=== PATIENT | male | born 1960 | race Caucasian/White ===

== ENCOUNTER 2019-08-09 02:14 | Inpatient (IN) | payer OTHER ==
--- NOTE | 2019-08-09 02:18 | PDOC ---
History of Present Illness - General Chief Complaint: Pain, Acute Stated Complaint: ABD PAIN Time Seen by Provider: 08/09/19 02:18 History Source: Patient Exam Limitations: No Limitations - History of Present Illness Initial Comments: 59 year old male with PMH HTN presented to ED for acute LLQ pain since 1999 yesterday. Pt reported his pain started in his LLQ and moved to his suprapubic area, constant, sharp, no alleviating or aggravating factors. Pt denied nausea, vomiting, diarrhea, testicular pain, blood in stool. Pt admitted to shortness of breath. Allergies: NKDA ROS General: denied fever, chills, generalized weakness. HEENT: denied sore throat, rhinorrhea, ear pain. Cardiovascular: denied chest pain, palpitations, syncope, diaphoresis. Respiratory: admitted to shortness of breath. denied cough, sputum production, hemoptysis. Gastrointestinal: admitted to abdominal pain. denied nausea, vomiting, diarrhea , constipation, blood in stool. Genitourinary: denied dysuria, increased urinary frequency, hematuria, urinary incontinence, flank pain. Back: denied back pain. Musculoskeletal: denied joint pain, muscle pain, joint swelling. Neurological: denied headache, dizziness, numbness, tingling, weakness. Integumentary: denied rash, laceration, abrasion. Hematologic/Lymphatic: denied bruising or bleeding. PE Constitutional: Well-nourished, Well-developed, appearing stated age. HEENT: head is normocephalic, atraumatic. EOMI. PERRLA. no posterior pharyngeal erythema.no tonsillar swelling or exudates bilaterally. uvula midline. no peritonsillar swelling, tenderness or abscess. no jaw tenderness or misalignment. Neck: supple. Full ROM. Cardiovascular: regular heart rhythm. no murmurs. no pericardial friction rub. Respiratory: clear to auscultation bilaterally. no crackles, rhonchi or wheezing. no stridor. Gastrointestinal: soft, nontender. normal bowel sounds. no rebound, guarding, masses. Extremities: peripheral pulses intact. no lower extremity edema. Neurological: CN 2-12 grossly intact. moves all four extremities. Psych: awake, alert, oriented x3. follows commands. answers questions appropriately. Past History - Past Medical History Allergies/Adverse Reactions: Allergies Allergy/AdvReac Type Severity Reaction Status Date / Time No Known Allergies Allergy Verified 08/09/19 02:16 Home Medications: Ambulatory Orders Amlodipine Besylate/Benazepril [Lotrel 5-10 mg Capsule] 1 each PO DAILY GI Disorders: Yes (reflux) HTN: Yes - Immunization History Immunization Up to Date: Yes - Suicide/Smoking/Psychosocial Hx Smoking Status: No Smoking History: Never smoked Number of Cigarettes Smoked Daily: 0 Hx Alcohol Use: Yes (occasion) Drug/Substance Use Hx: No Substance Use Type: None ED Treatment Course - LABORATORY CBC & Chemistry Diagram: 08/09/19 02:20 08/09/19 02:20 Medical Decision Making - Medical Decision Making 59 year old male with above PMH presentd to ED for acute LLQ/suprapubic pain. Positive rebound on examination. Initial Vital Signs Temp Pulse Resp BP Pulse Ox 101 F H 140 H 26 H 140/101 H 94 L 08/09/19 02:16 08/09/19 02:16 08/09/19 02:16 08/09/19 02:16 08/09/19 02:16 Febrile. Tachycardic. Tachypneic. Hypertensive. Mild hypoxia on room air. -NC 2L O2 ordered -NPO Labs ordered: CBC, CMP, mag, troponin, BNP, blood cultures, UA/UC Imaging ordered: CXR, CT abdomen/pelvis with IV contrast Medications ordered: tylenol IV, morphine 2 mg IV once, zofran 4 mg IV once, normal saline bolus 1000 cc once, zosyn EKG performed at 0218: rate 144, regular rhythm, left axis, no acute ST changes. 08/09/19 03:14 CBC WBC 23.3 K/mm3 (4.0-10.0) H 08/09/19 02:20 RBC 4.75 M/mm3 (4.00-5.60) 08/09/19 02:20 Hgb 14.0 GM/dL (11.7-16.9) 08/09/19 02:20 Hct 42.4 % (35.4-49) 08/09/19 02:20 MCV 89.3 fl (80-96) 08/09/19 02:20 MCH 29.5 pg (25.7-33.7) 08/09/19 02:20 MCHC 33.1 g/dl (32.0-35.9) 08/09/19 02:20 RDW 14.4 % (11.9-15.9) 08/09/19 02:20 Plt Count 383 K/MM3 (134-434) D 08/09/19 02:20 MPV 7.9 fl (7.5-11.1) 08/09/19 02:20 Absolute Neuts (auto) 21.4 K/mm3 (1.5-8.0) H 08/09/19 02:20 Neutrophils % 91.8 % (42.8-82.8) H D 08/09/19 02:20 Lymphocytes % 4.2 % (8-40) L D 08/09/19 02:20 Monocytes % 3.9 % (3.8-10.2) 08/09/19 02:20 Eosinophils % 0.0 % (0-4.5) D 08/09/19 02:20 Basophils % 0.1 % (0-2.0) 08/09/19 02:20 Nucleated RBC % 0 % (0-0) 08/09/19 02:20 Leukocytosis with left shift. No anemia. No thrombocytosis. 08/09/19 03:35 CMP Sodium 138 mmol/L (136-145) 08/09/19 02:20 Potassium 4.3 mmol/L (3.5-5.1) 08/09/19 02:20 Chloride 101 mmol/L (98-107) 08/09/19 02:20 Carbon Dioxide 23 mmol/L (21-32) 08/09/19 02:20 Anion Gap 14 MMOL/L (8-16) 08/09/19 02:20 BUN 15.8 mg/dL (7-18) 08/09/19 02:20 Creatinine 1.4 mg/dL (0.55-1.3) H 08/09/19 02:20 Est GFR (CKD-EPI)AfAm 63.29 08/09/19 02:20 Est GFR (CKD-EPI)NonAf 54.60 08/09/19 02:20 Random Glucose 140 mg/dL (74-106) H 08/09/19 02:20 Lactic Acid 3.3 mmol/L (0.4-2.0) H* 08/09/19 02:20 Calcium 8.6 mg/dL (8.5-10.1) 08/09/19 02:20 Magnesium 1.8 mg/dL (1.8-2.4) 08/09/19 02:20 Total Bilirubin 0.6 mg/dL (0.2-1) 08/09/19 02:20 AST 34 U/L (15-37) 08/09/19 02:20 ALT 49 U/L (13-61) 08/09/19 02:20 Alkaline Phosphatase 55 U/L (45-117) 08/09/19 02:20 Troponin I < 0.02 ng/ml (0.00-0.05) 08/09/19 02:20 B-Natriuretic Peptide 202.9 pg/ml (5-125) H 08/09/19 02:20 Total Protein 7.3 g/dl (6.4-8.2) 08/09/19 02:20 Albumin 3.6 g/dl (3.4-5.0) 08/09/19 02:20 Lipase 60 U/L (73-393) L 08/09/19 02:20 TSH 0.90 uIU/ml (0.358-3.74) D 08/09/19 02:20 No electrolyte abnormalities. Mild JASEN. No transaminitis. Mild BNP elevation. Troponin undetectable Lab reported Lactate 3.4 -Will continue to IV fluid hydrate 08/09/19 04:14 CT reported diverticulosis with diverticulitis with normal appendix. Pt to be admitted for diverticulitis, sepsis. Pending admission. *DC/Admit/Observation/Transfer Diagnosis at time of Disposition: Lactate blood increased, Sepsis, Leukocytosis, Respiratory alkalosis, Diverticulitis - Discharge Dispostion Condition at time of disposition: Stable Decision to Admit order: Yes - Referrals Referrals: Alejo Bertrand MD [Primary Care Provider] - - Patient Instructions - Post Discharge Activity
[2019-08-09] MEDS ORDERED: ACETAMINOPHEN 1000 MG/100 ML VIAL (NON FORMULARY) IVPB ONE (02:20)
[2019-08-09] MEDS ORDERED: SODIUM CHLORIDE 1,000 ML IV STA ×2 (02:20→04:48)
[2019-08-09] MEDS ORDERED: ACETAMINOPHEN INJECTION 100 ML IVPB ONE ×3 (02:24→14:22)
[2019-08-09] MEDS ORDERED: PIPERACILLIN/TAZOB 3.375 GM 3.375 GM/50 ML BAG IVPB ONE (02:33)
[2019-08-09] MEDS ORDERED: MORPHINE SULFATE 2 MG/ML VIAL ONE ×2 (02:33→03:53)
[2019-08-09] MEDS ORDERED: PIPERACILLIN/TAZOB 4.5 GM 4.5 GM/100 ML BAG IVPB ONE (02:37)
[2019-08-09] MEDS ORDERED: morphine CARPU-JECT 4 MG/1 ML DISP.SYRIN IVPUSH ONE ×2 (02:39→03:53)
[2019-08-09] MEDS ORDERED: ONDANSETRON 4 MG/2 ML VIAL IVPUSH ONE (02:40)
[2019-08-09 02:41] LABS: VENOUS PC02 30.6 mmHg (38-52); VENOUS PH 7.46 (7.31-7.41)
[2019-08-09 02:42] LABS: BASO % 0.1 % (0-2.0); HEMATOCRIT 42.4 % (35.4-49); LYMPH % 4.2 % (8-40); MCH 29.5 pg (25.7-33.7); MCHC 33.1 g/dl (32.0-35.9); MEAN CELL VOLUME 89.3 fl (80-96); MEAN PLT VOLUME 7.9 fl (7.5-11.1); MONO % 3.9 % (3.8-10.2); NEUT % 91.8 % (42.8-82.8); PLATELET COUNT 383 K/MM3 (134-434); RBC 4.75 M/mm3 (4.00-5.60); RDW 14.4 % (11.9-15.9); WHITE BLOOD COUNT 23.3 K/mm3 (4.0-10.0)
[2019-08-09] MEDS ORDERED: ONDANSETRON 4 MG/2 ML VIAL ONE (02:42)
[2019-08-09 02:43] LABS: VENOUS PO2 67.7 mmHg (28-48)
--- NOTE | 2019-08-09 02:49 | PDOC ---
Attending Attestation - Resident Resident Name: Gay Schroeder - ED Attending Attestation I have performed the following: I have examined & evaluated the patient, The case was reviewed & discussed with the resident, I agree w/resident's findings & plan - HPI HPI: 08/09/19 02:46 Pt comes with lower abd pain. States that it woke him from sleep. He has no penile, testicular pain or dysuria or discharge. He has a fever. Pt likely has an appy or colitis. - Physicial Exam PE: 08/09/19 02:47 Lower abd rebound and slught guarding. Tachycardia, and fever and no upper quadrant tenderness. No chest pain. Heart is Regular rhythm, No flank pain. Pitting edema of the legs bilat. Pt has a low pulsox of 91% - Medical Decision Making 08/09/19 02:49 Preop labs; UA; CVR; CT abd/pelvis ordered. 08/09/19 03:10 Pt has a WBC of 23; he has Cr of 1.4 He will be sent for abd pelvs non contrast CT scan 08/09/19 03:18 I am worried about perforated colon or perforated appy. 08/09/19 03:18 Pt's BP has come down to 137 systoloc; but HR is still 120-130 despite 500ml NSS and ofirmev and zosyn 4.5g Pt will also be given Metronidazole 500mg IV Pt went to CT scan CXR shows moderate cardiomegaly on portable. Costophrenic angles appear clear. 08/09/19 03:37 Pt will be admitted for acute appendicitis. Hospitalist will be called. 08/09/19 04:16 Patient Name: JOSE MADRID THIS IS A PRELIMINARY REPORT FROM [facility] DATE OF SERVICE: 2019-08-09 03:09:15 IMAGES: [id number] EXAM: CT ABDOMEN AND PELVIS WITHOUT CONTRAST Diverticulosis colon with fat stranding near mid sigmoid colon, possibly acute divertiuclitis. No abscess, bowel obstruction or free air. Normal appendix. Trace ascites No nephrolithiasis, ureterolithiasis or obstructive uropathy. No bladder calculi. Unremarkable pancreas and gallbladder. Coronary artery disease Small left inguinal region hernia containing fat 08/09/19 04:16 Pt will be admitted for diverticulitis 08/09/19 04:49 UA is normal. Pt will have a 2nd lactic acid ordered. 08/09/19 05:55 2nd lactic acid is pending. Pt is sleeping comforably and he has been admitted.
[2019-08-09 03:06] LABS: ALBUMIN 3.6 g/dl (3.4-5.0); BILIRUBIN,TOTAL 0.6 mg/dL (0.2-1); BLOOD UREA NITROGEN 15.8 mg/dL (7-18); CALCIUM 8.6 mg/dL (8.5-10.1); CREATININE 1.4 mg/dL (0.55-1.3); POTASSIUM 4.3 mmol/L (3.5-5.1); TOT PROT 7.3 g/dl (6.4-8.2)
[2019-08-09 03:10] LABS: INR 1.16 (0.83-1.09); PROTHROMBIN TIME (PATIENT) 13.7 SEC (9.7-13.0)
[2019-08-09] MEDS ORDERED: amLODIPine BESYLATE 5 MG TABLET (FP) PO ONE (03:12)
[2019-08-09 03:13] LABS: ACTIVATED PTT 33.4 SECONDS (25.2-36.5)
[2019-08-09 03:14] LABS: LIPASE 60 U/L (73-393); MAGNESIUM 1.8 mg/dL (1.8-2.4); N-TERMINAL BNP 202.9 pg/ml (5-125)
[2019-08-09] MEDS ORDERED: amLODIPine BESYLATE 5 MG TABLET (FP) ONE (03:23)
[2019-08-09] MEDS ORDERED: LACTATED RINGERS SOLUTION 1000 ML INFUS.BAG IV ONE (03:34)
[2019-08-09 04:42] LABS: PH,URINE 5.5 (5.0-8.0); URINE APPEARANCE CLEAR; URINE BILIRUBIN NEGATIVE (NEGATIVE); URINE COLOR YELLOW; URINE GLUCOSE (UA) NEGATIVE (NEGATIVE); URINE KETONE NEGATIVE (NEGATIVE); URINE LEUK ESTERASE NEGATIVE (NEGATIVE); URINE NITRITE NEGATIVE (NEGATIVE); URINE PROTEIN NEGATIVE (NEGATIVE)
--- NOTE | 2019-08-09 04:42 | PN ---
Teaching Attending Note Name of Resident: Pepe Gomez ATTENDING PHYSICIAN STATEMENT I saw and evaluated the patient. Chart, data, imaging reviewed. I reviewed the resident's note and discussed the case with the resident. I agree with the resident's findings and plan as documented. SUBJECTIVE: 59 year old male with HTN presented to ED for acute LLQ pain since 8pm on 08/08. Pt reported his pain started in his LLQ and moved to his suprapubic area, constant, sharp. He was sitting at his desk when his pain started. OBJECTIVE: Last Vital Signs Temp Pulse Resp BP Pulse Ox 100.4 F H 110 H 24 H 109/73 98 08/09/19 04:20 08/09/19 06:12 08/09/19 05:47 08/09/19 05:47 08/09/19 05:47 general- nad, nontoxic heent- nc, at neck -supple cv-s1+s2+rrr, no m,r,g chest clear abdomen -obese, mild subumbilical tenderness ext- no pedal edema appreciated Abnormal Lab Results 08/09/19 08/09/19 08/09/19 02:20 02:20 02:20 WBC 23.3 H Absolute Neuts (auto) 21.4 H Neutrophils % 91.8 H D Lymphocytes % 4.2 L D Lymphocytes % (Manual) 4.0 L PT with INR 13.70 H INR 1.16 H VBG pH POC VBG pCO2 POC VBG pO2 VBG HCO3 VBG O2 Sat (Claudio) Creatinine 1.4 H Random Glucose 140 H Lactic Acid B-Natriuretic Peptide Lipase 08/09/19 08/09/19 08/09/19 02:20 02:20 02:20 WBC Absolute Neuts (auto) Neutrophils % Lymphocytes % Lymphocytes % (Manual) PT with INR INR VBG pH 7.46 H POC VBG pCO2 30.6 L POC VBG pO2 67.7 H VBG HCO3 21.6 L VBG O2 Sat (Claudio) 92.0 H Creatinine Random Glucose Lactic Acid 3.3 H* B-Natriuretic Peptide 202.9 H Lipase 60 L 08/09/19 05:10 WBC Absolute Neuts (auto) Neutrophils % Lymphocytes % Lymphocytes % (Manual) PT with INR INR VBG pH POC VBG pCO2 POC VBG pO2 VBG HCO3 VBG O2 Sat (Claudio) Creatinine Random Glucose Lactic Acid 2.4 H* B-Natriuretic Peptide Lipase imaging reviewed abd ct - + diverticulitis, no free air under diaphragm ASSESSMENT AND PLAN: #sepsis secondary to diverticulitis, fever, tachycardia, leukocytosis, +lactic acidosis. Stable for admission to floor. S/p 2L IV fluid in ER, pip/tazo. -admit to med/surg -blood cultures sent -iv fluid hydration -ceftriaxone 2g iv q24hrs -flagyl -repeat lactate -trend cbc #JASEN - may be secondary to sepsis -iv fluid hydration -renal u/s -avoid nephrotoxins -send a1c dvt ppx -heparin sc
--- NOTE | 2019-08-09 05:00 | HP ---
CHIEF COMPLAINT: acute abdominal pain PCP: Dr. Jerzy León HISTORY OF PRESENT ILLNESS: Pepe Pena is a 59 year old male with a past medical history of hypertension and reflux who presented to the ED with acute abdominal pain. The patient stated he was in his usual state of health until 8PM on 07/08/19 when he began to feel a sharp pain in his LLQ that would not remit while sitting at his computer. He stated that the pain was sharp in nature, was not position dependent, had no alleviating or remitting factors. He first attributed this pain to gas however the pain was more severe than gas pain and did not go away. The pain currently is located in the suprapubic area with some radiation to the LLQ. The patient stated that he felt some chills but otherwise did not have other symptoms such as diarrhea, constipation, bloody bowel movements, melena, fever, nausea, vomiting, radiation of abdominal pain elsewhere, back pain, chest pain, shortness of breath. No other acute complaints. In the ED, the patient's pain improved with pain medication. ER course was notable for: (1) Vitals febrile, tachycardic, tachypneic (2) WBC 23.3 with left shift, lactic acidosis 3.3, CRE 1.4 (3) CT with diverticulosis of colon with fat stranding near sigmoid colon suggestive of acute diverticulitis, no abscess, bowel obstruction, normal appendix PAST MEDICAL HISTORY: as above PAST SURGICAL HISTORY: R hip replacement Social History: Smoking: denies Alcohol: rarely Drugs: denies Family History: Brother - [place] Allergies No Known Allergies Allergy (Verified 08/09/19 02:16) HOME MEDICATIONS: Home Medications Medication Instructions Recorded Amlodipine Besylate/Benazepril 1 each PO DAILY 08/03/15 [Lotrel 5-10 mg Capsule] REVIEW OF SYSTEMS CONSTITUTIONAL: chills Absent: fever, diaphoresis, generalized weakness, malaise, loss of appetite, weight change HEENT: Absent: rhinorrhea, nasal congestion, throat pain, throat swelling, difficulty swallowing, visual changes CARDIOVASCULAR: Absent: chest pain, syncope, palpitations, irregular heart rate, lightheadedness , peripheral edema RESPIRATORY: Absent: cough, shortness of breath, dyspnea with exertion, orthopnea, wheezing, GASTROINTESTINAL: abdominal pain (RLQ and suprapubic pain) Absent: abdominal distension, nausea, vomiting, diarrhea, constipation, GENITOURINARY: Absent: dysuria, frequency, urgency, hesitancy, hematuria, flank pain MUSCULOSKELETAL: Absent: myalgia, arthralgia, joint swelling, back pain, neck pain SKIN: Absent: rash, itching, pallor HEMATOLOGIC/IMMUNOLOGIC: Absent: easy bleeding, easy bruising, lymphadenopathy, frequent infections ENDOCRINE: Absent: unexplained weight gain, unexplained weight loss, heat intolerance, cold intolerance NEUROLOGIC: Absent: headache, focal weakness or paresthesias, dizziness, unsteady gait, seizure, mental status changes, bladder or bowel incontinence PSYCHIATRIC: Absent: anxiety, depression, suicidal or homicidal ideation, hallucinations. PHYSICAL EXAMINATION Vital Signs - 24 hr 08/09/19 08/09/19 08/09/19 02:16 02:48 03:33 Temperature 101 F H Pulse Rate 140 H 130 H Pulse Rate [ 130 H Apical] Respiratory 26 H 24 H Rate Blood Pressure 140/101 H Blood Pressure 130/85 [Right Arm] O2 Sat by Pulse 94 L 94 L 95 Oximetry (%) 08/09/19 04:20 Temperature 100.4 F H Pulse Rate Pulse Rate [ 123 H Apical] Respiratory 28 H Rate Blood Pressure Blood Pressure 120/79 [Right Arm] O2 Sat by Pulse 97 Oximetry (%) GENERAL: Awake, alert, and fully oriented, in no acute distress. HEAD: Normal with no signs of trauma. EYES: Pupils equal, round and reactive to light, extraocular movements intact, sclera anicteric, conjunctiva clear. EARS, NOSE, THROAT: Oropharynx clear without exudates. Moist mucous membranes. NECK: Normal range of motion, supple without lymphadenopathy, JVD. LUNGS: Breath sounds equal, clear to auscultation bilaterally. No wheezes, and no crackles. No accessory muscle use. HEART: Regular rate and rhythm, normal S1 and S2 without murmur, rub or gallop. ABDOMEN: Soft, mildly tender in the suprapubic area, mildly distended, hypoactive bowel sounds, no guarding, no rebound, no masses. MUSCULOSKELETAL: Normal range of motion at all joints. No bony deformities or tenderness. UPPER EXTREMITIES: 2+ pulses, warm, well-perfused. No cyanosis. No clubbing. No peripheral edema. LOWER EXTREMITIES: 2+ pulses, warm, well-perfused. No calf tenderness. No peripheral edema. NEUROLOGICAL: Cranial nerves II-XII intact. 5/5 muscle strength bilaterally upper and lower extremities. PSYCHIATRIC: Cooperative. Good eye contact. Appropriate mood and affect. SKIN: Warm, dry, normal turgor, no rashes or lesions noted, normal capillary refill. Laboratory Results - last 24 hr 08/09/19 08/09/19 08/09/19 02:20 02:20 02:20 WBC 23.3 H RBC 4.75 Hgb 14.0 Hct 42.4 MCV 89.3 MCH 29.5 MCHC 33.1 RDW 14.4 Plt Count 383 D MPV 7.9 Absolute Neuts (auto) 21.4 H Neutrophils % 91.8 H D Lymphocytes % 4.2 L D Monocytes % 3.9 Eosinophils % 0.0 D Basophils % 0.1 Nucleated RBC % 0 PT with INR 13.70 H INR 1.16 H PTT (Actin FS) 33.4 VBG pH POC VBG pCO2 POC VBG pO2 VBG HCO3 VBG O2 Sat (Claudio) VBG Base Excess Sodium 138 Potassium 4.3 Chloride 101 Carbon Dioxide 23 Anion Gap 14 BUN 15.8 Creatinine 1.4 H Est GFR (CKD-EPI)AfAm 63.29 Est GFR (CKD-EPI)NonAf 54.60 Random Glucose 140 H Lactic Acid Calcium 8.6 Magnesium Total Bilirubin 0.6 AST 34 ALT 49 Alkaline Phosphatase 55 Troponin I B-Natriuretic Peptide Total Protein 7.3 Albumin 3.6 Lipase TSH Urine Color Urine Appearance Urine pH Ur Specific [place] Urine Protein Urine Glucose (UA) Urine Ketones Urine Blood Urine Nitrite Urine Bilirubin Urine Urobilinogen Ur Leukocyte Esterase Blood Type Antibody Screen 08/09/19 08/09/19 08/09/19 02:20 02:20 02:20 WBC RBC Hgb Hct MCV MCH MCHC RDW Plt Count MPV Absolute Neuts (auto) Neutrophils % Lymphocytes % Monocytes % Eosinophils % Basophils % Nucleated RBC % PT with INR INR PTT (Actin FS) VBG pH 7.46 H POC VBG pCO2 30.6 L POC VBG pO2 67.7 H VBG HCO3 21.6 L VBG O2 Sat (Claudio) 92.0 H VBG Base Excess -0.8 Sodium Potassium Chloride Carbon Dioxide Anion Gap BUN Creatinine Est GFR (CKD-EPI)AfAm Est GFR (CKD-EPI)NonAf Random Glucose Lactic Acid 3.3 H* Calcium Magnesium 1.8 Total Bilirubin AST ALT Alkaline Phosphatase Troponin I < 0.02 B-Natriuretic Peptide 202.9 H Total Protein Albumin Lipase 60 L TSH 0.90 D Urine Color Urine Appearance Urine pH Ur Specific [place] Urine Protein Urine Glucose (UA) Urine Ketones Urine Blood Urine Nitrite Urine Bilirubin Urine Urobilinogen Ur Leukocyte Esterase Blood Type Antibody Screen 08/09/19 08/09/19 02:45 04:00 WBC RBC Hgb Hct MCV MCH MCHC RDW Plt Count MPV Absolute Neuts (auto) Neutrophils % Lymphocytes % Monocytes % Eosinophils % Basophils % Nucleated RBC % PT with INR INR PTT (Actin FS) VBG pH POC VBG pCO2 POC VBG pO2 VBG HCO3 VBG O2 Sat (Claudio) VBG Base Excess Sodium Potassium Chloride Carbon Dioxide Anion Gap BUN Creatinine Est GFR (CKD-EPI)AfAm Est GFR (CKD-EPI)NonAf Random Glucose Lactic Acid Calcium Magnesium Total Bilirubin AST ALT Alkaline Phosphatase Troponin I B-Natriuretic Peptide Total Protein Albumin Lipase TSH Urine Color Yellow Urine Appearance Clear Urine pH 5.5 Ur Specific [place] 1.034 Urine Protein Negative Urine Glucose (UA) Negative Urine Ketones Negative Urine Blood Negative Urine Nitrite Negative Urine Bilirubin Negative Urine Urobilinogen 1.0 Ur Leukocyte Esterase Negative Blood Type O POSITIVE Antibody Screen Negative EKG--> sinus tachycardia, Q waves in lead III, aVF, QTc 445 ASSESSMENT/PLAN: Pepe Pena is a 59 year old male with a past medical history of hypertension and reflux presenting for acute abdominal pain and sepsis likely secondary to diverticulitis. Sepsis secondary to diverticulitis JASEN HTN Abnormal EKG Sepsis secondary to diverticulitis - CT as above - continue fluids, NS at 100cc/hr - Flagyl 500mg q8h - Ceftriaxone 2mg daily - clear liquid diet as tolerated - Tylenol IV for pain control - repeat lactic 2.4, improving, continue fluids, continue to trend - blood cultures pending JASEN - likely in the setting of sepsis - continue fluids and trend CRE - obtain urine electrolytes, CRE - CT results as above, can consider renal U/S HTN - hold BP meds in the setting of sepsis - can restart when sepsis resolving Abnormal EKG - EKG as above - questionable history of infarct - repeat EKG - Echo to evaluate to systolic function FEN - NS at 100cc/hr - continue to monitor electrolytes and replete as necessary - clear liquids diet as tolerated Prophylaxis - heparin 5000 units subq tid Code - full code PEPE KOLESNIK DO - PGY-1 Visit type - Emergency Visit Emergency Visit: Yes ED Registration Date: 08/09/19 Care time: The patient presented to the Emergency Department on the above date and was hospitalized for further evaluation of their emergent condition. - New Patient This patient is new to me today: Yes Date on this admission: 08/09/19 - Critical Care Critical Care patient: No
[2019-08-09] MEDS: SODIUM CHLORIDE 1,000 ML IV SCH ×2 (06:01→18:13)
[2019-08-09] MEDS ORDERED: CEFTRIAXONE 2 GM/100 ML BAG IVPB ONE (06:02)
[2019-08-09] MEDS: CEFTRIAXONE 2 GM in DEXTROSE 5%-WATER 100 ML IVPB SCH (06:05)
[2019-08-09] MEDS ORDERED: HEPARIN NA (PORCINE) 5,000 UNITS/ML 1ML VIAL ONE ×2 (06:08→14:28)
[2019-08-09] MEDS: HEPARIN NA (PORCINE) 5,000 UNITS/ML 1ML VIAL SQ SCH ×3 (06:11→21:35)
[2019-08-09] MEDS: ACETAMINOPHEN 1000 MG/100 ML VIAL (NON FORMULARY) IVPB PRN ×3 (09:14→21:30)
--- NOTE | 2019-08-09 11:25 | EKG ---
Test Reason : Blood Pressure : / mmHG Vent. Rate : 144 BPM Atrial Rate : 144 BPM P-R Int : 132 ms QRS Dur : 082 ms QT Int : 288 ms P-R-T Axes : 017 -41 015 degrees QTc Int : 445 ms SINUS TACHYCARDIA LEFT AXIS DEVIATION INFERIOR INFARCT , AGE UNDETERMINED POSSIBLE ANTERIOR INFARCT , AGE UNDETERMINED ABNORMAL ECG WHEN COMPARED WITH ECG OF 31-JUL-2018 14:58, VENT. RATE HAS INCREASED BY 50 BPM INFERIOR INFARCT IS NOW PRESENT Confirmed by AMOL VELEZ MD ([id number]) on 08/09/2019 11:25:15 AM Referred By: Confirmed By:AMOL VELEZ MD
--- NOTE | 2019-08-09 16:04 | PN ---
Physical Exam: SUBJECTIVE: Patient seen and examined. He reports LLQ abdominal pain 4-5/10 with no radiation at this time. He denies n/v/d, and fever. He reports chills. No hx of colonoscopy. OBJECTIVE: Vital Signs Period Temp Pulse Resp BP Sys/Cramer Pulse Ox Last 24 Hr 98.9 F-101 F 99-140 18-28 109-140/72-101 94-98 GENERAL: The patient is awake, alert, and fully oriented, in no acute distress. HEAD: Normal with no signs of trauma. EYES: PERRL, extraocular movements intact, sclera anicteric, conjunctiva clear. No ptosis. ENT: Ears normal, nares patent, moist mucous membranes. NECK: Trachea midline, full range of motion, supple. LUNGS: Breath sounds equal, clear to auscultation bilaterally, no wheezes, no crackles, no accessory muscle use. HEART: Regular rate and rhythm, S1, S2 without murmur, rub or gallop. ABDOMEN: Mild distention, LLQ tender on palpation, normoactive bowel sounds, no guarding EXTREMITIES: 2+ pulses, warm, well-perfused, no edema. NEUROLOGICAL: Cranial nerves II through XII grossly intact. Normal speech, gait not observed. PSYCH: Normal mood, normal affect. SKIN: Warm, dry, normal turgor, no rashes or lesions noted Laboratory Results - last 24 hr 08/09/19 08/09/19 08/09/19 02:20 02:20 02:20 WBC 23.3 H RBC 4.75 Hgb 14.0 Hct 42.4 MCV 89.3 MCH 29.5 MCHC 33.1 RDW 14.4 Plt Count 383 D MPV 7.9 Absolute Neuts (auto) 21.4 H Total Counted 100 Neutrophils % 91.8 H D Neutrophils % (Manual) 77.0 Band Neutrophils % 13.0 Lymphocytes % 4.2 L D Lymphocytes % (Manual) 4.0 L Monocytes % 3.9 Monocytes % (Manual) 6 Eosinophils % 0.0 D Basophils % 0.1 Nucleated RBC % 0 PT with INR 13.70 H INR 1.16 H PTT (Actin FS) 33.4 VBG pH POC VBG pCO2 POC VBG pO2 VBG HCO3 VBG O2 Sat (Claudio) VBG Base Excess Sodium 138 Potassium 4.3 Chloride 101 Carbon Dioxide 23 Anion Gap 14 BUN 15.8 Creatinine 1.4 H Est GFR (CKD-EPI)AfAm 63.29 Est GFR (CKD-EPI)NonAf 54.60 Random Glucose 140 H Lactic Acid Calcium 8.6 Magnesium Total Bilirubin 0.6 AST 34 ALT 49 Alkaline Phosphatase 55 Creatine Kinase Troponin I B-Natriuretic Peptide Total Protein 7.3 Albumin 3.6 Lipase TSH Urine Color Urine Appearance Urine pH Ur Specific [place] Urine Protein Urine Glucose (UA) Urine Ketones Urine Blood Urine Nitrite Urine Bilirubin Urine Urobilinogen Ur Leukocyte Esterase Ur Random Creatinine Ur Random Sodium Ur Random Potassium Ur Random Chloride Blood Type Antibody Screen 08/09/19 08/09/19 08/09/19 02:20 02:20 02:20 WBC RBC Hgb Hct MCV MCH MCHC RDW Plt Count MPV Absolute Neuts (auto) Total Counted Neutrophils % Neutrophils % (Manual) Band Neutrophils % Lymphocytes % Lymphocytes % (Manual) Monocytes % Monocytes % (Manual) Eosinophils % Basophils % Nucleated RBC % PT with INR INR PTT (Actin FS) VBG pH 7.46 H POC VBG pCO2 30.6 L POC VBG pO2 67.7 H VBG HCO3 21.6 L VBG O2 Sat (Claudio) 92.0 H VBG Base Excess -0.8 Sodium Potassium Chloride Carbon Dioxide Anion Gap BUN Creatinine Est GFR (CKD-EPI)AfAm Est GFR (CKD-EPI)NonAf Random Glucose Lactic Acid 3.3 H* Calcium Magnesium 1.8 Total Bilirubin AST ALT Alkaline Phosphatase Creatine Kinase 61 Troponin I < 0.02 B-Natriuretic Peptide 202.9 H Total Protein Albumin Lipase 60 L TSH 0.90 D Urine Color Urine Appearance Urine pH Ur Specific [place] Urine Protein Urine Glucose (UA) Urine Ketones Urine Blood Urine Nitrite Urine Bilirubin Urine Urobilinogen Ur Leukocyte Esterase Ur Random Creatinine Ur Random Sodium Ur Random Potassium Ur Random Chloride Blood Type Antibody Screen 08/09/19 08/09/19 08/09/19 02:45 04:00 05:10 WBC RBC Hgb Hct MCV MCH MCHC RDW Plt Count MPV Absolute Neuts (auto) Total Counted Neutrophils % Neutrophils % (Manual) Band Neutrophils % Lymphocytes % Lymphocytes % (Manual) Monocytes % Monocytes % (Manual) Eosinophils % Basophils % Nucleated RBC % PT with INR INR PTT (Actin FS) VBG pH POC VBG pCO2 POC VBG pO2 VBG HCO3 VBG O2 Sat (Claudio) VBG Base Excess Sodium Potassium Chloride Carbon Dioxide Anion Gap BUN Creatinine Est GFR (CKD-EPI)AfAm Est GFR (CKD-EPI)NonAf Random Glucose Lactic Acid 2.4 H* Calcium Magnesium Total Bilirubin AST ALT Alkaline Phosphatase Creatine Kinase Troponin I B-Natriuretic Peptide Total Protein Albumin Lipase TSH Urine Color Yellow Urine Appearance Clear Urine pH 5.5 Ur Specific [place] 1.034 Urine Protein Negative Urine Glucose (UA) Negative Urine Ketones Negative Urine Blood Negative Urine Nitrite Negative Urine Bilirubin Negative Urine Urobilinogen 1.0 Ur Leukocyte Esterase Negative Ur Random Creatinine Ur Random Sodium Ur Random Potassium Ur Random Chloride Blood Type O POSITIVE Antibody Screen Negative 08/09/19 08/09/19 08/09/19 06:10 10:16 10:16 WBC RBC Hgb Hct MCV MCH MCHC RDW Plt Count MPV Absolute Neuts (auto) Total Counted Neutrophils % Neutrophils % (Manual) Band Neutrophils % Lymphocytes % Lymphocytes % (Manual) Monocytes % Monocytes % (Manual) Eosinophils % Basophils % Nucleated RBC % PT with INR INR PTT (Actin FS) VBG pH POC VBG pCO2 POC VBG pO2 VBG HCO3 VBG O2 Sat (Claudio) VBG Base Excess Sodium Potassium Chloride Carbon Dioxide Anion Gap BUN Creatinine Est GFR (CKD-EPI)AfAm Est GFR (CKD-EPI)NonAf Random Glucose Lactic Acid Calcium Magnesium Total Bilirubin AST ALT Alkaline Phosphatase Creatine Kinase Troponin I B-Natriuretic Peptide Total Protein Albumin Lipase TSH Urine Color Urine Appearance Urine pH Ur Specific [place] Urine Protein Urine Glucose (UA) Urine Ketones Urine Blood Urine Nitrite Urine Bilirubin Urine Urobilinogen Ur Leukocyte Esterase Ur Random Creatinine 102.0 Ur Random Sodium 116 Ur Random Potassium 86.1 Ur Random Chloride 164 Blood Type O POSITIVE Antibody Screen Active Medications Generic Name Dose Route Start Last Admin Trade Name Freq PRN Reason Stop Dose Admin Acetaminophen 1,000 mg 08/09/19 04:53 08/09/19 14:27 Ofirmev Injection - IVPB 1,000 mg Q6H PRN Administration PAIN OR FEVER Heparin Sodium (Porcine) 5,000 unit 08/09/19 06:00 08/09/19 14:27 Heparin - SQ 5,000 unit TID ANNA Administration Sodium Chloride 1,000 mls @ 100 mls/hr 08/09/19 04:30 08/09/19 06:01 Normal Saline - IV 100 mls/hr ASDIR ANNA Administration Metronidazole 500 mg in 100 mls @ 100 mls/hr 08/09/19 10:00 08/09/19 09:16 Flagyl 500mg Premixed Ivpb - IVPB 100 mls/hr Q8H-IV ANNA Administration Ceftriaxone Sodium 2 gm/ 100 mls @ 200 mls/hr 08/09/19 05:30 08/09/19 06:05 Dextrose IVPB 200 mls/hr DAILY ANNA Administration ASSESSMENT/PLAN: Mr. Pena is a 59 y/o male with HTN and GERD who presents with sudden onset LLQ abdominal pain and chills. #severe sepsis 2/2 diverticulitis LA 3.3-->2.4. WBC 23.3. Temp 101. -flagyl day 1 -ceftriaxone day 1 -NS 100mL/hr -NPO -repeat LA -blood cultures pending -f/u with GI for colonoscopy #JASEN pre-renal from sepsis -continue hydration #HTN hold BP meds for now, add if becomes hypertensive FEN NS 100mL/hr monitor lytes NPO DVT Ppx heparin Visit type - Emergency Visit Emergency Visit: Yes ED Registration Date: 08/09/19 Care time: The patient presented to the Emergency Department on the above date and was hospitalized for further evaluation of their emergent condition. - New Patient This patient is new to me today: Yes Date on this admission: 08/09/19 - Critical Care Critical Care patient: No - Discharge Referral Referred to [facility] No ATTENDING PHYSICIAN STATEMENT I saw and evaluated the patient. I reviewed the resident's note and discussed the case with the resident. I agree with the resident's findings and plan as documented. SUBJECTIVE: OBJECTIVE: ASSESSMENT AND PLAN:
--- NOTE | 2019-08-09 16:57 | PN ---
Teaching Attending Note Name of Resident: Vickie Joseph ATTENDING PHYSICIAN STATEMENT I saw and evaluated the patient. I reviewed the resident's note and discussed the case with the resident. I agree with the resident's findings and plan as documented. SUBJECTIVE:c/o abdominal pain but improved from arrival. 1st episode of diverticulitis. deneis Cp, SOb, fever, chills, n/v/C/D, no colonoscopy in the past OBJECTIVE: Last Vital Signs Temp Pulse Resp BP Pulse Ox 98.6 F 99 H 17 136/80 94 L 08/09/19 16:17 08/09/19 16:17 08/09/19 16:17 08/09/19 16:17 08/09/19 16:17 General NAD CV S1 S2 tachy lungs CTA B/L no wheezing/rales/rhonchi Abdomen +LLQ tenderness +distended. dull to percussion. soft +BS Extremities no pedal edema ASSESSMENT AND PLAN: 59yo M with PMH HTN presented to the ER with abdominal pain and found to be septic due to diverticulitis 1. Severe sepsis due to diverticulitis- Tm 101 and tachycardia which has improved. lactic acidosis resolved. cont NPO, IVF, ceftriaxone and flagyl day 1. will need colonoscopy in 6-8weeks. f/u cx 2. JASEN- due to sepsis. cont IVF. avoid nephrotoxic agents 3. HTN- controlled. hold oral agents. re-start as needed 4. DVT ppx- hep sq
[2019-08-09] MEDS: ONDANSETRON 4 MG/2 ML VIAL IVPUSH PRN (22:21)
[2019-08-10] MEDS: HEPARIN NA (PORCINE) 5,000 UNITS/ML 1ML VIAL SQ SCH ×3 (06:45→21:45)
[2019-08-10] MEDS: SODIUM CHLORIDE 1,000 ML IV SCH (06:46)
[2019-08-10 07:37] LABS: BLOOD UREA NITROGEN 17.1 mg/dL (7-18); CALCIUM 8.3 mg/dL (8.5-10.1); CREATININE 1.2 mg/dL (0.55-1.3); PHOSPHOROUS 2.5 mg/dL (2.5-4.9); POTASSIUM 3.8 mmol/L (3.5-5.1)
[2019-08-10 08:03] LABS: BASO % 0.2 % (0-2.0); EOS % 0.1 % (0-4.5); HEMATOCRIT 36.9 % (35.4-49); HEMOGLOBIN 12.4 GM/dL (11.7-16.9); LYMPH % 7.1 % (8-40); MCHC 33.5 g/dl (32.0-35.9); MEAN CELL VOLUME 89.6 fl (80-96); MEAN PLT VOLUME 7.9 fl (7.5-11.1); MONO % 5.3 % (3.8-10.2); NEUT % 87.3 % (42.8-82.8); PLATELET COUNT 299 K/MM3 (134-434); RBC 4.11 M/mm3 (4.00-5.60); RDW 14.7 % (11.9-15.9); WHITE BLOOD COUNT 17.4 K/mm3 (4.0-10.0)
[2019-08-10] MEDS ORDERED: DEXTROSE 5%-WATER 100 ML IVPB ONE (09:26)
[2019-08-10] MEDS: CEFTRIAXONE 2 GM in DEXTROSE 5%-WATER 100 ML IVPB SCH (09:31)
--- NOTE | 2019-08-10 10:12 | CONSULT ---
- Consultation REQUESTING PROVIDER: Mateusz MATHEWS CONSULT REQUEST: We have been asked to surgically evaluate this patient for abdominal pain whose origin is acute diverticulitis. PCP:Chema Gutiérrez MD HISTORY OF PRESENT ILLNESS: AB who is a 59 y/o W/M who presented 08/08/19 w/ acute onset of LLQ pain; he came to the ED for evaluation; he neverhad this before; he has never had a colonoscopy; he denies any other GI/ c/o; pain he stated was sharp and localized at the onset and has improved since admission. He does not smoke PMHx: HTN PSHx: THR Home Medications Medication Instructions Recorded Amlodipine Besylate/Benazepril 1 each PO DAILY 08/03/15 [Lotrel 5-10 mg Capsule] Amlodipine Besylate/Benazepril 1 each PO DAILY 08/09/19 [Amlodipine-Benazepril 10-20 mg] Allergies Allergy/AdvReac Type Severity Reaction Status Date / Time No Known Allergies Allergy Verified 08/09/19 02:16 REVIEW OF SYSTEMS: CONSTITUTIONAL: Absent: fever, chills, diaphoresis, generalized weakness, malaise, loss of appetite, weight change CARDIOVASCULAR: Absent: chest pain, syncope, palpitations, irregular heart rate, lightheadedness , peripheral edema RESPIRATORY: Absent: cough, shortness of breath, dyspnea with exertion, wheezing, stridor, hemoptysis GASTROINTESTINAL: Absent: abdominal pain, abdominal distension, nausea, vomiting, diarrhea, constipation, melena, hematochezia GENITOURINARY: Absent: dysuria, frequency, urgency, hesitancy, hematuria, flank pain, genital pain MUSCULOSKELETAL: Present: myalgia, arthralgia, joint swelling, back pain, neck pain SKIN: Absent: rash, itching, pallor HEMATOLOGIC/IMMUNOLOGIC: Absent: easy bleeding, easy bruising, lymphadenopathy NEUROLOGIC: Absent: headache, focal weakness, paresthesias, dizziness, unsteady gait, seizure, mental status changes, bladder or bowel incontinence PSYCHIATRIC: Absent: anxiety, depression, suicidal or homicidal ideation, hallucinations. PHYSICAL EXAM: GENERAL: Awake, alert, and fully oriented, in no acute distress. HEAD: Normal with no signs of trauma. EYES: PERRL, sclera anicteric, conjunctiva clear. NECK: Normal ROM, supple without lymphadenopathy, JVD, or masses. ABDOMEN: Soft, LLQ tender, not distended, normoactive bowel sounds, no guarding , no rebound, no masses. No organomegaly. No hernias; no scars MUSCULOSKELETAL: Normal ROM at all joints. No bony deformities or tenderness. No CVA tenderness. UPPER EXTREMITIES: 2+ pulses, warm, well-perfused. No cyanosis. Cap refill <2 seconds. No peripheral edema. LOWER EXTREMITIES: 2+ pulses, warm, well-perfused. No calf tenderness. No peripheral edema. NEUROLOGICAL: Normal speech, gait not observed. PSYCH: Cooperative. Good eye contact. Appropriate mood and affect. SKIN: Warm, dry, normal turgor, no rashes or lesions noted. Vital Signs Temperature 99 F 08/10/19 06:00 Pulse Rate 98 H 08/10/19 06:00 Respiratory Rate 20 08/10/19 06:00 Blood Pressure 146/94 08/10/19 06:00 O2 Sat by Pulse Oximetry (%) 96 08/09/19 18:00 Lab Results WBC 17.4 K/mm3 (4.0-10.0) H 08/10/19 06:30 RBC 4.11 M/mm3 (4.00-5.60) 08/10/19 06:30 Hgb 12.4 GM/dL (11.7-16.9) 08/10/19 06:30 Hct 36.9 % (35.4-49) 08/10/19 06:30 MCV 89.6 fl (80-96) 08/10/19 06:30 MCHC 33.5 g/dl (32.0-35.9) 08/10/19 06:30 RDW 14.7 % (11.9-15.9) 08/10/19 06:30 Plt Count 299 K/MM3 (134-434) D 08/10/19 06:30 Sodium 140 mmol/L (136-145) 08/10/19 06:30 Potassium 3.8 mmol/L (3.5-5.1) 08/10/19 06:30 Chloride 100 mmol/L (98-107) 08/10/19 06:30 Carbon Dioxide 25 mmol/L (21-32) 08/10/19 06:30 Anion Gap 15 MMOL/L (8-16) 08/10/19 06:30 BUN 17.1 mg/dL (7-18) 08/10/19 06:30 Creatinine 1.2 mg/dL (0.55-1.3) 08/10/19 06:30 Random Glucose 120 mg/dL (74-106) H 08/10/19 06:30 Calcium 8.3 mg/dL (8.5-10.1) L 08/10/19 06:30 Blood Type O POSITIVE 08/09/19 06:10 Antibody Screen Negative 08/09/19 02:45 INR 1.16 (0.83-1.09) H 08/09/19 02:20 CT a/p reviewed IMP: acute sigmoid diverticulitis w/ abscess and/or microperfoation. PLAN: NPO/IVF/IVAB's; trend temperature and WBC; if continues to respond to conservative tx. will consider trial of clear liquids 08/11/19; will need outpatient colonoscopy 6-8 weeks post d/c to r/o malignancy and document extent of the disease and f/u CT scan a/p prior to d/c.
--- NOTE | 2019-08-10 10:20 | ECHO ---
Name: JOSE MADRID Exam:Adult Echocardiogram Study Date: 08/10/2019 08:05 AM Age: 59 yrs Reason For Study: Abnormal ECG Height: 67 in Weight: 220 lb BSA: 2.1 m2 MMode/2D Measurements & Calculations IVSd: 1.1 cm Ao root diam: 2.9 cm LVIDd: 4.9 cm LA dimension: 3.9 cm LVIDs: 3.4 cm LVPWd: 0.91 cm EDV(Teich): 110.7 ml LVOT diam: 2.0 cm ESV(Teich): 46.4 ml LAV (MOD-bp): 73.7 ml Doppler Measurements & Calculations MV E max fer: 77.1 cm/sec Ao V2 max: 168.3 cm/sec MV A max fer: 119.8 cm/sec Ao max P.3 mmHg MV E/A: 0.64 MV dec time: 0.08 sec ROSANNA(V,D): 2.3 cm2 LV V1 max P.6 mmHg PA V2 max: 122.2 cm/sec LV V1 max: 128.5 cm/sec PA max P.0 mmHg Med Peak E' Fer: 7.3 cm/sec Med E/e': 10.6 Lat Peak E' Fer: 9.5 cm/sec Lat E/e': 8.1 Procedure A complete two-dimensional transthoracic echocardiogram was performed (2D, M-mode, Doppler and color flow Doppler). The study was technically difficult with many images being suboptimal in quality. Left Ventricle The left ventricular size, thickness and function are normal. Ejection Fraction = 60%. E/A reversal c onsistent with but not diagnostic of poor LV compliance. The left ventricular wall motion is normal. Right Ventricle The right ventricle is normal in size and function. Mitral Valve The mitral valve is normal in structure and function. There is trace mitral regurgitation. Tricuspid Valve The tricuspid valve is normal in structure and function. There is trace tricuspid regurgitation. Ther e was insufficient TR detected to calculate RV systolic pressure. Aortic Valve The aortic valve is normal in structure and function. Pulmonic Valve The pulmonic valve is not well visualized. Great Vessels The aortic root is normal size. Pericardium/Pleura There is no pericardial effusion. There is no pleural effusion. Interpretation Summary The study was technically difficult with many images being suboptimal in quality. The left ventricular size, thickness and function are normal Ejection Fraction = 60%. There is trace mitral regurgitation. There is trace tricuspid regurgitation. MD Ricardo Bailon 08/10/2019 10:19 AM
[2019-08-10] MEDS: ONDANSETRON 4 MG/2 ML VIAL IVPUSH PRN ×2 (11:03→17:46)
--- NOTE | 2019-08-10 11:12 | EKG ---
Test Reason : Blood Pressure : / mmHG Vent. Rate : 099 BPM Atrial Rate : 099 BPM P-R Int : 158 ms QRS Dur : 094 ms QT Int : 370 ms P-R-T Axes : 025 -24 -08 degrees QTc Int : 474 ms NORMAL SINUS RHYTHM POSSIBLE ANTERIOR INFARCT (CITED ON OR BEFORE 09-AUG-2019) ABNORMAL ECG WHEN COMPARED WITH ECG OF 09-AUG-2019 02:18, NO SIGNIFICANT CHANGE WAS FOUND Confirmed by Ricardo Bailon MD ([id number]) on 08/10/2019 11:12:16 AM Referred By: Confirmed By:Ricardo Bailon MD
--- NOTE | 2019-08-10 13:27 | PN ---
Physical Exam: SUBJECTIVE: Patient seen and examined. He reports 2 episodes of vomiting overnight. He is still NPO. Nausea resolves after vomiting. He is still having LLQ abdominal pain 4/10. He denies fever or chills. OBJECTIVE: Vital Signs Period Temp Pulse Resp BP Sys/Cramer Pulse Ox Last 24 Hr 98.2 F-99.2 F 98-104 17-20 129-146/78-94 94-96 GENERAL: The patient is awake, alert, and fully oriented, in no acute distress. HEAD: Normal with no signs of trauma. EYES: PERRL, extraocular movements intact, sclera anicteric, conjunctiva clear. No ptosis. ENT: Ears normal, nares patent, moist mucous membranes. NECK: Trachea midline, full range of motion, supple. LUNGS: Breath sounds equal, clear to auscultation bilaterally, no wheezes, no crackles, no accessory muscle use. HEART: Regular rate and rhythm, S1, S2 without murmur, rub or gallop. ABDOMEN: Mild distention, LLQ tender on palpation, normoactive bowel sounds, no guarding EXTREMITIES: 2+ pulses, warm, well-perfused, no edema. NEUROLOGICAL: Cranial nerves II through XII grossly intact. Normal speech, gait not observed. PSYCH: Normal mood, normal affect. SKIN: Warm, dry, normal turgor, no rashes or lesions noted Laboratory Results - last 24 hr 08/09/19 08/09/19 08/10/19 19:20 19:20 06:30 WBC 17.4 H RBC 4.11 Hgb 12.4 Hct 36.9 MCV 89.6 MCH 30.0 MCHC 33.5 RDW 14.7 Plt Count 299 D MPV 7.9 Absolute Neuts (auto) 15.2 H Neutrophils % 87.3 H Lymphocytes % 7.1 L D Monocytes % 5.3 Eosinophils % 0.1 D Basophils % 0.2 Nucleated RBC % 0 Sodium Potassium Chloride Carbon Dioxide Anion Gap BUN Creatinine Est GFR (CKD-EPI)AfAm Est GFR (CKD-EPI)NonAf Random Glucose Lactic Acid 1.4 Calcium Phosphorus Magnesium Troponin I < 0.02 08/10/19 06:30 WBC RBC Hgb Hct MCV MCH MCHC RDW Plt Count MPV Absolute Neuts (auto) Neutrophils % Lymphocytes % Monocytes % Eosinophils % Basophils % Nucleated RBC % Sodium 140 Potassium 3.8 Chloride 100 Carbon Dioxide 25 Anion Gap 15 BUN 17.1 Creatinine 1.2 Est GFR (CKD-EPI)AfAm 76.25 Est GFR (CKD-EPI)NonAf 65.79 Random Glucose 120 H Lactic Acid Calcium 8.3 L Phosphorus 2.5 Magnesium 2.0 Troponin I Active Medications Generic Name Dose Route Start Last Admin Trade Name Freq PRN Reason Stop Dose Admin Acetaminophen 1,000 mg 08/09/19 04:53 08/09/19 21:30 Ofirmev Injection - IVPB 1,000 mg Q6H PRN Administration PAIN OR FEVER Heparin Sodium (Porcine) 5,000 unit 08/09/19 06:00 08/10/19 06:45 Heparin - SQ 5,000 unit TID ANNA Administration Sodium Chloride 1,000 mls @ 100 mls/hr 08/09/19 04:30 08/10/19 06:46 Normal Saline - IV 100 mls/hr ASDIR ANNA Administration Metronidazole 500 mg in 100 mls @ 100 mls/hr 08/09/19 10:00 08/10/19 10:54 Flagyl 500mg Premixed Ivpb - IVPB 100 mls/hr Q8H-IV ANNA Administration Ceftriaxone Sodium 2 gm/ 100 mls @ 200 mls/hr 08/09/19 05:30 08/10/19 09:31 Dextrose IVPB 200 mls/hr DAILY ANNA Administration Ondansetron HCl 4 mg 08/09/19 21:41 08/10/19 11:03 Zofran Injection IVPUSH 4 mg Q6H PRN Administration NAUSEA ASSESSMENT/PLAN: Mr. Pena is a 59 y/o male with HTN and GERD who presents with sudden onset LLQ abdominal pain and chills. #severe sepsis 2/[address] showed sigmoid diverticulitis LA downtrending yesterday. WBC 23.3-->17.4. Temp 100.4. -flagyl day 2 -ceftriaxone day 2 -NS 100mL/hr -NPO -blood cultures pending -f/u with GI for colonoscopy -surgery recommendations- consider CT f/u prior to discharge, f/u out pt for colonoscopy in 6-8 weeks, no acute surgical intervention needed at this time, consider clear liquid diet tomorrow #JASEN pre-renal from sepsis -continue hydration #HTN hold BP meds for now, add if becomes hypertensive FEN NS 100mL/hr monitor lytes NPO DVT Ppx heparin Visit type - Emergency Visit Emergency Visit: Yes ED Registration Date: 08/09/19 Care time: The patient presented to the Emergency Department on the above date and was hospitalized for further evaluation of their emergent condition. - New Patient This patient is new to me today: No - Critical Care Critical Care patient: No - Discharge Referral Referred to [facility] No ATTENDING PHYSICIAN STATEMENT I saw and evaluated the patient. I reviewed the resident's note and discussed the case with the resident. I agree with the resident's findings and plan as documented. SUBJECTIVE: OBJECTIVE: ASSESSMENT AND PLAN:
--- NOTE | 2019-08-10 19:30 | PN ---
Teaching Attending Note Name of Resident: Vickie Joseph ATTENDING PHYSICIAN STATEMENT I saw and evaluated the patient. I reviewed the resident's note and discussed the case with the resident. I agree with the resident's findings and plan as documented. SUBJECTIVE: Abdominal pain improving. Still febrile. Vomited this AM x 1 - no hematemesis. No melena/hematochezia/diarrhea. OBJECTIVE: Febrile - T 100.6. Hemodynamically stable. Last Vital Signs Temp Pulse Resp BP Pulse Ox 100.4 F H 108 H 20 158/99 96 08/10/19 18:23 08/10/19 17:01 08/10/19 17:01 08/10/19 17:01 08/09/19 18:00 HEENT - Atraumatic, Normocephalic. Heart - S1, S2, RRR lungs - clear to auscultation Abdomen - Soft, high BMI. LLQ tenderness. Extremities - no calf tenderness. Laboratory Results - last 24 hr 08/09/19 08/09/19 08/10/19 19:20 19:20 06:30 WBC 17.4 H RBC 4.11 Hgb 12.4 Hct 36.9 MCV 89.6 MCH 30.0 MCHC 33.5 RDW 14.7 Plt Count 299 D MPV 7.9 Absolute Neuts (auto) 15.2 H Neutrophils % 87.3 H Lymphocytes % 7.1 L D Monocytes % 5.3 Eosinophils % 0.1 D Basophils % 0.2 Nucleated RBC % 0 Sodium Potassium Chloride Carbon Dioxide Anion Gap BUN Creatinine Est GFR (CKD-EPI)AfAm Est GFR (CKD-EPI)NonAf Random Glucose Lactic Acid 1.4 Calcium Phosphorus Magnesium Troponin I < 0.02 08/10/19 06:30 WBC RBC Hgb Hct MCV MCH MCHC RDW Plt Count MPV Absolute Neuts (auto) Neutrophils % Lymphocytes % Monocytes % Eosinophils % Basophils % Nucleated RBC % Sodium 140 Potassium 3.8 Chloride 100 Carbon Dioxide 25 Anion Gap 15 BUN 17.1 Creatinine 1.2 Est GFR (CKD-EPI)AfAm 76.25 Est GFR (CKD-EPI)NonAf 65.79 Random Glucose 120 H Lactic Acid Calcium 8.3 L Phosphorus 2.5 Magnesium 2.0 Troponin I Current Medications Generic Name Dose Route Start Last Admin Trade Name Freq PRN Reason Stop Dose Admin Acetaminophen 1,000 mg 08/09/19 04:53 08/09/19 21:30 Ofirmev Injection - IVPB 1,000 mg Q6H PRN Administration PAIN OR FEVER Heparin Sodium (Porcine) 5,000 unit 08/09/19 06:00 08/10/19 14:47 Heparin - SQ 5,000 unit TID ANNA Administration Sodium Chloride 1,000 mls @ 100 mls/hr 08/09/19 04:30 08/10/19 06:46 Normal Saline - IV 100 mls/hr ASDIR ANNA Administration Metronidazole 500 mg in 100 mls @ 100 mls/hr 08/09/19 10:00 08/10/19 17:41 Flagyl 500mg Premixed Ivpb - IVPB 100 mls/hr Q8H-IV ANNA Administration Ceftriaxone Sodium 2 gm/ 100 mls @ 200 mls/hr 08/09/19 05:30 08/10/19 09:31 Dextrose IVPB 200 mls/hr DAILY ANNA Administration Ondansetron HCl 4 mg 08/09/19 21:41 08/10/19 17:46 Zofran Injection IVPUSH 4 mg Q6H PRN Administration NAUSEA Home Medications Medication Instructions Recorded Amlodipine Besylate/Benazepril 1 each PO DAILY 08/03/15 [Lotrel 5-10 mg Capsule] Amlodipine Besylate/Benazepril 1 each PO DAILY 08/09/19 [Amlodipine-Benazepril 10-20 mg] ASSESSMENT AND PLAN: 59 year old male with history of HTN, presented with abdominal pain and found to be septic due to diverticulitis. 1. Severe Sepsis due to Acute Diverticulitis Still febrile - Tmax 101, now 100.6 Lactic Acidosis resolved. Leukocytosis improving Vomited this AM Continue IV hydration/NPO/Ceftriaxone and Flagyl Surgery consulted. 2. JASEN - improving with IV hydration. 3. HTN - normally on amlodipine/Benazepril (home medication dosage needs clarification) DVT Px -Heparin SQ
[2019-08-11] MEDS: ONDANSETRON 4 MG/2 ML VIAL IVPUSH PRN (00:35)
[2019-08-11] MEDS: SODIUM CHLORIDE 1,000 ML IV SCH ×2 (05:21→20:18)
[2019-08-11] MEDS: HEPARIN NA (PORCINE) 5,000 UNITS/ML 1ML VIAL SQ SCH ×3 (05:21→21:22)
--- NOTE | 2019-08-11 06:41 | PN ---
Physical Exam: SUBJECTIVE: Patient seen and examined. He reports mild abdominal pain. Last episode of vomiting was last night at 8pm. Had loose stool overnight. Pt denies fever or chills. OBJECTIVE: Vital Signs Period Temp Pulse Resp BP Sys/Cramer Pulse Ox Last 24 Hr 98.3 F-100.6 F 104-108 20-20 140-158/91-100 GENERAL: The patient is awake, alert, and fully oriented, in no acute distress. HEAD: Normal with no signs of trauma. EYES: PERRL, extraocular movements intact, sclera anicteric, conjunctiva clear. No ptosis. ENT: Ears normal, nares patent, moist mucous membranes. NECK: Trachea midline, tracheostomy tube in place, limited range of motion, supple. LUNGS: Breath sounds equal, clear to auscultation bilaterally, no wheezes HEART: Regular rate and rhythm, S1, S2 without murmur, rub or gallop. ABDOMEN: Obese. Generalized tenderness to palpation, especially right side. Incision intact with drain in place. No discoloration. hypoactive bowel sounds, no guarding EXTREMITIES: 2+ pulses, warm, well-perfused, no edema. NEUROLOGICAL: Cranial nerves II through XII grossly intact. Normal speech, gait not observed. PSYCH: Normal mood, normal affect. SKIN: Warm, dry, normal turgor, no rashes or lesions noted Laboratory Results - last 24 hr 08/10/19 08/10/19 06:30 06:30 WBC 17.4 H RBC 4.11 Hgb 12.4 Hct 36.9 MCV 89.6 MCH 30.0 MCHC 33.5 RDW 14.7 Plt Count 299 D MPV 7.9 Absolute Neuts (auto) 15.2 H Neutrophils % 87.3 H Lymphocytes % 7.1 L D Monocytes % 5.3 Eosinophils % 0.1 D Basophils % 0.2 Nucleated RBC % 0 Sodium 140 Potassium 3.8 Chloride 100 Carbon Dioxide 25 Anion Gap 15 BUN 17.1 Creatinine 1.2 Est GFR (CKD-EPI)AfAm 76.25 Est GFR (CKD-EPI)NonAf 65.79 Random Glucose 120 H Calcium 8.3 L Phosphorus 2.5 Magnesium 2.0 Active Medications Generic Name Dose Route Start Last Admin Trade Name Freq PRN Reason Stop Dose Admin Acetaminophen 1,000 mg 08/09/19 04:53 08/09/19 21:30 Ofirmev Injection - IVPB 1,000 mg Q6H PRN Administration PAIN OR FEVER Heparin Sodium (Porcine) 5,000 unit 08/09/19 06:00 08/11/19 05:21 Heparin - SQ 5,000 unit TID ANNA Administration Sodium Chloride 1,000 mls @ 100 mls/hr 08/09/19 04:30 08/11/19 05:21 Normal Saline - IV 100 mls/hr ASDIR ANNA Administration Metronidazole 500 mg in 100 mls @ 100 mls/hr 08/09/19 10:00 08/11/19 01:48 Flagyl 500mg Premixed Ivpb - IVPB 100 mls/hr Q8H-IV ANNA Administration Ceftriaxone Sodium 2 gm/ 100 mls @ 200 mls/hr 08/09/19 05:30 08/10/19 09:31 Dextrose IVPB 200 mls/hr DAILY ANNA Administration Ondansetron HCl 4 mg 08/09/19 21:41 08/11/19 00:35 Zofran Injection IVPUSH 4 mg Q6H PRN Administration NAUSEA ASSESSMENT/PLAN: Mr. Pena is a 59 y/o male with HTN and GERD who presents with sudden onset LLQ abdominal pain and chills. #severe sepsis 2/[address] showed sigmoid diverticulitis WBC 16.6 downtrending. Afebrile. Xray showed dilated loops of small bowel. Pt had BM overnight. -clear liquids -flagyl day 3 -ceftriaxone day 3 -NS 100mL/hr -NPO -blood cultures pending -surgery following -f/u with GI for colonoscopy -surgery recommendations- consider CT f/u prior to discharge, f/u out pt for colonoscopy in 6-8 weeks, no acute surgical intervention needed at this time, consider clear liquid diet tomorrow #JASEN pre-renal from sepsis -continue hydration #HTN hold BP meds for now, add if becomes hypertensive FEN NS 100mL/hr monitor lytes NPO DVT Ppx heparin Visit type - Emergency Visit Emergency Visit: Yes ED Registration Date: 08/09/19 Care time: The patient presented to the Emergency Department on the above date and was hospitalized for further evaluation of their emergent condition. - New Patient This patient is new to me today: No - Critical Care Critical Care patient: No - Discharge Referral Referred to [facility] No ATTENDING PHYSICIAN STATEMENT I saw and evaluated the patient. I reviewed the resident's note and discussed the case with the resident. I agree with the resident's findings and plan as documented. SUBJECTIVE: OBJECTIVE: ASSESSMENT AND PLAN:
[2019-08-11] MEDS ORDERED: METOPROLOL TARTRATE 5 MG/5 ML VIAL IVPB ONE (07:03)
--- NOTE | 2019-08-11 08:34 | PN ---
Progress Note (short form) - Note Progress Note: 59M h/o Diverticulitis, seen and examined at bedside. Pt states that he had a BM last night at 1am with no blood present and it was semi soft, he also passing flatus. Pt states has not had any n/v since yesterday. Pt states that he has some diffuse abd pain, but states his belly feels a little softer. Pt states he is hungry and wants to eat. Last Vital Signs Temp Pulse Resp BP Pulse Ox 99.6 F 98 H 20 151/97 96 08/11/19 06:41 08/11/19 06:41 08/11/19 06:41 08/11/19 06:41 08/09/19 18:00 PE: Gen: A&O X3 Resp: breathing comfortably Abd: soft, nontender, moderately distended Ext: no edema Problem List - Problems (1) Diverticulitis Assessment/Plan: Plan -abd x-ray this am, will consider trial of clears this AM -f/up am labs -NPO, IVF, abx -DVT ppx Code(s): K57.92 - DVTRCLI OF INTEST, PART UNSP, W/O PERF OR ABSCESS W/O BLEED
[2019-08-11 08:52] LABS: ALBUMIN 2.8 g/dl (3.4-5.0); BASO % 0.5 % (0-2.0); BILIRUBIN,TOTAL 0.6 mg/dL (0.2-1); BLOOD UREA NITROGEN 18.5 mg/dL (7-18); CALCIUM 8.1 mg/dL (8.5-10.1); CREATININE 1.1 mg/dL (0.55-1.3); HEMATOCRIT 37.8 % (35.4-49); HEMOGLOBIN 12.7 GM/dL (11.7-16.9); LYMPH % 5.6 % (8-40); MCHC 33.7 g/dl (32.0-35.9); MEAN CELL VOLUME 89.2 fl (80-96); MEAN PLT VOLUME 8.2 fl (7.5-11.1); NEUT % 88.9 % (42.8-82.8); PLATELET COUNT 331 K/MM3 (134-434); POTASSIUM 3.5 mmol/L (3.5-5.1); RBC 4.24 M/mm3 (4.00-5.60); RDW 14.7 % (11.9-15.9); TOT PROT 6.6 g/dl (6.4-8.2); WHITE BLOOD COUNT 16.6 K/mm3 (4.0-10.0)
[2019-08-11] MEDS ORDERED: PT OWN MED DRAWER 7, Y5N ONE (10:54)
[2019-08-11] MEDS ORDERED: DEXTROSE 5%-WATER 100 ML IVPB ONE (11:53)
[2019-08-11] MEDS: CEFTRIAXONE 2 GM in DEXTROSE 5%-WATER 100 ML IVPB SCH (13:08)
--- NOTE | 2019-08-11 21:17 | PN ---
Teaching Attending Note Name of Resident: Vickie Joseph ATTENDING PHYSICIAN STATEMENT I saw and evaluated the patient. I reviewed the resident's note and discussed the case with the resident. I agree with the resident's findings and plan as documented. SUBJECTIVE: Abdominal pain improved. Last vomited yesterday evening at 6pm - no hematemesis. Passed loose stool today. No melena/hematochezia/diarrhea. OBJECTIVE: Tmax 100.6. Hemodynamically stable. Last Vital Signs Temp Pulse Resp BP Pulse Ox 98.4 F 93 H 20 148/98 96 08/11/19 20:21 08/11/19 20:21 08/11/19 20:21 08/11/19 20:21 08/09/19 18:00 Heart - S1, S2, RRR lungs - clear to auscultation Abdomen - Soft, high BMI, Distended, non-tender. Extremities - no calf tenderness. Laboratory Results - last 24 hr 08/11/19 08/11/19 07:35 07:35 WBC 16.6 H RBC 4.24 Hgb 12.7 Hct 37.8 MCV 89.2 MCH 30.0 MCHC 33.7 RDW 14.7 Plt Count 331 MPV 8.2 Absolute Neuts (auto) 14.8 H Neutrophils % 88.9 H Lymphocytes % 5.6 L D Monocytes % 5.0 Eosinophils % 0.0 D Basophils % 0.5 Nucleated RBC % 0 Sodium 137 Potassium 3.5 Chloride 101 Carbon Dioxide 26 Anion Gap 10 BUN 18.5 H Creatinine 1.1 Est GFR (CKD-EPI)AfAm 84.71 Est GFR (CKD-EPI)NonAf 73.09 Random Glucose 114 H Calcium 8.1 L Total Bilirubin 0.6 AST 19 ALT 33 Alkaline Phosphatase 46 Total Protein 6.6 Albumin 2.8 L Current Medications Generic Name Dose Route Start Last Admin Trade Name Freq PRN Reason Stop Dose Admin Acetaminophen 1,000 mg 08/09/19 04:53 08/09/19 21:30 Ofirmev Injection - IVPB 1,000 mg Q6H PRN Administration PAIN OR FEVER Heparin Sodium (Porcine) 5,000 unit 08/09/19 06:00 08/11/19 14:43 Heparin - SQ 5,000 unit TID ANNA Administration Sodium Chloride 1,000 mls @ 100 mls/hr 08/09/19 04:30 08/11/19 20:18 Normal Saline - IV 100 mls/hr ASDIR ANNA Administration Metronidazole 500 mg in 100 mls @ 100 mls/hr 08/09/19 10:00 08/11/19 17:21 Flagyl 500mg Premixed Ivpb - IVPB 100 mls/hr Q8H-IV ANNA Administration Ceftriaxone Sodium 2 gm/ 100 mls @ 200 mls/hr 08/09/19 05:30 08/11/19 13:08 Dextrose IVPB 200 mls/hr DAILY ANNA Administration Ondansetron HCl 4 mg 08/09/19 21:41 08/11/19 00:35 Zofran Injection IVPUSH 4 mg Q6H PRN Administration NAUSEA Home Medications Medication Instructions Recorded Amlodipine Besylate/Benazepril 1 each PO DAILY 08/03/15 [Lotrel 5-10 mg Capsule] Amlodipine Besylate/Benazepril 1 each PO DAILY 08/09/19 [Amlodipine-Benazepril 10-20 mg] ASSESSMENT AND PLAN: 59 year old male with history of HTN, presented with abdominal pain and found to be septic due to diverticulitis. 1. Severe Sepsis due to Acute Diverticulitis Tmax overnight 100.6 Lactic Acidosis resolved. Leukocytosis improving, down to 16 from 23 AXR shows abnormal gas pattern - passed BM today, last vomitus yesterday, unclear whether this represents obstruction. Continue IV hydration and Ceftriaxone/Flagyl. Trial of clear liquids. Surgery following. 2. JASEN - improved with IV hydration. 3. HTN - normally on Amlodipine/Benazepril (home medication dosage needs clarification) DVT Px - Heparin SQ
[2019-08-12] MEDS: HEPARIN NA (PORCINE) 5,000 UNITS/ML 1ML VIAL SQ SCH ×3 (05:32→22:55)
[2019-08-12] MEDS: SODIUM CHLORIDE 1,000 ML IV SCH ×2 (05:32→05:33)
[2019-08-12] MEDS ORDERED: DEXTROSE 5%-WATER 100 ML IVPB ONE (07:50)
[2019-08-12] MEDS: ACETAMINOPHEN 1000 MG/100 ML VIAL (NON FORMULARY) IVPB PRN ×2 (07:54→17:01)
[2019-08-12 08:42] LABS: BASO % 0.3 % (0-2.0); EOS % 0.1 % (0-4.5); HEMATOCRIT 34.8 % (35.4-49); HEMOGLOBIN 11.7 GM/dL (11.7-16.9); LYMPH % 8.9 % (8-40); MCHC 33.5 g/dl (32.0-35.9); MEAN CELL VOLUME 89.4 fl (80-96); MEAN PLT VOLUME 7.9 fl (7.5-11.1); MONO % 8.3 % (3.8-10.2); NEUT % 82.4 % (42.8-82.8); PLATELET COUNT 321 K/MM3 (134-434); RDW 14.6 % (11.9-15.9); WHITE BLOOD COUNT 13.1 K/mm3 (4.0-10.0)
[2019-08-12 08:58] LABS: ALBUMIN 2.4 g/dl (3.4-5.0); BILIRUBIN,TOTAL 0.6 mg/dL (0.2-1); BLOOD UREA NITROGEN 12.2 mg/dL (7-18); CALCIUM 7.7 mg/dL (8.5-10.1); CREATININE 0.8 mg/dL (0.55-1.3); POTASSIUM 3.2 mmol/L (3.5-5.1); TOT PROT 5.7 g/dl (6.4-8.2)
[2019-08-12] MEDS ORDERED: LISINOPRIL 20 MG TABLET (FP) PO SCH (10:00)
[2019-08-12] MEDS ORDERED: amLODIPine BESYLATE 10 MG TABLET (FP) PO SCH (10:00)
[2019-08-12] MEDS ORDERED: PATIENT'S OWN MEDICATION (NON-FORMULARY) (Amlodipine Besylate/Benazepril [Amlodipine-Benaz PO SCH (10:00)
[2019-08-12] MEDS ORDERED: PANTOPRAZOLE SODIUM 40 MG VIAL IVPUSH SCH (10:00)
[2019-08-12] MEDS: CEFTRIAXONE 2 GM in DEXTROSE 5%-WATER 100 ML IVPB SCH (10:37)
[2019-08-12] MEDS: KCL 10 MEQ IVPB 10 MEQ/100 ML INFUS.BAG IVPB SCH ×3 (11:50→14:33)
--- NOTE | 2019-08-12 14:57 | PN ---
Physical Exam: SUBJECTIVE: Patient seen and examined this morning. Pt reported watery greenish/ dark brown stool overnight. LLQ abdominal pain returned suddenly this morning () and was improved with IV tylenol. Pt denied n/v, fever, or chills. Urgent CT abdomen was performed which showed pneumoperitoneum and dilated loops of bowel. After reading results, patient was re-examined. He reported abdominal pain did not worsen compared to the morning. On exam he was in mild distress, tachypneic, mild wheezing bilaterally, tachycardic, more distended abdomen, especially on the left, center and left side of abdomen was tender to palpation with rebound in the center, bowel sounds not appreciated. Patient was informed of CT results and that surgery would need to be done. Vital signs 155/90 HR123 T98.1 RR30 91%RA. 2L oxygen NC was initiated. Surgery was aware of results and took him to OR. OBJECTIVE: Vital Signs Period Temp Pulse Resp BP Sys/Cramer Pulse Ox Last 24 Hr 98.2 F-98.6 F 88-118 18-20 123-151/89-98 92-95 GENERAL: The patient is awake, alert, and fully oriented, in no acute distress. HEAD: Normal with no signs of trauma. EYES: PERRL, extraocular movements intact, sclera anicteric, conjunctiva clear. No ptosis. ENT: Ears normal, nares patent, moist mucous membranes. NECK: Trachea midline, full range of motion, supple. LUNGS: Breath sounds equal, clear to auscultation bilaterally, no wheezes, no crackles, no accessory muscle use. HEART: Regular rate and rhythm, S1, S2 without murmur, rub or gallop. ABDOMEN: Distended, LLQ tender to palpation, hypoactive bowel sounds EXTREMITIES: 2+ pulses, warm, well-perfused, no edema. NEUROLOGICAL: Cranial nerves II through XII grossly intact. Normal speech, gait not observed. PSYCH: Normal mood, normal affect. SKIN: Warm, dry, normal turgor, no rashes or lesions noted Laboratory Results - last 24 hr 08/12/19 08/12/19 07:14 07:14 WBC 13.1 H RBC 3.90 L Hgb 11.7 Hct 34.8 L MCV 89.4 MCH 30.0 MCHC 33.5 RDW 14.6 Plt Count 321 MPV 7.9 Absolute Neuts (auto) 10.8 H Neutrophils % 82.4 Lymphocytes % 8.9 D Monocytes % 8.3 Eosinophils % 0.1 D Basophils % 0.3 Nucleated RBC % 0 Sodium 138 Potassium 3.2 L Chloride 103 Carbon Dioxide 23 Anion Gap 12 BUN 12.2 Creatinine 0.8 Est GFR (CKD-EPI)AfAm 113.33 Est GFR (CKD-EPI)NonAf 97.78 Random Glucose 102 Calcium 7.7 L Total Bilirubin 0.6 AST 17 ALT 22 Alkaline Phosphatase 37 L Total Protein 5.7 L Albumin 2.4 L Active Medications Generic Name Dose Route Start Last Admin Trade Name Freq PRN Reason Stop Dose Admin Acetaminophen 1,000 mg 08/09/19 04:53 08/12/19 07:54 Ofirmev Injection - IVPB 1,000 mg Q6H PRN Administration PAIN OR FEVER Amlodipine Besylate 10 mg 08/12/19 10:00 08/12/19 09:56 Norvasc - PO 10 mg DAILY ANNA Administration Heparin Sodium (Porcine) 5,000 unit 08/09/19 06:00 08/12/19 13:14 Heparin - SQ 5,000 unit TID ANNA Administration Sodium Chloride 1,000 mls @ 100 mls/hr 08/09/19 04:30 08/12/19 05:33 Normal Saline - IV Not Given ASDIR ANNA Metronidazole 500 mg in 100 mls @ 100 mls/hr 08/09/19 10:00 08/12/19 09:59 Flagyl 500mg Premixed Ivpb - IVPB 100 mls/hr Q8H-IV ANNA Administration Ceftriaxone Sodium 2 gm/ 100 mls @ 200 mls/hr 08/09/19 05:30 08/12/19 10:37 Dextrose IVPB 200 mls/hr DAILY ANNA Administration Lisinopril 20 mg 08/12/19 10:00 08/12/19 09:56 Prinivil PO 20 mg DAILY ANNA Administration Ondansetron HCl 4 mg 08/09/19 21:41 08/11/19 00:35 Zofran Injection IVPUSH 4 mg Q6H PRN Administration NAUSEA Pantoprazole Sodium 40 mg 08/12/19 10:00 08/12/19 10:14 Protonix Iv IVPUSH 40 mg DAILY ANNA Administration ASSESSMENT/PLAN: Mr. Pena is a 59 y/o male with HTN and GERD who presents with sudden onset LLQ abdominal pain and chills. #severe sepsis 2/[address] showed sigmoid diverticulitis WBC 13.1 downtrending. Afebrile. Xray showed dilated loops of small bowel. Pt had loose BM overnight. -CT today -diverticulitis diet -flagyl day 4 -ceftriaxone day 4 -IV protonix 40mg Q daily -NS 100mL/hr -blood cultures prelim negative -surgery following -f/u with GI for colonoscopy -surgery recommendations- f/u out pt for colonoscopy in 6-8 weeks, no acute surgical intervention needed at this time -PT consulted -CBC #hypokalemia 3.2, likely 2/2 GI fluid losses -repleted -CMP, Mg, Phos #JASEN pre-renal from sepsis -continue hydration #HTN -restart home med equivalent- lisinopril 20mg Q daily, amlodipine 10mg Q daily FEN NS 100mL/hr monitor lytes NPO DVT Ppx heparin Visit type - Emergency Visit Emergency Visit: Yes ED Registration Date: 08/09/19 Care time: The patient presented to the Emergency Department on the above date and was hospitalized for further evaluation of their emergent condition. - New Patient This patient is new to me today: No - Critical Care Critical Care patient: No - Discharge Referral Referred to [facility] Yes ATTENDING PHYSICIAN STATEMENT I saw and evaluated the patient. I reviewed the resident's note and discussed the case with the resident. I agree with the resident's findings and plan as documented. SUBJECTIVE: OBJECTIVE: ASSESSMENT AND PLAN:
[2019-08-12] MEDS ORDERED: MORPHINE SULFATE 2 MG/ML VIAL IVPUSH PRN ×2 (15:44→21:58)
[2019-08-12] MEDS ORDERED: SODIUM CHLORIDE 1,000 ML IV STA (15:48)
--- NOTE | 2019-08-12 16:23 | PN ---
Progress Note (short form) - Note Progress Note: Attending Surgeon Patient seen earlier today; he had been started on a diet yesterday by the primary team and it was recommended he have a repeat CT scan of the a/p which was ordered earlier today; I was concerned about his exam earlier today after he was started on a diet and he was c/o LLQ pain at the time; I was notified in the last [address] scan findings and I returned to see him; he is c/o diffuse abdominal pain; I apprised him of the CT scan findings and that he would require surgery based on those CT scan findings. T 103.0 P120 BP systolic 150 m Hg. abdo-obese and distended and tympanitic w/ s's of an acute surgical abdomen. CT scan a/p c/w pneumoperitoneum IMP: perforated diverticulitis/ pneumoperitoneum and an acte surgical abdomen. PLAN: D/w the patient the need for sigmoid colon resection and colostomy ( Hartmans procedure); r/b/t/a's d/w him as well and he is amenable to surgery; I indicated to him the colostomy will most likely be temporary in nature and could be reversed in ~ 4-6 months postoperatively pending his post op course; he understands this; we discussed other post op complications which included but were not limited to intra abdominal/pelvic abscess; DVT; PE; CVA; IN and possible among others. Harsh Spencer MD FACS
[2019-08-12] MEDS ORDERED: HYDROmorphone HCl 2 MG/ML VIAL ONE (17:18)
[2019-08-12] MEDS ORDERED: fentaNYL CITRATE 250 MCG/5 ML VIAL ONE (17:18)
[2019-08-12] MEDS ORDERED: MIDAZOLAM HCL 2 MG/2 ML SINGLE DOSE VIAL ONE ×2 (17:19)
[2019-08-12] MEDS ORDERED: PROPOFOL 20 ML ONE ×2 (17:19→21:10)
[2019-08-12] MEDS ORDERED: SODIUM CHLORIDE 0.9% P/F 10 ML VIAL IJ ONE (17:25)
--- NOTE | 2019-08-12 17:44 | PN ---
Teaching Attending Note Name of Resident: Vickie Joseph ATTENDING PHYSICIAN STATEMENT I saw and evaluated the patient. I reviewed the resident's note and discussed the case with the resident. I agree with the resident's findings and plan as documented. SUBJECTIVE: Abdominal pain worsened. Last vomited 08/10 at 6pm - no hematemesis. Passed loose stool several times today. No melena/hematochezia. OBJECTIVE: Tmax 101.5. Hemodynamically stable. Last Vital Signs Temp Pulse Resp BP Pulse Ox 101.5 F H 123 H 20 155/90 92 L 08/12/19 15:46 08/12/19 15:46 08/12/19 15:46 08/12/19 15:46 08/12/19 09:00 Heart - S1, S2, RRR lungs - clear to auscultation Abdomen - High BMI, Genralized tenderness ++. Extremities - No calf tenderness. Laboratory Results - last 24 hr 08/12/19 08/12/19 07:14 07:14 WBC 13.1 H RBC 3.90 L Hgb 11.7 Hct 34.8 L MCV 89.4 MCH 30.0 MCHC 33.5 RDW 14.6 Plt Count 321 MPV 7.9 Absolute Neuts (auto) 10.8 H Neutrophils % 82.4 Lymphocytes % 8.9 D Monocytes % 8.3 Eosinophils % 0.1 D Basophils % 0.3 Nucleated RBC % 0 Sodium 138 Potassium 3.2 L Chloride 103 Carbon Dioxide 23 Anion Gap 12 BUN 12.2 Creatinine 0.8 Est GFR (CKD-EPI)AfAm 113.33 Est GFR (CKD-EPI)NonAf 97.78 Random Glucose 102 Calcium 7.7 L Total Bilirubin 0.6 AST 17 ALT 22 Alkaline Phosphatase 37 L Total Protein 5.7 L Albumin 2.4 L Current Medications Generic Name Dose Route Start Last Admin Trade Name Freq PRN Reason Stop Dose Admin Acetaminophen 1,000 mg 08/09/19 04:53 08/12/19 17:01 Ofirmev Injection - IVPB 1,000 mg Q6H PRN Administration FEVER Amlodipine Besylate 10 mg 08/12/19 10:00 08/12/19 09:56 Norvasc - PO 10 mg DAILY ANNA Administration Heparin Sodium (Porcine) 5,000 unit 08/09/19 06:00 08/12/19 13:14 Heparin - SQ 5,000 unit TID ANNA Administration Sodium Chloride 1,000 mls @ 100 mls/hr 08/09/19 04:30 08/12/19 05:33 Normal Saline - IV Not Given ASDIR ANNA Metronidazole 500 mg in 100 mls @ 100 mls/hr 08/09/19 10:00 08/12/19 17:05 Flagyl 500mg Premixed Ivpb - IVPB 100 mls/hr Q8H-IV ANNA Administration Ceftriaxone Sodium 2 gm/ 100 mls @ 200 mls/hr 08/09/19 05:30 08/12/19 10:37 Dextrose IVPB 200 mls/hr DAILY ANNA Administration Lisinopril 20 mg 08/12/19 10:00 08/12/19 09:56 Prinivil PO 20 mg DAILY ANNA Administration Morphine Sulfate 2 mg 08/12/19 15:44 Morphine Sulfate IVPUSH Q6H PRN PAIN LEVEL 6-10 Ondansetron HCl 4 mg 08/09/19 21:41 08/11/19 00:35 Zofran Injection IVPUSH 4 mg Q6H PRN Administration NAUSEA Pantoprazole Sodium 40 mg 08/12/19 10:00 08/12/19 10:14 Protonix Iv IVPUSH 40 mg DAILY ANNA Administration Home Medications Medication Instructions Recorded Amlodipine Besylate/Benazepril 1 each PO DAILY 08/09/19 [Amlodipine-Benazepril 10-20 mg] ASSESSMENT AND PLAN: 59 year old male with history of HTN, presented with abdominal pain and found to be septic due to diverticulitis. 1. Severe Sepsis and Bowel Perforation due to Acute Diverticulitis with abscess formation Developed acute abdomen with fever repeat CT A/P - Diverticulitis of the proximal sigmoid with pneumoperitoneum and 2 separate fluid collection, mesenteric shadowing, dilation of small bowel loops. Continue IV hydration and Ceftriaxone/Flagyl. For OR today - for hemicolectomy as per Surgery. Morphine/Zofran prn Jenifer-operative hydration DVT Px incentive Spirometry 2. JASEN - improved with IV hydration. 3. HTN - continue on Amlodipine/Benazepril. 4. Hypokalemia - repleted. DVT Px - Heparin SQ GI Px - PPI
[2019-08-12] MEDS ORDERED: LIDOCAINE HCL/PF 2% SDV 5ML VIAL ONE (18:45)
[2019-08-12] MEDS ORDERED: NEOSTIGMINE METHYLSULFATE 0.5 MG/1 ML - 10 ML MDV ONE (21:07)
[2019-08-12] MEDS ORDERED: HYDROmorphone *PCA* 10MG/50ML DISP.SYRIN ONE (21:44)
[2019-08-12] MEDS: HYDROmorphone *PCA* 10MG/50ML DISP.SYRIN PCA SCH (21:45)
[2019-08-12] MEDS ORDERED: ONDANSETRON 4 MG/2 ML VIAL IVPUSH PRN ×2 (21:50→21:58)
[2019-08-12] MEDS ORDERED: PROMETHAZINE HCL 25 MG/1 ML VIAL IVPUSH PRN (21:50)
[2019-08-12] MEDS ORDERED: SODIUM CHLORIDE 1,000 ML IV SCH (21:50)
[2019-08-12] MEDS ORDERED: ACETAMINOPHEN 1000 MG/100 ML VIAL (NON FORMULARY) IVPB ONE (21:51)
--- NOTE | 2019-08-12 21:57 | OP ---
Operative Note - Note: Operative Date: 08/12/19 Pre-Operative Diagnosis: perforated diverticulitis / free air Operation: exploratory laparotomy with resection of sigmoid and colostomy Post-Operative Diagnosis: Same as Pre-op Surgeon: Harsh Spencer Electrical Installation Inspector: Maribell Justin Anesthesiologist/THERAPEUTIC RECREATION SPECIALIST: Praveen Harper Anesthesia: General Specimens Removed: sigmoid colon Estimated Blood Loss (mls): 150 Drains & Tubes with Location: stuart drain RLQ Drains, Volume Out (mls): 250 ([place]) Fluid Volume Replaced (mls): 3,000 Operative Report Dictated: Yes
[2019-08-12] MEDS ORDERED: ACETAMINOPHEN 1000 MG/100 ML VIAL (NON FORMULARY) IVPB PRN (21:58)
--- NOTE | 2019-08-12 21:59 | SURG ---
Surgery Family Preservation Caseworker Note Family Preservation Caseworker: Maribell Justin PA-C Date of Service: 08/12/19 Diagnosis: perforated diverticulits/ free air Procedure: exploratory laparotomy with resection of sigmoid with colostomy I was present for the entirety of the operative procedure. For further detail, please refer to operative report. Visit type - Case Type Case Type: ED Admission - Emergency Emergency Visit: Yes ED Registration Date: 08/09/19 Care time: The patient presented to the Emergency Department on the above date and was hospitalized for further evaluation of their emergent condition. - New patient This patient is new to me today: Yes Date on this admission: 08/12/19
[2019-08-12] MEDS ORDERED: CHLORHEXIDINE GLUCONATE 4% CLEANSER FOR DECOLONIZATION TP SCH (22:00)
[2019-08-12] MEDS ORDERED: MUPIROCIN 2% TOPICAL OINTMENT FOR DECOLONIZATION NS SCH (22:00)
[2019-08-12] MEDS ORDERED: ACETAMINOPHEN INJECTION 100 ML IVPB ONE (22:32)
[2019-08-12] MEDS: LACTATED RINGERS SOLUTION 1,000 ML IV SCH (22:36)
--- NOTE | 2019-08-13 05:18 | CONSULT ---
Consultation: REQUESTING PROVIDER: Dr Spencer CONSULT REQUEST: We have been asked to medically evaluate this patient for (s/p exploratory laparotomy with resection of sigmoid and formation of colostomy 2/2 perforated Diverticulitis). HISTORY OF PRESENT ILLNESS: Pt is a 59 y/o M with a significant past medical history of HTN who presented initially to [facility] due to severe abdominal pain. Initial imaging studies did not reveal pneumoperitoneum however on later imaging, pneumoperitoneum was identified. Pt was diagnosed with perforated diverticulitis. Pt underwent an exploratory laparotomy with resection of sigmoid and formation of colostomy. REVIEW OF SYSTEMS: CONSTITUTIONAL: Absent: fever, chills, diaphoresis, generalized weakness, malaise, loss of appetite, weight change HEENT: Absent: rhinorrhea, nasal congestion, throat pain, throat swelling, difficulty swallowing, mouth swelling, ear pain, eye pain, visual changes CARDIOVASCULAR: Absent: chest pain, syncope, palpitations, irregular heart rate, lightheadedness , peripheral edema RESPIRATORY: Absent: cough, shortness of breath, dyspnea with exertion, orthopnea, wheezing, stridor, hemoptysis GASTROINTESTINAL: Absent: abdominal pain, abdominal distension, nausea, vomiting, diarrhea, constipation, melena, hematochezia GENITOURINARY: Absent: dysuria, frequency, urgency, hesitancy, hematuria, flank pain, genital pain MUSCULOSKELETAL: Absent: myalgia, arthralgia, joint swelling, back pain, neck pain SKIN: Absent: rash, itching, pallor HEMATOLOGIC/IMMUNOLOGIC: Absent: easy bleeding, easy bruising, lymphadenopathy, frequent infections ENDOCRINE: Absent: unexplained weight gain, unexplained weight loss, heat intolerance, cold intolerance NEUROLOGIC: Absent: headache, focal weakness or paresthesias, dizziness, unsteady gait, seizure, mental status changes, bladder or bowel incontinence PSYCHIATRIC: Absent: anxiety, depression, suicidal or homicidal ideation, hallucinations. PHYSICAL EXAMINATION Vital Signs - 24 hr 08/12/19 08/12/19 08/12/19 07:10 09:00 14:00 Temperature 98.2 F 98.6 F 98.3 F Pulse Rate 92 H 88 118 H Respiratory 20 20 20 Rate Blood Pressure 149/95 151/97 124/90 O2 Sat by Pulse 92 L Oximetry (%) 08/12/19 08/12/19 08/12/19 15:46 17:00 21:00 Temperature 101.5 F H 103 F H Pulse Rate 123 H 123 H Respiratory 20 20 Rate Blood Pressure 155/90 145/100 O2 Sat by Pulse 96 Oximetry (%) 08/12/19 08/12/19 08/12/19 21:32 21:45 22:00 Temperature 98.9 F Pulse Rate 110 H 112 H 104 H Respiratory 20 16 14 Rate Blood Pressure 108/63 115/70 110/70 O2 Sat by Pulse 94 L 95 93 L Oximetry (%) 08/12/19 08/12/19 08/12/19 22:15 22:30 22:45 Temperature Pulse Rate 100 H 100 H 94 H Respiratory 16 16 16 Rate Blood Pressure 114/65 120/92 117/75 O2 Sat by Pulse 94 L 94 L 95 Oximetry (%) 08/12/19 08/12/19 08/12/19 22:55 23:15 23:45 Temperature 98.9 F Pulse Rate 98 H 101 H 100 H Respiratory 14 12 12 Rate Blood Pressure 103/72 108/77 108/77 O2 Sat by Pulse 95 96 97 Oximetry (%) 08/13/19 08/13/19 08/13/19 00:17 01:45 03:53 Temperature Pulse Rate 93 H 101 H 82 Respiratory 12 14 20 Rate Blood Pressure 99/64 110/70 92/76 O2 Sat by Pulse 98 95 Oximetry (%) GENERAL: NAD AAOx3 HEAD: Normal with no signs of trauma. EYES: EOMI Sclera Clear EARS, NOSE, THROAT: MMM LUNGS:CTAB HEART: RRR S1S2 ABDOMEN: Surgical bandage in place non-oozing, dry. Colostomy with pink stoma. No stool in bag. Bowel sounds not heard. LOWER EXTREMITIES: No CCE. PSYCHIATRIC: Cooperative. Good eye contact. Appropriate mood and affect. SKIN: Warm, dry, normal turgor, no rashes or lesions noted. Laboratory Results - last 24 hr 08/12/19 08/12/19 07:14 07:14 WBC 13.1 H RBC 3.90 L Hgb 11.7 Hct 34.8 L MCV 89.4 MCH 30.0 MCHC 33.5 RDW 14.6 Plt Count 321 MPV 7.9 Absolute Neuts (auto) 10.8 H Neutrophils % 82.4 Lymphocytes % 8.9 D Monocytes % 8.3 Eosinophils % 0.1 D Basophils % 0.3 Nucleated RBC % 0 Sodium 138 Potassium 3.2 L Chloride 103 Carbon Dioxide 23 Anion Gap 12 BUN 12.2 Creatinine 0.8 Est GFR (CKD-EPI)AfAm 113.33 Est GFR (CKD-EPI)NonAf 97.78 Random Glucose 102 Calcium 7.7 L Total Bilirubin 0.6 AST 17 ALT 22 Alkaline Phosphatase 37 L Total Protein 5.7 L Albumin 2.4 L Active Medications Generic Name Dose Route Start Last Admin Trade Name Freq PRN Reason Stop Dose Admin Acetaminophen 1,000 mg 08/12/19 21:58 Ofirmev Injection - IVPB Q6H PRN FEVER Amlodipine Besylate 10 mg 08/13/19 10:00 Norvasc - PO DAILY ANNA Fentanyl 50 mcg 08/12/19 21:50 Sublimaze Injection - IVPUSH [id number] PRN PAIN-PACU ORDER X 4 DOSES ONLY Heparin Sodium (Porcine) 5,000 unit 08/12/19 22:00 08/12/19 22:55 Heparin - SQ 5,000 unit TID ANNA Administration Hydromorphone HCl 10 mg 08/12/19 22:00 08/12/19 21:45 Hydromorphone 10 Mg/50 Ml-Ns PRODUCTION LINE SOLDERER 08/19/19 21:48 10 mg PRODUCTION LINE SOLDERER ANNA Administration Protocol Lactated Ringer's 1,000 mls @ 125 mls/hr 08/12/19 22:00 08/12/19 22:36 Lactated Ringers Solution IV 125 mls/hr ASDIR ANNA Administration Ceftriaxone Sodium 2 gm/ 100 mls @ 200 mls/hr 08/13/19 10:00 Dextrose IVPB DAILY ANNA Metronidazole 500 mg in 100 mls @ 100 mls/hr 08/13/19 02:00 08/13/19 01:42 Flagyl 500mg Premixed Ivpb - IVPB 100 mls/hr Q8H-IV ANNA Administration Lisinopril 20 mg 08/13/19 10:00 Prinivil PO DAILY ANNA Morphine Sulfate 2 mg 08/12/19 21:58 Morphine Sulfate IVPUSH Q6H PRN PAIN LEVEL 6-10 Ondansetron HCl 4 mg 08/12/19 21:50 Zofran Injection IVPUSH Q6H PRN NAUSEA AND/OR VOMITING Ondansetron HCl 4 mg 08/12/19 21:58 Zofran Injection IVPUSH Q6H PRN NAUSEA Pantoprazole Sodium 40 mg 08/13/19 10:00 Protonix Iv IVPUSH DAILY ANNA Promethazine HCl 12.5 mg 08/12/19 21:50 Phenergan Injection - IVPUSH Q6H PRN NAUSEA-FOR RESCUE AFTER 15 MIN ASSESSMENT/PLAN: Pt is a 59 y/o M with a significant past medical history of HTN who presented initially to [facility] due to severe abdominal pain and ultimately found to have pneumoperitoneum 2/2 perforated diverticulitis. #CARDIO- HTN -C/w Amlodipine 10 daily, Lisinopril 20 Daily -tele monitoring #GI: Perforated Diverticulitis -CTAP: Diverticulitis of the proximal sigmoid with pneumoperitoneum and 2 separate fluid collection, mesenteric shadowing, dilation of small bowel loops. -S/p exploratory laparotomy with resection of sigmoid and formation of colostomy -Ceftriaxone/Flagyl -Ofirmev and Morphine 2 mg Q6H PRN Analgesia -Zofran for nausea -Surgery on board #RENAL- Akute Kidney Injury Cr 1.4. Now 0.8. Most likely 2/2 sepsis. Resolved -Continue IV Fluids #FEN LR@125cc/hr Monitor Electrolytes NPO #DVT ppx: HEPSQTID Dispo: We will continue to follow the patient. Thank you for this consultative opportunity. Visit type - Emergency Visit Emergency Visit: Yes ED Registration Date: 08/09/19 Care time: The patient presented to the Emergency Department on the above date and was hospitalized for further evaluation of their emergent condition. - New Patient This patient is new to me today: Yes Date on this admission: 08/13/19 - Critical Care Critical Care patient: Yes Total Critical Care Time (in minutes): 35 Critical Care Statement: The care of this patient involved high complexity decision making to prevent further life threatening deterioration of the patient 's condition and/or to evaluate & treat vital organ system(s) failure or risk of failure. ATTENDING PHYSICIAN STATEMENT I saw and evaluated the patient. I reviewed the resident's note and discussed the case with the resident. I agree with the resident's findings and plan as documented. SUBJECTIVE: OBJECTIVE: ASSESSMENT AND PLAN:
[2019-08-13] MEDS: HEPARIN NA (PORCINE) 5,000 UNITS/ML 1ML VIAL SQ SCH ×3 (06:38→21:33)
[2019-08-13 07:07] LABS: ALBUMIN 1.7 g/dl (3.4-5.0); BILIRUBIN,TOTAL 0.7 mg/dL (0.2-1); BLOOD UREA NITROGEN 16.8 mg/dL (7-18); CREATININE 1.6 mg/dL (0.55-1.3); MAGNESIUM 1.7 mg/dL (1.8-2.4); PHOSPHOROUS 4.3 mg/dL (2.5-4.9); POTASSIUM 4.2 mmol/L (3.5-5.1); TOT PROT 4.1 g/dl (6.4-8.2)
[2019-08-13 07:08] LABS: BASO % 0.1 % (0-2.0); EOS % 0.3 % (0-4.5); HEMATOCRIT 40.8 % (35.4-49); HEMOGLOBIN 13.6 GM/dL (11.7-16.9); MCHC 33.3 g/dl (32.0-35.9); MEAN CELL VOLUME 89.9 fl (80-96); MEAN PLT VOLUME 7.8 fl (7.5-11.1); MONO % 8.9 % (3.8-10.2); NEUT % 78.7 % (42.8-82.8); PLATELET COUNT 374 K/MM3 (134-434); RBC 4.54 M/mm3 (4.00-5.60); RDW 15.3 % (11.9-15.9); WHITE BLOOD COUNT 11.7 K/mm3 (4.0-10.0)
[2019-08-13 07:12] LABS: CALCIUM 6.6 mg/dL (8.5-10.1)
[2019-08-13] MEDS ORDERED: MAGNESIUM SULF 50% (8.12 MEQ/2 ML-1 GM VIAL) IVPB ONE (07:16)
[2019-08-13] MEDS ORDERED: LACTATED RINGERS SOLUTION 1,000 ML/1,000 ML INFUS.BAG IV STA ×2 (07:51→11:11)
[2019-08-13] MEDS ORDERED: DEXTROSE 5%-WATER 100 ML IVPB ONE (09:07)
[2019-08-13] MEDS: PANTOPRAZOLE SODIUM 40 MG VIAL IVPUSH SCH (09:09)
[2019-08-13] MEDS: CEFTRIAXONE 2 GM in DEXTROSE 5%-WATER 100 ML IVPB SCH (09:09)
[2019-08-13] MEDS: LISINOPRIL 20 MG TABLET (FP) PO SCH (09:10)
[2019-08-13] MEDS: amLODIPine BESYLATE 10 MG TABLET (FP) PO SCH (09:10)
[2019-08-13] MEDS ORDERED: SODIUM CHLORIDE 1,000 ML IV STA (09:45)
--- NOTE | 2019-08-13 11:25 | PN ---
Teaching Attending Note Name of Resident: Preston Reid ATTENDING PHYSICIAN STATEMENT I saw and evaluated the patient. I reviewed the resident's note and discussed the case with the resident. I agree with the resident's findings and plan as documented. SUBJECTIVE: Patient seen and examined in the ICU. Awake and alert. Pain seems adequately controlled. Poor urine output. Denies CP or SOB. No output from ostomy. Intake & Output 08/10/19 08/11/19 08/12/19 08/13/19 23:59 23:59 23:59 23:59 Intake Total 400 2533 4300 1100 Output Total 520 86 Balance 400 2533 3780 1014 Weight 225 lb 225 lb Last Vital Signs Temp Pulse Resp BP Pulse Ox 98 F 102 H 18 98/66 98 08/13/19 06:00 08/13/19 08:00 08/13/19 08:00 08/13/19 08:00 08/13/19 09:00 Active Medications Acetaminophen (Ofirmev Injection -) 1,000 mg IVPB Q6H PRN PRN Reason: FEVER Amlodipine Besylate (Norvasc -) 10 mg PO DAILY [facility] Last Admin: 08/13/19 09:10 Dose: Not Given Fentanyl (Sublimaze Injection -) 50 mcg IVPUSH [id number] PRN PRN Reason: PAIN-PACU ORDER X 4 DOSES ONLY Heparin Sodium (Porcine) (Heparin -) 5,000 unit SQ TID [facility] Last Admin: 08/13/19 06:38 Dose: 5,000 unit Hydromorphone HCl (Hydromorphone 10 Mg/50 Ml-Ns) 10 mg MOLD HOISTER MOLD HOISTER [facility]; Protocol Stop: 08/19/19 21:48 Last Admin: 08/12/19 21:45 Dose: 10 mg Lactated Ringer's (Lactated Ringers Solution) 1,000 mls @ 125 mls/hr IV ASDIR [facility] Last Admin: 08/12/19 22:36 Dose: 125 mls/hr Ceftriaxone Sodium 2 gm/ (Dextrose) 100 mls @ 200 mls/hr IVPB DAILY [facility] Last Admin: 08/13/19 09:09 Dose: 200 mls/hr Metronidazole (Flagyl 500mg Premixed Ivpb -) 500 mg in 100 mls @ 100 mls/hr IVPB Q8H-IV [facility] Last Admin: 08/13/19 09:09 Dose: 100 mls/hr Lactated Ringer's (Lactated Ringers Solution) 1,000 ml in 1,000 mls @ 1,000 mls /hr IV ONCE STA Stop: 08/13/19 12:10 Lisinopril (Prinivil) 20 mg PO DAILY [facility] Last Admin: 08/13/19 09:10 Dose: Not Given Morphine Sulfate (Morphine Sulfate) 2 mg IVPUSH Q6H PRN PRN Reason: PAIN LEVEL 6-10 Ondansetron HCl (Zofran Injection) 4 mg IVPUSH Q6H PRN PRN Reason: NAUSEA AND/OR VOMITING Ondansetron HCl (Zofran Injection) 4 mg IVPUSH Q6H PRN PRN Reason: NAUSEA Pantoprazole Sodium (Protonix Iv) 40 mg IVPUSH DAILY [facility] Last Admin: 08/13/19 09:09 Dose: 40 mg Promethazine HCl (Phenergan Injection -) 12.5 mg IVPUSH Q6H PRN PRN Reason: NAUSEA-FOR RESCUE AFTER 15 MIN GENERAL: NAD AAOx3 HEAD: Normal with no signs of trauma. EYES: EOMI Sclera Clear EARS, NOSE, THROAT: MMM LUNGS:CTAB HEART: RRR S1S2 ABDOMEN: Hypoactive BS, distended, surgical bandage in place, dry. Colostomy with pink stoma. No stool in bag. LOWER EXTREMITIES: No CCE. PSYCHIATRIC: Cooperative. Good eye contact. Appropriate mood and affect. SKIN: Warm, dry, normal turgor, no rashes or lesions noted. Laboratory Results - last 24 hr 08/12/19 08/12/19 07:14 07:14 WBC 13.1 H RBC 3.90 L Hgb 11.7 Hct 34.8 L MCV 89.4 MCH 30.0 MCHC 33.5 RDW 14.6 Plt Count 321 MPV 7.9 Absolute Neuts (auto) 10.8 H Neutrophils % 82.4 Lymphocytes % 8.9 D Monocytes % 8.3 Eosinophils % 0.1 D Basophils % 0.3 Nucleated RBC % 0 Sodium 138 Potassium 3.2 L Chloride 103 Carbon Dioxide 23 Anion Gap 12 BUN 12.2 Creatinine 0.8 Est GFR (CKD-EPI)AfAm 113.33 Est GFR (CKD-EPI)NonAf 97.78 Random Glucose 102 Calcium 7.7 L Total Bilirubin 0.6 AST 17 ALT 22 Alkaline Phosphatase 37 L Total Protein 5.7 L Albumin 2.4 L Active Medications Generic Name Dose Route Start Last Admin Trade Name Freq PRN Reason Stop Dose Admin Acetaminophen 1,000 mg 08/12/19 21:58 Ofirmev Injection - IVPB Q6H PRN FEVER Amlodipine Besylate 10 mg 08/13/19 10:00 Norvasc - PO DAILY ANNA Fentanyl 50 mcg 08/12/19 21:50 Sublimaze Injection - IVPUSH [id number] PRN PAIN-PACU ORDER X 4 DOSES ONLY Heparin Sodium (Porcine) 5,000 unit 08/12/19 22:00 08/12/19 22:55 Heparin - SQ 5,000 unit TID ANNA Administration Hydromorphone HCl 10 mg 08/12/19 22:00 08/12/19 21:45 Hydromorphone 10 Mg/50 Ml-Ns MOLD HOISTER 08/19/19 21:48 10 mg MOLD HOISTER ANNA Administration Protocol Lactated Ringer's 1,000 mls @ 125 mls/hr 08/12/19 22:00 08/12/19 22:36 Lactated Ringers Solution IV 125 mls/hr ASDIR ANNA Administration Ceftriaxone Sodium 2 gm/ 100 mls @ 200 mls/hr 08/13/19 10:00 Dextrose IVPB DAILY [facility] Metronidazole 500 mg in 100 mls @ 100 mls/hr 08/13/19 02:00 08/13/19 01:42 Flagyl 500mg Premixed Ivpb - IVPB 100 mls/hr Q8H-IV ANNA Administration Lisinopril 20 mg 08/13/19 10:00 Prinivil PO DAILY [facility] Morphine Sulfate 2 mg 08/12/19 21:58 Morphine Sulfate IVPUSH Q6H PRN PAIN LEVEL 6-10 Ondansetron HCl 4 mg 08/12/19 21:50 Zofran Injection IVPUSH Q6H PRN NAUSEA AND/OR VOMITING Ondansetron HCl 4 mg 08/12/19 21:58 Zofran Injection IVPUSH Q6H PRN NAUSEA Pantoprazole Sodium 40 mg 08/13/19 10:00 Protonix Iv IVPUSH DAILY [facility] Promethazine HCl 12.5 mg 08/12/19 21:50 Phenergan Injection - IVPUSH Q6H PRN NAUSEA-FOR RESCUE AFTER 15 MIN ASSESSMENT/PLAN: POD #1: S/P exploratory laparotomy with resection of sigmoid and formation of colostomy Diverticulitis of the proximal sigmoid with pneumoperitoneum HTN Increase IVF resuscitation Strict I & O O2 as needed Incentive Spirometry Noted empiric ABX Monitor for return of bowel function Pain control VTE prophylaxis Floor when OK with surgery Dr Valverde
--- NOTE | 2019-08-13 13:03 | PN ---
Progress Note (short form) - Note Progress Note: Attending Surgeon POD #1 s/p sigmoid colon resection and end colostomy for perforated/obstructed sigmoid diverticulitis. Awake; alert and OOB to chair in ICU P120 BP110 systolic afebrile RR16 ado-dressing c/d/i and on place; ostomy viable; KARI serosnaguinous WBC 11.7 Lytes OK UO noted IMP: stable post op day #1 PLAN: Continue to monitor in ICU; would keep paris as patient needs IV boluses as he is still third spacing and need to quantify I/O; will change dressings tomorrow; appreciate ICU input. Harsh Sol MD FACS
--- NOTE | 2019-08-13 17:07 | PN ---
Physical Exam: SUBJECTIVE: Patient seen and examined at bedside. Only complaint was oliguria. OBJECTIVE: Vital Signs Period Temp Pulse Resp BP Sys/Cramer Pulse Ox Last 24 Hr 98 F-98.9 F 82-115 12-20 91-120/63-92 93-98 GENERAL: The patient is awake, alert, and fully oriented, in no acute distress. HEAD: Normal with no signs of trauma. NECK: Trachea midline, full range of motion, supple. LUNGS: Breath sounds equal, clear to auscultation bilaterally, no wheezes, no crackles, no accessory muscle use. HEART: Regular rate and rhythm, S1, S2 without murmur, rub or gallop. ABDOMEN: Soft, wrapped with bandage, tender, nondistended, osteotomy putting out serosanguinous fluid. EXTREMITIES: 2+ pulses, warm, well-perfused, no edema. PSYCH: Normal mood, normal affect. SKIN: Warm, dry, no rashes or lesions noted Laboratory Results - last 24 hr 08/13/19 08/13/19 05:15 05:15 WBC 11.7 H RBC 4.54 Hgb 13.6 Hct 40.8 D MCV 89.9 MCH 30.0 MCHC 33.3 RDW 15.3 Plt Count 374 MPV 7.8 Absolute Neuts (auto) 9.2 H Neutrophils % 78.7 Lymphocytes % 12.0 D Monocytes % 8.9 Eosinophils % 0.3 D Basophils % 0.1 Nucleated RBC % 0 Sodium 136 Potassium 4.2 Chloride 105 Carbon Dioxide 22 Anion Gap 8 BUN 16.8 Creatinine 1.6 H Est GFR (CKD-EPI)AfAm 53.85 Est GFR (CKD-EPI)NonAf 46.46 Random Glucose 122 H Calcium 6.6 L* Phosphorus 4.3 Magnesium 1.7 L Total Bilirubin 0.7 AST 27 ALT 20 Alkaline Phosphatase 25 L Total Protein 4.1 L Albumin 1.7 L Active Medications Generic Name Dose Route Start Last Admin Trade Name Freq PRN Reason Stop Dose Admin Acetaminophen 1,000 mg 08/12/19 21:58 Ofirmev Injection - IVPB Q6H PRN FEVER Amlodipine Besylate 10 mg 08/13/19 10:00 08/13/19 09:10 Norvasc - PO Not Given DAILY ANNA Fentanyl 50 mcg 08/12/19 21:50 Sublimaze Injection - IVPUSH [id number] PRN PAIN-PACU ORDER X 4 DOSES ONLY Heparin Sodium (Porcine) 5,000 unit 08/12/19 22:00 08/13/19 13:45 Heparin - SQ 5,000 unit TID ANNA Administration Hydromorphone HCl 10 mg 08/12/19 22:00 08/12/19 21:45 Hydromorphone 10 Mg/50 Ml-Ns SECTION CUTTER 08/19/19 21:48 10 mg SECTION CUTTER ANNA Administration Protocol Lactated Ringer's 1,000 mls @ 125 mls/hr 08/12/19 22:00 08/12/19 22:36 Lactated Ringers Solution IV 125 mls/hr ASDIR ANNA Administration Ceftriaxone Sodium 2 gm/ 100 mls @ 200 mls/hr 08/13/19 10:00 08/13/19 09:09 Dextrose IVPB 200 mls/hr DAILY ANNA Administration Metronidazole 500 mg in 100 mls @ 100 mls/hr 08/13/19 02:00 08/13/19 09:09 Flagyl 500mg Premixed Ivpb - IVPB 100 mls/hr Q8H-IV ANNA Administration Lisinopril 20 mg 08/13/19 10:00 08/13/19 09:10 Prinivil PO Not Given DAILY ANNA Morphine Sulfate 2 mg 08/12/19 21:58 Morphine Sulfate IVPUSH Q6H PRN PAIN LEVEL 6-10 Ondansetron HCl 4 mg 08/12/19 21:50 Zofran Injection IVPUSH Q6H PRN NAUSEA AND/OR VOMITING Ondansetron HCl 4 mg 08/12/19 21:58 Zofran Injection IVPUSH Q6H PRN NAUSEA Pantoprazole Sodium 40 mg 08/13/19 10:00 08/13/19 09:09 Protonix Iv IVPUSH 40 mg DAILY ANNA Administration Promethazine HCl 12.5 mg 08/12/19 21:50 Phenergan Injection - IVPUSH Q6H PRN NAUSEA-FOR RESCUE AFTER 15 MIN ASSESSMENT/PLAN: Pt is a 59 y/o M with a significant past medical history of HTN who presented initially to [facility] due to severe abdominal pain and ultimately found to have pneumoperitoneum 2/2 perforated diverticulitis. CARDIO-> HTN -holding all hypertensive medications at this time given risk of hypotension post op. Amlodipine 10 daily, Lisinopril 20 Daily -tele monitoring #GI -> Perforated Diverticulitis -CTAP: Diverticulitis of the proximal sigmoid with pneumoperitoneum and 2 separate fluid collection, mesenteric shadowing, dilation of small bowel loops. -S/p exploratory laparotomy with resection of sigmoid and formation of colostomy , would keep pairs as patient needs IV boluses as he is still third spacing and need to quantify I/O; will change dressings tomorrow. - c/w Ceftriaxone/Flagyl -Ofirmev and Morphine 2 mg Q6H PRN Analgesia -Zofran for nausea -Surgery on board - continue protonix - continue use of incentive rick #RENAL-> Akute Kidney Injury - Most likely 2/2 sepsis. - Cr 1.4 then 0.8, now 1.6. - gave pt 1L bolus over an hr because pt oliguric - will keep paris in and continue IVF and monitor is urine o/p. #FEN LR@125cc/hr Monitor Electrolytes NPO #DVT ppx: HEPSQTID Dispo: We will continue to follow the patient. Thank you for this consultative opportunity. Visit type - Emergency Visit Emergency Visit: No - New Patient This patient is new to me today: Yes Date on this admission: 08/13/19 - Critical Care Critical Care patient: Yes Total Critical Care Time (in minutes): 40 Critical Care Statement: The care of this patient involved high complexity decision making to prevent further life threatening deterioration of the patient 's condition and/or to evaluate & treat vital organ system(s) failure or risk of failure. - Discharge Referral Referred to [facility] Med P.C.: No ATTENDING PHYSICIAN STATEMENT I saw and evaluated the patient. I reviewed the resident's note and discussed the case with the resident. I agree with the resident's findings and plan as documented. SUBJECTIVE: OBJECTIVE: ASSESSMENT AND PLAN:
--- NOTE | 2019-08-13 17:40 | PN ---
Physical Exam: SUBJECTIVE: Patient seen and examined. Pt is resting comfortably 2/10 pain. No fever, chills, nausea, chest pain, SOB. OBJECTIVE: Vital Signs Period Temp Pulse Resp BP Sys/Cramer Pulse Ox Last 24 Hr 98 F-98.9 F 82-115 12-20 91-120/63-92 93-98 GENERAL: The patient is awake, alert, and fully oriented, in no acute distress. HEAD: Normal with no signs of trauma. EYES: PERRL, extraocular movements intact, sclera anicteric, conjunctiva clear. No ptosis. ENT: Ears normal, nares patent, dry mucous membranes. NG tube in place draining green/brown NECK: Trachea midline, full range of motion, supple. LUNGS: Breath sounds equal, clear to auscultation bilaterally, no wheezes, no crackles, no accessory muscle use. HEART: Regular rate and rhythm, S1, S2 without murmur, rub or gallop. ABDOMEN: Bandaged laparotomy incision, no tenderness on palpation near site and no erythema, KARI draining serosangenous fluid. colostomy bag in place with light brown stool. No erythema round the site. EXTREMITIES: 2+ pulses, warm, well-perfused, no edema. NEUROLOGICAL: Cranial nerves II through XII grossly intact. Normal speech, gait not observed. PSYCH: Normal mood, normal affect. SKIN: Warm, dry, normal turgor, no rashes or lesions noted Laboratory Results - last 24 hr 08/13/19 08/13/19 05:15 05:15 WBC 11.7 H RBC 4.54 Hgb 13.6 Hct 40.8 D MCV 89.9 MCH 30.0 MCHC 33.3 RDW 15.3 Plt Count 374 MPV 7.8 Absolute Neuts (auto) 9.2 H Neutrophils % 78.7 Lymphocytes % 12.0 D Monocytes % 8.9 Eosinophils % 0.3 D Basophils % 0.1 Nucleated RBC % 0 Sodium 136 Potassium 4.2 Chloride 105 Carbon Dioxide 22 Anion Gap 8 BUN 16.8 Creatinine 1.6 H Est GFR (CKD-EPI)AfAm 53.85 Est GFR (CKD-EPI)NonAf 46.46 Random Glucose 122 H Calcium 6.6 L* Phosphorus 4.3 Magnesium 1.7 L Total Bilirubin 0.7 AST 27 ALT 20 Alkaline Phosphatase 25 L Total Protein 4.1 L Albumin 1.7 L Active Medications Generic Name Dose Route Start Last Admin Trade Name Roderickq PRN Reason Stop Dose Admin Acetaminophen 1,000 mg 08/12/19 21:58 Ofirmev Injection - IVPB Q6H PRN FEVER Amlodipine Besylate 10 mg 08/13/19 10:00 08/13/19 09:10 Norvasc - PO Not Given DAILY ANNA Fentanyl 50 mcg 08/12/19 21:50 Sublimaze Injection - IVPUSH [id number] PRN PAIN-PACU ORDER X 4 DOSES ONLY Heparin Sodium (Porcine) 5,000 unit 08/12/19 22:00 08/13/19 13:45 Heparin - SQ 5,000 unit TID ANNA Administration Hydromorphone HCl 10 mg 08/12/19 22:00 08/12/19 21:45 Hydromorphone 10 Mg/50 Ml-Ns LODGE OFFICER 08/19/19 21:48 10 mg LODGE OFFICER ANNA Administration Protocol Lactated Ringer's 1,000 mls @ 125 mls/hr 08/12/19 22:00 08/12/19 22:36 Lactated Ringers Solution IV 125 mls/hr ASDIR ANNA Administration Ceftriaxone Sodium 2 gm/ 100 mls @ 200 mls/hr 08/13/19 10:00 08/13/19 09:09 Dextrose IVPB 200 mls/hr DAILY ANNA Administration Metronidazole 500 mg in 100 mls @ 100 mls/hr 08/13/19 02:00 08/13/19 09:09 Flagyl 500mg Premixed Ivpb - IVPB 100 mls/hr Q8H-IV ANNA Administration Lisinopril 20 mg 08/13/19 10:00 08/13/19 09:10 Prinivil PO Not Given DAILY ANNA Morphine Sulfate 2 mg 08/12/19 21:58 Morphine Sulfate IVPUSH Q6H PRN PAIN LEVEL 6-10 Ondansetron HCl 4 mg 08/12/19 21:50 Zofran Injection IVPUSH Q6H PRN NAUSEA AND/OR VOMITING Ondansetron HCl 4 mg 08/12/19 21:58 Zofran Injection IVPUSH Q6H PRN NAUSEA Pantoprazole Sodium 40 mg 08/13/19 10:00 08/13/19 09:09 Protonix Iv IVPUSH 40 mg DAILY ANNA Administration Promethazine HCl 12.5 mg 08/12/19 21:50 Phenergan Injection - IVPUSH Q6H PRN NAUSEA-FOR RESCUE AFTER 15 MIN ASSESSMENT/PLAN: Mr. Pena is a 59 y/o male with HTN and GERD who presents with sudden onset LLQ abdominal pain and chills. #severe sepsis 2/2 diverticulitis with s/p emergent laparotomy sidmoidectomy and colostomy placement POD 1 WBC 11.7 downtrending. Afebrile now. Tmax 103. CT showed pneumoperitoneum with loops of dilated bowel. -flagyl day 5 -ceftriaxone day 5 -IV protonix 40mg Q daily -NS 100mL/hr -blood cultures prelim negative -surgery following -continue pain control -CBC #hypokalemia, resolved 4.2 -CMP, Mg, Phos #JASEN Cr 1.6 pre-renal from sepsis -continue hydration #pseudo hypocalcemia corrected Ca is normalized at 8.8 #HTN meds are currently held, monitoring -restart home med equivalent- lisinopril 20mg Q daily, amlodipine 10mg Q daily FEN NS 100mL/hr monitor lytes NPO DVT Ppx heparin Visit type - Emergency Visit Emergency Visit: Yes ED Registration Date: 08/09/19 Care time: The patient presented to the Emergency Department on the above date and was hospitalized for further evaluation of their emergent condition. - New Patient This patient is new to me today: No - Critical Care Critical Care patient: Yes Total Critical Care Time (in minutes): 35 Critical Care Statement: The care of this patient involved high complexity decision making to prevent further life threatening deterioration of the patient 's condition and/or to evaluate & treat vital organ system(s) failure or risk of failure. - Discharge Referral Referred to [facility] Med P.C.: No ATTENDING PHYSICIAN STATEMENT I saw and evaluated the patient. I reviewed the resident's note and discussed the case with the resident. I agree with the resident's findings and plan as documented. SUBJECTIVE: OBJECTIVE: ASSESSMENT AND PLAN:
--- NOTE | 2019-08-13 19:06 | PN ---
Teaching Attending Note Name of Resident: Vickie Joseph ATTENDING PHYSICIAN STATEMENT I saw and evaluated the patient. I reviewed the resident's note and discussed the case with the resident. I agree with the resident's findings and plan as documented. SUBJECTIVE: Feels okay POD 1. No nausea/vomiting. Pain well controlled on CERTIFIED PERSONAL CHEF. OBJECTIVE: Fever resolved. Hemodynamically stable. Last Vital Signs Temp Pulse Resp BP Pulse Ox 98.8 F 100 H 18 107/74 98 08/13/19 18:00 08/13/19 18:00 08/13/19 18:00 08/13/19 18:00 08/13/19 18:00 HEENT - NG tube in situ with bilious material output. Heart - S1, S2, RRR lungs - clear to auscultation Abdomen - High BMI, Midline laparotomy incision dressed. KARI drain in situ with serosanguinous fluid. Dressing clean. Colostomy LLQ, colostomy empty. Extremities - No calf tenderness. Neuro - AAO x 3. Moving all 4 extremities. Laboratory Results - last 24 hr 08/13/19 08/13/19 05:15 05:15 WBC 11.7 H RBC 4.54 Hgb 13.6 Hct 40.8 D MCV 89.9 MCH 30.0 MCHC 33.3 RDW 15.3 Plt Count 374 MPV 7.8 Absolute Neuts (auto) 9.2 H Neutrophils % 78.7 Lymphocytes % 12.0 D Monocytes % 8.9 Eosinophils % 0.3 D Basophils % 0.1 Nucleated RBC % 0 Sodium 136 Potassium 4.2 Chloride 105 Carbon Dioxide 22 Anion Gap 8 BUN 16.8 Creatinine 1.6 H Est GFR (CKD-EPI)AfAm 53.85 Est GFR (CKD-EPI)NonAf 46.46 Random Glucose 122 H Calcium 6.6 L* Phosphorus 4.3 Magnesium 1.7 L Total Bilirubin 0.7 AST 27 ALT 20 Alkaline Phosphatase 25 L Total Protein 4.1 L Albumin 1.7 L Current Medications Generic Name Dose Route Start Last Admin Trade Name Freq PRN Reason Stop Dose Admin Acetaminophen 1,000 mg 08/12/19 21:58 Ofirmev Injection - IVPB Q6H PRN FEVER Amlodipine Besylate 10 mg 08/13/19 10:00 08/13/19 09:10 Norvasc - PO Not Given DAILY ANNA Fentanyl 50 mcg 08/12/19 21:50 Sublimaze Injection - IVPUSH [id number] PRN PAIN-PACU ORDER X 4 DOSES ONLY Heparin Sodium (Porcine) 5,000 unit 08/12/19 22:00 08/13/19 13:45 Heparin - SQ 5,000 unit TID ANNA Administration Hydromorphone HCl 10 mg 08/12/19 22:00 08/12/19 21:45 Hydromorphone 10 Mg/50 Ml-Ns CERTIFIED PERSONAL CHEF 08/19/19 21:48 10 mg CERTIFIED PERSONAL CHEF ANNA Administration Protocol Lactated Ringer's 1,000 mls @ 125 mls/hr 08/12/19 22:00 08/12/19 22:36 Lactated Ringers Solution IV 125 mls/hr ASDIR ANNA Administration Ceftriaxone Sodium 2 gm/ 100 mls @ 200 mls/hr 08/13/19 10:00 08/13/19 09:09 Dextrose IVPB 200 mls/hr DAILY ANNA Administration Metronidazole 500 mg in 100 mls @ 100 mls/hr 08/13/19 02:00 08/13/19 17:42 Flagyl 500mg Premixed Ivpb - IVPB 100 mls/hr Q8H-IV ANNA Administration Lisinopril 20 mg 08/13/19 10:00 08/13/19 09:10 Prinivil PO Not Given DAILY ANNA Morphine Sulfate 2 mg 08/12/19 21:58 Morphine Sulfate IVPUSH Q6H PRN PAIN LEVEL 6-10 Ondansetron HCl 4 mg 08/12/19 21:50 Zofran Injection IVPUSH Q6H PRN NAUSEA AND/OR VOMITING Ondansetron HCl 4 mg 08/12/19 21:58 Zofran Injection IVPUSH Q6H PRN NAUSEA Pantoprazole Sodium 40 mg 08/13/19 10:00 08/13/19 09:09 Protonix Iv IVPUSH 40 mg DAILY ANNA Administration Promethazine HCl 12.5 mg 08/12/19 21:50 Phenergan Injection - IVPUSH Q6H PRN NAUSEA-FOR RESCUE AFTER 15 MIN Home Medications Medication Instructions Recorded Amlodipine Besylate/Benazepril 1 each PO DAILY 08/09/19 [Amlodipine-Benazepril 10-20 mg] ASSESSMENT AND PLAN: 59 year old male with history of HTN, presented with abdominal pain and found to be septic due to diverticulitis, developed bowel perforation requiring emergent abdominal surgery and bowel resection. Repeat CT A/P - Diverticulitis of the proximal sigmoid with pneumoperitoneum and 2 separate fluid collection, mesenteric shadowing, dilation of small bowel loops. 1. Severe Sepsis and Bowel Perforation due to Acute Diverticulitis with Abscess formation POD 1 s/p ex-lap with resection of sigmoid with colostomy. Continue IV hydration and Ceftriaxone/Flagyl. Dilaudid CERTIFIED PERSONAL CHEF/Zofran prn Further management as per Sx. 2. JASEN - secondary to third spacing. Intensify IV hydration and monitor. 3. HTN - continue Amlodipine/Benazepril. 4. Hypomagnesemia - repleted. 5. Hypocalcemia - corrected to 9 accounting for Hypoalbuminemia. DVT Px - Heparin SQ GI Px - PPI
[2019-08-13] MEDS: LACTATED RINGERS SOLUTION 1,000 ML IV SCH (21:34)
[2019-08-14] MEDS: HEPARIN NA (PORCINE) 5,000 UNITS/ML 1ML VIAL SQ SCH ×3 (05:36→21:12)
[2019-08-14 07:45] LABS: BASO % 0.1 % (0-2.0); EOS % 0.5 % (0-4.5); HEMATOCRIT 35.2 % (35.4-49); HEMOGLOBIN 11.7 GM/dL (11.7-16.9); LYMPH % 9.4 % (8-40); MCH 29.7 pg (25.7-33.7); MCHC 33.2 g/dl (32.0-35.9); MEAN CELL VOLUME 89.4 fl (80-96); MEAN PLT VOLUME 7.4 fl (7.5-11.1); MONO % 12.1 % (3.8-10.2); NEUT % 77.9 % (42.8-82.8); PLATELET COUNT 330 K/MM3 (134-434); RBC 3.94 M/mm3 (4.00-5.60); RDW 15.6 % (11.9-15.9); WHITE BLOOD COUNT 12.6 K/mm3 (4.0-10.0)
[2019-08-14] MEDS ORDERED: LACTATED RINGERS SOLUTION 1,000 ML/1,000 ML INFUS.BAG IV STA ×3 (08:23→12:55)
[2019-08-14 08:31] LABS: ALBUMIN 1.5 g/dl (3.4-5.0); BILIRUBIN,TOTAL 0.4 mg/dL (0.2-1); BLOOD UREA NITROGEN 26.9 mg/dL (7-18); CREATININE 1.3 mg/dL (0.55-1.3); MAGNESIUM 2.2 mg/dL (1.8-2.4); PHOSPHOROUS 2.1 mg/dL (2.5-4.9); POTASSIUM 3.8 mmol/L (3.5-5.1); TOT PROT 4.1 g/dl (6.4-8.2)
[2019-08-14] MEDS ORDERED: DEXTROSE 5%-WATER 100 ML IVPB ONE (09:02)
[2019-08-14] MEDS: amLODIPine BESYLATE 10 MG TABLET (FP) PO SCH (09:06)
[2019-08-14] MEDS: LISINOPRIL 20 MG TABLET (FP) PO SCH (09:06)
[2019-08-14] MEDS: CEFTRIAXONE 2 GM in DEXTROSE 5%-WATER 100 ML IVPB SCH (09:07)
[2019-08-14] MEDS: PANTOPRAZOLE SODIUM 40 MG VIAL IVPUSH SCH (09:08)
--- NOTE | 2019-08-14 10:24 | PN ---
Physical Exam: SUBJECTIVE: Patient seen and examined OBJECTIVE: Vital Signs Period Temp Pulse Resp BP Sys/Cramer Pulse Ox Last 24 Hr 98.4 F-98.8 F 86-122 17-22 96-122/60-79 94-98 GENERAL: The patient is awake, alert, and fully oriented, in no acute distress. HEAD: Normal with no signs of trauma. EYES: PERRL, extraocular movements intact, sclera anicteric, conjunctiva clear. No ptosis. ENT: Ears normal, nares patent, oropharynx clear without exudates, moist mucous membranes. NECK: Trachea midline, full range of motion, supple. LUNGS: Breath sounds equal, clear to auscultation bilaterally, no wheezes, no crackles, no accessory muscle use. HEART: Regular rate and rhythm, S1, S2 without murmur, rub or gallop. ABDOMEN: Soft, nontender, nondistended, normoactive bowel sounds, no guarding, no rebound, no hepatosplenomegaly, no masses. EXTREMITIES: 2+ pulses, warm, well-perfused, no edema. NEUROLOGICAL: Cranial nerves II through XII grossly intact. Normal speech, gait not observed. PSYCH: Normal mood, normal affect. SKIN: Warm, dry, normal turgor, no rashes or lesions noted Laboratory Results - last 24 hr 08/14/19 08/14/19 06:48 06:48 WBC 12.6 H RBC 3.94 L Hgb 11.7 Hct 35.2 L MCV 89.4 MCH 29.7 MCHC 33.2 RDW 15.6 Plt Count 330 MPV 7.4 L Absolute Neuts (auto) 9.8 H Neutrophils % 77.9 Lymphocytes % 9.4 D Monocytes % 12.1 H Eosinophils % 0.5 Basophils % 0.1 Nucleated RBC % 0 Sodium 137 Potassium 3.8 Chloride 105 Carbon Dioxide 23 Anion Gap 9 BUN 26.9 H Creatinine 1.3 Est GFR (CKD-EPI)AfAm 69.22 Est GFR (CKD-EPI)NonAf 59.72 Random Glucose 99 Calcium 7.0 L Phosphorus 2.1 L Magnesium 2.2 Total Bilirubin 0.4 AST 35 ALT 24 Alkaline Phosphatase 27 L Total Protein 4.1 L Albumin 1.5 L Active Medications Generic Name Dose Route Start Last Admin Trade Name Freq PRN Reason Stop Dose Admin Acetaminophen 1,000 mg 08/12/19 21:58 Ofirmev Injection - IVPB Q6H PRN FEVER Amlodipine Besylate 10 mg 08/13/19 10:00 08/14/19 09:06 Norvasc - PO Not Given DAILY ANNA Fentanyl 50 mcg 08/12/19 21:50 Sublimaze Injection - IVPUSH [id number] PRN PAIN-PACU ORDER X 4 DOSES ONLY Heparin Sodium (Porcine) 5,000 unit 08/12/19 22:00 08/14/19 05:36 Heparin - SQ 5,000 unit TID ANNA Administration Hydromorphone HCl 10 mg 08/12/19 22:00 08/12/19 21:45 Hydromorphone 10 Mg/50 Ml-Ns RELOCATION COMMISSIONER 08/19/19 21:48 10 mg RELOCATION COMMISSIONER ANNA Administration Protocol Lactated Ringer's 1,000 mls @ 125 mls/hr 08/12/19 22:00 08/13/19 21:34 Lactated Ringers Solution IV 125 mls/hr ASDIR ANNA Administration Ceftriaxone Sodium 2 gm/ 100 mls @ 200 mls/hr 08/13/19 10:00 08/14/19 09:07 Dextrose IVPB 200 mls/hr DAILY ANNA Administration Metronidazole 500 mg in 100 mls @ 100 mls/hr 08/13/19 02:00 08/14/19 09:07 Flagyl 500mg Premixed Ivpb - IVPB 100 mls/hr Q8H-IV ANNA Administration Potassium Phosphate 30 mm/ 260 mls @ 62.5 mls/hr 08/14/19 10:21 Sodium Chloride IVPB 08/14/19 14:30 ONCE ONE Lisinopril 20 mg 08/13/19 10:00 08/14/19 09:06 Prinivil PO Not Given DAILY ANNA Morphine Sulfate 2 mg 08/12/19 21:58 Morphine Sulfate IVPUSH Q6H PRN PAIN LEVEL 6-10 Ondansetron HCl 4 mg 08/12/19 21:50 Zofran Injection IVPUSH Q6H PRN NAUSEA AND/OR VOMITING Ondansetron HCl 4 mg 08/12/19 21:58 Zofran Injection IVPUSH Q6H PRN NAUSEA Pantoprazole Sodium 40 mg 08/13/19 10:00 08/14/19 09:08 Protonix Iv IVPUSH 40 mg DAILY ANNA Administration Promethazine HCl 12.5 mg 08/12/19 21:50 Phenergan Injection - IVPUSH Q6H PRN NAUSEA-FOR RESCUE AFTER 15 MIN ASSESSMENT/PLAN: Pt is a 59 y/o M with a significant past medical history of HTN who presented initially to [facility] due to severe abdominal pain and ultimately found to have pneumoperitoneum 2/2 perforated diverticulitis. CARDIO-> HTN -Stable now. Continue antihypertensives #GI -> Perforated Diverticulitis -CTAP: Diverticulitis of the proximal sigmoid with pneumoperitoneum and 2 separate fluid collection, mesenteric shadowing, dilation of small bowel loops. -S/p exploratory laparotomy with resection of sigmoid and formation of colostomy , would keep paris as patient needs IV boluses as he is still third spacing and need to quantify I/O; will change dressings tomorrow. - c/w Ceftriaxone/Flagyl - Ofirmev and Morphine 2 mg Q6H PRN Analgesia - Zofran for nausea - Surgery on board - continue protonix - continue use of incentive irck #RENAL-> Akute Kidney Injury - Most likely 2/2 sepsis. - Resolved - Gave additional bolus today after 700cc urine yesterday - will keep paris in and continue IVF and monitor is urine o/p. #FEN LR@125cc/hr Monitor Electrolytes NPO #DVT ppx: HEPSQTID Dispo: Transfer to med/surg. Visit type - Emergency Visit Emergency Visit: Yes ED Registration Date: 08/09/19 Care time: The patient presented to the Emergency Department on the above date and was hospitalized for further evaluation of their emergent condition. - New Patient This patient is new to me today: No - Critical Care Critical Care patient: Yes Total Critical Care Time (in minutes): 35 Critical Care Statement: The care of this patient involved high complexity decision making to prevent further life threatening deterioration of the patient 's condition and/or to evaluate & treat vital organ system(s) failure or risk of failure. ATTENDING PHYSICIAN STATEMENT I saw and evaluated the patient. I reviewed the resident's note and discussed the case with the resident. I agree with the resident's findings and plan as documented. SUBJECTIVE: OBJECTIVE: ASSESSMENT AND PLAN:
--- NOTE | 2019-08-14 10:37 | PN ---
Teaching Attending Note Name of Resident: Claudio Alas ATTENDING PHYSICIAN STATEMENT I saw and evaluated the patient. I reviewed the resident's note and discussed the case with the resident. I agree with the resident's findings and plan as documented. SUBJECTIVE: Patient seen and examined in the ICU. Awake and alert. Pain seems adequately controlled. Increased urine output. Denies CP or SOB. (+) output from ostomy. Intake & Output 08/11/19 08/12/19 08/13/19 08/14/19 23:59 23:59 23:59 23:59 Intake Total 2533 4300 5250 2175 Output Total 635 301 7305 Balance 2533 3780 4499 775 Weight 225 lb 225 lb Last Vital Signs Temp Pulse Resp BP Pulse Ox 98.4 F 117 H 20 117/76 95 08/14/19 08:10 08/14/19 08:10 08/14/19 08:10 08/14/19 08:10 08/14/19 08:10 Active Medications Acetaminophen (Ofirmev Injection -) 1,000 mg IVPB Q6H PRN PRN Reason: FEVER Amlodipine Besylate (Norvasc -) 10 mg PO DAILY [facility] Last Admin: 08/14/19 09:06 Dose: Not Given Fentanyl (Sublimaze Injection -) 50 mcg IVPUSH [id number] PRN PRN Reason: PAIN-PACU ORDER X 4 DOSES ONLY Heparin Sodium (Porcine) (Heparin -) 5,000 unit SQ TID [facility] Last Admin: 08/14/19 05:36 Dose: 5,000 unit Hydromorphone HCl (Hydromorphone 10 Mg/50 Ml-Ns) 10 mg CHEMICAL CHECKER CHEMICAL CHECKER [facility]; Protocol Stop: 08/19/19 21:48 Last Admin: 08/12/19 21:45 Dose: 10 mg Lactated Ringer's (Lactated Ringers Solution) 1,000 mls @ 125 mls/hr IV ASDIR NANA Last Admin: 08/13/19 21:34 Dose: 125 mls/hr Ceftriaxone Sodium 2 gm/ (Dextrose) 100 mls @ 200 mls/hr IVPB DAILY [facility] Last Admin: 08/14/19 09:07 Dose: 200 mls/hr Metronidazole (Flagyl 500mg Premixed Ivpb -) 500 mg in 100 mls @ 100 mls/hr IVPB Q8H-IV ANNA Last Admin: 08/14/19 09:07 Dose: 100 mls/hr Potassium Phosphate 30 mm/ (Sodium Chloride) 260 mls @ 65 mls/hr IVPB ONCE ONE Stop: 08/14/19 15:29 Lisinopril (Prinivil) 20 mg PO DAILY [facility] Last Admin: 08/14/19 09:06 Dose: Not Given Morphine Sulfate (Morphine Sulfate) 2 mg IVPUSH Q6H PRN PRN Reason: PAIN LEVEL 6-10 Ondansetron HCl (Zofran Injection) 4 mg IVPUSH Q6H PRN PRN Reason: NAUSEA AND/OR VOMITING Ondansetron HCl (Zofran Injection) 4 mg IVPUSH Q6H PRN PRN Reason: NAUSEA Pantoprazole Sodium (Protonix Iv) 40 mg IVPUSH DAILY [facility] Last Admin: 08/14/19 09:08 Dose: 40 mg Promethazine HCl (Phenergan Injection -) 12.5 mg IVPUSH Q6H PRN PRN Reason: NAUSEA-FOR RESCUE AFTER 15 MIN GENERAL: NAD AAOx3 HEAD: Normal with no signs of trauma. EYES: EOMI Sclera Clear EARS, NOSE, THROAT: MMM LUNGS:CTAB HEART: RRR S1S2 ABDOMEN: Hypoactive BS, distended, surgical bandage in place, dry. Colostomy with pink stoma. No stool in bag. LOWER EXTREMITIES: No CCE. PSYCHIATRIC: Cooperative. Good eye contact. Appropriate mood and affect. SKIN: Warm, dry, normal turgor, no rashes or lesions noted. Laboratory Results - last 24 hr 08/14/19 08/14/19 06:48 06:48 WBC 12.6 H RBC 3.94 L Hgb 11.7 Hct 35.2 L MCV 89.4 MCH 29.7 MCHC 33.2 RDW 15.6 Plt Count 330 MPV 7.4 L Absolute Neuts (auto) 9.8 H Neutrophils % 77.9 Lymphocytes % 9.4 D Monocytes % 12.1 H Eosinophils % 0.5 Basophils % 0.1 Nucleated RBC % 0 Sodium 137 Potassium 3.8 Chloride 105 Carbon Dioxide 23 Anion Gap 9 BUN 26.9 H Creatinine 1.3 Est GFR (CKD-EPI)AfAm 69.22 Est GFR (CKD-EPI)NonAf 59.72 Random Glucose 99 Calcium 7.0 L Phosphorus 2.1 L Magnesium 2.2 Total Bilirubin 0.4 AST 35 ALT 24 Alkaline Phosphatase 27 L Total Protein 4.1 L Albumin 1.5 L ASSESSMENT/PLAN: POD #2: S/P exploratory laparotomy with resection of sigmoid and formation of colostomy Diverticulitis of the proximal sigmoid with pneumoperitoneum HTN IVF Strict I & O O2 as needed Incentive Spirometry ABX Monitor for return of bowel function Pain control VTE prophylaxis Floor when OK with surgery Dr Valverde
[2019-08-14] MEDS ORDERED: POTASSIUM PHOSPHATE 30 MM in SODIUM CHLORIDE 250 ML IVPB ONE (11:30)
--- NOTE | 2019-08-14 13:40 | PN ---
Progress Note (short form) - Note Progress Note: Attending Surgeon POD #2 Awake alert in ICU VSS AF abdo-first dressing change done and patient found to have a small bowel evisceration at the lower aspect of the incision; ostomy viable; o/w negative; KARI serosanguinous. labs notes/cultures noted UO improved IMP:small bowel evisceration s/p Hartmans procedure POD#2 PLAN: D/w patient need for return to OR for abdominal wound exploration and reclosure of wound w/retention sutures; informed consent obtained and case d/w the patients nephew as well. Harsh Spencer MD FACS
[2019-08-14] MEDS ORDERED: PROPOFOL 20 ML ONE ×5 (13:41→16:05)
[2019-08-14] MEDS ORDERED: VECURONIUM BROMIDE 10 MG VIAL ONE (13:41)
[2019-08-14] MEDS ORDERED: SUCCINYLCHOLINE CHLORIDE 200 MG/10 ML SYRINGE ONE (13:41)
[2019-08-14] MEDS ORDERED: DEXAMETHASONE SOD PHOSPHATE 4 MG/1 ML VIAL ONE (14:38)
--- NOTE | 2019-08-14 14:44 | OP ---
DATE OF OPERATION: 08/12/2019 PREOPERATIVE DIAGNOSIS: Perforated diverticulitis. POSTOPERATIVE DIAGNOSIS: Perforated diverticulitis. PROCEDURE: Sigmoid colon resection and colostomy (Radha's procedure). SURGEON: Harsh Spencer MD CHINESE LANGUAGE PROFESSOR: Maribell Justin PA-C ANESTHESIA: General. OPERATIVE FINDINGS: There was a perforated and possibly obstructed area of sigmoid colon with clinical acute sigmoid diverticulitis. There were 2 small bowel mesentery abscesses and marked small bowel dilatation and acute inflammation. The rest of the findings were unremarkable. PROCEDURE: The patient was placed on the operating room table in the supine position and after the induction of general anesthesia and placement of a Olea catheter and sequential compression devices on the patient's lower extremities, the abdomen was prepped with ChloraPrep and draped in sterile fashion. A timeout was taken and the peritoneal cavity entered through a midline incision. The previously noted findings were observed. The sigmoid colon was bluntly mobilized distally and the mesocolon beyond the area of acute pathology was divided using the LigaSure device. Next, the TA stapling device was placed and proximal to that Kade clamps and the distal sigmoid at the rectosigmoid divided using a scalpel. Next , the mesocolon was sequentially divided using the LigaSure device. Laterally, the colon was mobilized along the lateral peritoneal reflection as well with the LigaSure device. The left ureter was identified throughout dissection. Proximal to the area of acute pathology again the mesentery was divided and then the bowel divided using a TA90 stapling device twice and dividing the colon between with the scalpel. The specimen was then removed and passed off the operative field and sent for pathological examination. The colon was further mobilized proximally using the LigaSure device, which also included takedown of the splenic flexure to mobilize the colon enough to bring it through the abdominal wall for creation of the end-colostomy. Next, a disk of skin was removed midway between the umbilicus and left anterior superior iliac spine using electrocautery and an opening in the abdominal wall made 2 fingerbreadths in greatest dimension for the colostomy. The colon was then brought through the abdominal wall and anchored there temporarily with [place] clamps. The distal stump was marked on both sides with a 0 Prolene stay suture. Copious irrigation was carried out with normal saline until the return was clear and then a Mukul-Sherman drain placed in the pelvis and brought out through a separate stab wound in the lateral right abdominal wall where the drain was secured to the skin with 2-0 silk suture. Hemostasis was checked for again and noted to be good and the NG tube was confirmed with correct placement in the stomach. Next , the abdomen was closed in a single layer using continuous 0 looped Maxon suture. The subcutaneous tissue was irrigated and the skin around the umbilicus reapproximated with surgical anna. One-inch Iodoform packing, followed by dry dressing was placed on the midline wound and it was temporarily covered with the sterile towel. The colostomy was then matured by excising the staple line and suturing it to the skin of the abdominal wall with interrupted 3-0 Vicryl. A colostomy appliance of appropriate size was placed and then the midline wound dressed with further dry sterile dressings and Medipore tape. A Biopatch was placed around the drain site, which was also dressed in the similar fashion as the midline wound. The drain was connected to bulb self-suction and the procedure terminated at this point. The patient transferred to the post anesthesia care unit in stable condition awake and alert. ESTIMATED BLOOD LOSS: 150 mL. REPLACEMENT: Crystalloid. DRAINS: One 10 mm Mukul-Sherman in the pelvis. SPECIMEN: Portion of sigmoid colon to Pathology. I, Harsh Spencer, was physically present in the operating room from the time the patient was placed on the operating room table until he was transferred to the post anesthesia care unit in [facility]. MD ELDER Medina/[id number] MTDD
--- NOTE | 2019-08-14 15:09 | PN ---
Physical Exam: SUBJECTIVE: Patient seen and examined. He reports he has no abdominal pain while taking pain medication. He denies nausea, vomiting, chest pain, shortness of breath, and wheezing. OBJECTIVE: Vital Signs Period Temp Pulse Resp BP Sys/Cramer Pulse Ox Last 24 Hr 98.4 F-99.1 F 86-122 17-22 102-132/63-91 94-98 GENERAL: The patient is awake, alert, and fully oriented, in no acute distress. HEAD: Normal with no signs of trauma. EYES: PERRL, extraocular movements intact, sclera anicteric, conjunctiva clear. No ptosis. ENT: Ears normal, nares patent, dry mucous membranes. NG tube in place draining green/brown NECK: Trachea midline, full range of motion, supple. LUNGS: Breath sounds equal, clear to auscultation bilaterally, no wheezes, no crackles, no accessory muscle use. HEART: Tachycardic and regular rhythm, S1, S2 without murmur, rub or gallop. ABDOMEN: Bandaged laparotomy incision, no tenderness on palpation near site and no erythema, KARI draining serosanginous fluid. colostomy bag in place with liquid light brown stool. No erythema round the site. EXTREMITIES: 2+ pulses, warm, well-perfused, no edema. NEUROLOGICAL: Cranial nerves II through XII grossly intact. Normal speech, gait not observed. PSYCH: Normal mood, normal affect. SKIN: Warm, dry, normal turgor, no rashes or lesions noted Laboratory Results - last 24 hr 08/14/19 08/14/19 06:48 06:48 WBC 12.6 H RBC 3.94 L Hgb 11.7 Hct 35.2 L MCV 89.4 MCH 29.7 MCHC 33.2 RDW 15.6 Plt Count 330 MPV 7.4 L Absolute Neuts (auto) 9.8 H Neutrophils % 77.9 Lymphocytes % 9.4 D Monocytes % 12.1 H Eosinophils % 0.5 Basophils % 0.1 Nucleated RBC % 0 Sodium 137 Potassium 3.8 Chloride 105 Carbon Dioxide 23 Anion Gap 9 BUN 26.9 H Creatinine 1.3 Est GFR (CKD-EPI)AfAm 69.22 Est GFR (CKD-EPI)NonAf 59.72 Random Glucose 99 Calcium 7.0 L Phosphorus 2.1 L Magnesium 2.2 Total Bilirubin 0.4 AST 35 ALT 24 Alkaline Phosphatase 27 L Total Protein 4.1 L Albumin 1.5 L Active Medications Generic Name Dose Route Start Last Admin Trade Name Freq PRN Reason Stop Dose Admin Acetaminophen 1,000 mg 08/12/19 21:58 Ofirmev Injection - IVPB Q6H PRN FEVER Amlodipine Besylate 10 mg 08/13/19 10:00 08/14/19 09:06 Norvasc - PO Not Given DAILY ANNA Fentanyl 50 mcg 08/12/19 21:50 Sublimaze Injection - IVPUSH [id number] PRN PAIN-PACU ORDER X 4 DOSES ONLY Heparin Sodium (Porcine) 5,000 unit 08/12/19 22:00 08/14/19 05:36 Heparin - SQ 5,000 unit TID ANNA Administration Hydromorphone HCl 10 mg 08/12/19 22:00 08/12/19 21:45 Hydromorphone 10 Mg/50 Ml-Ns CABBAGE SALTER 08/19/19 21:48 10 mg CABBAGE SALTER ANNA Administration Protocol Lactated Ringer's 1,000 mls @ 125 mls/hr 08/12/19 22:00 08/13/19 21:34 Lactated Ringers Solution IV 125 mls/hr ASDIR ANNA Administration Ceftriaxone Sodium 2 gm/ 100 mls @ 200 mls/hr 08/13/19 10:00 08/14/19 09:07 Dextrose IVPB 200 mls/hr DAILY ANNA Administration Metronidazole 500 mg in 100 mls @ 100 mls/hr 08/13/19 02:00 08/14/19 09:07 Flagyl 500mg Premixed Ivpb - IVPB 100 mls/hr Q8H-IV ANNA Administration Potassium Phosphate 30 mm/ 260 mls @ 65 mls/hr 08/14/19 11:30 08/14/19 12:30 Sodium Chloride IVPB 08/14/19 15:29 65 mls/hr ONCE ONE Administration Lisinopril 20 mg 08/13/19 10:00 08/14/19 09:06 Prinivil PO Not Given DAILY ANNA Morphine Sulfate 2 mg 08/12/19 21:58 Morphine Sulfate IVPUSH Q6H PRN PAIN LEVEL 6-10 Ondansetron HCl 4 mg 08/12/19 21:50 Zofran Injection IVPUSH Q6H PRN NAUSEA AND/OR VOMITING Ondansetron HCl 4 mg 08/12/19 21:58 Zofran Injection IVPUSH Q6H PRN NAUSEA Pantoprazole Sodium 40 mg 08/13/19 10:00 08/14/19 09:08 Protonix Iv IVPUSH 40 mg DAILY ANNA Administration Promethazine HCl 12.5 mg 08/12/19 21:50 Phenergan Injection - IVPUSH Q6H PRN NAUSEA-FOR RESCUE AFTER 15 MIN ASSESSMENT/PLAN: Mr. Pena is a 59 y/o male with HTN and GERD who presents with sudden onset LLQ abdominal pain and chills. #eviscerated bowel #severe sepsis 2/2 diverticulitis s/p emergent laparotomy sigmoid resection and colostomy placement POD 2 Pt had eviscerated bowel on exam today. He was taken to OR for repair. WBC 12.6. Afebrile. Tachy to 120s this morning and trending down to 90s at night. CT prior to surgery showed pneumoperitoneum with loops of dilated bowel. -Zosyn started today -flagyl day 6 -ceftriaxone day 6 -IV protonix 40mg Q daily -LR 125mL/hr -blood cultures prelim- pseudomonas -surgery following -continue pain control -CBC #hypokalemia 2.1 -repleted -CMP, Mg, Phos #JASEN, resolved Cr 1.3 pre-renal from sepsis -continue hydration #HTN meds are currently held, monitoring -when restarting, home med equivalent is- lisinopril 20mg Q daily, amlodipine 10mg Q daily FEN LR 125mL/hr monitor lytes NPO DVT Ppx heparin Visit type - Emergency Visit Emergency Visit: Yes ED Registration Date: 08/09/19 Care time: The patient presented to the Emergency Department on the above date and was hospitalized for further evaluation of their emergent condition. - New Patient This patient is new to me today: No - Critical Care Critical Care patient: Yes Total Critical Care Time (in minutes): 35 Critical Care Statement: The care of this patient involved high complexity decision making to prevent further life threatening deterioration of the patient 's condition and/or to evaluate & treat vital organ system(s) failure or risk of failure. - Discharge Referral Referred to [facility] No ATTENDING PHYSICIAN STATEMENT I saw and evaluated the patient. I reviewed the resident's note and discussed the case with the resident. I agree with the resident's findings and plan as documented. SUBJECTIVE: OBJECTIVE: ASSESSMENT AND PLAN:
[2019-08-14] MEDS ORDERED: GLYCOPYRROLATE 0.2 MG/1 ML VIAL ONE (15:31)
[2019-08-14] MEDS ORDERED: NEOSTIGMINE METHYLSULFATE 0.5 MG/ML - 10 ML MDV ONE ×2 (15:31→15:54)
[2019-08-14] MEDS ORDERED: BENZOIN TINCTURE SWABSTICK TP ONE (15:33)
--- NOTE | 2019-08-14 15:41 | PN ---
Teaching Attending Note Name of Resident: Vickie Joseph ATTENDING PHYSICIAN STATEMENT I saw and evaluated the patient. I reviewed the resident's note and discussed the case with the resident. I agree with the resident's findings and plan as documented. SSUBJECTIVE: Feels well POD 2. No nausea/vomiting. Pain well controlled on SENIOR DESIGN ENGINEER. OBJECTIVE: Fever resolved. Tacycardia Last Vital Signs Temp Pulse Resp BP Pulse Ox 99.1 F 120 H 19 132/91 95 08/14/19 12:30 08/14/19 12:30 08/14/19 12:30 08/14/19 12:30 08/14/19 08:10 HEENT - NG tube in situ with bilious material output. Heart - S1, S2, RRR lungs - clear to auscultation Abdomen - High BMI, Midline laparotomy incision dressed, blood stained. Colostomy LLQ with bloody fluid. Extremities - No calf tenderness. Neuro - AAO x 3. Moving all 4 extremities. Laboratory Results - last 24 hr 08/14/19 08/14/19 06:48 06:48 WBC 12.6 H RBC 3.94 L Hgb 11.7 Hct 35.2 L MCV 89.4 MCH 29.7 MCHC 33.2 RDW 15.6 Plt Count 330 MPV 7.4 L Absolute Neuts (auto) 9.8 H Neutrophils % 77.9 Lymphocytes % 9.4 D Monocytes % 12.1 H Eosinophils % 0.5 Basophils % 0.1 Nucleated RBC % 0 Sodium 137 Potassium 3.8 Chloride 105 Carbon Dioxide 23 Anion Gap 9 BUN 26.9 H Creatinine 1.3 Est GFR (CKD-EPI)AfAm 69.22 Est GFR (CKD-EPI)NonAf 59.72 Random Glucose 99 Calcium 7.0 L Phosphorus 2.1 L Magnesium 2.2 Total Bilirubin 0.4 AST 35 ALT 24 Alkaline Phosphatase 27 L Total Protein 4.1 L Albumin 1.5 L Current Medications Generic Name Dose Route Start Last Admin Trade Name Freq PRN Reason Stop Dose Admin Acetaminophen 1,000 mg 08/12/19 21:58 Ofirmev Injection - IVPB Q6H PRN FEVER Amlodipine Besylate 10 mg 08/13/19 10:00 08/14/19 09:06 Norvasc - PO Not Given DAILY ANNA Fentanyl 50 mcg 08/12/19 21:50 Sublimaze Injection - IVPUSH [id number] PRN PAIN-PACU ORDER X 4 DOSES ONLY Heparin Sodium (Porcine) 5,000 unit 08/12/19 22:00 08/14/19 15:26 Heparin - SQ Not Given TID ANNA Hydromorphone HCl 10 mg 08/12/19 22:00 08/12/19 21:45 Hydromorphone 10 Mg/50 Ml-Ns SENIOR DESIGN ENGINEER 08/19/19 21:48 10 mg SENIOR DESIGN ENGINEER ANNA Administration Protocol Lactated Ringer's 1,000 mls @ 125 mls/hr 08/12/19 22:00 08/13/19 21:34 Lactated Ringers Solution IV 125 mls/hr ASDIR ANNA Administration Ceftriaxone Sodium 2 gm/ 100 mls @ 200 mls/hr 08/13/19 10:00 08/14/19 09:07 Dextrose IVPB 200 mls/hr DAILY ANNA Administration Metronidazole 500 mg in 100 mls @ 100 mls/hr 08/13/19 02:00 08/14/19 09:07 Flagyl 500mg Premixed Ivpb - IVPB 100 mls/hr Q8H-IV ANNA Administration Lisinopril 20 mg 08/13/19 10:00 08/14/19 09:06 Prinivil PO Not Given DAILY ANNA Morphine Sulfate 2 mg 08/12/19 21:58 Morphine Sulfate IVPUSH Q6H PRN PAIN LEVEL 6-10 Ondansetron HCl 4 mg 08/12/19 21:50 Zofran Injection IVPUSH Q6H PRN NAUSEA AND/OR VOMITING Ondansetron HCl 4 mg 08/12/19 21:58 Zofran Injection IVPUSH Q6H PRN NAUSEA Pantoprazole Sodium 40 mg 08/13/19 10:00 08/14/19 09:08 Protonix Iv IVPUSH 40 mg DAILY ANNA Administration Promethazine HCl 12.5 mg 08/12/19 21:50 Phenergan Injection - IVPUSH Q6H PRN NAUSEA-FOR RESCUE AFTER 15 MIN Home Medications Medication Instructions Recorded Amlodipine Besylate/Benazepril 1 each PO DAILY 08/09/19 [Amlodipine-Benazepril 10-20 mg] ASSESSMENT AND PLAN: 59 year old male with history of HTN, presented with abdominal pain and found to be septic due to diverticulitis, developed bowel perforation requiring emergent abdominal surgery and bowel resection. Repeat CT A/P - Diverticulitis of the proximal sigmoid with pneumoperitoneum and 2 separate fluid collections, mesenteric shadowing, dilation of small bowel loops. 1. Severe Sepsis and Bowel Perforation due to Acute Diverticulitis with Abscess formation POD 2 s/p ex-lap with resection of sigmoid/Hartmans with colostomy ---> now with small bowel evisceration as per surgery with need to return to OR for re- closure of wound. Surgical Peritoneal Cx positive for Pseudomonas. Continue IV hydration. On Ceftriaxone/Flagyl - will change Ceftriaxone to Zosyn. ID consult. Dilaudid SENIOR DESIGN ENGINEER/Zofran prn. Further management as per Sx. 2. JASEN - secondary to third spacing. Improving. Continue IV hydration and monitor. 3. HTN - normally on Amlodipine/Benazepril. Currently NPO. 4. Hypomagnesemia - resolved s/p repletion. 5. Hypophosphatemia - repleted. DVT Px - Heparin SQ GI Px - PPI
[2019-08-14] MEDS ORDERED: IPRATROPIUM BR 0.02% 0.5 MG/2.5 ML VIAL.NEB. NEB ONE (16:23)
--- NOTE | 2019-08-14 16:26 | OP ---
Operative Note - Note: Operative Date: 08/14/19 Pre-Operative Diagnosis: abdominal evisceration Operation: closure of abdominal incision with retention sutures s/p Hartmans procedure POD#2 Findings: small bowell evisceration below the umbilicus Post-Operative Diagnosis: Same as Pre-op Surgeon: Harsh Spencer Email Marketing Specialist: Ling Mayo Anesthesiologist/RETAIL GIFT CARD MERCHANDISING: David Luna Anesthesia: General Specimens Removed: none Estimated Blood Loss (mls): 150 Drains & Tubes with Location: KARI (pre-op )
[2019-08-14] MEDS ORDERED: LACTATED RINGERS SOLUTION 1,000 ML IV SCH (16:45)
[2019-08-14] MEDS ORDERED: PIPERACILLIN/TAZOBACTAM 3.375 GM VIAL IVPB ONE (17:07)
[2019-08-14] MEDS ORDERED: DEXTROSE 5%-WATER - 100 ML IVPB ONE (17:08)
[2019-08-14] MEDS: PIPERACILLIN/TAZOB 3.375 GM 3.375 GM in DEXTROSE 5%-WATER - 50 ML IVPB SCH (17:13)
[2019-08-14] MEDS ORDERED: PIPERACILLIN/TAZOB 3.375 GM 3.375 GM in DEXTROSE 5%-WATER - 50 ML IVPB SCH (18:00)
[2019-08-14] MEDS ORDERED: ONDANSETRON 4 MG/2 ML VIAL IVPUSH PRN (19:11)
[2019-08-14] MEDS: LACTATED RINGERS SOLUTION 1,000 ML IV SCH (20:00)
[2019-08-14] MEDS: ENALAPRILAT DIHYDRATE 1.25 MG/1 ML VIAL IVPB SCH ×2 (21:13→21:35)
[2019-08-14] MEDS: morphine SULFATE 4 MG/ML VIAL IVPUSH PRN (21:14)
[2019-08-14] MEDS: MUPIROCIN 2% TOPICAL OINTMENT FOR DECOLONIZATION NS SCH (21:18)
[2019-08-14] MEDS: CHLORHEXIDINE GLUCONATE 4% CLEANSER FOR DECOLONIZATION TP SCH (21:19)
[2019-08-14] MEDS ORDERED: NOREPINEPHRINE BITARTRATE 4 MG/4 ML ML IV ONE (22:01)
[2019-08-14 23:51] LABS: BLOOD UREA NITROGEN 19.4 mg/dL (7-18); CREATININE 0.9 mg/dL (0.55-1.3); PHOSPHOROUS 2.2 mg/dL (2.5-4.9); POTASSIUM 4.1 mmol/L (3.5-5.1)
[2019-08-15] MEDS ORDERED: PIPERACILLIN/TAZOBACTAM 3.375 GM VIAL IVPB ONE ×2 (00:35→09:11)
[2019-08-15] MEDS ORDERED: DEXTROSE 5%-WATER - 50 ML IVPB ONE ×2 (00:36→09:12)
[2019-08-15] MEDS: ACETAMINOPHEN 1000 MG/100 ML VIAL (NON FORMULARY) IVPB SCH ×3 (00:50→11:11)
[2019-08-15] MEDS: morphine SULFATE 4 MG/ML VIAL IVPUSH PRN (00:51)
[2019-08-15] MEDS: LACTATED RINGERS SOLUTION 1,000 ML IV SCH ×3 (00:53→19:10)
[2019-08-15] MEDS: PIPERACILLIN/TAZOB 3.375 GM 3.375 GM in DEXTROSE 5%-WATER - 50 ML IVPB SCH ×3 (02:10→10:00)
[2019-08-15] MEDS: ENALAPRILAT DIHYDRATE 1.25 MG/1 ML VIAL IVPB SCH ×4 (02:12→21:09)
[2019-08-15] MEDS: HEPARIN NA (PORCINE) 5,000 UNITS/ML 1ML VIAL SQ SCH ×3 (06:21→21:14)
[2019-08-15 08:11] LABS: ALBUMIN 1.3 g/dl (3.4-5.0); BILIRUBIN,TOTAL 0.5 mg/dL (0.2-1); BLOOD UREA NITROGEN 18.2 mg/dL (7-18); MAGNESIUM 2.2 mg/dL (1.8-2.4); PHOSPHOROUS 2.4 mg/dL (2.5-4.9); POTASSIUM 4.4 mmol/L (3.5-5.1); TOT PROT 3.9 g/dl (6.4-8.2)
[2019-08-15] MEDS: PANTOPRAZOLE SODIUM 40 MG VIAL IVPUSH SCH (09:21)
[2019-08-15] MEDS: MUPIROCIN 2% TOPICAL OINTMENT FOR DECOLONIZATION NS SCH ×2 (09:22→21:15)
--- NOTE | 2019-08-15 09:46 | PN ---
Physical Exam: SUBJECTIVE: Patient seen and examined at bedside. Abdominal evisceration yesterday, went to O.R. OBJECTIVE: Vital Signs Period Temp Pulse Resp BP Sys/Cramer Pulse Ox Last 24 Hr 97.6 F-100.2 F 84-130 16-28 109-148/69-91 92-96 GENERAL: NAD HEAD: Normal with no signs of trauma. EYES: EOMI Sclera Clear EARS, NOSE, THROAT: MMM LUNGS:CTAB HEART: RRR S1S2 ABDOMEN: Surgical bandage. Colostomy with pink stoma. LOWER EXTREMITIES: No CCE. SKIN: Warm, dry, normal turgor, no rashes or lesions noted. Laboratory Results - last 24 hr 08/14/19 08/15/19 23:00 05:50 Sodium 137 140 Potassium 4.1 4.4 Chloride 105 107 Carbon Dioxide 24 23 Anion Gap 8 10 BUN 19.4 H 18.2 H Creatinine 0.9 1.0 Est GFR (CKD-EPI)AfAm 107.97 95.06 Est GFR (CKD-EPI)NonAf 93.16 82.02 Random Glucose 121 H 118 H Calcium 7.0 L 7.0 L Phosphorus 2.2 L 2.4 L Magnesium 2.2 Total Bilirubin 0.5 AST 36 ALT 20 Alkaline Phosphatase 27 L Total Protein 3.9 L Albumin 1.3 L Active Medications Generic Name Dose Route Start Last Admin Trade Name Freq PRN Reason Stop Dose Admin Acetaminophen 1,000 mg 08/14/19 23:00 08/15/19 06:20 Ofirmev Injection - IVPB 08/15/19 11:01 1,000 mg Q6H ANNA Administration Chlorhexidine Gluconate 1 applic 08/14/19 22:00 08/14/19 21:19 Hibiclens For Decolonization - TP 1 applic HS ANNA Administration Enalaprilat 1.25 mg 08/14/19 21:00 08/15/19 09:21 Vasotec Injection - IVPB 1.25 mg Q6H-IV ANNA Administration Fentanyl 50 mcg 08/14/19 16:43 Sublimaze Injection - IVPUSH [id number] PRN PAIN-PACU ORDER X 4 DOSES ONLY Heparin Sodium (Porcine) 5,000 unit 08/14/19 22:00 08/15/19 06:21 Heparin - SQ 5,000 unit TID ANNA Administration Piperacillin Sod/Tazobactam 50 mls @ 100 mls/hr 08/14/19 18:00 08/15/19 09:21 Sod 3.375 gm/ Dextrose IVPB 08/15/19 10:29 100 mls/hr Q8H-IV ANNA Administration Protocol Metronidazole 500 mg in 100 mls @ 100 mls/hr 08/15/19 02:00 08/15/19 09:21 Flagyl 500mg Premixed Ivpb - IVPB 100 mls/hr Q8H-IV ANNA Administration Lactated Ringer's 1,000 mls @ 125 mls/hr 08/14/19 19:11 08/15/19 00:53 Lactated Ringers Solution IV 125 mls/hr ASDIR ANNA Administration Piperacillin Sod/Tazobactam 50 mls @ 100 mls/hr 08/15/19 02:00 Sod 3.375 gm/ Dextrose IVPB Q8H-IV ANNA Protocol Sodium Phosphate 15 mm/ Sodium 255 mls @ 62.5 mls/hr 08/15/19 09:25 Chloride IVPB 08/15/19 13:29 ONCE ONE Morphine Sulfate 4 mg 08/14/19 16:29 08/15/19 00:51 Morphine Sulfate IVPUSH 4 mg Q3H PRN Administration PAIN LEVEL 1-5 Mupirocin 1 applic 08/14/19 22:00 08/15/19 09:22 Bactroban Ointment (For Decolonization) - NS 08/19/19 21:59 1 applic BID ANNA Administration Ondansetron HCl 4 mg 08/14/19 19:11 Zofran Injection IVPUSH Q6H PRN NAUSEA AND/OR VOMITING Pantoprazole Sodium 40 mg 08/15/19 10:00 08/15/19 09:21 Protonix Iv IVPUSH 40 mg DAILY ANNA Administration ASSESSMENT/PLAN: Pt is a 59 y/o M with a significant past medical history of HTN who presented initially to [facility] [place]NOTE 2] due to severe abdominal pain and ultimately found to have pneumoperitoneum 2/2 perforated diverticulitis. POD#2 developed abdominal evisceration. CARDIO-> HTN -Vasotec Inj 1.25 Q6H PRN #GI -> Perforated Diverticulitis complicated by abdominal evisceration -CTAP: Diverticulitis of the proximal sigmoid with pneumoperitoneum and 2 separate fluid collection, mesenteric shadowing, dilation of small bowel loops. -S/p exploratory laparotomy with resection of sigmoid and formation of colostomy. Went to O.R yesterday 2/2 abdominal evisceration. - Zosyn and Metronidazole for Gram - and Anaerobic coverage. - Ofirmev and Morphine 4 mg Q3H PRN Analgesia - Zofran for nausea - Surgery on board - continue protonix - continue use of incentive rick #RENAL-> Acute Kidney Injury - Most likely 2/2 sepsis. - Resolved - Gave additional bolus today after 700cc urine yesterday - will keep paris in and continue IVF and monitor is urine o/p. #FEN LR@125cc/hr Monitor Electrolytes NPO #DVT ppx: HEPSQTID Dispo: ICU Visit type - Emergency Visit Emergency Visit: Yes ED Registration Date: 08/09/19 Care time: The patient presented to the Emergency Department on the above date and was hospitalized for further evaluation of their emergent condition. - New Patient This patient is new to me today: No - Critical Care Critical Care patient: Yes Total Critical Care Time (in minutes): 35 Critical Care Statement: The care of this patient involved high complexity decision making to prevent further life threatening deterioration of the patient 's condition and/or to evaluate & treat vital organ system(s) failure or risk of failure. - Discharge Referral Referred to [facility] No ATTENDING PHYSICIAN STATEMENT I saw and evaluated the patient. I reviewed the resident's note and discussed the case with the resident. I agree with the resident's findings and plan as documented. SUBJECTIVE: OBJECTIVE: ASSESSMENT AND PLAN:
--- NOTE | 2019-08-15 10:08 | PN ---
Teaching Attending Note Name of Resident: Kvng Reid ATTENDING PHYSICIAN STATEMENT I saw and evaluated the patient. I reviewed the resident's note and discussed the case with the resident. I agree with the resident's findings and plan as documented. SUBJECTIVE: Patient seen and examined in the ICU. Awake and alert. Return to OR yesterday due to abdominal evisceration and required closure of abdominal incision with retention sutures POD #3: Hartmans procedure. Denies CP or SOB. (+) output from ostomy. Intake & Output 08/12/19 08/13/19 08/14/19 08/15/19 23:59 23:59 23:59 23:59 Intake Total 4300 5250 7665 1500 Output Total 441 320 2560 1290 Balance 3780 4499 4165 210 Weight 225 lb 225 lb Last Vital Signs Temp Pulse Resp BP Pulse Ox 97.6 F 97 H 17 123/83 96 08/15/19 08:00 08/15/19 08:00 08/15/19 08:00 08/15/19 08:00 08/15/19 07:00 Active Medications Acetaminophen (Ofirmev Injection -) 1,000 mg IVPB Q6H ANNA Stop: 08/15/19 11:01 Last Admin: 08/15/19 06:20 Dose: 1,000 mg Chlorhexidine Gluconate (Hibiclens For Decolonization -) 1 applic TP HS ANNA Last Admin: 08/14/19 21:19 Dose: 1 applic Enalaprilat (Vasotec Injection -) 1.25 mg IVPB Q6H-IV ANNA Last Admin: 08/15/19 09:21 Dose: 1.25 mg Fentanyl (Sublimaze Injection -) 50 mcg IVPUSH [id number] PRN PRN Reason: PAIN-PACU ORDER X 4 DOSES ONLY Heparin Sodium (Porcine) (Heparin -) 5,000 unit SQ TID ANNA Last Admin: 08/15/19 06:21 Dose: 5,000 unit Piperacillin Sod/Tazobactam (Sod 3.375 gm/ Dextrose) 50 mls @ 100 mls/hr IVPB Q8H-IV ANNA; Protocol Stop: 08/15/19 10:29 Last Admin: 08/15/19 09:21 Dose: 100 mls/hr Metronidazole (Flagyl 500mg Premixed Ivpb -) 500 mg in 100 mls @ 100 mls/hr IVPB Q8H-IV ANNA Last Admin: 08/15/19 09:21 Dose: 100 mls/hr Lactated Ringer's (Lactated Ringers Solution) 1,000 mls @ 125 mls/hr IV ASDIR ANNA Last Admin: 08/15/19 00:53 Dose: 125 mls/hr Piperacillin Sod/Tazobactam (Sod 3.375 gm/ Dextrose) 50 mls @ 100 mls/hr IVPB Q8H-IV ANNA; Protocol Sodium Phosphate 15 mm/ Sodium (Chloride) 255 mls @ 62.5 mls/hr IVPB ONCE ONE Stop: 08/15/19 15:04 Morphine Sulfate (Morphine Sulfate) 4 mg IVPUSH Q3H PRN PRN Reason: PAIN LEVEL 1-5 Last Admin: 08/15/19 00:51 Dose: 4 mg Mupirocin (Bactroban Ointment (For Decolonization) -) 1 applic NS BID [facility] Stop: 08/19/19 21:59 Last Admin: 08/15/19 09:22 Dose: 1 applic Ondansetron HCl (Zofran Injection) 4 mg IVPUSH Q6H PRN PRN Reason: NAUSEA AND/OR VOMITING Pantoprazole Sodium (Protonix Iv) 40 mg IVPUSH DAILY [facility] Last Admin: 08/15/19 09:21 Dose: 40 mg GENERAL: NAD AAOx3 HEAD: Normal with no signs of trauma. EYES: EOMI Sclera Clear EARS, NOSE, THROAT: MMM LUNGS:CTAB HEART: RRR S1S2 ABDOMEN: Hypoactive BS, distended, surgical bandage in place, dry. Colostomy with pink stoma. No stool in bag. LOWER EXTREMITIES: No CCE. PSYCHIATRIC: Cooperative. Good eye contact. Appropriate mood and affect. SKIN: Warm, dry, normal turgor, no rashes or lesions noted. ASSESSMENT/PLAN: POD #1: abdominal evisceration requiring closure of abdominal incision with retention sutures POD #3: S/P exploratory laparotomy with resection of sigmoid and formation of colostomy Diverticulitis of the proximal sigmoid with pneumoperitoneum HTN IVF Strict I & O O2 as needed Incentive Spirometry ABX Monitor for return of bowel function Pain control VTE prophylaxis Floor when OK with surgery Dr Valverde
--- NOTE | 2019-08-15 10:17 | PN ---
Progress Note (short form) - Note Progress Note: ID CONSULT DICTATED POD#3 PERFORATED DIVERTICULITIS WITH ABSCESS FORMATION S/P MARGARITA'S PROCEDURE S/P WOUND DEHISCENCE + ABDOMINAL C/S PSEUDOMONAS SP SUBSTITUTE ZOSYN CONTINUE FLAGYL
[2019-08-15] MEDS ORDERED: PT OWN MED DRAWER 7, Y5N ONE (10:32)
[2019-08-15] MEDS ORDERED: SODIUM PHOSPHATE - 15 MM in SODIUM CHLORIDE 250 ML IVPB ONE (11:00)
--- NOTE | 2019-08-15 11:02 | CONS ---
DATE OF CONSULTATION: DATE OF DICTATION: 08/15/2019 The patient is a 59-year-old male evaluated for positive wound culture, pseudomonas. The patient was admitted to the hospital on August 09, 2019, with complaints of left lower quadrant abdominal pain. CT scan of the abdomen and pelvis showed sigmoid diverticulitis. His hospital course was complicated by worsening of his abdominal pain and evidence of perforation. He was taken to the operating room on August 12, 2019, where an exploratory laparotomy, sigmoid resection, and colostomy were performed. He is presently postoperative day No. 3. He was empirically treated with ceftriaxone and Flagyl. He required a return to the operating room on August 14, 2019, after developing wound dehiscence. Cultures obtained from the OR are positive for pseudomonas species. The final identification is pending. At the present time, he is awake and alert. He has no complaints of pain. He reports abdominal pain with cough, but otherwise, has been comfortable. An NG tube is in place and is draining bilious fluid. He has had low-grade fever and an elevated white blood cell count. PAST MEDICAL HISTORY: Positive for hypertension. PAST SURGICAL HISTORY: Status post total hip replacement. No known allergies. MEDICATIONS AT THE PRESENT TIME: Ceftriaxone, Flagyl, Tylenol, enalapril, fentanyl, morphine, Protonix. SOCIAL HISTORY: He resides in the community. He is a nonsmoker. Occasional EtOH. SYSTEMS REVIEW: Neurologic: No loss of consciousness, seizure activity, focal weakness. Cardiac: Negative chest pain or palpitations. Respiratory: Negative cough or sputum production. Gastrointestinal: As per HPI. Genitourinary: Negative for urinary tract infection. LABORATORY DATA: White count 12.6, hematocrit 35.2, platelets 330. Creatinine 1.0. Urine leukocyte esterase negative. Blood cultures negative. Operative cultures positive for pseudomonas species, to be identified. PHYSICAL EXAMINATION: General: He is awake and alert. He is supine in bed in no acute distress. Obese. Vital Signs: Temperature maximum 100.2, blood pressure 123/83, pulse 97 and regular, respirations 17/min. HEENT: Sclerae anicteric. Heart Sounds: S1, S2. Lungs: Air entry bilaterally. Abdomen: Obese, soft. There is a vertical surgical incision with retention sutures with packing. There is an ostomy present. Extremities: Negative for edema. IMPRESSION: 1. Postoperative day number 3, perforated diverticulitis with abscess formation. 2. Positive abdominal culture for pseudomonas. 3. Status post Radha procedure. 4. Status post wound dehiscence. Substitute Zosyn 4.5 g IV piggyback every 8 hours. Continue Flagyl. Await identification of operative culture isolate. Will follow. Thank you for the kind referral. YOSELIN VICTORIA M.D. NADIA/[id number]
--- NOTE | 2019-08-15 11:53 | PN ---
Progress Note (short form) - Note Progress Note: Attending Surgeon POD #1/3 awake, alert in ICU; minimal if any c/o pain VSS AF abdo-dressing intact; KARI serous; no tenderness; ostomy viable w/o output; o/w negative labs noted urine output > 30cc/hr NGT output decreasing IMP: improving PLAN: bedrest today; continue IVF/IVABS?KARI/paris/pulmonary toilet; dressing change ; ICU/ID input appreciated. Harsh Spencer MD FACS
--- NOTE | 2019-08-15 12:58 | PN ---
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 No nausea/vomiting. No fever/chills. OBJECTIVE: Fever resolved. Hemodynamicaly stable. Last Vital Signs Temp Pulse Resp BP Pulse Ox 97.9 F 89 19 116/76 96 08/15/19 12:00 08/15/19 12:00 08/15/19 12:00 08/15/19 12:00 08/15/19 07:00 HEENT - NG tube in situ with bilious material output. Heart - S1, S2, RRR lungs - clear to auscultation Abdomen - High BMI, Midline laparotomy incision dressed. Colostomy LLQ with some bloody fluid. Extremities - No calf tenderness. Neuro - AAO x 3. Moving all 4 extremities. Laboratory Results - last 24 hr 08/14/19 08/15/19 23:00 05:50 Sodium 137 140 Potassium 4.1 4.4 Chloride 105 107 Carbon Dioxide 24 23 Anion Gap 8 10 BUN 19.4 H 18.2 H Creatinine 0.9 1.0 Est GFR (CKD-EPI)AfAm 107.97 95.06 Est GFR (CKD-EPI)NonAf 93.16 82.02 Random Glucose 121 H 118 H Calcium 7.0 L 7.0 L Phosphorus 2.2 L 2.4 L Magnesium 2.2 Total Bilirubin 0.5 AST 36 ALT 20 Alkaline Phosphatase 27 L Total Protein 3.9 L Albumin 1.3 L Current Medications Generic Name Dose Route Start Last Admin Trade Name Freq PRN Reason Stop Dose Admin Chlorhexidine Gluconate 1 applic 08/14/19 22:00 08/14/19 21:19 Hibiclens For Decolonization - TP 1 applic HS ANNA Administration Enalaprilat 1.25 mg 08/14/19 21:00 08/15/19 09:21 Vasotec Injection - IVPB 1.25 mg Q6H-IV ANNA Administration Fentanyl 50 mcg 08/14/19 16:43 Sublimaze Injection - IVPUSH [id number] PRN PAIN-PACU ORDER X 4 DOSES ONLY Heparin Sodium (Porcine) 5,000 unit 08/14/19 22:00 08/15/19 06:21 Heparin - SQ 5,000 unit TID ANNA Administration Metronidazole 500 mg in 100 mls @ 100 mls/hr 08/15/19 02:00 09/15/19 09:21 Flagyl 500mg Premixed Ivpb - IVPB 100 mls/hr Q8H-IV ANNA Administration Lactated Ringer's 1,000 mls @ 125 mls/hr 08/14/19 19:11 08/15/19 10:30 Lactated Ringers Solution IV 125 mls/hr ASDIR ANNA Administration Sodium Phosphate 15 mm/ Sodium 255 mls @ 62.5 mls/hr 08/15/19 11:00 08/15/19 11:36 Chloride IVPB 08/15/19 15:04 62.5 mls/hr ONCE ONE Administration Piperacillin Sod/Tazobactam 100 mls @ 200 mls/hr 08/15/19 18:00 Sod 4.5 gm/ Dextrose IVPB Q8H-IV ANNA Protocol Morphine Sulfate 4 mg 08/14/19 16:29 08/15/19 00:51 Morphine Sulfate IVPUSH 4 mg Q3H PRN Administration PAIN LEVEL 1-5 Mupirocin 1 applic 08/14/19 22:00 08/15/19 09:22 Bactroban Ointment (For Decolonization) - NS 08/19/19 21:59 1 applic BID ANNA Administration Ondansetron HCl 4 mg 08/14/19 19:11 Zofran Injection IVPUSH Q6H PRN NAUSEA AND/OR VOMITING Pantoprazole Sodium 40 mg 08/15/19 10:00 08/15/19 09:21 Protonix Iv IVPUSH 40 mg DAILY ANNA Administration Home Medications Medication Instructions Recorded Amlodipine Besylate/Benazepril 1 each PO DAILY 08/09/19 [Amlodipine-Benazepril 10-20 mg] ASSESSMENT AND PLAN: 59 year old male with history of HTN, presented with abdominal pain and found to be septic due to diverticulitis, developed bowel perforation requiring emergent abdominal surgery and bowel resection. Repeat CT A/P - Diverticulitis of the proximal sigmoid with pneumoperitoneum and 2 separate fluid collections, mesenteric shadowing, dilation of small bowel loops. 1. Severe Sepsis and Bowel Perforation due to Acute Diverticulitis with Abscess formation POD 2 s/p ex-lap with resection of sigmoid/Hartmans with colostomy POD 1 s/p bowel evisceration requiring wound re-closure with retention sutures. Surgical Peritoneal Cx positive for Pseudomonas - Ceftriaxone changed to Zosyn. Continue Flagyl. ID following. Continue IV hydration. Dilaudid REFUGE WORKER stopped. Pain appears well controlled at the moment. Further management as per Sx. 2. JASEN - secondary to third spacing. Improved. Continue IV hydration and monitor. 3. HTN - normally on Amlodipine/Benazepril. Currently NPO. Enalaprilat prn. 4. Hypomagnesemia - resolved s/p repletion. 5. Hypophosphatemia - recurrent, repleted. DVT Px - Heparin SQ GI Px - PPI Visit type - Emergency Visit Emergency Visit: Yes ED Registration Date: 08/09/19 Care time: The patient presented to the Emergency Department on the above date and was hospitalized for further evaluation of their emergent condition. - New Patient This patient is new to me today: No - Critical Care Critical Care patient: Yes Total Critical Care Time (in minutes): 35 Critical Care Statement: The care of this patient involved high complexity decision making to prevent further life threatening deterioration of the patient 's condition and/or to evaluate & treat vital organ system(s) failure or risk of failure.
--- NOTE | 2019-08-15 14:05 | PN ---
Progress Note (short form) - Note Progress Note: POD1 s/p abdominal closure. Resting comforably in NAD; VSS; pain is well controlled, no apparent anesthetic issues/complications.
[2019-08-15] MEDS ORDERED: PIPERACILLIN/TAZOBACTAM 4.5 GM VIAL IVPB ONE ×3 (17:19→17:21)
[2019-08-15] MEDS ORDERED: DEXTROSE 5%-WATER 100 ML IVPB ONE (17:20)
[2019-08-15] MEDS: PIPERACILLIN/TAZOB 4.5 GM 4.5 GM in DEXTROSE 5%-WATER 100 ML IVPB SCH (17:29)
[2019-08-15] MEDS: CHLORHEXIDINE GLUCONATE 4% CLEANSER FOR DECOLONIZATION TP SCH (21:15)
[2019-08-16] MEDS ORDERED: PIPERACILLIN/TAZOBACTAM 4.5 GM VIAL IVPB ONE ×3 (01:10→17:51)
[2019-08-16] MEDS ORDERED: DEXTROSE 5%-WATER 100 ML IVPB ONE ×3 (01:11→17:52)
[2019-08-16] MEDS: PIPERACILLIN/TAZOB 4.5 GM 4.5 GM in DEXTROSE 5%-WATER 100 ML IVPB SCH ×3 (01:16→17:55)
[2019-08-16] MEDS: ENALAPRILAT DIHYDRATE 1.25 MG/1 ML VIAL IVPB SCH ×4 (02:15→20:48)
[2019-08-16] MEDS: HEPARIN NA (PORCINE) 5,000 UNITS/ML 1ML VIAL SQ SCH ×3 (05:41→21:08)
[2019-08-16 05:46] LABS: BASO % 0.2 % (0-2.0); EOS % 0.5 % (0-4.5); HEMATOCRIT 30.9 % (35.4-49); HEMOGLOBIN 10.4 GM/dL (11.7-16.9); LYMPH % 8.7 % (8-40); MCH 29.8 pg (25.7-33.7); MCHC 33.8 g/dl (32.0-35.9); MEAN CELL VOLUME 88.2 fl (80-96); MEAN PLT VOLUME 7.3 fl (7.5-11.1); MONO % 9.1 % (3.8-10.2); NEUT % 81.5 % (42.8-82.8); PLATELET COUNT 357 K/MM3 (134-434); RDW 15.9 % (11.9-15.9); WHITE BLOOD COUNT 14.2 K/mm3 (4.0-10.0)
[2019-08-16 06:23] LABS: BLOOD UREA NITROGEN 16.6 mg/dL (7-18); CREATININE 0.7 mg/dL (0.55-1.3); MAGNESIUM 2.3 mg/dL (1.8-2.4); PHOSPHOROUS 2.1 mg/dL (2.5-4.9); POTASSIUM 3.5 mmol/L (3.5-5.1)
[2019-08-16 06:29] LABS: CALCIUM 6.8 mg/dL (8.5-10.1)
[2019-08-16] MEDS ORDERED: CALCIUM GLUCONATE 10% - 1,000 MG/10 ML VIAL IVPB ONE (07:12)
[2019-08-16] MEDS ORDERED: SODIUM PHOSPHATE - 15 MM in SODIUM CHLORIDE 250 ML IVPB ONE (08:13)
--- NOTE | 2019-08-16 08:54 | PN ---
Progress Note (short form) - Note Progress Note: POD#2 POD#4 Pt without complaints this am. States that he is belching occasionally. Vital Signs Period Temp Pulse Resp BP Sys/Cramer Pulse Ox Last 24 Hr 97.7 F-98.4 F 76-98 16-24 116-151/76-98 98 NGT: 1500ml-bilious [place]:1900ml KARI: 90 ml serosangrenous GEN: A&0x3 NAD ABD: soft, obese, less distended. Midline wound with greenish colored dressing. Fascia intact. Ostomy with light pink fliud outpt/some gas in bag. Midline anna in place. LE: no calf tenderess/swelling. SCDs in place. CBC, BMP 08/16/19 05:10 08/16/19 05:10 Microbiology 08/12/19 18:27 Peritoneal Fluid Gram Stain - Final 08/12/19 18:27 Peritoneal Fluid Anaerobic Culture - Final Pseudomonas Aeruginosa NO ANAEROBES WERE ISOLATED Problem List - Problems (1) Diverticulitis Assessment/Plan: s/p laparotomy for pneumoperitoneum and return to OR for wound dehiscence. wound care ordered changed today for wet to dry with Dakins. Abdominal binder ordered OOB to chair remove paris catheter Code(s): K57.92 - DVTRCLI OF INTEST, PART UNSP, W/O PERF OR ABSCESS W/O BLEED (2) Hypophosphatemia Assessment/Plan: repleted today with sodium phospate. Maintain electrolyte balance to promote bowel funtion. NGT to LWS. Daily chem 10 D/w Dr. Spencer Code(s): E83.39 - OTHER DISORDERS OF PHOSPHORUS METABOLISM
[2019-08-16 08:56] LABS: ANISOCYTOSIS 0; MACROCYTOSIS 0; PLATELET ESTIMATE NORMAL
[2019-08-16] MEDS: PANTOPRAZOLE SODIUM 40 MG VIAL IVPUSH SCH (09:18)
[2019-08-16] MEDS: MUPIROCIN 2% TOPICAL OINTMENT FOR DECOLONIZATION NS SCH (09:19)
--- NOTE | 2019-08-16 09:54 | PN ---
Progress Note, Physician History of Present Illness: AWAKE, ALERT IN BED NO C/O ABDOMINAL PAIN NO C/O F/C AFEBRILE WBC 14 BC (-) - Current Medication List Current Medications: Active Medications Chlorhexidine Gluconate (Hibiclens For Decolonization -) 1 applic TP HS [facility] Last Admin: 08/15/19 21:15 Dose: 1 applic Enalaprilat (Vasotec Injection -) 1.25 mg IVPB Q6H-IV [facility] Last Admin: 08/16/19 09:10 Dose: 1.25 mg Heparin Sodium (Porcine) (Heparin -) 5,000 unit SQ TID [facility] Last Admin: 08/16/19 05:41 Dose: 5,000 unit Metronidazole (Flagyl 500mg Premixed Ivpb -) 500 mg in 100 mls @ 100 mls/hr IVPB Q8H-IV [facility] Last Admin: 08/16/19 09:18 Dose: 100 mls/hr Lactated Ringer's (Lactated Ringers Solution) 1,000 mls @ 125 mls/hr IV ASDIR [facility] Last Admin: 08/15/19 19:10 Dose: Not Given Piperacillin Sod/Tazobactam (Sod 4.5 gm/ Dextrose) 100 mls @ 200 mls/hr IVPB Q8H-IV [facility]; Protocol Last Admin: 08/16/19 09:18 Dose: 200 mls/hr Sodium Phosphate 15 mm/ Sodium (Chloride) 255 mls @ 62.5 mls/hr IVPB ONCE ONE Stop: 08/16/19 12:17 Morphine Sulfate (Morphine Sulfate) 4 mg IVPUSH Q3H PRN PRN Reason: PAIN LEVEL 1-5 Last Admin: 08/15/19 00:51 Dose: 4 mg Mupirocin (Bactroban Ointment (For Decolonization) -) 1 applic NS BID [facility] Stop: 08/19/19 21:59 Last Admin: 08/16/19 09:19 Dose: 1 applic Ondansetron HCl (Zofran Injection) 4 mg IVPUSH Q6H PRN PRN Reason: NAUSEA AND/OR VOMITING Pantoprazole Sodium (Protonix Iv) 40 mg IVPUSH DAILY [facility] Last Admin: 08/16/19 09:18 Dose: 40 mg Sodium Hypochlorite (Dakin's Solution 0.25% (Half-Strength) -) 1 applic TP DAILY AN[facility] - Objective Vital Signs: Vital Signs Temperature 98.3 F 08/16/19 06:00 Pulse Rate 96 H 08/16/19 06:00 Respiratory Rate 24 H 08/16/19 06:00 Blood Pressure 149/98 08/16/19 06:00 O2 Sat by Pulse Oximetry (%) 98 08/15/19 21:00 Constitutional: Yes: No Distress, Obese Cardiovascular: Yes: Regular Rate and Rhythm, S1, S2 Respiratory: Yes: Diminished Gastrointestinal: Yes: Normal Bowel Sounds, Soft, Other (SURGICAL WOUND DRESSING IN PLACE + OSTOMY). No: Tenderness Labs: CBC, BMP 08/16/19 05:10 08/16/19 05:10 INR, PTT INR 1.16 (0.83-1.09) H 08/09/19 02:20 Assessment/Plan POD# 4 MARGARITA'S PERFORATED DIVERTICULITIS WITH ABSCESS + OPERATIVE C/S PSEUDOMONAS CONTINUE ZOSYN/ FLAGYL
[2019-08-16] MEDS ORDERED: SODIUM HYPOCHLORITE 0.25%- 473 ML BULK BOTTLE TP SCH (10:00)
[2019-08-16] MEDS: LACTATED RINGERS SOLUTION 1,000 ML IV SCH ×2 (10:12→17:55)
[2019-08-16] MEDS ORDERED: PT OWN MED DRAWER 7, Y5N ONE ×2 (12:04→20:23)
--- NOTE | 2019-08-16 12:27 | PN ---
Teaching Attending Note Name of Resident: Preston Reid ATTENDING PHYSICIAN STATEMENT I saw and evaluated the patient. I reviewed the resident's note and discussed the case with the resident. I agree with the resident's findings and plan as documented. SUBJECTIVE: Pt seen and examined in the ICU. Pain controlled. Denies nausea, NGT draining bilious fluid. OBJECTIVE: Vital Signs Period Temp Pulse Resp BP Sys/Cramer Pulse Ox Last 24 Hr 98.0 F-98.4 F 76-96 16-26 131-151/71-98 95-98 Intake & Output 08/13/19 08/14/19 08/15/19 08/16/19 23:59 23:59 23:59 23:59 Intake Total 5250 7665 4350 1125 Output Total 751 3500 3350 1230 Balance 4499 4165 1000 -105 Weight 102.058 kg Gen: NAD at rest Heart: RRR Lung: decreased breath sounds at the bases Abd: soft, +ostomy pink, bag with gas Ext: no edema CBC, BMP 08/16/19 05:10 08/16/19 05:10 Active Medications Chlorhexidine Gluconate (Hibiclens For Decolonization -) 1 applic TP HS [facility] Last Admin: 08/15/19 21:15 Dose: 1 applic Enalaprilat (Vasotec Injection -) 1.25 mg IVPB Q6H-IV [facility] Last Admin: 08/16/19 09:10 Dose: 1.25 mg Heparin Sodium (Porcine) (Heparin -) 5,000 unit SQ TID [facility] Last Admin: 08/16/19 05:41 Dose: 5,000 unit Metronidazole (Flagyl 500mg Premixed Ivpb -) 500 mg in 100 mls @ 100 mls/hr IVPB Q8H-IV [facility] Last Admin: 08/16/19 09:18 Dose: 100 mls/hr Lactated Ringer's (Lactated Ringers Solution) 1,000 mls @ 125 mls/hr IV ASDIR [facility] Last Admin: 08/16/19 10:12 Dose: 125 mls/hr Piperacillin Sod/Tazobactam (Sod 4.5 gm/ Dextrose) 100 mls @ 200 mls/hr IVPB Q8H-IV [facility]; Protocol Last Admin: 08/16/19 09:18 Dose: 200 mls/hr Morphine Sulfate (Morphine Sulfate) 4 mg IVPUSH Q3H PRN PRN Reason: PAIN LEVEL 1-5 Last Admin: 08/15/19 00:51 Dose: 4 mg Mupirocin (Bactroban Ointment (For Decolonization) -) 1 applic NS BID [facility] Stop: 08/19/19 21:59 Last Admin: 08/16/19 09:19 Dose: 1 applic Ondansetron HCl (Zofran Injection) 4 mg IVPUSH Q6H PRN PRN Reason: NAUSEA AND/OR VOMITING Pantoprazole Sodium (Protonix Iv) 40 mg IVPUSH DAILY [facility] Last Admin: 08/16/19 09:18 Dose: 40 mg Sodium Hypochlorite (Dakin's Solution 0.25% (Half-Strength) -) 1 applic TP DAILY [facility] Last Admin: 08/16/19 12:13 Dose: 1 applic ASSESSMENT AND PLAN: Perforated Diverticulitis Intra-abdominal Abscess s/p ex-lap/Sigmoid Resection/Colostomy Wound Dehiscence s/p Repair Severe Sepsis improving Acute Kidney Injury Lactic Acidosis HTN - continue antibiotics - IVF - monitor urine output, creatinine - pain control - incentive spirometry - NGT/PO per surgery - OOB to chair - DVT prophylaxis - can monitor on floor
--- NOTE | 2019-08-16 13:41 | PN ---
Physical Exam: SUBJECTIVE: Patient seen and examined. He reports having 2/10 abdominal pain, well-controlled. He denies nausea and vomiting, fever and chills. OBJECTIVE: Vital Signs Period Temp Pulse Resp BP Sys/Cramer Pulse Ox Last 24 Hr 98.0 F-98.4 F 76-100 16-26 131-151/71-98 95-98 GENERAL: The patient is awake, alert, and fully oriented, in no acute distress. HEAD: Normal with no signs of trauma. EYES: PERRL, extraocular movements intact, sclera anicteric, conjunctiva clear. No ptosis. ENT: Ears normal, nares patent, dry mucous membranes. NG tube in place draining green/brown NECK: Trachea midline, full range of motion, supple. LUNGS: Breath sounds equal, clear to auscultation bilaterally, no wheezes, no crackles, no accessory muscle use. HEART: Tachycardic and regular rhythm, S1, S2 without murmur, rub or gallop. ABDOMEN: Bandaged laparotomy incision, no tenderness on palpation near site and no erythema, KARI draining serosanginous fluid. colostomy bag in place with liquid light brown stool. No erythema round the site. EXTREMITIES: 2+ pulses, warm, well-perfused, no edema. NEUROLOGICAL: Cranial nerves II through XII grossly intact. Normal speech, gait not observed. PSYCH: Normal mood, normal affect. SKIN: Warm, dry, normal turgor, no rashes or lesions noted Laboratory Results - last 24 hr 08/16/19 08/16/19 05:10 05:10 WBC 14.2 H RBC 3.50 L Hgb 10.4 L Hct 30.9 L MCV 88.2 MCH 29.8 MCHC 33.8 RDW 15.9 Plt Count 357 MPV 7.3 L Absolute Neuts (auto) 11.6 H Neutrophils % 81.5 Neutrophils % (Manual) 82.0 Band Neutrophils % 0.0 Lymphocytes % 8.7 Lymphocytes % (Manual) 7.0 L D Monocytes % 9.1 Monocytes % (Manual) 9 Eosinophils % 0.5 Eosinophils % (Manual) 1.0 Basophils % 0.2 Basophils % (Manual) 0.0 Myelocytes % (Man) 1 Promyelocytes % (Man) 0 Blast Cells % (Manual) 0 Nucleated RBC % 0 Metamyelocytes 0 Hypochromia 0 Platelet Estimate Normal Polychromasia 0 Poikilocytosis 0 Anisocytosis 0 Microcytosis 0 Macrocytosis 0 Sodium 141 Potassium 3.5 Chloride 106 Carbon Dioxide 29 Anion Gap 6 L BUN 16.6 Creatinine 0.7 Est GFR (CKD-EPI)AfAm 119.72 Est GFR (CKD-EPI)NonAf 103.30 Random Glucose 115 H Calcium 6.8 L* Phosphorus 2.1 L Magnesium 2.3 Active Medications Generic Name Dose Route Start Last Admin Trade Name Freq PRN Reason Stop Dose Admin Chlorhexidine Gluconate 1 applic 08/14/19 22:00 08/15/19 21:15 Hibiclens For Decolonization - TP 1 applic HS ANNA Administration Enalaprilat 1.25 mg 08/14/19 21:00 08/16/19 09:10 Vasotec Injection - IVPB 1.25 mg Q6H-IV ANNA Administration Heparin Sodium (Porcine) 5,000 unit 08/14/19 22:00 08/16/19 05:41 Heparin - SQ 5,000 unit TID ANNA Administration Metronidazole 500 mg in 100 mls @ 100 mls/hr 08/15/19 02:00 08/16/19 09:18 Flagyl 500mg Premixed Ivpb - IVPB 100 mls/hr Q8H-IV ANNA Administration Lactated Ringer's 1,000 mls @ 125 mls/hr 08/14/19 19:11 08/16/19 10:12 Lactated Ringers Solution IV 125 mls/hr ASDIR ANNA Administration Piperacillin Sod/Tazobactam 100 mls @ 200 mls/hr 08/15/19 18:00 08/16/19 09: 18 Sod 4.5 gm/ Dextrose IVPB 200 mls/hr Q8H-IV ANNA Administration Protocol Morphine Sulfate 4 mg 08/14/19 16:29 08/15/19 00:51 Morphine Sulfate IVPUSH 4 mg Q3H PRN Administration PAIN LEVEL 1-5 Mupirocin 1 applic 08/14/19 22:00 08/16/19 09:19 Bactroban Ointment (For Decolonization) - NS 08/19/19 21:59 1 applic BID ANNA Administration Ondansetron HCl 4 mg 08/14/19 19:11 Zofran Injection IVPUSH Q6H PRN NAUSEA AND/OR VOMITING Pantoprazole Sodium 40 mg 08/15/19 10:00 08/16/19 09:18 Protonix Iv IVPUSH 40 mg DAILY ANNA Administration Sodium Hypochlorite 1 applic 08/16/19 10:00 08/16/19 12:13 Dakin's Solution 0.25% (Half-Strength) - TP 1 applic DAILY [facility] Administration ASSESSMENT/PLAN: Mr. Pena is a 59 y/o male with HTN and GERD who presents with sudden onset LLQ abdominal pain and chills. #eviscerated bowel #severe sepsis 2/2 diverticulitis s/p emergent laparotomy sigmoid resection and colostomy placement POD 4 s/p incision repair POD [address] prior to surgery showed pneumoperitoneum with loops of dilated bowel. -Zosyn started -flagyl -ceftriaxone stopped -IV protonix 40mg Q daily -LR 125mL/hr -blood cultures- pseudomonas -surgery following -continue pain control -CBC #hypophosphatemia 2.1 -repleted -CMP, Mg, Phos #JASEN, resolved Cr 1.3 pre-renal from sepsis -continue hydration #HTN meds are currently held, monitoring -when restarting, home med equivalent is- lisinopril 20mg Q daily, amlodipine 10mg Q daily FEN LR 125mL/hr monitor lytes NPO DVT Ppx heparin Visit type - Emergency Visit Emergency Visit: Yes ED Registration Date: 08/09/19 Care time: The patient presented to the Emergency Department on the above date and was hospitalized for further evaluation of their emergent condition. - New Patient This patient is new to me today: No - Critical Care Critical Care patient: No - Discharge Referral Referred to [facility] Med P.C.: No ATTENDING PHYSICIAN STATEMENT I saw and evaluated the patient. I reviewed the resident's note and discussed the case with the resident. I agree with the resident's findings and plan as documented. SUBJECTIVE: OBJECTIVE: ASSESSMENT AND PLAN:
--- NOTE | 2019-08-16 14:10 | PN ---
Physical Exam: SUBJECTIVE: Patient seen and examined in the ICU. Pain controlled. Denies nausea , cp, sob. Admits to burping but no passing of gas yet. NGT draining bilious fluid. OBJECTIVE: Vital Signs Period Temp Pulse Resp BP Sys/Cramer Pulse Ox Last 24 Hr 98.0 F-98.4 F 76-100 16-26 138-151/71-98 95-98 GENERAL: The patient is awake, alert, and fully oriented, in no acute distress. HEAD: Normal with no signs of trauma. NECK: supple. LUNGS: Breath sounds equal, clear to auscultation bilaterally, no wheezes, no crackles, no accessory muscle use. HEART: tahcycardic and rhythm, S1, S2 without murmur, rub or gallop. ABDOMEN: Soft, tender, distended, pink stoma on colostomy bag, awaiting for gas to be seen or stool EXTREMITIES: 2+ pulses, warm, well-perfused, no edema. SKIN: Warm, dry, no rashes or lesions noted Laboratory Results - last 24 hr 08/16/19 08/16/19 05:10 05:10 WBC 14.2 H RBC 3.50 L Hgb 10.4 L Hct 30.9 L MCV 88.2 MCH 29.8 MCHC 33.8 RDW 15.9 Plt Count 357 MPV 7.3 L Absolute Neuts (auto) 11.6 H Neutrophils % 81.5 Neutrophils % (Manual) 82.0 Band Neutrophils % 0.0 Lymphocytes % 8.7 Lymphocytes % (Manual) 7.0 L D Monocytes % 9.1 Monocytes % (Manual) 9 Eosinophils % 0.5 Eosinophils % (Manual) 1.0 Basophils % 0.2 Basophils % (Manual) 0.0 Myelocytes % (Man) 1 Promyelocytes % (Man) 0 Blast Cells % (Manual) 0 Nucleated RBC % 0 Metamyelocytes 0 Hypochromia 0 Platelet Estimate Normal Polychromasia 0 Poikilocytosis 0 Anisocytosis 0 Microcytosis 0 Macrocytosis 0 Sodium 141 Potassium 3.5 Chloride 106 Carbon Dioxide 29 Anion Gap 6 L BUN 16.6 Creatinine 0.7 Est GFR (CKD-EPI)AfAm 119.72 Est GFR (CKD-EPI)NonAf 103.30 Random Glucose 115 H Calcium 6.8 L* Phosphorus 2.1 L Magnesium 2.3 Active Medications Generic Name Dose Route Start Last Admin Trade Name Freq PRN Reason Stop Dose Admin Chlorhexidine Gluconate 1 applic 08/14/19 22:00 08/15/19 21:15 Hibiclens For Decolonization - TP 1 applic HS ANNA Administration Enalaprilat 1.25 mg 08/14/19 21:00 08/16/19 09:10 Vasotec Injection - IVPB 1.25 mg Q6H-IV ANNA Administration Heparin Sodium (Porcine) 5,000 unit 08/14/19 22:00 08/16/19 13:57 Heparin - SQ 5,000 unit TID ANNA Administration Metronidazole 500 mg in 100 mls @ 100 mls/hr 08/15/19 02:00 08/16/19 09:18 Flagyl 500mg Premixed Ivpb - IVPB 100 mls/hr Q8H-IV ANNA Administration Lactated Ringer's 1,000 mls @ 125 mls/hr 08/14/19 19:11 08/16/19 10:12 Lactated Ringers Solution IV 125 mls/hr ASDIR ANNA Administration Piperacillin Sod/Tazobactam 100 mls @ 200 mls/hr 08/15/19 18:00 08/16/19 09: 18 Sod 4.5 gm/ Dextrose IVPB 200 mls/hr Q8H-IV ANNA Administration Protocol Morphine Sulfate 4 mg 08/14/19 16:29 08/15/19 00:51 Morphine Sulfate IVPUSH 4 mg Q3H PRN Administration PAIN LEVEL 1-5 Mupirocin 1 applic 08/14/19 22:00 08/16/19 09:19 Bactroban Ointment (For Decolonization) - NS 08/19/19 21:59 1 applic BID ANNA Administration Ondansetron HCl 4 mg 08/14/19 19:11 Zofran Injection IVPUSH Q6H PRN NAUSEA AND/OR VOMITING Pantoprazole Sodium 40 mg 08/15/19 10:00 08/16/19 09:18 Protonix Iv IVPUSH 40 mg DAILY ANNA Administration Sodium Hypochlorite 1 applic 08/16/19 10:00 08/16/19 12:13 Dakin's Solution 0.25% (Half-Strength) - TP 1 applic DAILY [facility]NA Administration ASSESSMENT/PLAN: Pt is a 59 y/o M with a significant past medical history of HTN who presented initially to [facility] due to severe abdominal pain and ultimately found to have pneumoperitoneum 2/2 perforated diverticulitis. POD#2 developed abdominal evisceration/wound dehiscence. CARDIO-> HTN -Enalaprilat Vasotec Inj 1.25 Q6H PRN #GI -> Perforated Diverticulitis complicated by abdominal evisceration -CTAP: Diverticulitis of the proximal sigmoid with pneumoperitoneum and 2 separate fluid collection, mesenteric shadowing, dilation of small bowel loops. -S/p exploratory laparotomy with resection of sigmoid and formation of colostomy. Went to O.R yesterday 2/2 abdominal evisceration. - continue Zosyn and Metronidazole for Gram - and Anaerobic coverage. - Ofirmev and Morphine 4 mg Q3H PRN Analgesia - Zofran for nausea - Surgery on board- POD 2 for evisceration, patient pain controlled. Vital signs stable, continues to be afebrile. - continue protonix - continue use of incentive rick #RENAL-> Acute Kidney Injury - Most likely 2/2 sepsis. - Resolved - will keep paris in and continue IVF and monitor is urine o/p. - having adequate urine output. #FEN LR@125cc/hr Monitor Electrolytes NPO #DVT ppx: [id number] Dispo: Patient was discharged from ICU to [facility]. Thank you for this consultative opportunity. Visit type - Emergency Visit Emergency Visit: Yes ED Registration Date: 08/09/19 Care time: The patient presented to the Emergency Department on the above date and was hospitalized for further evaluation of their emergent condition. - New Patient This patient is new to me today: No - Critical Care Critical Care patient: Yes Total Critical Care Time (in minutes): 35 Critical Care Statement: The care of this patient involved high complexity decision making to prevent further life threatening deterioration of the patient 's condition and/or to evaluate & treat vital organ system(s) failure or risk of failure. - Discharge Referral Referred to [facility] Med [facility].C[facility] No ATTENDING PHYSICIAN STATEMENT I saw and evaluated the patient. I reviewed the resident's note and discussed the case with the resident. I agree with the resident's findings and plan as documented. SUBJECTIVE: OBJECTIVE: ASSESSMENT AND PLAN:
[2019-08-16] MEDS: PIPERACILLIN/TAZOB 3.375 GM 3.375 GM in DEXTROSE 5%-WATER - 50 ML IVPB SCH (15:41)
[2019-08-16] MEDS: HYDROmorphone *PCA* 10MG/50ML DISP.SYRIN PCA SCH (15:42)
[2019-08-16] MEDS ORDERED: morphine SULFATE 4 MG/ML VIAL IVPUSH PRN (15:45)
[2019-08-16] MEDS ORDERED: ONDANSETRON 4 MG/2 ML VIAL IVPUSH PRN (15:45)
--- NOTE | 2019-08-16 17:44 | SURG ---
Surgery R D Intern Note R D Intern: Ling Mayo PA-C Date of Service: 08/14/19 Diagnosis: abdominal evisceration Procedure: closure of abdominal incision with retention sutures s/p Hartmans procedure POD# 2 I was present for the entirety of the operative procedure. For further detail, please refer to operative report. Visit type - Case Type Case Type: Scheduled - Emergency Emergency Visit: No - New patient This patient is new to me today: No
--- NOTE | 2019-08-16 18:30 | PN ---
Teaching Attending Note Name of Resident: Kush Long ATTENDING PHYSICIAN STATEMENT I saw and evaluated the patient. I reviewed the resident's note and discussed the case with the resident. I agree with the resident's findings and plan as documented. SUBJECTIVE: Feels well, pain well controlled, off EDUCATIONAL ADVISOR. No nausea/vomiting. No fever/chills. OBJECTIVE: Fever resolved. Hemodynamicaly stable. Last Vital Signs Temp Pulse Resp BP Pulse Ox 98.2 F 113 H 30 H 151/98 95 08/16/19 10:00 08/16/19 14:00 08/16/19 14:00 08/16/19 14:00 08/16/19 09:00 HEENT - NG tube in situ with bilious material output. Heart - S1, S2, RRR lungs - clear to auscultation Abdomen - High BMI, Midline laparotomy incision dressed. Colostomy LLQ with air and minimal amt bloody fluid. Extremities - No calf tenderness. Neuro - AAO x 3. Moving all 4 extremities. Laboratory Results - last 24 hr 08/16/19 08/16/19 05:10 05:10 WBC 14.2 H RBC 3.50 L Hgb 10.4 L Hct 30.9 L MCV 88.2 MCH 29.8 MCHC 33.8 RDW 15.9 Plt Count 357 MPV 7.3 L Absolute Neuts (auto) 11.6 H Neutrophils % 81.5 Neutrophils % (Manual) 82.0 Band Neutrophils % 0.0 Lymphocytes % 8.7 Lymphocytes % (Manual) 7.0 L D Monocytes % 9.1 Monocytes % (Manual) 9 Eosinophils % 0.5 Eosinophils % (Manual) 1.0 Basophils % 0.2 Basophils % (Manual) 0.0 Myelocytes % (Man) 1 Promyelocytes % (Man) 0 Blast Cells % (Manual) 0 Nucleated RBC % 0 Metamyelocytes 0 Hypochromia 0 Platelet Estimate Normal Polychromasia 0 Poikilocytosis 0 Anisocytosis 0 Microcytosis 0 Macrocytosis 0 Sodium 141 Potassium 3.5 Chloride 106 Carbon Dioxide 29 Anion Gap 6 L BUN 16.6 Creatinine 0.7 Est GFR (CKD-EPI)AfAm 119.72 Est GFR (CKD-EPI)NonAf 103.30 Random Glucose 115 H Calcium 6.8 L* Phosphorus 2.1 L Magnesium 2.3 Current Medications Generic Name Dose Route Start Last Admin Trade Name Freq PRN Reason Stop Dose Admin Enalaprilat 1.25 mg 08/16/19 21:00 Vasotec Injection - IVPB Q6H-IV [facility] Heparin Sodium (Porcine) 5,000 unit 08/16/19 22:00 Heparin - SQ TID [facility] Metronidazole 500 mg in 100 mls @ 100 mls/hr 08/16/19 18:00 Flagyl 500mg Premixed Ivpb - IVPB Q8H-IV ANNA Lactated Ringer's 1,000 mls @ 125 mls/hr 08/16/19 15:45 08/16/19 17:55 Lactated Ringers Solution IV 125 mls/hr ASDIR ANNA Administration Piperacillin Sod/Tazobactam 100 mls @ 200 mls/hr 08/16/19 18:00 08/16/19 17: 55 Sod 4.5 gm/ Dextrose IVPB 200 mls/hr Q8H-IV ANNA Administration Protocol Morphine Sulfate 4 mg 08/16/19 15:45 Morphine Sulfate IVPUSH Q3H PRN PAIN LEVEL 1-5 Ondansetron HCl 4 mg 08/16/19 15:45 Zofran Injection IVPUSH Q6H PRN NAUSEA AND/OR VOMITING Pantoprazole Sodium 40 mg 08/17/19 10:00 Protonix Iv IVPUSH DAILY [facility] Sodium Hypochlorite 1 applic 08/17/19 10:00 Dakin's Solution 0.25% (Half-Strength) - TP DAILY [facility] Home Medications Medication Instructions Recorded Amlodipine Besylate/Benazepril 1 each PO DAILY 08/09/19 [Amlodipine-Benazepril 10-20 mg] ASSESSMENT AND PLAN: 59 year old male with history of HTN, presented with abdominal pain and found to be septic due to diverticulitis, developed bowel perforation requiring emergent abdominal surgery and bowel resection. Repeat CT A/P - Diverticulitis of the proximal sigmoid with pneumoperitoneum and 2 separate fluid collections, mesenteric shadowing, dilation of small bowel loops. 1. Severe Sepsis and Bowel Perforation due to Acute Diverticulitis with Abscess formation POD 4 s/p ex-lap with resection of sigmoid/Hartmans with colostomy POD 2 s/p bowel evisceration requiring wound re-closure with retention sutures. Surgical Peritoneal Cx positive for Pseudomonas - Ceftriaxone changed to Zosyn. Continue Flagyl. ID following. Continue IV hydration. Dilaudid EDUCATIONAL ADVISOR stopped. Pain appears well controlled at the moment. Further management as per Sx. 2. JASEN - secondary to third spacing. Improved. Continue IV hydration and monitor. 3. HTN - normally on Amlodipine/Benazepril. Currently NPO. Enalaprilat prn. 4. Hypomagnesemia - resolved s/p repletion. 5. Hypophosphatemia - recurrent, repleted. DVT Px - Heparin SQ GI Px - PPI
[2019-08-16] MEDS ORDERED: MUPIROCIN 2% TOPICAL OINTMENT FOR DECOLONIZATION NS SCH (22:00)
[2019-08-16] MEDS ORDERED: MELATONIN 5 MG TABLETS PO ONE (22:10)
[2019-08-17] MEDS ORDERED: PIPERACILLIN/TAZOBACTAM 4.5 GM VIAL IVPB ONE ×3 (01:50→18:00)
[2019-08-17] MEDS ORDERED: DEXTROSE 5%-WATER 100 ML IVPB ONE ×3 (01:50→18:00)
[2019-08-17] MEDS: PIPERACILLIN/TAZOB 4.5 GM 4.5 GM in DEXTROSE 5%-WATER 100 ML IVPB SCH ×3 (02:14→18:06)
[2019-08-17] MEDS: ENALAPRILAT DIHYDRATE 1.25 MG/1 ML VIAL IVPB SCH ×4 (03:05→21:01)
[2019-08-17] MEDS: LACTATED RINGERS SOLUTION 1,000 ML IV SCH (05:50)
[2019-08-17] MEDS: HEPARIN NA (PORCINE) 5,000 UNITS/ML 1ML VIAL SQ SCH ×3 (06:13→21:07)
[2019-08-17 07:36] LABS: BASO % 0.4 % (0-2.0); EOS % 0.5 % (0-4.5); HEMATOCRIT 33.7 % (35.4-49); HEMOGLOBIN 11.3 GM/dL (11.7-16.9); MCH 29.6 pg (25.7-33.7); MCHC 33.5 g/dl (32.0-35.9); MEAN CELL VOLUME 88.5 fl (80-96); MEAN PLT VOLUME 7.2 fl (7.5-11.1); MONO % 10.5 % (3.8-10.2); NEUT % 80.6 % (42.8-82.8); PLATELET COUNT 391 K/MM3 (134-434); RBC 3.81 M/mm3 (4.00-5.60); RDW 15.7 % (11.9-15.9); WHITE BLOOD COUNT 15.9 K/mm3 (4.0-10.0)
[2019-08-17 08:37] LABS: CALCIUM 7.4 mg/dL (8.5-10.1); CREATININE 0.8 mg/dL (0.55-1.3); MAGNESIUM 2.2 mg/dL (1.8-2.4); PHOSPHOROUS 3.1 mg/dL (2.5-4.9); POTASSIUM 3.4 mmol/L (3.5-5.1)
--- NOTE | 2019-08-17 11:39 | PN ---
Progress Note (short form) - Note Progress Note: 59yo M s/p ex-lap and Stephanie, seen and examined at bedside. Pt states that his abd pain is controlled. Denies fever, chills, n/v. Pt continues to have NGT in place with bilious drainage. Pt denies any stool or flatus in colostomy bag. Vital Signs Temp 98.3 F 08/17/19 06:00 Pulse 101 H 08/17/19 06:00 Resp 20 08/17/19 06:00 BP 156/92 08/17/19 06:00 Pulse Ox 95 08/16/19 21:00 Intake & Output 08/16/19 08/17/19 08/17/19 23:59 11:59 23:59 Intake Total 1350 1750 Output Total 1690 2520 Balance -340 -770 Weight 235 lb 4.8 oz Intake: IV 750 1500 Lactated Ringers Solution 750 1500 1,000 ml @ 125 mls/hr IV ASDIR ANNA Rx#: [id number] IVPB 600 250 Oral 0 0 Output: Gastric Drainage 850 1800 Drainage 40 20 Abdomen 40 20 Urine 800 700 Void 800 700 Other: Voiding Method Urinal Bowel Movement No Body Mass Index (BMI) 35.2 Weight Measurement Method Built in [facility] CBC, BMP 08/17/19 06:41 08/17/19 06:41 PE: Gen: A&O X3 Resp: breathing comfortably ABd: soft, nontender, softly distended, Exlap incision is clean with serous drainage, Colostomy bag in place with serous drainage small amount of air. RLQ drain in place. LE: no edema Problem List - Problems (1) Diverticulitis Assessment/Plan: Plan -continue NGT to cont drainage -dressing changes daily wet to dry with Dakins -cont abx as per ID -OOB/ambulate -cont NPO and IV fluids until active bowel function noted. Pt seen and examined with Dr. Spencer. Code(s): K57.92 - DVTRCLI OF INTEST, PART UNSP, W/O PERF OR ABSCESS W/O BLEED
[2019-08-17] MEDS ORDERED: PT OWN MED DRAWER 7, Y5N ONE (11:44)
--- NOTE | 2019-08-17 12:11 | PN ---
Physical Exam: SUBJECTIVE: Patient seen and examined. Pt denies abdominal pain, chest pain, SOB , wheezing, n/v, fever, or chills. He reports being hungry. OBJECTIVE: Vital Signs Period Temp Pulse Resp BP Sys/Cramer Pulse Ox Last 24 Hr 98.0 F-99 F 101-113 18-30 139-156/86-98 95 GENERAL: The patient is awake, alert, and fully oriented, in no acute distress. HEAD: Normal with no signs of trauma. EYES: PERRL, extraocular movements intact, sclera anicteric, conjunctiva clear. No ptosis. ENT: Ears normal, nares patent, oropharynx clear without exudates, moist mucous membranes. NECK: Trachea midline, full range of motion, supple. LUNGS: Breath sounds equal, clear to auscultation bilaterally, no wheezes, no crackles, no accessory muscle use. HEART: Regular rate and rhythm, S1, S2 without murmur, rub or gallop. ABDOMEN: Soft, nontender, nondistended, normoactive bowel sounds, no guarding, no rebound, no hepatosplenomegaly, no masses. EXTREMITIES: 2+ pulses, warm, well-perfused, no edema. NEUROLOGICAL: Cranial nerves II through XII grossly intact. Normal speech, gait not observed. PSYCH: Normal mood, normal affect. SKIN: Warm, dry, normal turgor, no rashes or lesions noted Laboratory Results - last 24 hr 08/17/19 08/17/19 06:41 06:41 WBC 15.9 H RBC 3.81 L Hgb 11.3 L Hct 33.7 L MCV 88.5 MCH 29.6 MCHC 33.5 RDW 15.7 Plt Count 391 MPV 7.2 L Absolute Neuts (auto) 12.9 H Neutrophils % 80.6 Lymphocytes % 8.0 Monocytes % 10.5 H Eosinophils % 0.5 Basophils % 0.4 Nucleated RBC % 0 Sodium 141 Potassium 3.4 L Chloride 104 Carbon Dioxide 28 Anion Gap 10 BUN 17.0 Creatinine 0.8 Est GFR (CKD-EPI)AfAm 113.33 Est GFR (CKD-EPI)NonAf 97.78 Random Glucose 104 Calcium 7.4 L Phosphorus 3.1 Magnesium 2.2 Active Medications Generic Name Dose Route Start Last Admin Trade Name Freq PRN Reason Stop Dose Admin Enalaprilat 1.25 mg 08/16/19 21:00 08/17/19 09:36 Vasotec Injection - IVPB 1.25 mg Q6H-IV ANNA Administration Heparin Sodium (Porcine) 5,000 unit 08/16/19 22:00 08/17/19 06:13 Heparin - SQ 5,000 unit TID ANNA Administration Metronidazole 500 mg in 100 mls @ 100 mls/hr 08/16/19 18:00 08/17/19 02:00 Flagyl 500mg Premixed Ivpb - IVPB 100 mls/hr Q8H-IV ANNA Administration Lactated Ringer's 1,000 mls @ 125 mls/hr 08/16/19 15:45 08/17/19 05:50 Lactated Ringers Solution IV 125 mls/hr ASDIR ANNA Administration Piperacillin Sod/Tazobactam 100 mls @ 200 mls/hr 08/16/19 18:00 08/17/19 10: 42 Sod 4.5 gm/ Dextrose IVPB 200 mls/hr Q8H-IV ANNA Administration Protocol Morphine Sulfate 4 mg 08/16/19 15:45 Morphine Sulfate IVPUSH Q3H PRN PAIN LEVEL 1-5 Ondansetron HCl 4 mg 08/16/19 15:45 Zofran Injection IVPUSH Q6H PRN NAUSEA AND/OR VOMITING Pantoprazole Sodium 40 mg 08/17/19 10:00 Protonix Iv IVPUSH DAILY ANNA Sodium Hypochlorite 1 applic 08/17/19 10:00 Dakin's Solution 0.25% (Half-Strength) - TP DAILY ANNA ASSESSMENT/PLAN: Mr. Pena is a 59 y/o male with HTN and GERD who presents with sudden onset LLQ abdominal pain and chills. #severe sepsis 2/2 diverticulitis s/p emergent Erickson procedure POD 5 s/p incision repair POD [address]BC [address] Afebrile. [address] prior to surgery showed pneumoperitoneum with loops of dilated bowel. Incision was opened when pt sat up on POD 2. -Zosyn started -flagyl -ceftriaxone stopped -IV protonix 40mg Q daily -LR 125mL/hr -blood cultures- pseudomonas -surgery following -continue pain control -CBC #hypophosphatemia, resolved 3.1 -repleted -CMP, Mg, Phos #JASEN, resolved Cr 0.7 pre-renal from sepsis -continue hydration #HTN meds are currently held, monitoring -when restarting, home med equivalent is- lisinopril 20mg Q daily, amlodipine 10mg Q daily FEN LR 125mL/hr monitor lytes NPO DVT Ppx heparin Visit type - Emergency Visit Emergency Visit: Yes ED Registration Date: 08/09/19 Care time: The patient presented to the Emergency Department on the above date and was hospitalized for further evaluation of their emergent condition. - New Patient This patient is new to me today: No - Critical Care Critical Care patient: No - Discharge Referral Referred to [facility] Med P.C.: No ATTENDING PHYSICIAN STATEMENT I saw and evaluated the patient. I reviewed the resident's note and discussed the case with the resident. I agree with the resident's findings and plan as documented. SUBJECTIVE: OBJECTIVE: ASSESSMENT AND PLAN:
[2019-08-17 12:19] LABS: TOXIC GRANULATION 1+
[2019-08-17] MEDS: PANTOPRAZOLE SODIUM 40 MG VIAL IVPUSH SCH (12:25)
[2019-08-17] MEDS: SODIUM HYPOCHLORITE 0.25%- 473 ML BULK BOTTLE TP SCH (12:26)
--- NOTE | 2019-08-17 13:45 | PN ---
Teaching Attending Note Name of Resident: Vickie Joseph ATTENDING PHYSICIAN STATEMENT I saw and evaluated the patient. I reviewed the resident's note and discussed the case with the resident. I agree with the resident's findings and plan as documented. SUBJECTIVE:pain resolved. feeling hungry. denies CP, SOB, fever, chills, N/V, + burping. OBJECTIVE: Last Vital Signs Temp Pulse Resp BP Pulse Ox 98.3 F 101 H 20 156/92 95 08/17/19 06:00 08/17/19 06:00 08/17/19 06:00 08/17/19 06:00 08/16/19 21:00 Intake & Output 08/14/19 08/15/19 08/16/19 08/17/19 23:59 23:59 23:59 23:59 Intake Total 7665 4350 2475 1750 Output Total 3500 3350 3420 2520 Balance 4165 1000 -945 -770 Weight 235 lb 4.8 oz General NAD CV S1 S2 tachy Lungs CTA B/L no wheezing rales rhonchi Abdomen soft distended no BS. some brownish fluid in colostomy. abdominal binder in place, midline surgical dressing intact ASSESSMENT AND PLAN: 59yo M with PMH HTN presented to the ER with abdominal pain and found to be septic due to diverticulitis. course complicated with development of bowel perforation requiring emergent exlap and hartmans procedure followed by wound dehisince requiring intervention 1. Severe sepsis due to diverticulitis- s/p ex-lap with resection of sigmoid/ Hartmans with colostomy 08/12 and s/p bowel evisceration requiring wound re- closure with retention sutures on 08/14. NGT still draining >1L bile. some amount of output in colostomy. cont NPO, IVF, zosyn and flagyl. Fluid cx+ pseudomonas. pain is controlled. ID and surgery on board. 2. tachycardia- states he has no pain. is improved since arrival. check EKG 3. JASEN- due to sepsis. resolved. avoid nephrotoxic agents 4. Hypokalemia- Kcl IV 5. HTN- controlled. hold oral agents. re-start as needed 6. DVT ppx- hep sq
[2019-08-17] MEDS: KCL 10 MEQ IVPB 10 MEQ/100 ML INFUS.BAG IVPB SCH ×3 (15:52→22:12)
--- NOTE | 2019-08-17 16:29 | EKG ---
Test Reason : Blood Pressure : / mmHG Vent. Rate : 107 BPM Atrial Rate : 107 BPM P-R Int : 148 ms QRS Dur : 094 ms QT Int : 356 ms P-R-T Axes : 012 -30 004 degrees QTc Int : 475 ms SINUS TACHYCARDIA LEFT AXIS DEVIATION MINIMAL VOLTAGE CRITERIA FOR LVH, MAY BE NORMAL VARIANT POSSIBLE ANTEROLATERAL INFARCT (CITED ON OR BEFORE 09-AUG-2019) ABNORMAL ECG WHEN COMPARED WITH ECG OF 09-AUG-2019 16:05, NO SIGNIFICANT CHANGE WAS FOUND Confirmed by Al Alicea ([id number]) on 08/17/2019 4:28:32 PM Referred By: EMI SANTOS DR Confirmed By:Al Alicea
[2019-08-17] MEDS: AMINO ACIDS 4.25%/D5W 1,000 ML IV SCH (18:05)
--- NOTE | 2019-08-17 19:17 | PN ---
Progress Note, Physician History of Present Illness: AWAKE, ALERT IN BED NO C/O ABDOMINAL PAIN NO C/O F/C TEMPS DOWN AFEBRILE WBC REMAINS ELEVATED BC (-) - Current Medication List Current Medications: Active Medications Enalaprilat (Vasotec Injection -) 1.25 mg IVPB Q6H-IV ANNA Last Admin: 08/17/19 14:45 Dose: 1.25 mg Heparin Sodium (Porcine) (Heparin -) 5,000 unit SQ TID ANNA Last Admin: 08/17/19 14:44 Dose: 5,000 unit Metronidazole (Flagyl 500mg Premixed Ivpb -) 500 mg in 100 mls @ 100 mls/hr IVPB Q8H-IV ANNA Last Admin: 08/17/19 18:49 Dose: 100 mls/hr Lactated Ringer's (Lactated Ringers Solution) 1,000 mls @ 125 mls/hr IV ASDIR [facility] [place] Last Admin: 08/17/19 05:50 Dose: 125 mls/hr Piperacillin Sod/Tazobactam (Sod 4.5 gm/ Dextrose) 100 mls @ 200 mls/hr IVPB Q8H-IV ANNA; Protocol Last Admin: 08/17/19 18:06 Dose: 200 mls/hr Amino Acids (Clinimix -) 1,000 mls @ 84 mls/hr IV Q12H ANNA Last Admin: 08/17/19 18:05 Dose: 84 mls/hr Morphine Sulfate (Morphine Sulfate) 4 mg IVPUSH Q3H PRN PRN Reason: PAIN LEVEL 1-5 Ondansetron HCl (Zofran Injection) 4 mg IVPUSH Q6H PRN PRN Reason: NAUSEA AND/OR VOMITING Pantoprazole Sodium (Protonix Iv) 40 mg IVPUSH DAILY [facility] [place] Last Admin: 08/17/19 12:25 Dose: 40 mg Sodium Hypochlorite (Dakin's Solution 0.25% (Half-Strength) -) 1 applic TP DAILY [facility] Last Admin: 08/17/19 12:26 Dose: 1 applic - Objective Vital Signs: Vital Signs Temperature 98.0 F 08/17/19 17:30 Pulse Rate 101 H 08/17/19 17:30 Respiratory Rate 20 08/17/19 17:30 Blood Pressure 152/94 08/17/19 17:30 O2 Sat by Pulse Oximetry (%) 95 09/16/19 21:00 Constitutional: Yes: No Distress Eyes: Yes: Conjunctiva Clear Cardiovascular: Yes: Regular Rate and Rhythm, S1, S2 Respiratory: Yes: Diminished Gastrointestinal: Yes: Normal Bowel Sounds (HYPOACTIVE BS), Soft, Abdomen, Obese , Other Labs: CBC, BMP 08/17/19 06:41 08/17/19 06:41 INR, PTT INR 1.16 (0.83-1.09) H 08/09/19 02:20 Assessment/Plan POST OP MARGARITA'S PROCEDURE PERFORATED DIVERTICULITIS WITH ABSCESS + OPERATIVE C/S PSEUDOMONAS CONTINUE ZOSYN/ FLAGYL
[2019-08-18] MEDS ORDERED: DEXTROSE 5%-WATER 100 ML IVPB ONE ×4 (00:55→23:54)
[2019-08-18] MEDS ORDERED: PIPERACILLIN/TAZOBACTAM 4.5 GM VIAL IVPB ONE ×4 (00:55→23:54)
[2019-08-18] MEDS: PIPERACILLIN/TAZOB 4.5 GM 4.5 GM in DEXTROSE 5%-WATER 100 ML IVPB SCH ×3 (01:02→18:51)
[2019-08-18] MEDS: ENALAPRILAT DIHYDRATE 1.25 MG/1 ML VIAL IVPB SCH ×4 (02:48→21:00)
[2019-08-18] MEDS: AMINO ACIDS 4.25%/D5W 1,000 ML IV SCH ×2 (04:32→18:51)
[2019-08-18] MEDS: HEPARIN NA (PORCINE) 5,000 UNITS/ML 1ML VIAL SQ SCH ×3 (05:16→21:00)
[2019-08-18 08:18] LABS: BASO % 0.1 % (0-2.0); EOS % 0.5 % (0-4.5); HEMATOCRIT 29.9 % (35.4-49); HEMOGLOBIN 10.1 GM/dL (11.7-16.9); LYMPH % 8.6 % (8-40); MCH 29.5 pg (25.7-33.7); MCHC 33.7 g/dl (32.0-35.9); MEAN CELL VOLUME 87.6 fl (80-96); MEAN PLT VOLUME 7.1 fl (7.5-11.1); MONO % 8.8 % (3.8-10.2); PLATELET COUNT 369 K/MM3 (134-434); RBC 3.42 M/mm3 (4.00-5.60); RDW 15.7 % (11.9-15.9); WHITE BLOOD COUNT 14.3 K/mm3 (4.0-10.0)
[2019-08-18 08:34] LABS: BLOOD UREA NITROGEN 15.6 mg/dL (7-18); CREATININE 0.8 mg/dL (0.55-1.3); POTASSIUM 3.3 mmol/L (3.5-5.1)
[2019-08-18 10:01] LABS: ANISOCYTOSIS 0; HELMET CELLS 0; HOWELL-JOLLY BODIES 0; MACROCYTOSIS 0; OVALOCYTE 0; PLATELET ESTIMATE NORMAL; ROULEAU 0; SICKELED CELLS 0; TARGET CELLS 0; TEAR DROP CELLS 0; TOXIC GRANULATION 0
[2019-08-18] MEDS: PANTOPRAZOLE SODIUM 40 MG VIAL IVPUSH SCH (10:35)
[2019-08-18] MEDS: SODIUM HYPOCHLORITE 0.25%- 473 ML BULK BOTTLE TP SCH (10:41)
[2019-08-18] MEDS ORDERED: PT OWN MED DRAWER 7, Y5N ONE ×2 (12:24→20:30)
[2019-08-18] MEDS ORDERED: LACTATED RINGERS SOLUTION 1,000 ML IV SCH (13:47)
--- NOTE | 2019-08-18 13:49 | PN ---
Teaching Attending Note Name of Resident: Vickie Joseph ATTENDING PHYSICIAN STATEMENT I saw and evaluated the patient. I reviewed the resident's note and discussed the case with the resident. I agree with the resident's findings and plan as documented. SUBJECTIVE:c/o hunger. has no pain. denies CP, SOB, fever, chills, N/V/ OBJECTIVE: Last Vital Signs Temp Pulse Resp BP Pulse Ox 98.7 F 101 H 20 150/91 95 08/18/19 06:00 08/18/19 06:00 08/18/19 06:00 08/18/19 06:00 08/17/19 21:00 Intake & Output 08/15/19 08/16/19 08/17/19 08/18/19 23:59 23:59 23:59 23:59 Intake Total 4350 2475 3300 Output Total 3350 3420 3870 525 Balance 1000 -945 -570 -525 Weight 235 lb 4.8 oz 237 lb 11.2 oz General NAD CV S1 S2 tachy Lungs CTA B/L no wheezing rales rhonchi Abdomen soft distended no BS. some brownish fluid in colostomy. abdominal binder in place, midline surgical dressing intact ASSESSMENT AND PLAN: 59yo M with PMH HTN presented to the ER with abdominal pain and found to be septic due to diverticulitis. course complicated with development of bowel perforation requiring emergent exlap and hartmans procedure followed by wound dehisince requiring intervention 1. Severe sepsis due to diverticulitis- s/p ex-lap with resection of sigmoid/ Hartmans with colostomy 08/12 and s/p bowel evisceration requiring wound re- closure with retention sutures on 08/14. NGT still draining >1L bile. start clinimix. some amount of output in colostomy. cont NPO, IVF, zosyn and flagyl. Fluid cx+pseudomonas. pain is controlled. ID and surgery on board. 2. sinus tach- seen on EKG. overall improved. 3. JASEN- due to sepsis. resolved. avoid nephrotoxic agents 4. Hypokalemia- likely due to GI losses. cont with Kcl riders. will give mag first 5. HTN- controlled. hold oral agents. re-start as needed 6. DVT ppx- hep sq
--- NOTE | 2019-08-18 13:57 | PN ---
Physical Exam: SUBJECTIVE: Patient seen and examined. He denies abdominal pain, chest pain, SOB , n/v, fever, or chills. He reports being hungry. OBJECTIVE: Vital Signs Period Temp Pulse Resp BP Sys/Cramer Pulse Ox Last 24 Hr 98 F-98.7 F 92-101 18-20 140-152/82-94 95 GENERAL: The patient is awake, alert, and fully oriented, in no acute distress. HEAD: Normal with no signs of trauma. EYES: PERRL, extraocular movements intact, sclera anicteric, conjunctiva clear. No ptosis. ENT: Ears normal, nares patent, dry mucous membranes. NG tube in place draining green/brown NECK: Trachea midline, full range of motion, supple. LUNGS: Breath sounds equal, clear to auscultation bilaterally, no wheezes, no crackles, no accessory muscle use. HEART: Tachycardic and regular rhythm, S1, S2 without murmur, rub or gallop. ABDOMEN: Bandaged laparotomy incision, no tenderness on palpation near site and no erythema, KARI draining serosanginous fluid. colostomy bag in place with liquid light brown stool. No erythema round the site. EXTREMITIES: 2+ pulses, warm, well-perfused, no edema. NEUROLOGICAL: Cranial nerves II through XII grossly intact. Normal speech, gait not observed. PSYCH: Normal mood, normal affect. SKIN: Warm, dry, normal turgor, no rashes or lesions noted gastric drainage yesterday 2350cc Laboratory Results - last 24 hr 08/18/19 08/18/19 07:20 07:20 WBC 14.3 H RBC 3.42 L Hgb 10.1 L Hct 29.9 L MCV 87.6 MCH 29.5 MCHC 33.7 RDW 15.7 Plt Count 369 MPV 7.1 L Absolute Neuts (auto) 11.8 H Neutrophils % 82.0 Neutrophils % (Manual) 89.8 H Band Neutrophils % 2.0 Lymphocytes % 8.6 Lymphocytes % (Manual) 2.1 L D Monocytes % 8.8 Monocytes % (Manual) 2 L Eosinophils % 0.5 Eosinophils % (Manual) 0.0 D Basophils % 0.1 Basophils % (Manual) 0.0 Myelocytes % (Man) 2 D Promyelocytes % (Man) 0 Blast Cells % (Manual) 0 Nucleated RBC % 0 Metamyelocytes 0 Hypochromia 0 Toxic Granulation 0 Dohle Bodies 0 Platelet Estimate Normal Polychromasia 0 Poikilocytosis 0 Basophilic Stippling 0 Anisocytosis 0 Microcytosis 0 Macrocytosis 0 Spherocytes 0 Sickle Cells 0 Target Cells 0 Tear Drop Cells 0 Ovalocytes 0 Stomatocytes 0 Helmet Cells 0 Blackman-Katie Bodies 0 Lydia Rings 0 Porsha Cells 0 Acanthocytes (Spur) 0 Rouleaux 0 Fragmented RBCs 0 Schistocytes 0 Sodium 140 Potassium 3.3 L Chloride 104 Carbon Dioxide 30 Anion Gap 6 L BUN 15.6 Creatinine 0.8 Est GFR (CKD-EPI)AfAm 113.33 Est GFR (CKD-EPI)NonAf 97.78 Random Glucose 122 H Calcium 7.0 L Active Medications Generic Name Dose Route Start Last Admin Trade Name Freq PRN Reason Stop Dose Admin Enalaprilat 1.25 mg 08/16/19 21:00 08/18/19 10:30 Vasotec Injection - IVPB 1.25 mg Q6H-IV ANNA Administration Heparin Sodium (Porcine) 5,000 unit 08/16/19 22:00 08/18/19 05:16 Heparin - SQ 5,000 unit TID ANNA Administration Metronidazole 500 mg in 100 mls @ 100 mls/hr 08/16/19 18:00 08/18/19 11:03 Flagyl 500mg Premixed Ivpb - IVPB 100 mls/hr Q8H-IV ANNA Administration Piperacillin Sod/Tazobactam 100 mls @ 200 mls/hr 08/16/19 18:00 08/18/19 10: 28 Sod 4.5 gm/ Dextrose IVPB 200 mls/hr Q8H-IV ANNA Administration Protocol Amino Acids 1,000 mls @ 84 mls/hr 08/17/19 16:00 08/18/19 04:32 Clinimix - IV Not Given Q12H ANNA Lactated Ringer's 1,000 mls @ 100 mls/hr 08/18/19 13:47 Lactated Ringers Solution IV ASDIR ANNA Potassium Chloride 10 meq in 100 mls @ 100 mls/hr 08/18/19 14:00 Potassium Chloride 10 Meq Premix Ivpb - IVPB 08/18/19 16:59 Q60M ANNA Magnesium Sulfate 1 gm 08/18/19 13:48 Magnesium Sulfate IVPB 08/18/19 13:49 ONCE ONE Morphine Sulfate 4 mg 08/16/19 15:45 Morphine Sulfate IVPUSH Q3H PRN PAIN LEVEL 1-5 Ondansetron HCl 4 mg 08/16/19 15:45 Zofran Injection IVPUSH Q6H PRN NAUSEA AND/OR VOMITING Pantoprazole Sodium 40 mg 08/17/19 10:00 08/18/19 10:35 Protonix Iv IVPUSH 40 mg DAILY ANNA Administration Sodium Hypochlorite 1 applic 08/17/19 10:00 08/18/19 10:41 Dakin's Solution 0.25% (Half-Strength) - TP 1 applic DAILY ANNA Administration ASSESSMENT/PLAN: Mr. Pena is a 59 y/o male with HTN and GERD who presents with sudden onset LLQ abdominal pain and chills. #severe sepsis 2/2 diverticulitis s/p emergent Erickson procedure POD 6 s/p incision repair POD 4 WBC [address] Afebrile[address] prior to surgery showed pneumoperitoneum with loops of dilated bowel. Incision was opened when pt sat up on POD 2. -Zosyn day 3 -flagyl day 10 -ceftriaxone stopped -IV protonix 40mg Q daily -LR stopped -Clinamix -blood cultures- pseudomonas -surgery following- NG tube can be removed -continue pain control -CBC #hypokalemia 3.3 -repleted KCl x 3 #hypophosphatemia, resolved #JASEN, resolved Cr 0.8 pre-renal from sepsis -continue hydration #HTN -Enalaprilat 1.25 Q6 hours -when restarting PO meds, home med equivalent is- lisinopril 20mg Q daily, amlodipine 10mg Q daily FEN clinamix monitor lytes clinamix, NPO DVT Ppx heparin Visit type - Emergency Visit Emergency Visit: Yes ED Registration Date: 08/09/19 Care time: The patient presented to the Emergency Department on the above date and was hospitalized for further evaluation of their emergent condition. - New Patient This patient is new to me today: No - Critical Care Critical Care patient: No - Discharge Referral Referred to [facility] Med P.C.: No ATTENDING PHYSICIAN STATEMENT I saw and evaluated the patient. I reviewed the resident's note and discussed the case with the resident. I agree with the resident's findings and plan as documented. SUBJECTIVE: OBJECTIVE: ASSESSMENT AND PLAN:
[2019-08-18] MEDS ORDERED: MAGNESIUM SULF 50% (8.12 MEQ/2 ML-1 GM VIAL) IVPB ONE (15:00)
--- NOTE | 2019-08-18 15:06 | PN ---
Progress Note (short form) - Note Progress Note: Attending Surgeon POD #6/#4 s/p Hartmans procedure/s/p repair of abdominal evisceration No c/o e/f he wants the NGT out and he wants to eat; voiding spontaneously Last Vital Signs Temp Pulse Resp BP Pulse Ox 99 F 105 H 20 154/90 92 L 08/18/19 10:00 08/18/19 10:00 08/18/19 10:00 08/18/19 10:00 08/18/19 09:[address]; skin open both proximally and distally; Psuedomonas in the wound on the dressings; anna in place around the umbilicus; ostomy viable and w/mucoid/some liquid stool output skin is variably excoriated; retention sutures in place. extremities-warm; no calf tenderness CBC, BMP 08/18/19 07:20 08/18/19 07:20 KARI serous Urine output adequate IMP: improving PLAN:NPO; remove NGT; wound and ostomy care; OOB; IVAB's; IVF; continue as per orders. Harsh Spencer MD FACS
[2019-08-18] MEDS: KCL 10 MEQ IVPB 10 MEQ/100 ML INFUS.BAG IVPB SCH ×3 (15:52→18:50)
--- NOTE | 2019-08-18 17:55 | PATH ---
Surgical Pathology Report Patient Name: JOSE MADRID Med. Rec. #: [id number] /Age/Gender: 1960 (Age: 59) / M Account: [id number] Location: [facility] MED/SURG Taken: 08/12/2019 Received: 08/13/2019 Reported: 08/18/2019 Physicians: Harsh Spencer MD Specimen(s) Received PORTION OF SIGMOID COLON Clinical History Abdominal pain, perforated diverticulitis Final Diagnosis SIGMOID COLON, PORTION, RESECTION: SEGMENT OF COLON WITH DIVERTICULOSIS, DIVERTICULITIS, FOCAL TRANSMURAL ACUTE INFLAMMATION, ULCERATION, ABSCESS FORMATION, AND MICROPERFORATION. ACUTE SEROSITIS. SURGICAL MARGINS ARE VIABLE. Electronically Signed Eunice Moody M.D. Gross Description Received in formalin labeled "portion of sigmoid colon" is a segment of colon with abundant pericolonic adipose tissue measuring 4 cm in length with a luminal diameter of 2 cm. There is suture identified designating the proximal margin. This margin also shows surgical anna. Distal margin is left open. The surrounding pericolonic adipose tissue shows areas of hemorrhage and adherent purulent exudate. Sectioning shows numerous diverticuli. Some diverticuli is distended with fecalith and associated with underlying exudate. No mass is identified. [employer] Cr[employer] Operator sections are submitted in 9 cassettes as follows: 1- proximal margin; 2- distal margin; 3-5 dilated diverticuli with associated exudate; 2-4-[id number] section diverticuli; 8- random colon; 9- pericolonic tissue with exudate. MLSZ/08/13/2019 sanml/08/13/2019
[2019-08-19] MEDS: PIPERACILLIN/TAZOB 4.5 GM 4.5 GM in DEXTROSE 5%-WATER 100 ML IVPB SCH ×3 (01:26→17:08)
[2019-08-19] MEDS: ENALAPRILAT DIHYDRATE 1.25 MG/1 ML VIAL IVPB SCH ×4 (03:12→21:31)
[2019-08-19] MEDS: AMINO ACIDS 4.25%/D5W 1,000 ML IV SCH ×3 (04:08→16:35)
[2019-08-19] MEDS: HEPARIN NA (PORCINE) 5,000 UNITS/ML 1ML VIAL SQ SCH ×3 (06:10→21:48)
[2019-08-19 07:48] LABS: BASO % 0.2 % (0-2.0); HEMATOCRIT 29.7 % (35.4-49); LYMPH % 9.8 % (8-40); MCH 29.4 pg (25.7-33.7); MCHC 33.6 g/dl (32.0-35.9); MEAN CELL VOLUME 87.5 fl (80-96); MEAN PLT VOLUME 7.4 fl (7.5-11.1); MONO % 9.9 % (3.8-10.2); NEUT % 79.1 % (42.8-82.8); PLATELET COUNT 343 K/MM3 (134-434); RBC 3.39 M/mm3 (4.00-5.60); RDW 15.8 % (11.9-15.9); WHITE BLOOD COUNT 11.7 K/mm3 (4.0-10.0)
--- NOTE | 2019-08-19 08:09 | PN ---
Progress Note (short form) - Note Progress Note: POD #7 s/p Radha's procedure POD #5 s/p repair abd evisceration Alert. In bed resting comfortably. Has minimal incisional tenderness. Adequate pain control via meds ordered. States he's OOB and ambulating unassisted. Voiding spontaneously. NGT dc'd yesterday. Ostomy appliance changed yesterday by Attending (noted with air and fluid in appliance). Last Vital Signs Temp Pulse Resp BP Pulse Ox 99.7 F H 100 H 20 154/96 93 L 08/19/19 06:00 08/19/19 06:00 08/19/19 06:00 08/19/19 06:00 08/18/19 21:00 CBC 08/19/19 06:45 Gen: nad ABD: Obese habitus. Retention sutures intact. Superior and inferior poles of wound open and packed with Dakins dressings. Wound beds look clean. No signs of infection. [place] insitu periumbilical. LE: SCDs bilat. No swelling/edema bilat. Problem List - Problems (1) Diverticulitis Assessment/Plan: POD #7 s/p Radha's procedure POD #5 s/p repair abd evisceration KARI drain to be removed today. Start sips and advance as tolerated Daily dressing changes (Dakins) OOB and ambulate Case Management for VNS home wound management ordered Above plan discussed with my attending and agreed. Code(s): K57.92 - DVTRCLI OF INTEST, PART UNSP, W/O PERF OR ABSCESS W/O BLEED (2) Sepsis Assessment/Plan: Afebrile. Non-toxic appearing. AVSS. Code(s): A41.9 - SEPSIS, UNSPECIFIED ORGANISM (3) HTN (hypertension) Assessment/Plan: BP controlled well Code(s): I10 - ESSENTIAL (PRIMARY) HYPERTENSION
[2019-08-19 08:23] LABS: ALBUMIN 1.4 g/dl (3.4-5.0); BILIRUBIN,TOTAL 0.5 mg/dL (0.2-1); BLOOD UREA NITROGEN 13.7 mg/dL (7-18); CREATININE 0.7 mg/dL (0.55-1.3); POTASSIUM 3.3 mmol/L (3.5-5.1); TOT PROT 4.4 g/dl (6.4-8.2)
[2019-08-19 08:33] LABS: CALCIUM 6.7 mg/dL (8.5-10.1)
[2019-08-19] MEDS ORDERED: PIPERACILLIN/TAZOBACTAM 4.5 GM VIAL IVPB ONE ×2 (09:15→17:13)
[2019-08-19] MEDS ORDERED: DEXTROSE 5%-WATER 100 ML IVPB ONE ×2 (09:15→17:13)
[2019-08-19] MEDS: SODIUM HYPOCHLORITE 0.25%- 473 ML BULK BOTTLE TP SCH (09:25)
[2019-08-19] MEDS: PANTOPRAZOLE SODIUM 40 MG VIAL IVPUSH SCH (09:26)
--- NOTE | 2019-08-19 13:33 | PN ---
Teaching Attending Note Name of Resident: Vickie Joseph ATTENDING PHYSICIAN STATEMENT I saw and evaluated the patient. I reviewed the resident's note and discussed the case with the resident. I agree with the resident's findings and plan as documented. SUBJECTIVE:c/o hunger. denies Cp, SOB, fever, chills, n/V/C/d or abdominal pain s/p NGT removed yesterday. OBJECTIVE: Last Vital Signs Temp Pulse Resp BP Pulse Ox 99.8 F H 91 H 20 152/95 94 L 08/19/19 09:07 08/19/19 09:07 08/19/19 09:07 08/19/19 09:07 08/19/19 09:00 Intake & Output 08/16/19 08/17/19 08/18/19 08/19/19 23:59 23:59 23:59 23:59 Intake Total 2475 3300 1000 900 Output Total 3420 3870 2035 325 Balance -943 -570 -1035 575 Weight 235 lb 4.8 oz 237 lb 11.2 oz 236 lb 11.2 oz General NAD CV S1 S2 tachy Lungs CTA B/L no wheezing rales rhonchi Abdomen soft distended hypoactive BS. some brownish fluid in colostomy. abdominal binder in place, midline surgical dressing intact ASSESSMENT AND PLAN: 59yo M with PMH HTN presented to the ER with abdominal pain and found to be septic due to diverticulitis. course complicated with development of bowel perforation requiring emergent exlap and hartmans procedure followed by wound dehisince requiring intervention 1. Severe sepsis due to diverticulitis- s/p ex-lap with resection of sigmoid/ Hartmans with colostomy 08/12 and s/p bowel evisceration requiring wound re- closure with retention sutures on 08/14. NGT removed yeseterday. diet advance to clears this AM. will follow and advance as tolerated. KARI drain to be removed today.can d/c clinimix once tolerating diet. cont zosyn and flagyl. Fluid cx+ pseudomonas. pain is controlled. ID and surgery on board. 2. sinus tach- seen on EKG. overall improved. 3. JASEN- due to sepsis. resolved. avoid nephrotoxic agents 4. Hypokalemia- likely due to GI losses.resolved 5. HTN- controlled. hold oral agents. re-start as needed 6. DVT ppx- hep sq 7. PT. will allan require Samantha on discharge
[2019-08-19] MEDS: KCL 10 MEQ IVPB 10 MEQ/100 ML INFUS.BAG IVPB SCH ×3 (13:34→17:47)
--- NOTE | 2019-08-19 13:51 | OP ---
DATE OF OPERATION: 08/14/2019 PREOPERATIVE DIAGNOSIS: Abdominal evisceration status post Radha procedure August 12, 2019. POSTOPERATIVE DIAGNOSIS: Abdominal evisceration status post Radha procedure August 12, 2019. PROCEDURE: Closure of abdominal evisceration/incision with retention sutures. SURGEON: Harsh Spencer MD SAP MOBILITY ARCHITECT: Ling Mayo PA-C OPERATIVE FINDINGS: There was evisceration of the small bowel through the lower pole of the previous surgical incision. Sutures were found to be intact. There was acute serositis of the small bowel which was also dilated and the rest of the findings were unremarkable. PROCEDURE: The patient was placed on the operating table in the supine position and after the induction of general anesthesia the old dressings were removed as well as the colostomy appliance and the abdominal wall prepped with Betadine and draped in sterile fashion. A timeout was taken and then the previous closure sutures were removed. The small bowel that was eviscerated was then reduced into the peritoneal cavity and the peritoneal cavity irrigated with normal saline. Hemostasis was checked for and noted to be good as was the location of the nasogastric tube. The incision was then closed using continuous 0 looped Maxon and No. 2 Prolene [id number] retention sutures. The subcutaneous tissue was irrigated and then the skin around the umbilicus reapproximated with surgical anna. The midline wound was then packed with 1-inch Iodoform gauze and the retention sutures were tied over Xeroform bolsters. Additional dry sterile dressings were placed as was a new colostomy flange and bag and the drain was left in place as preoperative. The patient was then aroused from general anesthesia and transferred to the postanesthesia care unit in stable condition, awake and alert. ESTIMATED BLOOD LOSS: 150 mL. REPLACEMENT: Crystalloid. DRAINS: One 10-mm Mukul-Sherman which had been placed at the original surgery. SPECIMEN: None. I, Harsh Spencer, was physically present from the time the patient was placed on the operating table until he was transferred back into the ICU in stable condition, awake and alert. MD ELDER Medina/[id number] MTDD
[2019-08-19 13:57] LABS: ANISOCYTOSIS 1+; MACROCYTOSIS 0; PLATELET ESTIMATE NORMAL
[2019-08-19 13:59] VITALS: BMI 36.9
--- NOTE | 2019-08-19 13:59 | PN ---
Physical Exam: SUBJECTIVE: Patient seen and examined. He denies abdominal pain, chest pain, SOB , n/v, fever, or chills. He reports being hungry. OBJECTIVE: Vital Signs Period Temp Pulse Resp BP Sys/Cramer Pulse Ox Last 24 Hr 97.8 F-99.8 F 91-100 18-20 150-157/86-97 93-94 GENERAL: The patient is awake, alert, and fully oriented, in no acute distress. HEAD: Normal with no signs of trauma. EYES: PERRL, extraocular movements intact, sclera anicteric, conjunctiva clear. No ptosis. ENT: Ears normal, nares patent, dry mucous membranes. NG tube in place draining green/brown NECK: Trachea midline, full range of motion, supple. LUNGS: Breath sounds equal, clear to auscultation bilaterally, no wheezes, no crackles, no accessory muscle use. HEART: Tachycardic and regular rhythm, S1, S2 without murmur, rub or gallop. ABDOMEN: Bandaged laparotomy incision, no tenderness on palpation near site and no erythema, KARI draining serosanginous fluid. colostomy bag in place with liquid light brown stool. No erythema round the site. EXTREMITIES: 2+ pulses, warm, well-perfused, no edema. NEUROLOGICAL: Cranial nerves II through XII grossly intact. Normal speech, gait not observed. PSYCH: Normal mood, normal affect. SKIN: Warm, dry, normal turgor, no rashes or lesions noted Laboratory Results - last 24 hr 08/19/19 08/19/19 06:45 06:45 WBC 11.7 H RBC 3.39 L Hgb 10.0 L Hct 29.7 L MCV 87.5 MCH 29.4 MCHC 33.6 RDW 15.8 Plt Count 343 MPV 7.4 L Absolute Neuts (auto) 9.3 H Neutrophils % 79.1 Lymphocytes % 9.8 Monocytes % 9.9 Eosinophils % 1.0 D Basophils % 0.2 Nucleated RBC % 0 Sodium 137 Potassium 3.3 L Chloride 102 Carbon Dioxide 28 Anion Gap 8 BUN 13.7 Creatinine 0.7 Est GFR (CKD-EPI)AfAm 119.72 Est GFR (CKD-EPI)NonAf 103.30 Random Glucose 118 H Calcium 6.7 L* Total Bilirubin 0.5 AST 25 ALT 17 Alkaline Phosphatase 30 L Total Protein 4.4 L Albumin 1.4 L Active Medications Generic Name Dose Route Start Last Admin Trade Name Freq PRN Reason Stop Dose Admin Enalaprilat 1.25 mg 08/16/19 21:00 08/19/19 08:59 Vasotec Injection - IVPB 1.25 mg Q6H-IV ANNA Administration Heparin Sodium (Porcine) 5,000 unit 08/16/19 22:00 08/19/19 13:34 Heparin - SQ 5,000 unit TID ANNA Administration Metronidazole 500 mg in 100 mls @ 100 mls/hr 08/16/19 18:00 08/19/19 09:31 Flagyl 500mg Premixed Ivpb - IVPB 100 mls/hr Q8H-IV ANNA Administration Piperacillin Sod/Tazobactam 100 mls @ 200 mls/hr 08/16/19 18:00 08/19/19 10: 08 Sod 4.5 gm/ Dextrose IVPB 200 mls/hr Q8H-IV ANNA Administration Protocol Amino Acids 1,000 mls @ 84 mls/hr 08/17/19 16:00 08/19/19 08:56 Clinimix - IV 84 mls/hr Q12H ANNA Administration Potassium Chloride 10 meq in 100 mls @ 100 mls/hr 08/19/19 12:30 08/19/19 13: 34 Potassium Chloride 10 Meq Premix Ivpb - IVPB 08/19/19 15:29 100 mls/hr Q60M ANNA Administration Morphine Sulfate 4 mg 08/16/19 15:45 Morphine Sulfate IVPUSH Q3H PRN PAIN LEVEL 1-5 Ondansetron HCl 4 mg 08/16/19 15:45 Zofran Injection IVPUSH Q6H PRN NAUSEA AND/OR VOMITING Pantoprazole Sodium 40 mg 08/17/19 10:00 08/19/19 09:26 Protonix Iv IVPUSH 40 mg DAILY ANNA Administration Sodium Hypochlorite 1 applic 08/17/19 10:00 08/19/19 09:25 Dakin's Solution 0.25% (Half-Strength) - TP 1 applic DAILY ANNA Administration ASSESSMENT/PLAN: Mr. Pena is a 59 y/o male with HTN and GERD who presents with sudden onset LLQ abdominal pain and chills. #severe sepsis 2/2 diverticulitis s/p emergent Erickson procedure POD 7 s/p incision repair POD [address] prior to surgery showed pneumoperitoneum with loops of dilated bowel. Incision was opened when pt sat up on POD 2. -Zosyn day 4 -flagyl day 11 -ceftriaxone stopped -IV protonix 40mg Q daily -LR stopped, diet advanced to clear liquid -Clinamix -peritoneal fluid cultures- pseudomonas -surgery following- NG tube was removed, KARI drain removed -ID following -continue pain control -CBC #hypokalemia 3.3 -repleted KCl #hypophosphatemia, resolved #JASEN, resolved Cr 0.7 pre-renal from sepsis -continue hydration #HTN -Enalaprilat 1.25 Q6 hours -when restarting PO meds, home med equivalent is- lisinopril 20mg Q daily, amlodipine 10mg Q daily FEN clinamix monitor lytes clinamix, NPO DVT Ppx heparin Visit type - Emergency Visit Emergency Visit: Yes ED Registration Date: 08/09/19 Care time: The patient presented to the Emergency Department on the above date and was hospitalized for further evaluation of their emergent condition. - New Patient This patient is new to me today: No - Critical Care Critical Care patient: No - Discharge Referral Referred to [facility] Med P.C.: No ATTENDING PHYSICIAN STATEMENT I saw and evaluated the patient. I reviewed the resident's note and discussed the case with the resident. I agree with the resident's findings and plan as documented. SUBJECTIVE: OBJECTIVE: ASSESSMENT AND PLAN:
--- NOTE | 2019-08-19 14:20 | PROC ---
Procedure Note Procedure: KARI drain removed with distal tip intact. Steri strips applied to close ostium. Dry dressing applied. Tolerated procedure well.
[2019-08-19] MEDS ORDERED: PT OWN MED DRAWER 7, Y5N ONE (21:10)
[2019-08-20] MEDS ORDERED: DEXTROSE 5%-WATER 100 ML IVPB ONE ×3 (00:24→17:05)
[2019-08-20] MEDS ORDERED: PIPERACILLIN/TAZOBACTAM 4.5 GM VIAL IVPB ONE ×3 (00:24→17:04)
[2019-08-20] MEDS: PIPERACILLIN/TAZOB 4.5 GM 4.5 GM in DEXTROSE 5%-WATER 100 ML IVPB SCH ×3 (01:20→17:27)
[2019-08-20] MEDS: ENALAPRILAT DIHYDRATE 1.25 MG/1 ML VIAL IVPB SCH ×4 (03:10→22:42)
[2019-08-20] MEDS: AMINO ACIDS 4.25%/D5W 1,000 ML IV SCH (03:24)
[2019-08-20] MEDS: HEPARIN NA (PORCINE) 5,000 UNITS/ML 1ML VIAL SQ SCH ×3 (06:24→22:41)
[2019-08-20 08:27] LABS: HEMATOCRIT 29.7 % (35.4-49); MCH 29.5 pg (25.7-33.7); MCHC 33.7 g/dl (32.0-35.9); MEAN CELL VOLUME 87.6 fl (80-96); MEAN PLT VOLUME 7.7 fl (7.5-11.1); NEUT % 81.4 % (42.8-82.8); PLATELET COUNT 323 K/MM3 (134-434); RBC 3.39 M/mm3 (4.00-5.60); RDW 15.3 % (11.9-15.9); WHITE BLOOD COUNT 12.3 K/mm3 (4.0-10.0)
[2019-08-20 08:28] LABS: BASO % 0.4 % (0-2.0); EOS % 0.9 % (0-4.5); LYMPH % 8.8 % (8-40); MONO % 8.5 % (3.8-10.2)
[2019-08-20] MEDS ORDERED: PT OWN MED DRAWER 7, Y5N ONE ×3 (09:29→22:57)
[2019-08-20] MEDS: PANTOPRAZOLE SODIUM 40 MG VIAL IVPUSH SCH (10:01)
[2019-08-20 12:34] LABS: ANISOCYTOSIS 0; MACROCYTOSIS 0; PLATELET ESTIMATE NORMAL
--- NOTE | 2019-08-20 14:18 | PN ---
Teaching Attending Note Name of Resident: Vickie Joseph ATTENDING PHYSICIAN STATEMENT I saw and evaluated the patient. I reviewed the resident's note and discussed the case with the resident. I agree with the resident's findings and plan as documented. SUBJECTIVE:asymptomatic. tolerating clears. no pain or nausea. denies Cp, SOb, fever, chills OBJECTIVE: Last Vital Signs Temp Pulse Resp BP Pulse Ox 99.0 F 96 H 18 145/90 94 L 08/20/19 10:00 08/20/19 10:00 08/20/19 10:00 08/20/19 10:00 08/19/19 21:00 Intake & Output 08/17/19 08/18/19 08/19/19 08/20/19 23:59 23:59 23:59 23:59 Intake Total 3300 1000 2500 1250 Output Total 3870 2035 3575 600 Balance -570 -4808 -8826 650 Weight 235 lb 4.8 oz 237 lb 11.2 oz 236 lb 11.2 oz General NAD CV S1 S2 tachy Lungs CTA B/L no wheezing rales rhonchi Abdomen soft distended hypoactive BS. some brownish fluid in colostomy. abdominal binder in place, midline surgical dressing intact ASSESSMENT AND PLAN: 59yo M with PMH HTN presented to the ER with abdominal pain and found to be septic due to diverticulitis. course complicated with development of bowel perforation requiring emergent exlap and hartmans procedure followed by wound dehisince requiring intervention 1. Severe sepsis due to diverticulitis- s/p ex-lap with resection of sigmoid/ Hartmans with colostomy 08/12 and s/p bowel evisceration requiring wound re- closure with retention sutures on 08/14. tolerating clear liquids. advance diet per surgery. KARI drain d/c today. will d/c clinimix. cont zosyn and flagyl. Fluid cx+pseudomonas. pain is controlled. ID and surgery on board. 2. sinus tach- seen on EKG. overall improved. 3. JASEN- due to sepsis. resolved. avoid nephrotoxic agents 4. Hypokalemia- likely due to GI losses.resolved 5. HTN- controlled. hold oral agents. re-start as needed 6. DVT ppx- hep sq 7. PT. will likley require Samantha on discharge
--- NOTE | 2019-08-20 14:35 | PN ---
Physical Exam: SUBJECTIVE: Patient seen and examined. Pt denies n/v/d or abdominal pain. He is tolerating liquids well. OBJECTIVE: Vital Signs Period Temp Pulse Resp BP Sys/Cramer Pulse Ox Last 24 Hr 98.7 F-99.3 F 96-102 18-20 131-155/85-94 94 GENERAL: The patient is awake, alert, and fully oriented, in no acute distress. HEAD: Normal with no signs of trauma. EYES: PERRL, extraocular movements intact, sclera anicteric, conjunctiva clear. No ptosis. ENT: Ears normal, nares patent, dry mucous membranes. NECK: Trachea midline, full range of motion, supple. LUNGS: Breath sounds equal, clear to auscultation bilaterally, no wheezes, no crackles, no accessory muscle use. HEART: Tachycardic and regular rhythm, S1, S2 without murmur, rub or gallop. ABDOMEN: Bandaged laparotomy incision, no tenderness on palpation near site and no erythema,colostomy bag in place with liquid light brown stool. No erythema round the site. EXTREMITIES: 2+ pulses, warm, well-perfused, no edema. NEUROLOGICAL: Cranial nerves II through XII grossly intact. Normal speech, gait not observed. PSYCH: Normal mood, normal affect. SKIN: Warm, dry, normal turgor, no rashes or lesions noted colostomy drainage 1100cc Laboratory Results - last 24 hr 08/20/19 07:40 WBC 12.3 H RBC 3.39 L Hgb 10.0 L Hct 29.7 L MCV 87.6 MCH 29.5 MCHC 33.7 RDW 15.3 Plt Count 323 MPV 7.7 Absolute Neuts (auto) 10.0 H Neutrophils % 81.4 Neutrophils % (Manual) 77.4 Band Neutrophils % 2.9 Lymphocytes % 8.8 Lymphocytes % (Manual) 5.9 L D Monocytes % 8.5 Monocytes % (Manual) 8 Eosinophils % 0.9 Eosinophils % (Manual) 1.0 Basophils % 0.4 Basophils % (Manual) 0.0 Myelocytes % (Man) 1 D Promyelocytes % (Man) 0 Blast Cells % (Manual) 0 Nucleated RBC % 0 Metamyelocytes 2 D Hypochromia 0 Platelet Estimate Normal Polychromasia 0 Poikilocytosis 0 Anisocytosis 0 Microcytosis 0 Macrocytosis 0 Active Medications Generic Name Dose Route Start Last Admin Trade Name Freq PRN Reason Stop Dose Admin Enalaprilat 1.25 mg 08/16/19 21:00 08/20/19 10:06 Vasotec Injection - IVPB 1.25 mg Q6H-IV ANNA Administration Heparin Sodium (Porcine) 5,000 unit 08/16/19 22:00 08/20/19 06:24 Heparin - SQ 5,000 unit TID ANNA Administration Metronidazole 500 mg in 100 mls @ 100 mls/hr 08/16/19 18:00 08/20/19 10:01 Flagyl 500mg Premixed Ivpb - IVPB 100 mls/hr Q8H-IV ANNA Administration Piperacillin Sod/Tazobactam 100 mls @ 200 mls/hr 08/16/19 18:00 08/20/19 10: 01 Sod 4.5 gm/ Dextrose IVPB 200 mls/hr Q8H-IV ANNA Administration Protocol Amino Acids 1,000 mls @ 84 mls/hr 08/17/19 16:00 08/20/19 03:24 Clinimix - IV 84 mls/hr Q12H ANNA Administration Morphine Sulfate 4 mg 08/16/19 15:45 Morphine Sulfate IVPUSH Q3H PRN PAIN LEVEL 1-5 Ondansetron HCl 4 mg 08/16/19 15:45 Zofran Injection IVPUSH Q6H PRN NAUSEA AND/OR VOMITING Pantoprazole Sodium 40 mg 08/17/19 10:00 08/20/19 10:01 Protonix Iv IVPUSH 40 mg DAILY ANNA Administration Sodium Hypochlorite 1 applic 08/17/19 10:00 08/19/19 09:25 Dakin's Solution 0.25% (Half-Strength) - TP 1 applic DAILY ANNA Administration ASSESSMENT/PLAN: Mr. Pena is a 59 y/o male with HTN and GERD who presents with sudden onset LLQ abdominal pain and chills. #severe sepsis 2/2 diverticulitis s/p emergent Erickson procedure POD 8 s/p incision repair POD 6 WBC 12.3. Afebrile. CT prior to surgery showed pneumoperitoneum with loops of dilated bowel. Incision was opened when pt sat up on POD 2. -Zosyn day 5 -flagyl day 12 -ceftriaxone stopped -IV protonix 40mg Q daily -LR stopped, diet advanced to clear liquid -Clinamix -peritoneal fluid cultures- pseudomonas -surgery following- NG tube was removed, KARI drain removed -continue pain control -CBC #hypokalemia 3.3 -repleted KCl #hypophosphatemia, resolved #JASEN, resolved Cr 0.7 pre-renal from sepsis -continue hydration #HTN -Enalaprilat 1.25 Q6 hours -when restarting PO meds, home med equivalent is- lisinopril 20mg Q daily, amlodipine 10mg Q daily #weakness -PT-125 feet today FEN liquid diet monitor lytes clinamix DVT Ppx heparin Visit type - Emergency Visit Emergency Visit: Yes ED Registration Date: 08/09/19 Care time: The patient presented to the Emergency Department on the above date and was hospitalized for further evaluation of their emergent condition. - New Patient This patient is new to me today: No - Critical Care Critical Care patient: No - Discharge Referral Referred to [facility] Med P.C.: No ATTENDING PHYSICIAN STATEMENT I saw and evaluated the patient. I reviewed the resident's note and discussed the case with the resident. I agree with the resident's findings and plan as documented. SUBJECTIVE: OBJECTIVE: ASSESSMENT AND PLAN:
[2019-08-20] MEDS: SODIUM HYPOCHLORITE 0.25%- 473 ML BULK BOTTLE TP SCH (14:56)
--- NOTE | 2019-08-20 17:12 | PN ---
Progress Note, Physician History of Present Illness: AWAKE, ALERT IN BED JUST NOW SPIKED TEMP 101 NO C/O ABDOMINAL PAIN WBC 12K BC (-) - Current Medication List Current Medications: Active Medications Enalaprilat (Vasotec Injection -) 1.25 mg IVPB Q6H-IV ANNA Last Admin: 08/20/19 16:07 Dose: 1.25 mg Heparin Sodium (Porcine) (Heparin -) 5,000 unit SQ TID ANNA Last Admin: 08/20/19 14:55 Dose: 5,000 unit Metronidazole (Flagyl 500mg Premixed Ivpb -) 500 mg in 100 mls @ 100 mls/hr IVPB Q8H-IV ANNA Last Admin: 08/20/19 10:01 Dose: 100 mls/hr Piperacillin Sod/Tazobactam (Sod 4.5 gm/ Dextrose) 100 mls @ 200 mls/hr IVPB Q8H-IV ANNA; Protocol Last Admin: 08/20/19 10:01 Dose: 200 mls/hr Morphine Sulfate (Morphine Sulfate) 4 mg IVPUSH Q3H PRN PRN Reason: PAIN LEVEL 1-5 Ondansetron HCl (Zofran Injection) 4 mg IVPUSH Q6H PRN PRN Reason: NAUSEA AND/OR VOMITING Pantoprazole Sodium (Protonix Iv) 40 mg IVPUSH DAILY [facility] Last Admin: 08/20/19 10:01 Dose: 40 mg Sodium Hypochlorite (Dakin's Solution 0.25% (Half-Strength) -) 1 applic TP DAILY [facility] Last Admin: 08/20/19 14:56 Dose: 1 applic - Objective Vital Signs: Vital Signs Temperature 98.9 F 08/20/19 15:00 Pulse Rate 108 H 08/20/19 15:00 Respiratory Rate 18 08/20/19 15:00 Blood Pressure 163/96 08/20/19 15:00 O2 Sat by Pulse Oximetry (%) 94 L 08/19/19 21:00 Constitutional: Yes: No Distress Cardiovascular: Yes: Regular Rate and Rhythm, S1, S2 Respiratory: Yes: Diminished Gastrointestinal: Yes: Normal Bowel Sounds, Soft, Other (+ SURGICAL WOUND, OSTOMY) Extremities: No: Calf Tenderness Labs: CBC, BMP 08/20/19 07:40 08/19/19 06:45 INR, PTT INR 1.16 (0.83-1.09) H 08/09/19 02:20 Assessment/Plan POST OP MARGARITA'S PROCEDURE PERFORATED DIVERTICULITIS WITH ABSCESS + OPERATIVE C/S PSEUDOMONAS NEW ONSET FEVER REPEAT CULTURES CONTINUE ZOSYN/ FLAGYL REPEAT CT A/P FOR PERSISTANT TEMP OOB INCENTIVE SPIROMETRY
[2019-08-20 21:23] LABS: URINE APPEARANCE CLEAR; URINE BILIRUBIN NEGATIVE (NEGATIVE); URINE COLOR YELLOW; URINE GLUCOSE (UA) NEGATIVE (NEGATIVE); URINE KETONE NEGATIVE (NEGATIVE); URINE LEUK ESTERASE NEGATIVE (NEGATIVE); URINE NITRITE NEGATIVE (NEGATIVE); URINE PROTEIN NEGATIVE (NEGATIVE); URINE UROBILINOGEN 0.2 mg/dL (0.2-1.0)
[2019-08-21] MEDS ORDERED: PIPERACILLIN/TAZOBACTAM 4.5 GM VIAL IVPB ONE ×3 (01:01→17:33)
[2019-08-21] MEDS ORDERED: DEXTROSE 5%-WATER 100 ML IVPB ONE ×3 (01:01→17:33)
[2019-08-21] MEDS: PIPERACILLIN/TAZOB 4.5 GM 4.5 GM in DEXTROSE 5%-WATER 100 ML IVPB SCH ×3 (01:14→18:40)
[2019-08-21] MEDS ORDERED: PT OWN MED DRAWER 7, Y5N ONE ×2 (02:51→21:11)
[2019-08-21] MEDS: ENALAPRILAT DIHYDRATE 1.25 MG/1 ML VIAL IVPB SCH ×4 (03:45→21:53)
[2019-08-21] MEDS: HEPARIN NA (PORCINE) 5,000 UNITS/ML 1ML VIAL SQ SCH ×3 (05:18→21:54)
[2019-08-21 06:47] LABS: HEMATOCRIT 29.2 % (35.4-49); HEMOGLOBIN 10.1 GM/dL (11.7-16.9); MCH 29.9 pg (25.7-33.7); MCHC 34.5 g/dl (32.0-35.9); MEAN CELL VOLUME 86.6 fl (80-96); MEAN PLT VOLUME 7.8 fl (7.5-11.1); PLATELET COUNT 351 K/MM3 (134-434); RBC 3.37 M/mm3 (4.00-5.60); RDW 15.6 % (11.9-15.9); WHITE BLOOD COUNT 10.5 K/mm3 (4.0-10.0)
[2019-08-21] MEDS: SODIUM HYPOCHLORITE 0.25%- 473 ML BULK BOTTLE TP SCH (10:03)
[2019-08-21] MEDS: PANTOPRAZOLE SODIUM 40 MG VIAL IVPUSH SCH (10:03)
--- NOTE | 2019-08-21 10:38 | PN ---
Progress Note (short form) - Note Progress Note: feels well this am no further fever Vital Signs Period Temp Pulse Resp BP Sys/Cramer Pulse Ox Last 24 Hr 98.4 F-99.6 F 94-108 18-24 118-163/84-96 96 cor-rrr lungs clear abd soft, +leaking from colostomy wound examined yesterday packing in two areas, still some drainage ext no edema CBC, BMP 08/21/19 05:30 08/19/19 06:45 Microbiology 08/12/19 18:27 Peritoneal Fluid Gram Stain - Final 08/12/19 18:27 Peritoneal Fluid Body Fluid Culture - Final Pseudomonas Aeruginosa 08/12/19 18:27 Peritoneal Fluid Anaerobic Culture - Final NO ANAEROBES WERE ISOLATED 08/09/19 02:20 Blood - Peripheral Venous Blood Culture - Final NO GROWTH AFTER 5 DAYS INCUBATION 08/09/19 02:20 Blood - Peripheral Venous Blood Culture - Final NO GROWTH AFTER 5 DAYS INCUBATION 08/09/19 04:00 Urine - Urine Clean Catch Urine Culture - Final NO GROWTH OBTAINED Current Medications Enalaprilat (Vasotec Injection -) 1.25 mg IVPB Q6H-IV ANNA Last Admin: 08/21/19 09:58 Dose: 1.25 mg Heparin Sodium (Porcine) (Heparin -) 5,000 unit SQ TID ANNA Last Admin: 08/21/19 05:18 Dose: 5,000 unit Metronidazole (Flagyl 500mg Premixed Ivpb -) 500 mg in 100 mls @ 100 mls/hr IVPB Q8H-IV ANNA Last Admin: 08/21/19 02:27 Dose: 100 mls/hr Piperacillin Sod/Tazobactam (Sod 4.5 gm/ Dextrose) 100 mls @ 200 mls/hr IVPB Q8H-IV ANNA; Protocol Last Admin: 08/21/19 09:39 Dose: 200 mls/hr Morphine Sulfate (Morphine Sulfate) 4 mg IVPUSH Q3H PRN PRN Reason: PAIN LEVEL 1-5 Ondansetron HCl (Zofran Injection) 4 mg IVPUSH Q6H PRN PRN Reason: NAUSEA AND/OR VOMITING Pantoprazole Sodium (Protonix Iv) 40 mg IVPUSH DAILY [facility] Last Admin: 08/21/19 10:03 Dose: 40 mg Sodium Hypochlorite (Dakin's Solution 0.25% (Half-Strength) -) 1 applic TP DAILY ANNA Last Admin: 08/21/19 10:03 Dose: 1 applic UA is negative a/p fever- cultures pending encouraged incentive spirometry s/p Hartmanns procedure for perforated diverticuitis continue zosyn/flagyl f/u cultures
--- NOTE | 2019-08-21 12:25 | PN ---
Progress Note (short form) - Note Progress Note: Attending Nessa POD#9/#7 Seen in f/u; no c/o; tolerating clear liquid diet. VSS AF wound-granulating and ostomy functioning; exam o/w unremarkable. WBC normal IMP: improving PLAN:OOB; continue IVABS and wound care; ID f/u appreciated. Harsh Spencer MD FACS
--- NOTE | 2019-08-21 13:18 | PN ---
Progress Note, Physician Chief Complaint: no new complaint today and has no stomach pains He is eating well and no nausea or vomiting no fever he had bm small today . History of Present Illness: 59yo M with PMH HTN presented to the ER with abdominal pain and found to be septic due to diverticulitis. course complicated with development of bowel perforation requiring emergent exlap and hartmans procedure followed by wound dehisince requiring intervention - Current Medication List Current Medications: Active Medications Enalaprilat (Vasotec Injection -) 1.25 mg IVPB Q6H-IV ANNA Last Admin: 08/21/19 09:58 Dose: 1.25 mg Heparin Sodium (Porcine) (Heparin -) 5,000 unit SQ TID ANNA Last Admin: 08/21/19 05:18 Dose: 5,000 unit Metronidazole (Flagyl 500mg Premixed Ivpb -) 500 mg in 100 mls @ 100 mls/hr IVPB Q8H-IV ANNA Last Admin: 08/21/19 11:16 Dose: 100 mls/hr Piperacillin Sod/Tazobactam (Sod 4.5 gm/ Dextrose) 100 mls @ 200 mls/hr IVPB Q8H-IV ANNA; Protocol Last Admin: 08/21/19 09:39 Dose: 200 mls/hr Morphine Sulfate (Morphine Sulfate) 4 mg IVPUSH Q3H PRN PRN Reason: PAIN LEVEL 1-5 Ondansetron HCl (Zofran Injection) 4 mg IVPUSH Q6H PRN PRN Reason: NAUSEA AND/OR VOMITING Pantoprazole Sodium (Protonix Iv) 40 mg IVPUSH DAILY [facility] Last Admin: 08/21/19 10:03 Dose: 40 mg Sodium Hypochlorite (Dakin's Solution 0.25% (Half-Strength) -) 1 applic TP DAILY ANNA Last Admin: 08/21/19 10:03 Dose: 1 applic - Objective Vital Signs: Vital Signs Temperature 98.4 F 08/21/19 06:00 Pulse Rate 94 H 08/21/19 06:00 Respiratory Rate 20 08/21/19 06:00 Blood Pressure 148/87 08/21/19 06:00 O2 Sat by Pulse Oximetry (%) 96 08/20/19 21:00 Constitutional: Yes: No Distress, Calm Eyes: Yes: Conjunctiva Clear HENT: Yes: Atraumatic Neck: Yes: Supple Cardiovascular: Yes: Regular Rate and Rhythm Respiratory: Yes: CTA Bilaterally Gastrointestinal: Yes: Abdomen, Obese, Distention, Tenderness, Epigastrium Extremities: Yes: WNL Wound/Incision: Yes: Clean/Dry Neurological: Yes: WNL, Alert, Oriented Labs: CBC, BMP 08/21/19 05:30 08/19/19 06:45 INR, PTT INR 1.16 (0.83-1.09) H 08/09/19 02:20 Problem List - Problems (1) Diverticulitis Assessment/Plan: He had surgery and on antibiotics Code(s): K57.92 - DVTRCLI OF INTEST, PART UNSP, W/O PERF OR ABSCESS W/O BLEED (2) HTN (hypertension) Assessment/Plan: stable off the meds at this time. Code(s): I10 - ESSENTIAL (PRIMARY) HYPERTENSION (3) Hypophosphatemia Assessment/Plan: better after replacement Code(s): E83.39 - OTHER DISORDERS OF PHOSPHORUS METABOLISM (4) Lactate blood increased Code(s): R79.89 - OTHER SPECIFIED ABNORMAL FINDINGS OF BLOOD CHEMISTRY (5) Leukocytosis Assessment/Plan: much better today and trend is coming down Code(s): D72.829 - ELEVATED WHITE BLOOD CELL COUNT, UNSPECIFIED (6) Respiratory alkalosis Code(s): E87.3 - ALKALOSIS (7) Sepsis Assessment/Plan: He is on iv antibiotics Code(s): A41.9 - SEPSIS, UNSPECIFIED ORGANISM Impression/Plan Impression/Plan: 59 years Male with PMH HTN presented to the ER with abdominal pain and found to be septic due to diverticulitis. course complicated with development of bowel perforation requiring emergent exlap and hartmans procedure followed by wound dehisince requiring intervention 1. Severe sepsis due to diverticulitis- He is better and getting antibiotics and seen by ID today 2. HTN- controlled. hold oral agents. re-start as needed 3. DVT ppx- hep sq 4. PT. will tasialey require short term rehab because pt lives alone on discharge Visit type - Emergency Visit Emergency Visit: Yes ED Registration Date: 08/09/19 Care time: The patient presented to the Emergency Department on the above date and was hospitalized for further evaluation of their emergent condition. - New Patient This patient is new to me today: Yes Date on this admission: 08/21/19 - Critical Care Critical Care patient: No - Discharge Referral Referred to [facility] Med P.C.: No
[2019-08-22] MEDS ORDERED: PT OWN MED DRAWER 7, Y5N ONE ×2 (01:20→07:04)
[2019-08-22] MEDS ORDERED: PIPERACILLIN/TAZOBACTAM 4.5 GM VIAL IVPB ONE ×3 (01:21→17:31)
[2019-08-22] MEDS ORDERED: DEXTROSE 5%-WATER 100 ML IVPB ONE ×3 (01:22→17:31)
[2019-08-22] MEDS: PIPERACILLIN/TAZOB 4.5 GM 4.5 GM in DEXTROSE 5%-WATER 100 ML IVPB SCH ×3 (01:40→17:39)
[2019-08-22] MEDS: ENALAPRILAT DIHYDRATE 1.25 MG/1 ML VIAL IVPB SCH ×3 (02:30→15:12)
[2019-08-22] MEDS: HEPARIN NA (PORCINE) 5,000 UNITS/ML 1ML VIAL SQ SCH ×3 (06:09→21:19)
--- NOTE | 2019-08-22 09:29 | PN ---
Teaching Attending Note Name of Resident: Vickie Joseph ATTENDING PHYSICIAN STATEMENT I saw and evaluated the patient. I reviewed the resident's note and discussed the case with the resident. I agree with the resident's findings and plan as documented. SUBJECTIVE: OBJECTIVE: Vital Signs Period Temp Pulse Resp BP Sys/Cramer Pulse Ox Last 24 Hr 98.8 F-99.4 F 88-107 20-20 134-142/78-91 Young man tolerated clear liquid not in distress HEENT: Mm moist, No Jaundice NECK; supple, no JVd No Bruit CHEST: CTA B/L CVS; S1S2 R no m/g/r ABD: S/P EL, colon resection and Colostomy BS + CMO & PRESIDENT: AOX3 non focal CBC, BMP 08/21/19 05:30 08/19/19 06:45 Active Medications Enalaprilat (Vasotec Injection -) 1.25 mg IVPB Q6H-IV ANNA Last Admin: 08/22/19 02:30 Dose: 1.25 mg Heparin Sodium (Porcine) (Heparin -) 5,000 unit SQ TID ANNA Last Admin: 08/22/19 06:09 Dose: 5,000 unit Metronidazole (Flagyl 500mg Premixed Ivpb -) 500 mg in 100 mls @ 100 mls/hr IVPB Q8H-IV ANNA Last Admin: 08/22/19 01:40 Dose: 100 mls/hr Piperacillin Sod/Tazobactam (Sod 4.5 gm/ Dextrose) 100 mls @ 200 mls/hr IVPB Q8H-IV ANNA; Protocol Last Admin: 08/22/19 01:40 Dose: 200 mls/hr Ondansetron HCl (Zofran Injection) 4 mg IVPUSH Q6H PRN PRN Reason: NAUSEA AND/OR VOMITING Pantoprazole Sodium (Protonix Iv) 40 mg IVPUSH DAILY ANNA Last Admin: 08/21/19 10:03 Dose: 40 mg Sodium Hypochlorite (Dakin's Solution 0.25% (Half-Strength) -) 1 applic TP DAILY ANNA Last Admin: 08/21/19 10:03 Dose: 1 applic ASSESSMENT AND PLAN: 59yo M with PMH HTN presented to the ER with abdominal pain and found to be septic due to diverticulitis. course complicated with development of bowel perforation requiring exploratory laparotomy with resection of sigmoid and colostomy Problem List - Problems (1) Diverticulitis Assessment/Plan: Severe sepsis due to diverticulitis- s/p ex-lap with resection of sigmoid/ Hartmans with colostomy 08/12 and s/p bowel evisceration requiring wound re- closure with retention sutures on 08/14. tolerating clear liquids. advance diet per surgery. KARI drain d/c today. will d/c clinimix. cont zosyn and flagyl. Fluid cx+pseudomonas. pain is controlled. ID and surgery on board. Code(s): K57.92 - DVTRCLI OF INTEST, PART UNSP, W/O PERF OR ABSCESS W/O BLEED (2) Sepsis Assessment/Plan: Perforated Diverticullitis Code(s): A41.9 - SEPSIS, UNSPECIFIED ORGANISM (3) HTN (hypertension) Assessment/Plan: well controlled Code(s): I10 - ESSENTIAL (PRIMARY) HYPERTENSION (4) Hypokalemia Assessment/Plan: repleted Code(s): E87.6 - HYPOKALEMIA
[2019-08-22] MEDS: PANTOPRAZOLE SODIUM 40 MG VIAL IVPUSH SCH (10:51)
--- NOTE | 2019-08-22 11:56 | PN ---
Physical Exam: SUBJECTIVE: Patient seen and examined. He denies chest pain, wheezing, abdominal pain, n/v. He is tolerating liquid diet currently. OBJECTIVE: Vital Signs Period Temp Pulse Resp BP Sys/Cramer Pulse Ox Last 24 Hr 98.8 F-99.4 F 88-107 20-20 134-142/78-91 GENERAL: The patient is awake, alert, and fully oriented, in no acute distress. HEAD: Normal with no signs of trauma. EYES: PERRL, extraocular movements intact, sclera anicteric, conjunctiva clear. No ptosis. ENT: Ears normal, nares patent, oropharynx clear without exudates, moist mucous membranes. NECK: Trachea midline, full range of motion, supple. LUNGS: Breath sounds equal, clear to auscultation bilaterally, no wheezes, no crackles, no accessory muscle use. HEART: Regular rate and rhythm, S1, S2 without murmur, rub or gallop. ABDOMEN: Bandaged laparotomy incision, no tenderness on palpation near site and no erythema, colostomy bag in place with liquid light brown stool. No erythema round the site. EXTREMITIES: 2+ pulses, warm, well-perfused, no edema. NEUROLOGICAL: Cranial nerves II through XII grossly intact. Normal speech, gait not observed. PSYCH: Normal mood, normal affect. SKIN: Warm, dry, normal turgor, no rashes or lesions noted colostomy drainage: 200cc Active Medications Generic Name Dose Route Start Last Admin Trade Name Freq PRN Reason Stop Dose Admin Enalaprilat 1.25 mg 08/16/19 21:00 08/22/19 10:50 Vasotec Injection - IVPB 1.25 mg Q6H-IV ANNA Administration Heparin Sodium (Porcine) 5,000 unit 08/16/19 22:00 08/22/19 06:09 Heparin - SQ 5,000 unit TID ANNA Administration Metronidazole 500 mg in 100 mls @ 100 mls/hr 08/16/19 18:00 08/22/19 10:50 Flagyl 500mg Premixed Ivpb - IVPB 100 mls/hr Q8H-IV ANNA Administration Piperacillin Sod/Tazobactam 100 mls @ 200 mls/hr 08/16/19 18:00 08/22/19 10: 51 Sod 4.5 gm/ Dextrose IVPB 200 mls/hr Q8H-IV ANNA Administration Protocol Ondansetron HCl 4 mg 08/16/19 15:45 Zofran Injection IVPUSH Q6H PRN NAUSEA AND/OR VOMITING Pantoprazole Sodium 40 mg 08/17/19 10:00 08/22/19 10:51 Protonix Iv IVPUSH 40 mg DAILY ANNA Administration Sodium Hypochlorite 1 applic 08/17/19 10:00 08/21/19 10:03 Dakin's Solution 0.25% (Half-Strength) - TP 1 applic DAILY ANNA Administration ASSESSMENT/PLAN: Mr. Pena is a 59 y/o male with HTN and GERD who presents with sudden onset LLQ abdominal pain and chills. Pt was found to have sigmoid diverticulitis on CT. No hx of colonoscopy in the past. Abdominal pain was subsiding on bowel rest then returned after diet was reintroduced. CT abdomen then showed pneumoperitoneum with loops of dilated bowel. Erickson procedure done with colostomy in place. Surgical incision opened when patient sat up 2 days later and was repaired. Pt currently denies abdominal pain and is tolerating clear liquid diet. NG tube removed and KARI drain. #severe sepsis 2/2 diverticulitis s/p emergent Erickson procedure POD 10 s/p incision repair POD 8 WBC 10[address] prior to surgery showed pneumoperitoneum with loops of dilated bowel. Incision was opened when pt sat up on POD 2. Pt denies pain. -Zosyn day 7 -flagyl day 14 -Tylenol PRN pain -IV protonix 40mg Q daily -ceftriaxone stopped -LR and Clinamix discontinued, diet advanced to clear liquid -peritoneal fluid cultures- pseudomonas -blood cultures pending -urine culture negative -ID- continue abx, awaiting culture results -surgery- continue abx -CBC #hypokalemia 3.3 -repleted KCl -recheck BMP #hypophosphatemia, resolved #JASEN, resolved Cr 0.7 pre-renal from sepsis -continue PO hydration #HTN -Enalaprilat 1.25mg Q6 hours -when restarting PO meds, home med equivalent is- lisinopril 20mg Q daily, amlodipine 10mg Q daily #weakness -continue PT FEN liquid diet monitor K DVT Ppx heparin Visit type - Emergency Visit Emergency Visit: Yes ED Registration Date: 08/09/19 Care time: The patient presented to the Emergency Department on the above date and was hospitalized for further evaluation of their emergent condition. - New Patient This patient is new to me today: No - Critical Care Critical Care patient: No - Discharge Referral Referred to [facility] No ATTENDING PHYSICIAN STATEMENT I saw and evaluated the patient. I reviewed the resident's note and discussed the case with the resident. I agree with the resident's findings and plan as documented. SUBJECTIVE: OBJECTIVE: ASSESSMENT AND PLAN:
[2019-08-22] MEDS ORDERED: ACETAMINOPHEN 1000 MG/100 ML VIAL (NON FORMULARY) IVPB PRN (12:15)
[2019-08-22] MEDS: SODIUM HYPOCHLORITE 0.25%- 473 ML BULK BOTTLE TP SCH (15:11)
[2019-08-22] MEDS ORDERED: amLODIPine BESYLATE 5 MG TABLET (FP) PO SCH (15:30)
[2019-08-22] MEDS ORDERED: POTASSIUM CHLORIDE ORAL LIQUID 20 MEQ/15 ML PO ONE (17:10)
[2019-08-22] MEDS ORDERED: SIMETHICONE 40 MG/0.6 ML BOTTLE PO ONE (21:34)
[2019-08-23] MEDS ORDERED: DEXTROSE 5%-WATER 100 ML IVPB ONE ×3 (01:44→17:04)
[2019-08-23] MEDS ORDERED: PIPERACILLIN/TAZOBACTAM 4.5 GM VIAL IVPB ONE ×3 (01:44→17:03)
[2019-08-23] MEDS: PIPERACILLIN/TAZOB 4.5 GM 4.5 GM in DEXTROSE 5%-WATER 100 ML IVPB SCH ×3 (01:59→18:46)
[2019-08-23] MEDS: HEPARIN NA (PORCINE) 5,000 UNITS/ML 1ML VIAL SQ SCH ×2 (05:54→13:55)
--- NOTE | 2019-08-23 07:34 | PN ---
Progress Note (short form) - Note Progress Note: POD #11 s/p Radha's procedure POD #9 s/p repair abd evisceration Alert. In bed resting comfortably. Has minimal incisional tenderness. Adequate pain control via meds ordered. States he's OOB and ambulating unassisted. Tolerating soft diet. Voiding spontaneously. Ostomy functioning. Remains on Zosyn & Flagyl as per ID. Denies n/v/f/c, CP, palpitations, SOB or FARRAR. Last Vital Signs Temp Pulse Resp BP Pulse Ox 98.7 F 99 H 20 152/88 98 08/23/19 06:26 08/23/19 06:26 08/23/19 06:26 08/23/19 06:26 08/22/19 21:00 Microbiology 08/20/19 21:00 Blood - Peripheral Venous Blood Culture - Preliminary NO GROWTH OBTAINED AFTER 48 HOURS, INCUBATION TO CONTINUE FOR 3 DAYS. 08/20/19 20:00 Urine - Urine Clean Catch Urine Culture - Final NO GROWTH OBTAINED PE Gen: nad ABD: Obese habitus. LLQ ostomy (pink, protruding, producing). Midline incision open above/below umbilicus. Both wounds with fibrin slough base. Deep fascia intact. Minimal granulation tissue Problem List - Problems (1) Diverticulitis Assessment/Plan: Advance diet as tolerated. ABD wound repacked while on rounds Cont OOB and ambulate Waiting for Case Manaement/VNS to see patient IV ABX as per ID Code(s): K57.92 - DVTRCLI OF INTEST, PART UNSP, W/O PERF OR ABSCESS W/O BLEED (2) Sepsis Code(s): A41.9 - SEPSIS, UNSPECIFIED ORGANISM (3) HTN (hypertension) Code(s): I10 - ESSENTIAL (PRIMARY) HYPERTENSION
[2019-08-23 07:45] LABS: BLOOD UREA NITROGEN 9.4 mg/dL (7-18); CREATININE 0.8 mg/dL (0.55-1.3); POTASSIUM 3.4 mmol/L (3.5-5.1)
[2019-08-23 07:59] LABS: HEMATOCRIT 29.2 % (35.4-49); HEMOGLOBIN 9.8 GM/dL (11.7-16.9); MCH 29.4 pg (25.7-33.7); MCHC 33.6 g/dl (32.0-35.9); MEAN CELL VOLUME 87.2 fl (80-96); MEAN PLT VOLUME 7.9 fl (7.5-11.1); PLATELET COUNT 407 K/MM3 (134-434); RBC 3.35 M/mm3 (4.00-5.60); RDW 15.6 % (11.9-15.9); WHITE BLOOD COUNT 10.9 K/mm3 (4.0-10.0)
--- NOTE | 2019-08-23 08:17 | PN ---
Physical Exam: SUBJECTIVE: Patient seen and examined. He denies chest pain, wheezing, abdominal pain, n/v. He is tolerating liquid diet currently. OBJECTIVE: Vital Signs Period Temp Pulse Resp BP Sys/Cramer Pulse Ox Last 24 Hr 98.2 F-99.1 F 96-110 18-20 137-157/88-95 97-98 GENERAL: The patient is awake, alert, and fully oriented, in no acute distress. HEAD: Normal with no signs of trauma. EYES: PERRL, extraocular movements intact, sclera anicteric, conjunctiva clear. No ptosis. ENT: Ears normal, nares patent, oropharynx clear without exudates, moist mucous membranes. NECK: Trachea midline, full range of motion, supple. LUNGS: Breath sounds equal, clear to auscultation bilaterally, no wheezes, no crackles, no accessory muscle use. HEART: Regular rate and rhythm, S1, S2 without murmur, rub or gallop. ABDOMEN: Bandaged laparotomy incision, no tenderness on palpation near site and no erythema, colostomy bag in place with liquid light brown stool. No erythema round the site. EXTREMITIES: 2+ pulses, warm, well-perfused, no edema. NEUROLOGICAL: Cranial nerves II through XII grossly intact. Normal speech, gait not observed. PSYCH: Normal mood, normal affect. SKIN: Warm, dry, normal turgor, no rashes or lesions noted colostomy drainage: 100cc Laboratory Results - last 24 hr 08/23/19 08/23/19 06:55 06:55 WBC 10.9 H RBC 3.35 L Hgb 9.8 L Hct 29.2 L MCV 87.2 MCH 29.4 MCHC 33.6 RDW 15.6 Plt Count 407 MPV 7.9 Sodium 131 L Potassium 3.4 L Chloride 96 L Carbon Dioxide 28 Anion Gap 7 L BUN 9.4 Creatinine 0.8 Est GFR (CKD-EPI)AfAm 113.33 Est GFR (CKD-EPI)NonAf 97.78 Random Glucose 124 H Magnesium 2.0 Active Medications Generic Name Dose Route Start Last Admin Trade Name Freq PRN Reason Stop Dose Admin Acetaminophen 1,000 mg 08/22/19 12:15 Ofirmev Injection - IVPB Q6H PRN PAIN LEVEL 4 - 6 Amlodipine Besylate 10 mg 08/23/19 08:16 Norvasc - PO DAILY ANNA Heparin Sodium (Porcine) 5,000 unit 08/16/19 22:00 08/23/19 05:54 Heparin - SQ 5,000 unit TID ANNA Administration Metronidazole 500 mg in 100 mls @ 100 mls/hr 08/16/19 18:00 08/23/19 01:59 Flagyl 500mg Premixed Ivpb - IVPB 100 mls/hr Q8H-IV ANNA Administration Piperacillin Sod/Tazobactam 100 mls @ 200 mls/hr 08/16/19 18:00 08/23/19 01: 59 Sod 4.5 gm/ Dextrose IVPB 200 mls/hr Q8H-IV ANNA Administration Protocol Ondansetron HCl 4 mg 08/16/19 15:45 Zofran Injection IVPUSH Q6H PRN NAUSEA AND/OR VOMITING Pantoprazole Sodium 40 mg 08/17/19 10:00 08/22/19 10:51 Protonix Iv IVPUSH 40 mg DAILY ANNA Administration Sodium Hypochlorite 1 applic 08/17/19 10:00 08/22/19 15:11 Dakin's Solution 0.25% (Half-Strength) - TP 1 applic DAILY ANNA Administration ASSESSMENT/PLAN: Mr. Pena is a 59 y/o male with HTN and GERD who presents with sudden onset LLQ abdominal pain and chills. Pt was found to have sigmoid diverticulitis on CT. No hx of colonoscopy in the past. Abdominal pain was subsiding on bowel rest then returned after diet was reintroduced. CT abdomen then showed pneumoperitoneum with loops of dilated bowel. Erickson procedure done with colostomy in place. Pt initially treated with flagyl, also ceftriaxone then switched to Zosyn. Surgical incision opened with bowel evisceration when patient sat up 2 days later and was repaired. Pt currently denies abdominal pain and is tolerating clear liquid diet. NG tube removed and KARI drain. #severe sepsis 2/2 diverticulitis s/p emergent Erickson procedure POD 11 s/p incision repair POD 9 WBC 10.5[address] Afebrile[address] prior to surgery showed pneumoperitoneum with loops of dilated bowel. Incision was opened when pt sat up on POD 2. Pt denies pain. -Zosyn day 8 -flagyl day 15 -Tylenol -IV protonix 40mg Q daily -peritoneal fluid cultures- pseudomonas -blood cultures negative -urine culture negative -ID- continue abx -surgery- continue abx -CBC #hypokalemia 3.4 -repleted KCl -recheck BMP #hypophosphatemia, resolved #JASEN, resolved pre-renal from sepsis #HTN -home amlodipine -can add home SUSAN inhibitor as needed #weakness -continue PT FEN liquid diet monitor K DVT Ppx heparin Visit type - Emergency Visit Emergency Visit: Yes ED Registration Date: 08/09/19 Care time: The patient presented to the Emergency Department on the above date and was hospitalized for further evaluation of their emergent condition. - New Patient This patient is new to me today: No - Critical Care Critical Care patient: No - Discharge Referral Referred to [facility] No ATTENDING PHYSICIAN STATEMENT I saw and evaluated the patient. I reviewed the resident's note and discussed the case with the resident. I agree with the resident's findings and plan as documented. SUBJECTIVE: OBJECTIVE: ASSESSMENT AND PLAN:
[2019-08-23 08:59] LABS: CALCIUM 6.8 mg/dL (8.5-10.1)
[2019-08-23] MEDS ORDERED: PT OWN MED DRAWER 7, Y5N ONE (09:26)
[2019-08-23] MEDS: amLODIPine BESYLATE 5 MG TABLET (FP) PO SCH (09:42)
[2019-08-23] MEDS: SODIUM HYPOCHLORITE 0.25%- 473 ML BULK BOTTLE TP SCH (09:42)
[2019-08-23] MEDS: PANTOPRAZOLE SODIUM 40 MG VIAL IVPUSH SCH (09:42)
--- NOTE | 2019-08-23 10:39 | PN ---
Teaching Attending Note Name of Resident: Vickie Joseph ATTENDING PHYSICIAN STATEMENT I saw and evaluated the patient. I reviewed the resident's note and discussed the case with the resident. I agree with the resident's findings and plan as documented. SUBJECTIVE: Patient has no complaints. OBJECTIVE: Vital Signs Period Temp Pulse Resp BP Sys/Cramer Pulse Ox Last 24 Hr 98.2 F-99.1 F 99-110 18-20 152-157/88-95 98 HEART: S1S2, RRR LUNGS: Clear ABDOMEN: Obese, soft, non-tender, non-distended, (+) functioning LLQ colostomy, normal BS EXTREMITIES: No edema Laboratory Results - last 24 hr 08/23/19 08/23/19 06:55 06:55 WBC 10.9 H RBC 3.35 L Hgb 9.8 L Hct 29.2 L MCV 87.2 MCH 29.4 MCHC 33.6 RDW 15.6 Plt Count 407 MPV 7.9 Sodium 131 L Potassium 3.4 L Chloride 96 L Carbon Dioxide 28 Anion Gap 7 L BUN 9.4 Creatinine 0.8 Est GFR (CKD-EPI)AfAm 113.33 Est GFR (CKD-EPI)NonAf 97.78 Random Glucose 124 H Calcium 6.8 L* Magnesium 2.0 Current Medications Generic Name Dose Route Start Last Admin Trade Name David PRN Reason Stop Dose Admin Acetaminophen 1,000 mg 08/22/19 12:15 Ofirmev Injection - IVPB Q6H PRN PAIN LEVEL 4 - 6 Amlodipine Besylate 10 mg 08/23/19 08:16 08/23/19 09:42 Norvasc - PO 10 mg DAILY ANNA Administration Heparin Sodium (Porcine) 5,000 unit 08/16/19 22:00 08/23/19 05:54 Heparin - SQ 5,000 unit TID ANNA Administration Metronidazole 500 mg in 100 mls @ 100 mls/hr 08/16/19 18:00 08/23/19 09:41 Flagyl 500mg Premixed Ivpb - IVPB 100 mls/hr Q8H-IV ANNA Administration Piperacillin Sod/Tazobactam 100 mls @ 200 mls/hr 08/16/19 18:00 08/23/19 01: 59 Sod 4.5 gm/ Dextrose IVPB 200 mls/hr Q8H-IV ANNA Administration Protocol Ondansetron HCl 4 mg 08/16/19 15:45 Zofran Injection IVPUSH Q6H PRN NAUSEA AND/OR VOMITING Pantoprazole Sodium 40 mg 08/17/19 10:00 08/23/19 09:42 Protonix Iv IVPUSH 40 mg DAILY ANNA Administration Sodium Hypochlorite 1 applic 08/17/19 10:00 08/23/19 09:42 Dakin's Solution 0.25% (Half-Strength) - TP 1 applic DAILY ANNA Administration ASSESSMENT AND PLAN: This is a 59 year old man with a history of HTN who presented to the ED with abdominal pain. 1. Severe sepsis secondary to acute perforated diverticulitis - s/p exploratory laparotomy with resection of sigmoid and colostomy 08/12 - peritoneal fluid culture growing Pseudomonas - s/p closure of abdominal incision with retention sutures secondary to small bowel evisceration 08/14 - Continue Zosyn, Flagyl - Tolerating diet 2. HTN - Continue Norvasc - dose increased for better control - Restart Benazepril if better control needed 3. Acute kidney injury - Resolved 4. Hypokalemia - Continue to replete potassium 5. Anemia - Continue to monitor hemoglobin
--- NOTE | 2019-08-23 16:39 | PN ---
Progress Note, Physician History of Present Illness: AWAKE, ALERT IN BED NOW FEBRILE 100.6 NO C/O ABDOMINAL PAIN WBC 10.9 BC (-) - Current Medication List Current Medications: Active Medications Acetaminophen (Ofirmev Injection -) 1,000 mg IVPB Q6H PRN PRN Reason: PAIN LEVEL 4 - 6 Amlodipine Besylate (Norvasc -) 10 mg PO DAILY [facility] Last Admin: 08/23/19 09:42 Dose: 10 mg Heparin Sodium (Porcine) (Heparin -) 5,000 unit SQ TID ANNA Last Admin: 08/23/19 13:55 Dose: 5,000 unit Metronidazole (Flagyl 500mg Premixed Ivpb -) 500 mg in 100 mls @ 100 mls/hr IVPB Q8H-IV ANNA Last Admin: 08/23/19 09:41 Dose: 100 mls/hr Piperacillin Sod/Tazobactam (Sod 4.5 gm/ Dextrose) 100 mls @ 200 mls/hr IVPB Q8H-IV [facility]; Protocol Last Admin: 08/23/19 10:54 Dose: 200 mls/hr Ondansetron HCl (Zofran Injection) 4 mg IVPUSH Q6H PRN PRN Reason: NAUSEA AND/OR VOMITING Pantoprazole Sodium (Protonix Iv) 40 mg IVPUSH DAILY [facility] Last Admin: 08/23/19 09:42 Dose: 40 mg Sodium Hypochlorite (Dakin's Solution 0.25% (Half-Strength) -) 1 applic TP DAILY [facility] Last Admin: 08/23/19 09:42 Dose: 1 applic - Objective Vital Signs: Vital Signs Temperature 97.4 F L 08/23/19 14:00 Pulse Rate 111 H 08/23/19 14:00 Respiratory Rate 20 08/23/19 14:00 Blood Pressure 144/86 08/23/19 14:00 O2 Sat by Pulse Oximetry (%) 98 08/23/19 09:00 Constitutional: Yes: Obese Cardiovascular: Yes: Regular Rate and Rhythm, S1, S2 Respiratory: Yes: Diminished Gastrointestinal: Yes: Normal Bowel Sounds, Soft. No: Tenderness Extremities: No: Calf Tenderness Labs: CBC, BMP 08/23/19 06:55 08/23/19 06:55 INR, PTT INR 1.16 (0.83-1.09) H 09/09/19 02:20 Assessment/Plan POST OP MARGARITA'S PROCEDURE PERFORATED DIVERTICULITIS WITH ABSCESS + OPERATIVE C/S PSEUDOMONAS FEVER REPEAT BLOOD CULTURES NO GROWTH CONTINUE ZOSYN/ FLAGYL DISCUSSED WITH SURGERY REPEAT CT A/P IN LIGHT OF RECURRENT TEMP
[2019-08-24] MEDS ORDERED: PIPERACILLIN/TAZOBACTAM 4.5 GM VIAL IVPB ONE ×3 (01:13→17:02)
[2019-08-24] MEDS ORDERED: DEXTROSE 5%-WATER 100 ML IVPB ONE ×3 (01:13→17:02)
[2019-08-24] MEDS: PIPERACILLIN/TAZOB 4.5 GM 4.5 GM in DEXTROSE 5%-WATER 100 ML IVPB SCH ×3 (01:21→17:10)
[2019-08-24 08:06] LABS: CALCIUM 7.1 mg/dL (8.5-10.1); CREATININE 0.8 mg/dL (0.55-1.3); POTASSIUM 3.5 mmol/L (3.5-5.1)
[2019-08-24] MEDS: PANTOPRAZOLE SODIUM 40 MG VIAL IVPUSH SCH (10:03)
[2019-08-24] MEDS: amLODIPine BESYLATE 5 MG TABLET (FP) PO SCH (10:03)
[2019-08-24] MEDS: SODIUM HYPOCHLORITE 0.25%- 473 ML BULK BOTTLE TP SCH (10:03)
[2019-08-24] MEDS: HEPARIN NA (PORCINE) 5,000 UNITS/ML 1ML VIAL SQ SCH ×2 (13:32→21:00)
[2019-08-24] MEDS: ACETAMINOPHEN 1000 MG/100 ML VIAL (NON FORMULARY) IVPB PRN ×2 (15:07→20:52)
--- NOTE | 2019-08-24 17:10 | PN ---
Progress Note (short form) - Note Progress Note: Attending Surgeon POD#12/ No c/o; tolerating diet; states he feels fine; has been OOB walking w/ PT. Last Vital Signs Temp Pulse Resp BP Pulse Ox 101.6 F H 99 H 20 136/84 93 L 08/24/19 14:00 08/24/19 14:00 08/24/19 14:00 08/24/19 14:00 08/23/19 21:00 abdo-soft; non tender; ostomy functioning; wound open and wound care in progress extrems-calves warm and non tender and w/o swelling CT scan a/p done yesterday w/o evidence of intra abdominal abscess and/or collection CXR today-no infiltrate Urine culture pending IMP: stable. PLAN: ? d/c antibiotics and reculture when spikes again; in the interim continue present tx. Harsh Spencer MD FACS
--- NOTE | 2019-08-24 17:12 | PN ---
Progress Note, Physician History of Present Illness: AWAKE, ALERT IN BED RECURRENT FEVER 103 YESTERDAY 101.6 TODAY NO C/O ABDOMINAL PAIN AMBULATED TODAY WBC 10.[address] ABDO/PELVIS NO ABSCESS CXR NO INFILTRATE - Current Medication List Current Medications: Active Medications Acetaminophen (Ofirmev Injection -) 1,000 mg IVPB Q6H PRN PRN Reason: FEVER Last Admin: 08/24/19 15:07 Dose: 1,000 mg Amlodipine Besylate (Norvasc -) 10 mg PO DAILY [facility] Last Admin: 08/24/19 10:03 Dose: 10 mg Heparin Sodium (Porcine) (Heparin -) 5,000 unit SQ TID [facility] Last Admin: 08/24/19 13:32 Dose: 5,000 unit Metronidazole (Flagyl 500mg Premixed Ivpb -) 500 mg in 100 mls @ 100 mls/hr IVPB Q8H-IV ANNA Last Admin: 08/24/19 09:41 Dose: 100 mls/hr Piperacillin Sod/Tazobactam (Sod 4.5 gm/ Dextrose) 100 mls @ 200 mls/hr IVPB Q8H-IV [facility]; Protocol Last Admin: 08/24/19 11:18 Dose: 200 mls/hr Ondansetron HCl (Zofran Injection) 4 mg IVPUSH Q6H PRN PRN Reason: NAUSEA AND/OR VOMITING Pantoprazole Sodium (Protonix Iv) 40 mg IVPUSH DAILY [facility] Last Admin: 08/24/19 10:03 Dose: 40 mg Sodium Hypochlorite (Dakin's Solution 0.25% (Half-Strength) -) 1 applic TP DAILY [facility] Last Admin: 08/24/19 10:03 Dose: 1 applic - Objective Vital Signs: Vital Signs Temperature 101.6 F H 08/24/19 14:00 Pulse Rate 99 H 08/24/19 14:00 Respiratory Rate 20 08/24/19 14:00 Blood Pressure 136/84 08/24/19 14:00 O2 Sat by Pulse Oximetry (%) 93 L 08/23/19 21:00 Constitutional: Yes: No Distress, Obese Cardiovascular: Yes: Regular Rate and Rhythm, S1, S2 Respiratory: Yes: Diminished Gastrointestinal: Yes: Normal Bowel Sounds, Soft, Other (WOUND CLEAN + OSTOMY ). No: Tenderness Extremities: No: Calf Tenderness Edema: No Labs: CBC, BMP 08/23/19 06:55 08/24/19 06:55 INR, PTT INR 1.16 (0.83-1.09) H 08/09/19 02:20 Assessment/Plan POST OP MARGARITA'S PROCEDURE PERFORATED DIVERTICULITIS WITH ABSCESS + OPERATIVE C/S PSEUDOMONAS FEVER ? SOURCE ?DRUG FEVER REPEAT BLOOD CULTURES PENDING WILL DOPPLER LE R/O DVT ALTHOUGH DOUBT CLINICALLY CONTINUE ZOSYN/ FLAGYL IF CONTINUED FEVER WILL D/C ANTIBIOTICS
--- NOTE | 2019-08-24 17:53 | PN ---
Physical Exam: SUBJECTIVE: Patient seen and examined. He reports feeling much better than yesterday. Pt denies SOB, wheezing, n/v. OBJECTIVE: Vital Signs Period Temp Pulse Resp BP Sys/Cramer Pulse Ox Last 24 Hr 97.6 F-103 F 78-112 20-22 112-137/67-84 93 GENERAL: The patient is awake, alert, and fully oriented, in no acute distress. HEAD: Normal with no signs of trauma. EYES: PERRL, extraocular movements intact, sclera anicteric, conjunctiva clear. No ptosis. ENT: Ears normal, nares patent, oropharynx clear without exudates, moist mucous membranes. NECK: Trachea midline, full range of motion, supple. LUNGS: Breath sounds equal, clear to auscultation bilaterally, no wheezes, no crackles, no accessory muscle use. HEART: Regular rate and rhythm, S1, S2 without murmur, rub or gallop. ABDOMEN: Bandaged laparotomy incision, no tenderness on palpation near site and no erythema, colostomy bag in place with liquid light brown stool. No erythema round the site. EXTREMITIES: 2+ pulses, warm, well-perfused, no edema. NEUROLOGICAL: Cranial nerves II through XII grossly intact. Normal speech, gait not observed. PSYCH: Normal mood, normal affect. SKIN: Warm, dry, normal turgor, no rashes or lesions noted colostomy drainage: 600cc Laboratory Results - last 24 hr 08/24/19 08/24/19 06:55 14:45 Sodium 131 L Potassium 3.5 Chloride 97 L Carbon Dioxide 27 Anion Gap 7 L BUN 7.0 Creatinine 0.8 Est GFR (CKD-EPI)AfAm 113.33 Est GFR (CKD-EPI)NonAf 97.78 Random Glucose 112 H Lactic Acid 1.2 Calcium 7.1 L Active Medications Generic Name Dose Route Start Last Admin Trade Name Freq PRN Reason Stop Dose Admin Acetaminophen 1,000 mg 08/24/19 13:30 08/24/19 15:07 Ofirmev Injection - IVPB 1,000 mg Q6H PRN Administration FEVER Amlodipine Besylate 10 mg 08/23/19 08:16 08/24/19 10:03 Norvasc - PO 10 mg DAILY ANNA Administration Heparin Sodium (Porcine) 5,000 unit 08/24/19 14:00 08/24/19 13:32 Heparin - SQ 5,000 unit TID ANNA Administration Metronidazole 500 mg in 100 mls @ 100 mls/hr 08/16/19 18:00 08/24/19 09:41 Flagyl 500mg Premixed Ivpb - IVPB 100 mls/hr Q8H-IV ANNA Administration Piperacillin Sod/Tazobactam 100 mls @ 200 mls/hr 08/16/19 18:00 08/24/19 11: 18 Sod 4.5 gm/ Dextrose IVPB 200 mls/hr Q8H-IV ANNA Administration Protocol Ondansetron HCl 4 mg 08/16/19 15:45 Zofran Injection IVPUSH Q6H PRN NAUSEA AND/OR VOMITING Pantoprazole Sodium 40 mg 08/17/19 10:00 08/24/19 10:03 Protonix Iv IVPUSH 40 mg DAILY ANNA Administration Sodium Hypochlorite 1 applic 08/17/19 10:00 08/24/19 10:03 Dakin's Solution 0.25% (Half-Strength) - TP 1 applic DAILY ANNA Administration ASSESSMENT/PLAN: Mr. Pena is a 59 y/o male with HTN and GERD who presents with sudden onset LLQ abdominal pain and chills. Pt was found to have sigmoid diverticulitis on CT. No hx of colonoscopy in the past. Abdominal pain was subsiding on bowel rest then returned after diet was reintroduced. CT abdomen then showed pneumoperitoneum with loops of dilated bowel. Erickson procedure done with colostomy in place. Pt initially treated with flagyl, also ceftriaxone then switched to Zosyn. Surgical incision opened with bowel evisceration when patient sat up 2 days later and was repaired. Pt currently denies abdominal pain and is tolerating clear liquid diet. NG tube removed and KARI drain. #severe sepsis 2/2 diverticulitis s/p emergent Erickson procedure POD 12 s/p eviscerated bowel with incision repair POD 10 WBC 10.9. Became febrile during the day. CXR today showed no acute changes. LA was normal. CT prior to surgery showed pneumoperitoneum with loops of dilated bowel. Incision was opened when pt sat up on POD 2. Pt denies pain. -Zosyn day 8, was on ceftriaxone prior -flagyl day 15 -Tylenol -IV protonix 40mg Q daily -peritoneal fluid cultures- pseudomonas -new sets of urine and blood cultures pending -ID- continue abx -surgery- continue abx -CBC #hypokalemia, resolved 3.5 -recheck BMP #hypophosphatemia, resolved #JASEN, resolved pre-renal from sepsis #HTN -home amlodipine -can add home SUSAN inhibitor as needed #weakness -continue PT FEN liquid diet monitor K DVT Ppx heparin Visit type - Emergency Visit Emergency Visit: Yes ED Registration Date: 08/09/19 Care time: The patient presented to the Emergency Department on the above date and was hospitalized for further evaluation of their emergent condition. - New Patient This patient is new to me today: No - Critical Care Critical Care patient: No - Discharge Referral Referred to [facility] No ATTENDING PHYSICIAN STATEMENT I saw and evaluated the patient. I reviewed the resident's note and discussed the case with the resident. I agree with the resident's findings and plan as documented. SUBJECTIVE: OBJECTIVE: ASSESSMENT AND PLAN:
--- NOTE | 2019-08-24 19:20 | PN ---
Teaching Attending Note Name of Resident: Vickie Joseph ATTENDING PHYSICIAN STATEMENT I saw and evaluated the patient. I reviewed the resident's note and discussed the case with the resident. I agree with the resident's findings and plan as documented. SUBJECTIVE: Feels well. tolerating oral intake. No abdominal pain. Ostomy working. No nausea/vomiting. No dysuria/hematuria. No cough/sputum/dyspnea. OBJECTIVE: Febrile, Tmax 103, Hemodynamically stable. Last Vital Signs Temp Pulse Resp BP Pulse Ox 100.7 F H 112 H 20 121/71 93 L 08/24/19 17:08/24/19 17:08/24/19 17:08/24/19 17:08/23/19 21:00 HEENT -Atramatic, Normocephalic. HEART: S1S2, RRR LUNGS: Clear to auscultation ABDOMEN: Obese, soft, non-tender, non-distended, Surgical site dressed. (+) functioning LLQ colostomy, normal BS EXTREMITIES: Mild edema, no calf tenderness. Laboratory Results - last 24 hr 08/24/19 08/24/19 06:55 14:45 Sodium 131 L Potassium 3.5 Chloride 97 L Carbon Dioxide 27 Anion Gap 7 L BUN 7.0 Creatinine 0.8 Est GFR (CKD-EPI)AfAm 113.33 Est GFR (CKD-EPI)NonAf 97.78 Random Glucose 112 H Lactic Acid 1.2 Calcium 7.1 L Current Medications Generic Name Dose Route Start Last Admin Trade Name Freq PRN Reason Stop Dose Admin Acetaminophen 1,000 mg 08/24/19 13:30 08/24/19 15:07 Ofirmev Injection - IVPB 1,000 mg Q6H PRN Administration FEVER Amlodipine Besylate 10 mg 08/23/19 08:16 08/24/19 10:03 Norvasc - PO 10 mg DAILY ANNA Administration Heparin Sodium (Porcine) 5,000 unit 08/24/19 14:00 08/24/19 13:32 Heparin - SQ 5,000 unit TID ANNA Administration Metronidazole 500 mg in 100 mls @ 100 mls/hr 08/16/19 18:00 08/24/19 18:12 Flagyl 500mg Premixed Ivpb - IVPB 100 mls/hr Q8H-IV ANNA Administration Piperacillin Sod/Tazobactam 100 mls @ 200 mls/hr 08/16/19 18:00 08/24/19 17: 10 Sod 4.5 gm/ Dextrose IVPB 200 mls/hr Q8H-IV ANNA Administration Protocol Ondansetron HCl 4 mg 08/16/19 15:45 Zofran Injection IVPUSH Q6H PRN NAUSEA AND/OR VOMITING Pantoprazole Sodium 40 mg 08/17/19 10:00 08/24/19 10:03 Protonix Iv IVPUSH 40 mg DAILY ANNA Administration Sodium Hypochlorite 1 applic 08/17/19 10:00 08/24/19 10:03 Dakin's Solution 0.25% (Half-Strength) - TP 1 applic DAILY ANNA Administration Home Medications Medication Instructions Recorded Amlodipine Besylate/Benazepril 1 each PO DAILY 08/09/19 [Amlodipine-Benazepril 10-20 mg] ASSESSMENT AND PLAN: 59 year old male with history of HTN, who presented to the ED with abdominal pain found to have diverticulitis. 1. Severe sepsis secondary to acute perforated diverticulitis s/p exploratory laparotomy with resection of sigmoid and colostomy 08/12 - peritoneal fluid culture growing Pseudomonas s/p closure of abdominal incision with retention sutures secondary to small bowel evisceration 08/14 On Zosyn, Flagyl Tolerating diet. Ongoing fevers - etiology unclear. Repeat Septic screen requested. Repeat CT A/ P - no abscess. CXR - no infiltrate. Possible drug fever, further guidance as per ID Repeat Blood cx and US Duplex LEs pending. 2. HTN - Continue Norvasc. Benazepril held. 3. Acute kidney injury - resolved. 4. Hypokalemia - repleted. 5. Acute Blood Loss Anemia sec to Surgery - H/H stable Started on iron supplementation. DVT Px - Heparin SQ GI Px - PPI
[2019-08-24] MEDS: FERROUS SO4 325 MG TABLET (FP) PO SCH (21:00)
[2019-08-25] MEDS ORDERED: MELATONIN 5 MG TABLETS PO ONE ×2 (00:01→22:02)
[2019-08-25] MEDS: PIPERACILLIN/TAZOB 4.5 GM 4.5 GM in DEXTROSE 5%-WATER 100 ML IVPB SCH ×2 (02:59→10:09)
[2019-08-25] MEDS ORDERED: DEXTROSE 5%-WATER 100 ML IVPB ONE (03:01)
[2019-08-25] MEDS ORDERED: PIPERACILLIN/TAZOBACTAM 4.5 GM VIAL IVPB ONE (03:01)
[2019-08-25] MEDS: HEPARIN NA (PORCINE) 5,000 UNITS/ML 1ML VIAL SQ SCH ×3 (06:29→22:45)
[2019-08-25 08:08] LABS: BASO % 0.5 % (0-2.0); EOS % 0.3 % (0-4.5); HEMATOCRIT 30.5 % (35.4-49); HEMOGLOBIN 10.4 GM/dL (11.7-16.9); LYMPH % 11.9 % (8-40); MCH 29.8 pg (25.7-33.7); MCHC 34.2 g/dl (32.0-35.9); MEAN CELL VOLUME 87.3 fl (80-96); MEAN PLT VOLUME 7.6 fl (7.5-11.1); NEUT % 74.3 % (42.8-82.8); PLATELET COUNT 471 K/MM3 (134-434); RDW 15.9 % (11.9-15.9); WHITE BLOOD COUNT 10.9 K/mm3 (4.0-10.0)
[2019-08-25 08:11] LABS: ALBUMIN 1.6 g/dl (3.4-5.0); BILIRUBIN,TOTAL 0.3 mg/dL (0.2-1); BLOOD UREA NITROGEN 8.5 mg/dL (7-18); CALCIUM 7.1 mg/dL (8.5-10.1); CREATININE 0.8 mg/dL (0.55-1.3); POTASSIUM 3.5 mmol/L (3.5-5.1); TOT PROT 4.8 g/dl (6.4-8.2)
--- NOTE | 2019-08-25 08:35 | PN ---
Progress Note (short form) - Note Progress Note: POD #13 s/p Radha's procedure POD #1 s/p repair abd evisceration Patient seen and examined at bedside with no new complaints. He has continued to spike fevers yesterday with Tmax of 101.6, currently afebrile. States he has little to no abdominal pain. He has been OOB ambulating without assistance, tolerating soft diet. Voiding spontaneously. Ostomy functioning. Remains on Zosyn & Flagyl as per ID. Denies n/v/f/c, CP, palpitations, SOB or FARRAR. Vital Signs Temp 98.5 F 08/25/19 07:43 Pulse 100 H 08/25/19 07:43 Resp 20 08/25/19 07:43 BP 122/78 08/25/19 07:43 Pulse Ox 93 L 08/23/19 21:00 Intake & Output 08/24/19 08/24/19 08/25/19 11:59 23:59 11:59 Intake Total 200 700 500 Output Total 1300 Balance 200 -600 500 Intake: IVPB 200 500 300 Oral 200 CBI Intake 200 Output: Urine 1300 Void 1300 Other: Voiding Method Urinal Urinal # Unmeasured Voids Void 2 Bowel Movement Yes No Weight Measurement Method Built in [facility] CBC, BMP 08/25/19 06:50 PE: A&Ox3, NAD Obese habitus. LLQ ostomy (pink, protruding, producing). Midline incision open above/below umbilicus with anna in situ at middle, Both wounds with fibrin slough base. Deep fascia intact. Minimal granulation tissue B/L LE comartments soft, supple and non-tender with +2DP pulses. Microbiology 08/20/19 21:00 Blood - Peripheral Venous Blood Culture - Preliminary NO GROWTH OBTAINED AFTER 96 HOURS, INCUBATION TO CONTINUE FOR 1 DAYS. 08/20/19 21:00 Blood - Peripheral Venous Blood Culture - Preliminary NO GROWTH OBTAINED AFTER 96 HOURS, INCUBATION TO CONTINUE FOR 1 DAYS. Urine culture pending Problem List - Problems (1) Perforated diverticulum Assessment/Plan: Patient doing well, fever work up negative, currently afebrile will continue to monitor. f/u urine culture Advance diet as tolerated. ABD wound repacked while on rounds Cont OOB and ambulate d/c planning, Case Manaement/VNS to see patient IV ABX as per ID Evaluation and plan discussed with Dr Spencer. Code(s): K57.80 - DVTRCLI OF INTEST, PART UNSP, W PERF AND ABSCESS W/O BLEED
[2019-08-25] MEDS: SODIUM HYPOCHLORITE 0.25%- 473 ML BULK BOTTLE TP SCH (09:23)
--- NOTE | 2019-08-25 10:05 | PN ---
Progress Note, Physician History of Present Illness: REMAINS FEBRILE AWAKE, ALERT OOB IN CHAIR AMBULATORY NO C/O ABDOMINAL PAIN WBC 10.9 CT ABDO/PELVIS NO ABSCESS CXR NO INFILTRATE DOPPLER LE PENDING - Current Medication List Current Medications: Active Medications Acetaminophen (Ofirmev Injection -) 1,000 mg IVPB Q6H PRN PRN Reason: FEVER Last Admin: 08/24/19 20:52 Dose: 1,000 mg Amlodipine Besylate (Norvasc -) 10 mg PO DAILY [facility] Last Admin: 08/24/19 10:03 Dose: 10 mg Ferrous Sulfate (Feosol -) 325 mg PO BID [facility] Last Admin: 08/24/19 21:00 Dose: 325 mg Heparin Sodium (Porcine) (Heparin -) 5,000 unit SQ TID [facility] Last Admin: 08/25/19 06:29 Dose: 5,000 unit Ondansetron HCl (Zofran Injection) 4 mg IVPUSH Q6H PRN PRN Reason: NAUSEA AND/OR VOMITING Pantoprazole Sodium (Protonix -) 40 mg PO DAILY [facility] Sodium Hypochlorite (Dakin's Solution 0.25% (Half-Strength) -) 1 applic TP DAILY [facility] Last Admin: 08/25/19 09:23 Dose: Not Given - Objective Vital Signs: Vital Signs Temperature 98.5 F 08/25/19 07:43 Pulse Rate 100 H 08/25/19 07:43 Respiratory Rate 20 08/25/19 07:43 Blood Pressure 122/78 08/25/19 07:43 O2 Sat by Pulse Oximetry (%) 93 L 08/23/19 21:00 Constitutional: Yes: No Distress Eyes: Yes: Conjunctiva Clear Cardiovascular: Yes: Regular Rate and Rhythm, S1, S2 Respiratory: Yes: CTA Bilaterally Gastrointestinal: Yes: Normal Bowel Sounds, Soft, Other (WOUND PACKED; + OSTOMY) . No: Tenderness Extremities: No: Calf Tenderness Edema: No Labs: CBC, BMP 08/25/19 06:50 08/25/19 06:50 INR, PTT INR 1.16 (0.83-1.09) H 08/09/19 02:20 Assessment/Plan POST OP MARGARITA'S PROCEDURE PERFORATED DIVERTICULITIS WITH ABSCESS + OPERATIVE C/S PSEUDOMONAS FEVER ? SOURCE ?DRUG FEVER REPEAT BLOOD CULTURES ORDERED WILL DOPPLER LE R/O DVT ALTHOUGH DOUBT CLINICALLY D/C ANTIBIOTICS, OBSERVE OOB
[2019-08-25] MEDS: FERROUS SO4 325 MG TABLET (FP) PO SCH ×2 (11:28→22:43)
[2019-08-25] MEDS: PANTOPRAZOLE 40 MG TABLET (FP) PO SCH (11:28)
[2019-08-25] MEDS: amLODIPine BESYLATE 5 MG TABLET (FP) PO SCH (11:28)
[2019-08-25] MEDS: ACETAMINOPHEN 1000 MG/100 ML VIAL (NON FORMULARY) IVPB PRN (14:32)
[2019-08-25] MEDS ORDERED: IBUPROFEN 800 MG/8 ML IJ IVPB ONE (17:38)
--- NOTE | 2019-08-25 18:10 | PN ---
Teaching Attending Note Name of Resident: Vickie Joseph ATTENDING PHYSICIAN STATEMENT I saw and evaluated the patient. I reviewed the resident's note and discussed the case with the resident. I agree with the resident's findings and plan as documented. SUBJECTIVE: Feels well. Tolerating oral intake. No abdominal pain. Ostomy working. No nausea/vomiting. No dysuria/hematuria. No cough/sputum/dyspnea. OBJECTIVE: Febrile, Tmax 102.7 today, Hemodynamically stable. Last Vital Signs Temp Pulse Resp BP Pulse Ox 99.4 F 112 H 20 109/63 93 L 08/25/19 18:02 08/25/19 17:20 08/25/19 17:20 08/25/19 17:20 08/23/19 21:00 HEART: S1S2, RRR LUNGS: Clear to auscultation ABDOMEN: Obese, soft, non-tender, non-distended, Surgical site dressed. (+) functioning LLQ colostomy, normal BS EXTREMITIES: Mild edema, no calf tenderness. Laboratory Results - last 24 hr 08/25/19 08/25/19 06:50 06:50 WBC 10.9 H RBC 3.50 L Hgb 10.4 L Hct 30.5 L MCV 87.3 MCH 29.8 MCHC 34.2 RDW 15.9 Plt Count 471 H MPV 7.6 Absolute Neuts (auto) 8.1 H Neutrophils % 74.3 Lymphocytes % 11.9 D Monocytes % 13.0 H Eosinophils % 0.3 Basophils % 0.5 Nucleated RBC % 0 Sodium 132 L Potassium 3.5 Chloride 96 L Carbon Dioxide 29 Anion Gap 8 BUN 8.5 Creatinine 0.8 Est GFR (CKD-EPI)AfAm 113.33 Est GFR (CKD-EPI)NonAf 97.78 Random Glucose 108 H Calcium 7.1 L Total Bilirubin 0.3 AST 21 ALT 19 Alkaline Phosphatase 31 L Total Protein 4.8 L Albumin 1.6 L Current Medications Generic Name Dose Route Start Last Admin Trade Name Freq PRN Reason Stop Dose Admin Acetaminophen 1,000 mg 08/24/19 13:30 08/25/19 14:32 Ofirmev Injection - IVPB 1,000 mg Q6H PRN Administration FEVER Amlodipine Besylate 10 mg 08/23/19 08:16 08/25/19 11:28 Norvasc - PO 10 mg DAILY ANNA Administration Ferrous Sulfate 325 mg 08/24/19 22:00 08/25/19 11:28 Feosol - PO 325 mg BID ANNA Administration Heparin Sodium (Porcine) 5,000 unit 08/24/19 14:00 08/25/19 14:32 Heparin - SQ 5,000 unit TID ANNA Administration Pantoprazole Sodium 40 mg 08/25/19 10:00 08/25/19 11:28 Protonix - PO 40 mg DAILY ANNA Administration Sodium Hypochlorite 1 applic 08/17/19 10:00 08/25/19 09:23 Dakin's Solution 0.25% (Half-Strength) - TP Not Given DAILY [facility] Home Medications Medication Instructions Recorded Amlodipine Besylate/Benazepril 1 each PO DAILY 08/09/19 [Amlodipine-Benazepril 10-20 mg] ASSESSMENT AND PLAN: 59 year old male with history of HTN, who presented to the ED with abdominal pain found to have diverticulitis. 1. Severe sepsis secondary to acute perforated diverticulitis s/p exploratory laparotomy with resection of sigmoid and colostomy 08/12 - peritoneal fluid culture growing Pseudomonas s/p closure of abdominal incision with retention sutures secondary to small bowel evisceration 08/14 On Zosyn, Flagyl Tolerating diet. Ongoing fevers - etiology unclear. Repeat Septic screen negative so far. Repeat CT A/P - no abscess. CXR - no infiltrate. Duplex LEs - No DVT. Possible drug fever, for trial off Abx. ID following. 2. HTN - Continue Norvasc. Benazepril held. 3. Acute kidney injury - resolved. 4. Hypokalemia - repleted. 5. Acute Blood Loss Anemia sec to Surgery - H/H stable Started on iron supplementation. DVT Px - Heparin SQ GI Px - PPI
--- NOTE | 2019-08-25 18:55 | PN ---
Physical Exam: SUBJECTIVE: Patient seen and examined. He has no current complaints. OBJECTIVE: Vital Signs Period Temp Pulse Resp BP Sys/Cramer Pulse Ox Last 24 Hr 98.2 F-102.7 F 80-113 20-20 109-134/63-78 GENERAL: The patient is awake, alert, and fully oriented, in no acute distress. HEAD: Normal with no signs of trauma. EYES: PERRL, extraocular movements intact, sclera anicteric, conjunctiva clear. No ptosis. ENT: Ears normal, nares patent, oropharynx clear without exudates, moist mucous membranes. NECK: Trachea midline, full range of motion, supple. LUNGS: Breath sounds equal, clear to auscultation bilaterally, no wheezes, no crackles, no accessory muscle use. HEART: Regular rate and rhythm, S1, S2 without murmur, rub or gallop. ABDOMEN: Bandaged laparotomy incision, no tenderness on palpation near site and no erythema, colostomy bag in place with liquid light brown stool. No erythema round the site. EXTREMITIES: 2+ pulses, warm, well-perfused, no edema. NEUROLOGICAL: Cranial nerves II through XII grossly intact. Normal speech, gait not observed. PSYCH: Normal mood, normal affect. SKIN: Warm, dry, normal turgor, no rashes or lesions noted Laboratory Results - last 24 hr 08/25/19 08/25/19 06:50 06:50 WBC 10.9 H RBC 3.50 L Hgb 10.4 L Hct 30.5 L MCV 87.3 MCH 29.8 MCHC 34.2 RDW 15.9 Plt Count 471 H MPV 7.6 Absolute Neuts (auto) 8.1 H Neutrophils % 74.3 Lymphocytes % 11.9 D Monocytes % 13.0 H Eosinophils % 0.3 Basophils % 0.5 Nucleated RBC % 0 Sodium 132 L Potassium 3.5 Chloride 96 L Carbon Dioxide 29 Anion Gap 8 BUN 8.5 Creatinine 0.8 Est GFR (CKD-EPI)AfAm 113.33 Est GFR (CKD-EPI)NonAf 97.78 Random Glucose 108 H Calcium 7.1 L Total Bilirubin 0.3 AST 21 ALT 19 Alkaline Phosphatase 31 L Total Protein 4.8 L Albumin 1.6 L Active Medications Generic Name Dose Route Start Last Admin Trade Name Freq PRN Reason Stop Dose Admin Acetaminophen 1,000 mg 08/24/19 13:30 08/25/19 14:32 Ofirmev Injection - IVPB 1,000 mg Q6H PRN Administration FEVER Amlodipine Besylate 10 mg 08/23/19 08:16 08/25/19 11:28 Norvasc - PO 10 mg DAILY ANNA Administration Ferrous Sulfate 325 mg 08/24/19 22:00 08/25/19 11:28 Feosol - PO 325 mg BID ANNA Administration Heparin Sodium (Porcine) 5,000 unit 08/24/19 14:00 08/25/19 14:32 Heparin - SQ 5,000 unit TID ANNA Administration Pantoprazole Sodium 40 mg 08/25/19 10:00 08/25/19 11:28 Protonix - PO 40 mg DAILY ANNA Administration Sodium Hypochlorite 1 applic 08/17/19 10:00 08/25/19 09:23 Dakin's Solution 0.25% (Half-Strength) - TP Not Given DAILY ANNA ASSESSMENT/PLAN: Mr. Pena is a 59 y/o male with HTN and GERD who presents with sudden onset LLQ abdominal pain and chills. Pt was found to have sigmoid diverticulitis on CT. No hx of colonoscopy in the past. Abdominal pain was subsiding on bowel rest then returned after diet was reintroduced. CT abdomen then showed pneumoperitoneum with loops of dilated bowel. Erickson procedure done with colostomy in place. Pt initially treated with flagyl, also ceftriaxone then switched to Zosyn. Surgical incision opened with bowel evisceration when patient sat up 2 days later and was repaired. Pt currently denies abdominal pain and is tolerating clear liquid diet. NG tube removed and KARI drain. #severe sepsis 2/2 diverticulitis s/p emergent Erickson procedure POD 13 s/p eviscerated bowel with incision repair POD 11 WBC 10.9. Tmax 102.7. Became febrile again during the afternoon. CXR today showed no acute changes. LA was normal. CT prior to surgery showed pneumoperitoneum with loops of dilated bowel. Incision was opened when pt sat up on POD 2. Pt denies pain. -trial off abx- drug fever possible. Zosyn 8 days, flagyl 15 days completed -Tylenol -IV protonix 40mg Q daily -peritoneal fluid cultures- pseudomonas -new sets of urine and blood cultures pending -ID- continue abx -surgery- continue abx -CBC #hypokalemia, resolved 3.5 -recheck BMP #hypophosphatemia, resolved #JASEN, resolved pre-renal from sepsis #HTN -home amlodipine -can add home SUSAN inhibitor as needed #weakness -continue PT FEN liquid diet monitor K DVT Ppx heparin Visit type - Emergency Visit Emergency Visit: Yes ED Registration Date: 08/09/19 Care time: The patient presented to the Emergency Department on the above date and was hospitalized for further evaluation of their emergent condition. - New Patient This patient is new to me today: No - Critical Care Critical Care patient: No - Discharge Referral Referred to [facility] No ATTENDING PHYSICIAN STATEMENT I saw and evaluated the patient. I reviewed the resident's note and discussed the case with the resident. I agree with the resident's findings and plan as documented. SUBJECTIVE: OBJECTIVE: ASSESSMENT AND PLAN:
[2019-08-26] MEDS: HEPARIN NA (PORCINE) 5,000 UNITS/ML 1ML VIAL SQ SCH ×3 (06:51→21:40)
--- NOTE | 2019-08-26 07:58 | PN ---
Progress Note (short form) - Note Progress Note: POD #14 s/p Radha's procedure POD #12 s/p repair abd evisceration Patient seen and examined at bedside with no new complaints. He has continued to spike fevers yesterday with Tmax of 102.7 currently afebrile. States he has little to no abdominal pain. He has been OOB ambulating mostly with PT, tolerating soft diet and voiding spontaneously. Ostomy functioning. Denies n/v/f/c, CP, palpitations, SOB or FARRAR. Vital Signs Temp 97.8 F 08/26/19 07:39 Pulse 104 H 08/26/19 07:39 Resp 20 08/26/19 07:39 BP 126/80 08/26/19 07:39 Pulse Ox 92 L 08/25/19 09:00 Intake & Output 08/25/19 08/25/19 08/26/19 11:59 23:59 11:59 Intake Total 500 250 Output Total 1400 Balance 500 -1150 Intake: IVPB 300 Oral 200 250 Output: Urine 1400 Void 1400 Other: Voiding Method Urinal Urinal # Unmeasured Voids Void 1 Bowel Movement Yes: 1 # Bowel Movements 1 Body Mass Index (BMI) 36.9 CBC, BMP pending PE: A&Ox3, NAD Obese habitus. LLQ ostomy (pink, protruding, producing). dressings with saturation over inferior portion but otherwise intact. Microbiology 08/20/19 21:00 Blood - Peripheral Venous Blood Culture - Final NO GROWTH AFTER 5 DAYS INCUBATION 08/20/19 21:00 Blood - Peripheral Venous Blood Culture - Final NO GROWTH AFTER 5 DAYS INCUBATION 08/23/19 20:45 Urine - Urine Clean Catch Urine Culture - Final NO GROWTH OBTAINED Problem List - Problems (1) Perforated diverticulum Assessment/Plan: Patient doing well, fever work up negative, question of drug fever? Patient will benefit from wound vac. -Surgery team to place wound vac today -ID recommendations appreciated -Encourage OOB as tolerated and up to chair for meals -Encourage Daily IS -D/c planning rehab vs VNS Evaluation and plan discussed with Dr Spencer. Code(s): K57.80 - DVTRCLI OF INTEST, PART UNSP, W PERF AND ABSCESS W/O BLEED
[2019-08-26 09:06] LABS: BASO % 0.5 % (0-2.0); EOS % 0.3 % (0-4.5); HEMATOCRIT 32.4 % (35.4-49); HEMOGLOBIN 10.7 GM/dL (11.7-16.9); LYMPH % 9.1 % (8-40); MCH 28.8 pg (25.7-33.7); MCHC 33.1 g/dl (32.0-35.9); MEAN CELL VOLUME 87.2 fl (80-96); MEAN PLT VOLUME 7.7 fl (7.5-11.1); MONO % 9.9 % (3.8-10.2); NEUT % 80.2 % (42.8-82.8); PLATELET COUNT 533 K/MM3 (134-434); RBC 3.72 M/mm3 (4.00-5.60); RDW 15.8 % (11.9-15.9); WHITE BLOOD COUNT 11.3 K/mm3 (4.0-10.0)
[2019-08-26 09:12] LABS: ALBUMIN 1.7 g/dl (3.4-5.0); BILIRUBIN,TOTAL 0.5 mg/dL (0.2-1); BLOOD UREA NITROGEN 10.6 mg/dL (7-18); CALCIUM 7.4 mg/dL (8.5-10.1); CREATININE 0.7 mg/dL (0.55-1.3); TOT PROT 5.2 g/dl (6.4-8.2)
[2019-08-26] MEDS: SODIUM HYPOCHLORITE 0.25%- 473 ML BULK BOTTLE TP SCH (10:59)
--- NOTE | 2019-08-26 10:59 | PROC ---
Procedure Note Procedure: WOUND CARE - VAC THERAPY ABD cleansed/prepped. 2x2 gauze placed over each retention suture and covered individually with tegaderm (avoid undue suction on these sutures) Proximal Dimensions: 8cm x 6.5cm x 2.5cm Distal Dimensions: 12cm x 7cm x 6cm Both wounds irrigated and fibrinous slough mechanically debrided with 4x4. Irrigated. Dried. Placed Xeroform to base of both wounds. (decreases likelihood of developing enterocutaneous fistula) Black sponge cut to fit just inside of skin edge to aid in granulation / wound contracture. 2x2 placed on top of umbilical anna Occlusive dressing applied. Bridging foam utilized. Suction disc applied centrally. VAC Therapy set to 75mmHg No leak detected as evidenced by complete collapse of foam. Dressing change schedule: . Patient tolerated procedure well.
[2019-08-26] MEDS: PANTOPRAZOLE 40 MG TABLET (FP) PO SCH (11:00)
[2019-08-26] MEDS: amLODIPine BESYLATE 5 MG TABLET (FP) PO SCH (11:00)
[2019-08-26] MEDS: FERROUS SO4 325 MG TABLET (FP) PO SCH ×2 (11:00→21:40)
--- NOTE | 2019-08-26 11:44 | PN ---
Physical Exam: SUBJECTIVE: Patient seen and examined. He denies abdominal pain, n/v. No fever or chills overnight. Tmax yesterday afternoon 101.5. OBJECTIVE: Vital Signs Period Temp Pulse Resp BP Sys/Cramer Pulse Ox Last 24 Hr 97.8 F-102.7 F 104-112 20-20 109-134/63-80 GENERAL: The patient is awake, alert, and fully oriented, in no acute distress. HEAD: Normal with no signs of trauma. EYES: PERRL, extraocular movements intact, sclera anicteric, conjunctiva clear. No ptosis. ENT: Ears normal, nares patent, oropharynx clear without exudates, moist mucous membranes. NECK: Trachea midline, full range of motion, supple. LUNGS: Breath sounds equal, clear to auscultation bilaterally, no wheezes, no crackles, no accessory muscle use. HEART: Regular rate and rhythm, S1, S2 without murmur, rub or gallop. ABDOMEN: Bandaged laparotomy incision, no tenderness on palpation near site and no erythema, colostomy bag in place with liquid light brown stool. No erythema round the site. EXTREMITIES: 2+ pulses, warm, well-perfused, no edema. NEUROLOGICAL: Cranial nerves II through XII grossly intact. Normal speech, gait not observed. PSYCH: Normal mood, normal affect. SKIN: Warm, dry, normal turgor, no rashes or lesions noted Laboratory Results - last 24 hr 08/26/19 08/26/19 07:48 07:48 WBC 11.3 H RBC 3.72 L Hgb 10.7 L Hct 32.4 L MCV 87.2 MCH 28.8 MCHC 33.1 RDW 15.8 Plt Count 533 H MPV 7.7 Absolute Neuts (auto) 9.1 H Neutrophils % 80.2 Lymphocytes % 9.1 D Monocytes % 9.9 Eosinophils % 0.3 Basophils % 0.5 Nucleated RBC % 0 Sodium 132 L Potassium 4.0 Chloride 96 L Carbon Dioxide 29 Anion Gap 8 BUN 10.6 Creatinine 0.7 Est GFR (CKD-EPI)AfAm 119.72 Est GFR (CKD-EPI)NonAf 103.30 Random Glucose 101 Calcium 7.4 L Total Bilirubin 0.5 AST 24 ALT 19 Alkaline Phosphatase 33 L Total Protein 5.2 L Albumin 1.7 L Active Medications Generic Name Dose Route Start Last Admin Trade Name Freq PRN Reason Stop Dose Admin Acetaminophen 1,000 mg 08/24/19 13:30 08/25/19 14:32 Ofirmev Injection - IVPB 1,000 mg Q6H PRN Administration FEVER Amlodipine Besylate 10 mg 08/23/19 08:16 08/26/19 11:00 Norvasc - PO 10 mg DAILY ANNA Administration Ferrous Sulfate 325 mg 08/24/19 22:00 08/26/19 11:00 Feosol - PO 325 mg BID ANNA Administration Heparin Sodium (Porcine) 5,000 unit 08/24/19 14:00 08/26/19 06:51 Heparin - SQ 5,000 unit TID ANNA Administration Pantoprazole Sodium 40 mg 08/25/19 10:00 08/26/19 11:00 Protonix - PO 40 mg DAILY ANNA Administration Sodium Hypochlorite 1 applic 08/17/19 10:00 08/26/19 10:59 Dakin's Solution 0.25% (Half-Strength) - TP 1 applic DAILY ANNA Administration ASSESSMENT/PLAN: Mr. Pena is a 59 y/o male with HTN and GERD who presents with sudden onset LLQ abdominal pain and chills. Pt was found to have sigmoid diverticulitis on CT. No hx of colonoscopy in the past. Abdominal pain was subsiding on bowel rest then returned after diet was reintroduced. CT abdomen then showed pneumoperitoneum with loops of dilated bowel. Erickson procedure done with colostomy in place. Pt initially treated with flagyl, also ceftriaxone then switched to Zosyn. Surgical incision opened with bowel evisceration when patient sat up 2 days later and was repaired. Pt currently denies abdominal pain and is tolerating regular diet. NG tube removed and KARI drain. #severe sepsis 2/2 diverticulitis s/p emergent Erickson procedure POD 14 s/p eviscerated bowel with incision repair POD 12 WBC 10.9. Tmax 101.5. Became febrile again during the afternoon. Repeat blood and urine cultures negative. CXR today showed no acute changes. LA was normal. CT prior to surgery showed pneumoperitoneum with loops of dilated bowel. Incision was opened when pt sat up on POD 2. Pt denies pain. -trial off abx- drug fever possible. Zosyn 8 days, flagyl 15 days completed on -Tylenol -peritoneal fluid cultures- pseudomonas -ID- monitor off abx -surgery- vac wound care -CBC -PT #hypokalemia, resolved #hypophosphatemia, resolved #JASEN, resolved pre-renal from sepsis #anemia Hb 10.7. Improving. -continue iron supplementation #thrombocytosis Plt 533 -continue to monitor, further eval if >1000 #HTN -home amlodipine -can add home SUSAN inhibitor as needed FEN regular diet monitor K, Phos DVT Ppx heparin GI Ppx Protonix Visit type - Emergency Visit Emergency Visit: Yes ED Registration Date: 08/09/19 Care time: The patient presented to the Emergency Department on the above date and was hospitalized for further evaluation of their emergent condition. - New Patient This patient is new to me today: No - Critical Care Critical Care patient: No - Discharge Referral Referred to [facility] No ATTENDING PHYSICIAN STATEMENT I saw and evaluated the patient. I reviewed the resident's note and discussed the case with the resident. I agree with the resident's findings and plan as documented. SUBJECTIVE: OBJECTIVE: ASSESSMENT AND PLAN:
[2019-08-26] MEDS: ACETAMINOPHEN 1000 MG/100 ML VIAL (NON FORMULARY) IVPB PRN (11:56)
--- NOTE | 2019-08-26 17:16 | PN ---
Teaching Attending Note Name of Resident: Vickie Joseph ATTENDING PHYSICIAN STATEMENT I saw and evaluated the patient. I reviewed the resident's note and discussed the case with the resident. I agree with the resident's findings and plan as documented. SUBJECTIVE: Feels well. Tolerating oral intake. No abdominal pain. Colostomy working. No nausea/vomiting. No dysuria/hematuria. No cough/sputum/dyspnea. OBJECTIVE: Still febrile, Tmax 101 today, Hemodynamically stable. Last Vital Signs Temp Pulse Resp BP Pulse Ox 99.8 F H 112 H 20 130/77 95 08/26/19 17:12 08/26/19 17:12 08/26/19 17:12 08/26/19 17:12 08/26/19 09:00 HEENT: No pharngeal erythema/exudate. No lymphadenopathy HEART: S1S2, RRR LUNGS: Clear to auscultation ABDOMEN: Obese, soft, non-tender, non-distended, Surgical site dressed. (+) functioning LLQ colostomy, normal BS EXTREMITIES: Mild edema, no calf tenderness. Current Medications Generic Name Dose Route Start Last Admin Trade Name David PRN Reason Stop Dose Admin Amlodipine Besylate 10 mg 08/23/19 08:16 08/26/19 11:00 Norvasc - PO 10 mg DAILY ANNA Administration Ferrous Sulfate 325 mg 08/24/19 22:00 08/26/19 11:00 Feosol - PO 325 mg BID ANNA Administration Heparin Sodium (Porcine) 5,000 unit 08/24/19 14:00 08/26/19 13:18 Heparin - SQ 5,000 unit TID ANNA Administration Pantoprazole Sodium 40 mg 08/25/19 10:00 08/26/19 11:00 Protonix - PO 40 mg DAILY ANNA Administration Sodium Hypochlorite 1 applic 08/17/19 10:00 08/26/19 10:59 Dakin's Solution 0.25% (Half-Strength) - TP 1 applic DAILY ANNA Administration Laboratory Results - last 24 hr 08/26/19 08/26/19 07:48 07:48 WBC 11.3 H RBC 3.72 L Hgb 10.7 L Hct 32.4 L MCV 87.2 MCH 28.8 MCHC 33.1 RDW 15.8 Plt Count 533 H MPV 7.7 Absolute Neuts (auto) 9.1 H Neutrophils % 80.2 Lymphocytes % 9.1 D Monocytes % 9.9 Eosinophils % 0.3 Basophils % 0.5 Nucleated RBC % 0 Sodium 132 L Potassium 4.0 Chloride 96 L Carbon Dioxide 29 Anion Gap 8 BUN 10.6 Creatinine 0.7 Est GFR (CKD-EPI)AfAm 119.72 Est GFR (CKD-EPI)NonAf 103.30 Random Glucose 101 Calcium 7.4 L Total Bilirubin 0.5 AST 24 ALT 19 Alkaline Phosphatase 33 L Total Protein 5.2 L Albumin 1.7 L Home Medications Medication Instructions Recorded Amlodipine Besylate/Benazepril 1 each PO DAILY 08/09/19 [Amlodipine-Benazepril 10-20 mg] ASSESSMENT AND PLAN: 59 year old male with history of HTN, who presented to the ED with abdominal pain found to have diverticulitis. 1. Severe sepsis secondary to acute perforated diverticulitis s/p exploratory laparotomy with resection of sigmoid and colostomy 08/12 - peritoneal fluid culture growing Pseudomonas s/p closure of abdominal incision with retention sutures secondary to small bowel evisceration 08/14 Wound Vac fitted by surgery 08/26 Previously on Zosyn, Flagyl, now stopped. Tolerating diet. Ongoing fevers - etiology unclear. Repeat Septic screen negative so far. Repeat CT A/P - no abscess. CXR - no infiltrate. Duplex LEs - No DVT. Possible drug fever, ongoing trial off Abx. Further recommendations as pr ID/Surgery 2. HTN - Continue Norvasc. Benazepril held. 3. Acute kidney injury - resolved. 4. Hypokalemia - repleted. 5. Acute Blood Loss Anemia sec to Surgery - H/H stable Started on iron supplementation. DVT Px - Heparin SQ GI Px - PPI
[2019-08-26] MEDS ORDERED: SODIUM CHLORIDE 1,000 ML IV STA (18:49)
[2019-08-26] MEDS: SODIUM CHLORIDE 1,000 ML IV SCH (21:41)
[2019-08-26] MEDS ORDERED: MELATONIN 5 MG TABLETS PO ONE (21:49)
[2019-08-27] MEDS: HEPARIN NA (PORCINE) 5,000 UNITS/ML 1ML VIAL SQ SCH ×3 (06:11→21:31)
[2019-08-27 08:16] LABS: BASO % 0.5 % (0-2.0); EOS % 0.6 % (0-4.5); HEMATOCRIT 29.7 % (35.4-49); HEMOGLOBIN 10.2 GM/dL (11.7-16.9); LYMPH % 14.7 % (8-40); MCH 29.6 pg (25.7-33.7); MCHC 34.5 g/dl (32.0-35.9); MEAN CELL VOLUME 85.7 fl (80-96); MEAN PLT VOLUME 7.2 fl (7.5-11.1); MONO % 11.3 % (3.8-10.2); NEUT % 72.9 % (42.8-82.8); PLATELET COUNT 504 K/MM3 (134-434); RBC 3.46 M/mm3 (4.00-5.60); WHITE BLOOD COUNT 8.1 K/mm3 (4.0-10.0)
--- NOTE | 2019-08-27 08:23 | PN ---
Progress Note (short form) - Note Progress Note: GENERAL SURGERY POD #15 s/p Radha's procedure POD #13 s/p repair abd evisceration Patient seen and examined at bedside. Day 1 s/p initiation of wound VAC therapy. Resting comfortably w/o complaint. Had a fever of 101F yesterday at 10AM, currently afebrile. Cont to be OOB and ambulating unassisted. Tolerating PO diet. Voiding spontaneously. Ostomy functioning. Denies n/v/c, CP, palpitations, SOB or FARRAR. Last Vital Signs Temp Pulse Resp BP Pulse Ox 98.4 F 99 H 22 H 128/79 95 08/27/19 05:00 08/27/19 05:00 08/27/19 05:00 08/27/19 05:00 08/26/19 09:00 24hr Temp Trend 08/26/19 08/26/19 08/26/19 08/26/19 08/26/19 08/27/19 07:39 10:00 15:00 17:12 20:20 05:00 Temperature 97.8 F 101 F H 100.8 F H 99.8 98.3 98.4 Gen: nad ABD: VAC dressing intact. (75mmHg). LLQ ostomy pink/viable/functioning LE: soft. nt. no edema/swelling Problem List - Problems (1) Status post Radha's procedure Assessment/Plan: OOB and ambulate Monitor fever curve as it seems he appears to spike mid-day Diet as tolerated Ostomy care RN for home education VNS VAC dressing change (T-TH-Sat) ID following Cont Medical management Code(s): Z93.3 - COLOSTOMY STATUS (2) Diverticulitis Code(s): K57.92 - DVTRCLI OF INTEST, PART UNSP, W/O PERF OR ABSCESS W/O BLEED (3) Sepsis Code(s): A41.9 - SEPSIS, UNSPECIFIED ORGANISM (4) HTN (hypertension) Code(s): I10 - ESSENTIAL (PRIMARY) HYPERTENSION
[2019-08-27 08:38] LABS: BLOOD UREA NITROGEN 9.6 mg/dL (7-18); CALCIUM 7.1 mg/dL (8.5-10.1); CREATININE 0.6 mg/dL (0.55-1.3); POTASSIUM 3.7 mmol/L (3.5-5.1)
[2019-08-27] MEDS: amLODIPine BESYLATE 5 MG TABLET (FP) PO SCH (09:47)
[2019-08-27] MEDS: SODIUM HYPOCHLORITE 0.25%- 473 ML BULK BOTTLE TP SCH (09:47)
[2019-08-27] MEDS: PANTOPRAZOLE 40 MG TABLET (FP) PO SCH (09:48)
[2019-08-27] MEDS: FERROUS SO4 325 MG TABLET (FP) PO SCH ×2 (09:48→21:31)
--- NOTE | 2019-08-27 11:05 | PN ---
Progress Note, Physician History of Present Illness: AWAKE, ALERT IN BED AFEBRILE NO C/O ABDOMINAL PAIN WBC NOW WNL OFF ANTIBIOTICS - Current Medication List Current Medications: Active Medications Amlodipine Besylate (Norvasc -) 10 mg PO DAILY [facility] [place] Last Admin: 08/27/19 09:47 Dose: 10 mg Ferrous Sulfate (Feosol -) 325 mg PO BID [facility] [place] Last Admin: 08/27/19 09:48 Dose: 325 mg Heparin Sodium (Porcine) (Heparin -) 5,000 unit SQ TID [facility] [place] Last Admin: 08/27/19 06:11 Dose: 5,000 unit Sodium Chloride (Normal Saline -) 1,000 mls @ 125 mls/hr IV ASDIR [facility] [place] Last Admin: 08/26/19 21:41 Dose: 125 mls/hr Pantoprazole Sodium (Protonix -) 40 mg PO DAILY [facility] [place] Last Admin: 08/27/19 09:48 Dose: 40 mg Sodium Hypochlorite (Dakin's Solution 0.25% (Half-Strength) -) 1 applic TP DAILY [facility] [place] Last Admin: 08/27/19 09:47 Dose: Not Given - Objective Vital Signs: Vital Signs Temperature 99.7 F H 08/27/19 09:52 Pulse Rate 105 H 08/27/19 09:52 Respiratory Rate 20 08/27/19 09:52 Blood Pressure 131/80 08/27/19 09:52 O2 Sat by Pulse Oximetry (%) 95 08/26/19 09:00 Constitutional: Yes: No Distress Eyes: Yes: Conjunctiva Clear Cardiovascular: Yes: Regular Rate and Rhythm, S1, S2 Respiratory: Yes: CTA Bilaterally Gastrointestinal: Yes: Normal Bowel Sounds, Soft, Other (WOUND VAC IN PLACE + OSTOMY SOFT STOOL). No: Tenderness Extremities: No: Calf Tenderness Labs: CBC, BMP 08/27/19 07:40 08/27/19 07:40 INR, PTT INR 1.16 (0.83-1.09) H 08/09/19 02:20 Assessment/Plan POST OP MARGARITA'S PROCEDURE PERFORATED DIVERTICULITIS WITH ABSCESS + OPERATIVE C/S PSEUDOMONAS FEVER ? SOURCE ?DRUG FEVER REPEAT BLOOD CULTURES PENDING OBSERVE OFF ANTIBIOTICS DISCUSSED WITH FAMILY MEMBER AT BEDSIDE
--- NOTE | 2019-08-27 14:12 | PN ---
Progress Note (short form) - Note Progress Note: Attending Surgeon Patient has agreed to outpatient short term placement in a SNF for wound care and ostomy management/teaching. Harsh Spencer MD FACS
[2019-08-27] MEDS: SODIUM CHLORIDE 1,000 ML IV SCH ×3 (15:29→23:26)
[2019-08-27] MEDS ORDERED: ACETAMINOPHEN 1000 MG/100 ML VIAL (NON FORMULARY) IVPB PRN (15:29)
--- NOTE | 2019-08-27 17:54 | PN ---
Physical Exam: SUBJECTIVE: Patient seen and examined. He reports midday and afternoon fevers and chills. He is denying abdominal pain, n/v. OBJECTIVE: Vital Signs Period Temp Pulse Resp BP Sys/Cramer Pulse Ox Last 24 Hr 98.3 F-102.7 F 99-137 20-22 115-165/69-85 GENERAL: The patient is awake, alert, and fully oriented, in no acute distress. HEAD: Normal with no signs of trauma. EYES: PERRL, extraocular movements intact, sclera anicteric, conjunctiva clear. No ptosis. ENT: Ears normal, nares patent, oropharynx clear without exudates, moist mucous membranes. NECK: Trachea midline, full range of motion, supple. LUNGS: Breath sounds equal, clear to auscultation bilaterally, no wheezes, no crackles, no accessory muscle use. HEART: Regular rate and rhythm, S1, S2 without murmur, rub or gallop. ABDOMEN: Bandaged laparotomy incision, no tenderness on palpation near site and no erythema, colostomy bag in place with liquid light brown stool. No erythema round the site. RLQ 2x2cm ulcer with erythematous border and mild purulent drainage EXTREMITIES: 2+ pulses, warm, well-perfused, no edema. NEUROLOGICAL: Cranial nerves II through XII grossly intact. Normal speech, gait not observed. PSYCH: Normal mood, normal affect. SKIN: Warm, dry, normal turgor, no rashes or lesions noted Laboratory Results - last 24 hr 08/27/19 08/27/19 07:40 07:40 WBC 8.1 RBC 3.46 L Hgb 10.2 L Hct 29.7 L MCV 85.7 MCH 29.6 MCHC 34.5 RDW 16.0 H Plt Count 504 H MPV 7.2 L Absolute Neuts (auto) 5.9 Neutrophils % 72.9 Lymphocytes % 14.7 D Monocytes % 11.3 H Eosinophils % 0.6 D Basophils % 0.5 Nucleated RBC % 0 Sodium 131 L Potassium 3.7 Chloride 97 L Carbon Dioxide 27 Anion Gap 7 L BUN 9.6 Creatinine 0.6 Est GFR (CKD-EPI)AfAm 127.55 Est GFR (CKD-EPI)NonAf 110.05 Random Glucose 107 H Calcium 7.1 L Active Medications Generic Name Dose Route Start Last Admin Trade Name Freq PRN Reason Stop Dose Admin Acetaminophen 1,000 mg 08/27/19 15:29 08/27/19 15:36 Ofirmev Injection - IVPB 1,000 mg Q6H PRN Administration FEVER Amlodipine Besylate 10 mg 08/23/19 08:16 08/27/19 09:47 Norvasc - PO 10 mg DAILY ANNA Administration Ferrous Sulfate 325 mg 08/24/19 22:00 08/27/19 09:48 Feosol - PO 325 mg BID ANNA Administration Heparin Sodium (Porcine) 5,000 unit 08/24/19 14:00 08/27/19 14:31 Heparin - SQ 5,000 unit TID ANNA Administration Sodium Chloride 1,000 mls @ 125 mls/hr 08/26/19 19:48 08/27/19 15:29 Normal Saline - IV 125 mls/hr ASDIR ANNA Administration Levofloxacin 750 mg in 150 mls @ 100 mls/hr 08/27/19 16:30 08/27/19 17:34 Levaquin 750 Mg Premixed Ivpb - IVPB 100 mls/hr DAILY ANNA Administration Protocol Metronidazole 500 mg in 100 mls @ 100 mls/hr 08/27/19 18:00 08/27/19 17:06 Flagyl 500mg Premixed Ivpb - IVPB Not Given Q8H-IV ANNA Melatonin 5 mg 08/27/19 17:53 Melatonin PO HS PRN INSOMNIA Pantoprazole Sodium 40 mg 08/25/19 10:00 08/27/19 09:48 Protonix - PO 40 mg DAILY ANNA Administration Sodium Hypochlorite 1 applic 08/17/19 10:00 08/27/19 09:47 Dakin's Solution 0.25% (Half-Strength) - TP Not Given DAILY ANNA ASSESSMENT/PLAN: Mr. Pena is a 59 y/o male with HTN and GERD who presents with sudden onset LLQ abdominal pain and chills. Pt was found to have sigmoid diverticulitis on CT. No hx of colonoscopy in the past. Abdominal pain was subsiding on bowel rest then returned after diet was reintroduced. CT abdomen then showed pneumoperitoneum with loops of dilated bowel. Erickson procedure done with colostomy in place. Pt initially treated with flagyl, also ceftriaxone then switched to Zosyn. Surgical incision opened with bowel evisceration when patient sat up 2 days later and was repaired. Pt currently denies abdominal pain and is tolerating regular diet. NG tube removed and KARI drain. #severe sepsis 2/2 diverticulitis s/p emergent Erickson procedure POD 15 s/p eviscerated bowel with incision repair POD 13 Leukocytosis. Became febrile again during the afternoon. Repeat blood and urine cultures negative. CXR today showed no acute changes. LA was normal. CT prior to surgery showed pneumoperitoneum with loops of dilated bowel. Incision was opened when pt sat up on POD 2. Pt denies pain. -trial off abx- drug fever possible. Zosyn 8 days, flagyl 15 days completed on -Tylenol -peritoneal fluid cultures- pseudomonas -ID- monitor off abx -surgery- vac wound care -CBC -PT #hypokalemia, resolved #hypophosphatemia, resolved #JASEN, resolved pre-renal from sepsis #anemia Improving. -continue iron supplementation #thrombocytosis Plt 533 -continue to monitor, further eval if >1000 #HTN -home amlodipine -can add home SUSAN inhibitor as needed FEN regular diet monitor K, Phos DVT Ppx heparin GI Ppx Protonix Visit type - Emergency Visit Emergency Visit: Yes ED Registration Date: 08/09/19 Care time: The patient presented to the Emergency Department on the above date and was hospitalized for further evaluation of their emergent condition. - New Patient This patient is new to me today: No - Critical Care Critical Care patient: No - Discharge Referral Referred to [facility] No ATTENDING PHYSICIAN STATEMENT I saw and evaluated the patient. I reviewed the resident's note and discussed the case with the resident. I agree with the resident's findings and plan as documented. SUBJECTIVE: OBJECTIVE: ASSESSMENT AND PLAN:
--- NOTE | 2019-08-27 18:28 | PN ---
Teaching Attending Note Name of Resident: Vickie Joseph ATTENDING PHYSICIAN STATEMENT I saw and evaluated the patient. I reviewed the resident's note and discussed the case with the resident. I agree with the resident's findings and plan as documented. SUBJECTIVE: Feels well. Tolerating oral intake. No abdominal pain. Colostomy working. No nausea/vomiting. No dysuria/hematuria. No cough/sputum/dyspnea. OBJECTIVE: Still febrile, Tmax 102.7, Hemodynamically stable. Last Vital Signs Temp Pulse Resp BP Pulse Ox 98.9 F 133 H 18 127/61 95 08/27/19 18:04 08/27/19 18:04 08/27/19 18:04 08/27/19 18:04 08/26/19 09:00 HEENT: No pharyngeal erythema/exudate. No lymphadenopathy HEART: S1S2, RRR LUNGS: Clear to auscultation ABDOMEN: Obese, soft, non-tender, non-distended, Surgical site dressed. (+) functioning LLQ colostomy, normal BS EXTREMITIES: Mild edema, no calf tenderness. Laboratory Results - last 24 hr 08/27/19 08/27/19 07:40 07:40 WBC 8.1 RBC 3.46 L Hgb 10.2 L Hct 29.7 L MCV 85.7 MCH 29.6 MCHC 34.5 RDW 16.0 H Plt Count 504 H MPV 7.2 L Absolute Neuts (auto) 5.9 Neutrophils % 72.9 Lymphocytes % 14.7 D Monocytes % 11.3 H Eosinophils % 0.6 D Basophils % 0.5 Nucleated RBC % 0 Sodium 131 L Potassium 3.7 Chloride 97 L Carbon Dioxide 27 Anion Gap 7 L BUN 9.6 Creatinine 0.6 Est GFR (CKD-EPI)AfAm 127.55 Est GFR (CKD-EPI)NonAf 110.05 Random Glucose 107 H Calcium 7.1 L Current Medications Generic Name Dose Route Start Last Admin Trade Name Freq PRN Reason Stop Dose Admin Acetaminophen 1,000 mg 08/27/19 15:29 08/27/19 15:36 Ofirmev Injection - IVPB 1,000 mg Q6H PRN Administration FEVER Amlodipine Besylate 10 mg 08/23/19 08:16 08/27/19 09:47 Norvasc - PO 10 mg DAILY ANNA Administration Ferrous Sulfate 325 mg 08/24/19 22:00 08/27/19 09:48 Feosol - PO 325 mg BID ANNA Administration Heparin Sodium (Porcine) 5,000 unit 08/24/19 14:00 08/27/19 14:31 Heparin - SQ 5,000 unit TID ANNA Administration Sodium Chloride 1,000 mls @ 125 mls/hr 08/26/19 19:48 08/27/19 15:29 Normal Saline - IV 125 mls/hr ASDIR ANNA Administration Levofloxacin 750 mg in 150 mls @ 100 mls/hr 08/27/19 16:30 08/27/19 17:34 Levaquin 750 Mg Premixed Ivpb - IVPB 100 mls/hr DAILY ANNA Administration Protocol Metronidazole 500 mg in 100 mls @ 100 mls/hr 08/27/19 18:00 08/27/19 17:06 Flagyl 500mg Premixed Ivpb - IVPB Not Given Q8H-IV ANNA Melatonin 5 mg 08/27/19 17:53 Melatonin PO HS PRN INSOMNIA Pantoprazole Sodium 40 mg 08/25/19 10:00 08/27/19 09:48 Protonix - PO 40 mg DAILY ANNA Administration Sodium Hypochlorite 1 applic 08/17/19 10:00 08/27/19 09:47 Dakin's Solution 0.25% (Half-Strength) - TP Not Given DAILY [facility] Home Medications Medication Instructions Recorded Amlodipine Besylate/Benazepril 1 each PO DAILY 08/09/19 [Amlodipine-Benazepril 10-20 mg] ASSESSMENT AND PLAN: 59 year old male with history of HTN, who presented to the ED with abdominal pain found to have diverticulitis. 1. Severe sepsis secondary to acute perforated diverticulitis - persistent fevers s/p exploratory laparotomy with resection of sigmoid and colostomy 08/12 - peritoneal fluid culture positive for Pseudomonas s/p closure of abdominal incision with retention sutures secondary to small bowel evisceration 08/14 Wound Vac fitted by surgery 08/26 Previously on Zosyn, Flagyl, now stopped. Tolerating diet. Ongoing fevers - etiology unclear. Repeat Septic screen negative so far. Repeat CT A/P - no abscess. CXR - no infiltrate. Duplex LEs - No DVT. Possible drug fever, ongoing trial off Abx. Further recommendations as per ID/Surgery 2. HTN - Continue Norvasc. Benazepril held. 3. Acute kidney injury - resolved. 4. Hypokalemia - repleted. Continue iron supplementation. DVT Px - Heparin SQ GI Px - PPI
[2019-08-27] MEDS ORDERED: MELATONIN 5 MG TABLETS PO ONE (22:32)
[2019-08-28] MEDS: HEPARIN NA (PORCINE) 5,000 UNITS/ML 1ML VIAL SQ SCH ×3 (05:59→21:03)
[2019-08-28 07:58] LABS: BASO % 0.5 % (0-2.0); EOS % 0.1 % (0-4.5); HEMATOCRIT 28.5 % (35.4-49); HEMOGLOBIN 9.8 GM/dL (11.7-16.9); LYMPH % 12.2 % (8-40); MCH 29.5 pg (25.7-33.7); MCHC 34.4 g/dl (32.0-35.9); MEAN CELL VOLUME 85.5 fl (80-96); MEAN PLT VOLUME 7.3 fl (7.5-11.1); MONO % 11.3 % (3.8-10.2); NEUT % 75.9 % (42.8-82.8); PLATELET COUNT 462 K/MM3 (134-434); RBC 3.33 M/mm3 (4.00-5.60); RDW 16.1 % (11.9-15.9); WHITE BLOOD COUNT 7.5 K/mm3 (4.0-10.0)
[2019-08-28 08:10] LABS: ALBUMIN 1.6 g/dl (3.4-5.0); BILIRUBIN,TOTAL 0.4 mg/dL (0.2-1); BLOOD UREA NITROGEN 7.5 mg/dL (7-18); CREATININE 0.7 mg/dL (0.55-1.3); POTASSIUM 3.6 mmol/L (3.5-5.1); TOT PROT 4.8 g/dl (6.4-8.2)
[2019-08-28] MEDS: SODIUM HYPOCHLORITE 0.25%- 473 ML BULK BOTTLE TP SCH (09:20)
[2019-08-28] MEDS ORDERED: PT OWN MED DRAWER 7, Y5N ONE (09:22)
[2019-08-28] MEDS: PANTOPRAZOLE 40 MG TABLET (FP) PO SCH (09:24)
[2019-08-28] MEDS: FERROUS SO4 325 MG TABLET (FP) PO SCH ×2 (09:24→21:03)
[2019-08-28] MEDS: amLODIPine BESYLATE 5 MG TABLET (FP) PO SCH (09:25)
[2019-08-28] MEDS ORDERED: SODIUM CHLORIDE 0.9% 1000 ML INFUS.BAG IV ONE (09:48)
--- NOTE | 2019-08-28 10:23 | PN ---
Progress Note (short form) - Note Progress Note: Attending Surgeon No c/o; had temp spike yesterday precluding xfer to SNF Last Vital Signs Temp Pulse Resp BP Pulse Ox 98.6 F 114 H 20 126/82 95 08/28/19 06:00 08/28/19 06:00 08/28/19 06:00 08/28/19 06:00 08/26/19 09:00 abdo-soft; VAC in place; ostomy functioning; o/w negative IMP: improving PLAN: VAC change today; monitor temp curve; OOB; continue present tx. ID f/u; wound culture is not indicated. Harsh Spencer MD FACS
[2019-08-28] MEDS: BACITRACIN 15 GM TUBE TOPICAL OINTMENT TP SCH ×2 (10:38→21:05)
[2019-08-28] MEDS ORDERED: traMADol HCL 50 MG TABLET PO ONE (11:45)
[2019-08-28] MEDS: SODIUM CHLORIDE 1,000 ML IV SCH ×2 (12:19→21:02)
--- NOTE | 2019-08-28 13:38 | PN ---
Teaching Attending Note Name of Resident: Dominic Cameron ATTENDING PHYSICIAN STATEMENT I saw and evaluated the patient. I reviewed the resident's note and discussed the case with the resident. I agree with the resident's findings and plan as documented. SUBJECTIVE: Feels well. Tolerating oral intake. No abdominal pain. Colostomy working. No nausea/vomiting. No dysuria/hematuria. Mild dry cough - no sputum/ dyspnea/hemoptysis. OBJECTIVE: Still having fever spikes, Tmax 102.7, Hemodynamically stable. Last Vital Signs Temp Pulse Resp BP Pulse Ox 98.6 F 114 H 20 126/82 95 08/28/19 06:00 08/28/19 06:00 08/28/19 06:00 08/28/19 06:00 08/26/19 09:00 HEENT: No pharyngeal erythema/exudate. No lymphadenopathy HEART: S1S2, RRR LUNGS: Clear to auscultation ABDOMEN: Obese, soft, non-tender, non-distended, Surgical site with wound vac in situ. (+) functioning LLQ colostomy, normal BS EXTREMITIES: Mild edema, no calf tenderness. Laboratory Results - last 24 hr 08/28/19 08/28/19 07:01 07:01 WBC 7.5 RBC 3.33 L Hgb 9.8 L Hct 28.5 L MCV 85.5 MCH 29.5 MCHC 34.4 RDW 16.1 H Plt Count 462 H MPV 7.3 L Absolute Neuts (auto) 5.7 Neutrophils % 75.9 Lymphocytes % 12.2 Monocytes % 11.3 H Eosinophils % 0.1 D Basophils % 0.5 Nucleated RBC % 0 Sodium 129 L Potassium 3.6 Chloride 97 L Carbon Dioxide 25 Anion Gap 8 BUN 7.5 Creatinine 0.7 Est GFR (CKD-EPI)AfAm 119.72 Est GFR (CKD-EPI)NonAf 103.30 Random Glucose 135 H Calcium 7.0 L Total Bilirubin 0.4 AST 23 ALT 20 Alkaline Phosphatase 36 L Total Protein 4.8 L Albumin 1.6 L Current Medications Generic Name Dose Route Start Last Admin Trade Name Freq PRN Reason Stop Dose Admin Acetaminophen 1,000 mg 08/27/19 15:29 08/27/19 15:36 Ofirmev Injection - IVPB 1,000 mg Q6H PRN Administration FEVER Amlodipine Besylate 10 mg 08/23/19 08:16 08/28/19 09:25 Norvasc - PO 10 mg DAILY ANNA Administration Bacitracin 1 applic 08/28/19 10:00 08/28/19 10:38 Bacitracin - TP 1 applic BID ANNA Administration Ferrous Sulfate 325 mg 08/24/19 22:00 08/28/19 09:24 Feosol - PO 325 mg BID ANNA Administration Heparin Sodium (Porcine) 5,000 unit 08/24/19 14:00 08/28/19 05:59 Heparin - SQ 5,000 unit TID ANNA Administration Sodium Chloride 1,000 mls @ 125 mls/hr 08/26/19 19:48 08/28/19 12:19 Normal Saline - IV 125 mls/hr ASDIR ANNA Administration Levofloxacin 750 mg in 150 mls @ 100 mls/hr 08/27/19 16:30 08/28/19 10:38 Levaquin 750 Mg Premixed Ivpb - IVPB 100 mls/hr DAILY ANNA Administration Protocol Metronidazole 500 mg in 100 mls @ 100 mls/hr 08/27/19 18:00 08/28/19 09:25 Flagyl 500mg Premixed Ivpb - IVPB 100 mls/hr Q8H-IV ANNA Administration Melatonin 5 mg 08/27/19 17:53 Melatonin PO HS PRN INSOMNIA Pantoprazole Sodium 40 mg 08/25/19 10:00 08/28/19 09:24 Protonix - PO 40 mg DAILY ANNA Administration Home Medications Medication Instructions Recorded Amlodipine Besylate/Benazepril 1 each PO DAILY 08/09/19 [Amlodipine-Benazepril 10-20 mg] ASSESSMENT AND PLAN: 59 year old male with history of HTN, who presented to the ED with abdominal pain found to have diverticulitis. 1. Severe sepsis secondary to acute perforated diverticulitis - sepsis resolved , but having persistent fever spikes s/p exploratory laparotomy with resection of sigmoid and colostomy 08/12 - peritoneal fluid culture positive for Pseudomonas s/p closure of abdominal incision with retention sutures secondary to small bowel evisceration 08/14 Wound Vac fitted by surgery 08/26 Tolerating diet/colostomy working. Ongoing fevers - etiology unclear. Repeat Septic screen negative so far. Repeat CT A/P - no abscess. CXR - no infiltrate. Duplex LEs - No DVT. Possible drug fever, Abx resumed 9/27 - Levofloxacin/Flagyl (previously on Zosyn /Flagyl). Further recommendations as per ID/Surgery Will ensure adequate hydration, bolus 1L NS for tachycardia. 2. HTN - Continue Norvasc. Benazepril held. 3. Acute kidney injury - resolved. 4. Hypokalemia - repleted. Continue iron supplementation. DVT Px - Heparin SQ GI Px - PPI
--- NOTE | 2019-08-28 14:40 | PN ---
Physical Exam: SUBJECTIVE: Patient seen and examined. Denies pain. Endorses appetite. Denies fever, palpitations. OBJECTIVE: Vital Signs Period Temp Pulse Resp BP Sys/Cramer Pulse Ox Last 24 Hr 98.3 F-102.9 F 80-141 18-24 126-142/52-82 GENERAL: alert, NAD. Mild diaphoresis HEAD: NC/AT EYES: sclera anicteric, conjunctiva clear. ENT: nares patent NECK: Trachea midline, full range of motion, supple. LUNGS: Breath sounds equal, clear to auscultation bilaterally, no wheezes, no crackles, no accessory muscle use. IS to 2000ml HEART: tachy, S1, S2 without murmur, rub or gallop. ABDOMEN: ND, midline abdominal wound with overlying black granulofoam wound vac( 75mmHg), 2x2 gauze w/o strikethrough overlying sites of former retention sutures , LLQ end ostomy with dark green-brown thickened stool and gas in pouch, RLQ pannus with 1.5-2.5 ulcerated nontender wound w/o active drainage. Abd nonTTP [id number] EXTREMITIES: 2+ pulses, warm, well-perfused, no edema. NEUROLOGICAL: normal speech, normal AROM SKIN: Warm, dry, normal turgor, no rashes or lesions noted Laboratory Results - last 24 hr 08/28/19 08/28/19 07:01 07:01 WBC 7.5 RBC 3.33 L Hgb 9.8 L Hct 28.5 L MCV 85.5 MCH 29.5 MCHC 34.4 RDW 16.1 H Plt Count 462 H MPV 7.3 L Absolute Neuts (auto) 5.7 Neutrophils % 75.9 Lymphocytes % 12.2 Monocytes % 11.3 H Eosinophils % 0.1 D Basophils % 0.5 Nucleated RBC % 0 Sodium 129 L Potassium 3.6 Chloride 97 L Carbon Dioxide 25 Anion Gap 8 BUN 7.5 Creatinine 0.7 Est GFR (CKD-EPI)AfAm 119.72 Est GFR (CKD-EPI)NonAf 103.30 Random Glucose 135 H Calcium 7.0 L Total Bilirubin 0.4 AST 23 ALT 20 Alkaline Phosphatase 36 L Total Protein 4.8 L Albumin 1.6 L Active Medications Generic Name Dose Route Start Last Admin Trade Name Freq PRN Reason Stop Dose Admin Acetaminophen 1,000 mg 08/27/19 15:29 08/27/19 15:36 Ofirmev Injection - IVPB 1,000 mg Q6H PRN Administration FEVER Amlodipine Besylate 10 mg 08/23/19 08:16 08/28/19 09:25 Norvasc - PO 10 mg DAILY ANNA Administration Bacitracin 1 applic 08/28/19 10:00 08/28/19 10:38 Bacitracin - TP 1 applic BID ANNA Administration Ferrous Sulfate 325 mg 08/24/19 22:00 08/28/19 09:24 Feosol - PO 325 mg BID ANNA Administration Heparin Sodium (Porcine) 5,000 unit 08/24/19 14:00 08/28/19 05:59 Heparin - SQ 5,000 unit TID ANNA Administration Sodium Chloride 1,000 mls @ 125 mls/hr 08/26/19 19:48 08/28/19 12:19 Normal Saline - IV 125 mls/hr ASDIR ANNA Administration Levofloxacin 750 mg in 150 mls @ 100 mls/hr 08/27/19 16:30 08/28/19 10:38 Levaquin 750 Mg Premixed Ivpb - IVPB 100 mls/hr DAILY ANNA Administration Protocol Metronidazole 500 mg in 100 mls @ 100 mls/hr 08/27/19 18:00 08/28/19 09:25 Flagyl 500mg Premixed Ivpb - IVPB 100 mls/hr Q8H-IV ANNA Administration Sodium Chloride 1,000 mls @ 1,000 mls/hr 08/28/19 14:36 Normal Saline - IV 08/28/19 15:35 ASDIR STA Melatonin 5 mg 08/27/19 17:53 Melatonin PO HS PRN INSOMNIA Pantoprazole Sodium 40 mg 08/25/19 10:00 08/28/19 09:24 Protonix - PO 40 mg DAILY ANNA Administration Vital Signs Temp 102.9 F H 08/28/19 15:39 Pulse 143 H 08/28/19 15:39 Resp 24 H 08/28/19 15:39 BP 136/79 08/28/19 15:39 Pulse Ox 95 08/26/19 09:00 Intake & Output 08/27/19 08/28/19 08/28/19 23:59 11:59 23:59 Intake Total 1755 875 Output Total 1900 400 600 Balance -145 475 -600 Intake: IV 625 875 Normal Saline - 1,000 ml 625 875 @ 125 mls/hr IV ASDIR ANNA Rx#:[id number] IVPB 200 Oral 930 Output: Urine 1700 400 600 Void 1700 400 600 Colostomy 200 Other: Voiding Method Urinal Urinal Urinal # Unmeasured Voids Void 1 2 Bowel Movement Yes Yes ASSESSMENT/PLAN: Mr. Pena is a 59 y/o male with HTN and GERD who present w/ LLQ abdominal pain and chills found to have a sigmoid diverticulitis. s/p Erickson procedure([facility] , 08/12/19), s/p repair of abdominal wall (08/14/19). Intermittently febrile while on abx. #severe sepsis 2/2 diverticulitis >s/p emergent Erickson procedure([facility], 08/12/19) POD 16 >peritoneal fluid cx(08/12/19) - pseudomonas >Tmax in 24hs: 102.9F >WBC 7.5 -s/p Abx Holiday for possible drug fever Zosyn 8 days, flagyl 15 days completed on 08/25/19 -- still fever -Current Abx: levo + flagyl -NS 1L x2 on 08/28/19 -Tylenol -ID recs appreciated: -- levo + flagyl #tachycardia possibly 2/2 infection of undetermined source >EKG: sinus tachy #evisceration >s/p abd wall repair([facility], 08/14/19) POD 14 -surgery- vac wound care #hypokalemia, resolved #hypophosphatemia, resolved #JASEN, resolved pre-renal from sepsis #anemia Hb 10.7. Improving. -continue iron supplementation #thrombocytosis Plt 462 -continue to monitor, further eval if >1000 #HTN -home amlodipine -can add home SUSAN inhibitor as needed FEN -regular diet -NS @125 -monitor K, Phos DVT Ppx heparin GI Ppx Protonix Dispo: -medsurg floor -dc plan: SNF Visit type - Emergency Visit Emergency Visit: No - New Patient This patient is new to me today: No - Critical Care Critical Care patient: No ATTENDING PHYSICIAN STATEMENT I saw and evaluated the patient. I reviewed the resident's note and discussed the case with the resident. I agree with the resident's findings and plan as documented. SUBJECTIVE: OBJECTIVE: ASSESSMENT AND PLAN:
[2019-08-28] MEDS: SODIUM CHLORIDE 1,000 ML IV STA ×2 (14:43→14:57)
[2019-08-28] MEDS: ACETAMINOPHEN 325 MG TABLET (FP) PO PRN (14:56)
[2019-08-28] MEDS ORDERED: KETOROLAC TROMETHAMINE 30 MG/1 ML VIAL IVPUSH PRN (18:30)
[2019-08-28] MEDS: MELATONIN 5 MG TABLETS PO PRN (22:22)
[2019-08-29] MEDS: SODIUM CHLORIDE 1,000 ML IV SCH ×4 (03:37→23:38)
[2019-08-29] MEDS: HEPARIN NA (PORCINE) 5,000 UNITS/ML 1ML VIAL SQ SCH ×3 (05:26→21:34)
[2019-08-29] MEDS ORDERED: PT OWN MED DRAWER 7, Y5N ONE (11:09)
[2019-08-29] MEDS: amLODIPine BESYLATE 5 MG TABLET (FP) PO SCH (11:12)
[2019-08-29] MEDS: FERROUS SO4 325 MG TABLET (FP) PO SCH ×2 (11:12→22:36)
[2019-08-29] MEDS: PANTOPRAZOLE 40 MG TABLET (FP) PO SCH (11:12)
[2019-08-29] MEDS: BACITRACIN 15 GM TUBE TOPICAL OINTMENT TP SCH ×2 (11:15→21:36)
[2019-08-29] MEDS: ACETAMINOPHEN 325 MG TABLET (FP) PO PRN (12:26)
--- NOTE | 2019-08-29 16:11 | PN ---
Progress Note (short form) - Note Progress Note: SUBJECTIVE: Feels well. Tolerating oral intake. No abdominal pain. Colostomy working. No nausea/vomiting. No dysuria/hematuria. Mild dry cough - no sputum/ dyspnea/hemoptysis. OBJECTIVE: Still having fever spikes, Tmax 103, tachycardic, Hemodynamically stable. Last Vital Signs Temp Pulse Resp BP Pulse Ox 101.7 F H 131 H 20 122/76 95 08/29/19 14:02 08/29/19 14:02 08/29/19 14:02 08/29/19 14:02 08/26/19 09:00 HEENT: No pharyngeal erythema/exudate. No lymphadenopathy HEART: S1S2, RRR LUNGS: Clear to auscultation ABDOMEN: Obese, soft, non-tender, non-distended, Surgical site with wound vac in situ. (+) functioning LLQ colostomy, normal BS EXTREMITIES: Mild edema, no calf tenderness. Current Medications Generic Name Dose Route Start Last Admin Trade Name Freq PRN Reason Stop Dose Admin Acetaminophen 650 mg 08/28/19 14:38 08/29/19 12:26 Tylenol - PO 650 mg Q6H PRN Administration FEVER Amlodipine Besylate 10 mg 08/23/19 08:16 08/29/19 11:12 Norvasc - PO 10 mg DAILY ANNA Administration Bacitracin 1 applic 08/28/19 10:00 08/29/19 11:15 Bacitracin - TP 1 applic BID ANNA Administration Ferrous Sulfate 325 mg 08/24/19 22:00 08/29/19 11:12 Feosol - PO 325 mg BID ANNA Administration Heparin Sodium (Porcine) 5,000 unit 08/24/19 14:00 08/29/19 13:58 Heparin - SQ 5,000 unit TID ANNA Administration Sodium Chloride 1,000 mls @ 125 mls/hr 08/26/19 19:48 08/29/19 13:55 Normal Saline - IV 125 mls/hr ASDIR ANNA Administration Levofloxacin 750 mg in 150 mls @ 100 mls/hr 08/27/19 16:30 08/29/19 12:18 Levaquin 750 Mg Premixed Ivpb - IVPB 100 mls/hr DAILY ANNA Administration Protocol Metronidazole 500 mg in 100 mls @ 100 mls/hr 08/27/19 18:00 08/29/19 11:12 Flagyl 500mg Premixed Ivpb - IVPB 100 mls/hr Q8H-IV ANNA Administration Melatonin 5 mg 08/27/19 17:53 08/28/19 22:22 Melatonin PO 5 mg HS PRN Administration INSOMNIA Pantoprazole Sodium 40 mg 08/25/19 10:00 08/29/19 11:12 Protonix - PO 40 mg DAILY ANNA Administration ASSESSMENT AND PLAN: 59 year old male with history of HTN, who presented to the ED with abdominal pain found to have diverticulitis. 1. Severe sepsis secondary to acute perforated diverticulitis - sepsis resolved , but having persistent fever spikes s/p exploratory laparotomy with resection of sigmoid and colostomy 08/12 - peritoneal fluid culture positive for Pseudomonas s/p closure of abdominal incision with retention sutures secondary to small bowel evisceration 08/14 Wound Vac fitted by surgery 08/26 Tolerating diet/colostomy working. Ongoing fevers - etiology unclear. Repeat Septic screen negative so far. Repeat CT A/P - no abscess. CXR - no infiltrate. Duplex LEs - No DVT. Possible drug fever, Abx resumed 08/27 - Levofloxacin/Flagyl (previously on Zosyn /Flagyl). Will order Repeat CT A/P with contrast. Further recommendations as per ID/Surgery 2. HTN - Continue Norvasc. Benazepril held. 3. Acute kidney injury - resolved. 4. Hypokalemia - repleted. 5. Acute Blood Loss Anemia s/p Surgery. Continue FeSO4 supplementation. DVT Px - Heparin SQ GI Px - PPI Visit type - Emergency Visit Emergency Visit: Yes ED Registration Date: 08/09/19 Care time: The patient presented to the Emergency Department on the above date and was hospitalized for further evaluation of their emergent condition. - New Patient This patient is new to me today: No - Critical Care Critical Care patient: No - Discharge Referral Referred to [facility] Med P.C.: No
--- NOTE | 2019-08-29 16:22 | PN ---
Progress Note, Physician History of Present Illness: AWAKE, ALERT IN BED RECURRENT FEVER 103! OFFERS NO FOCAL COMPLAINT WBC WNL! THROMBOCYTOSIS IMPROVING ON LEVAQUIN / FLAGYL - Current Medication List Current Medications: Active Medications Acetaminophen (Tylenol -) 650 mg PO Q6H PRN PRN Reason: FEVER Last Admin: 08/29/19 12:26 Dose: 650 mg Amlodipine Besylate (Norvasc -) 10 mg PO DAILY [facility] Last Admin: 08/29/19 11:12 Dose: 10 mg Bacitracin (Bacitracin -) 1 applic TP BID [facility] Last Admin: 08/29/19 11:15 Dose: 1 applic Ferrous Sulfate (Feosol -) 325 mg PO BID [facility] Last Admin: 08/29/19 11:12 Dose: 325 mg Heparin Sodium (Porcine) (Heparin -) 5,000 unit SQ TID [facility] Last Admin: 08/29/19 13:58 Dose: 5,000 unit Sodium Chloride (Normal Saline -) 1,000 mls @ 125 mls/hr IV ASDIR [facility] Last Admin: 08/29/19 13:55 Dose: 125 mls/hr Levofloxacin (Levaquin 750 Mg Premixed Ivpb -) 750 mg in 150 mls @ 100 mls/hr IVPB DAILY [facility]; Protocol Last Admin: 08/29/19 12:18 Dose: 100 mls/hr Metronidazole (Flagyl 500mg Premixed Ivpb -) 500 mg in 100 mls @ 100 mls/hr IVPB Q8H-IV ANNA Last Admin: 08/29/19 11:12 Dose: 100 mls/hr Melatonin (Melatonin) 5 mg PO HS PRN PRN Reason: INSOMNIA Last Admin: 08/28/19 22:22 Dose: 5 mg Pantoprazole Sodium (Protonix -) 40 mg PO DAILY [facility] Last Admin: 08/29/19 11:12 Dose: 40 mg - Objective Vital Signs: Vital Signs Temperature 101.7 F H 08/29/19 14:02 Pulse Rate 131 H 08/29/19 14:02 Respiratory Rate 20 08/29/19 14:02 Blood Pressure 122/76 08/29/19 14:02 O2 Sat by Pulse Oximetry (%) 95 08/26/19 09:00 Constitutional: Yes: Obese Cardiovascular: Yes: Regular Rate and Rhythm, S1, S2 Respiratory: Yes: CTA Bilaterally Gastrointestinal: Yes: Normal Bowel Sounds, Soft, Other (+ WOUND VAC). No: Tenderness Edema: No Labs: CBC, BMP 08/28/19 07:01 08/28/19 07:01 INR, PTT INR 1.16 (0.83-1.09) H 08/09/19 02:20 Assessment/Plan POST OP MARGARITA'S PROCEDURE PERFORATED DIVERTICULITIS WITH ABSCESS + OPERATIVE C/S PSEUDOMONAS FEVER ? SOURCE REPEAT BLOOD CULTURES PENDING RESCAN C/A/P
--- NOTE | 2019-08-29 16:51 | EKG ---
Test Reason : Blood Pressure : / mmHG Vent. Rate : 141 BPM Atrial Rate : 141 BPM P-R Int : 138 ms QRS Dur : 084 ms QT Int : 280 ms P-R-T Axes : 022 -35 025 degrees QTc Int : 428 ms SINUS TACHYCARDIA LEFT AXIS DEVIATION ABNORMAL ECG WHEN COMPARED WITH ECG OF 17-AUG-2019 12:36, VENT. RATE HAS INCREASED Confirmed by AMOL VELEZ MD ([id number]) on 08/29/2019 4:51:02 PM Referred By: Adali VASQUEZ Confirmed By:AMOL VELEZ MD
[2019-08-29] MEDS: MELATONIN 5 MG TABLETS PO PRN (22:36)
[2019-08-30] MEDS: HEPARIN NA (PORCINE) 5,000 UNITS/ML 1ML VIAL SQ SCH (05:51)
[2019-08-30] MEDS: SODIUM CHLORIDE 1,000 ML IV SCH ×2 (08:00→17:53)
--- NOTE | 2019-08-30 09:46 | PN ---
Progress Note (short form) - Note Progress Note: 59yo M s/p Erickson's, seen and examined at bedside. Pt continues to spike fevers throughout the weekend and had CTA of the chest and abd. Pt states that he feels well otherwise. Denies n/v, cp, SOB. Pt tolerating PO and ambulating well. Colostomy is functioning well. Vac dressing was changed on Friday. Last Vital Signs Temp Pulse Resp BP Pulse Ox 98.8 F 96 H 20 120/73 95 08/30/19 06:00 08/30/19 06:00 08/30/19 06:00 08/30/19 06:00 08/26/19 09:00 CBC, BMP 08/28/19 07:01 08/28/19 07:01 PE: Gen: A&O X3 Resp: breathing comfortably Abd: soft, nondistended, mild tenderness, VAC dressing in place, good seal, serosanguinous drainage in vac. CTA Chest: showed peripheral PE of RLL Problem List - Problems (1) Diverticulitis Assessment/Plan: Plan -pt found to have acute RLL PE which would explain intermitant fevers, pt will need anticoagulation started before being discharged to SNF. No surgical contraindications for anticoagulation -continue VAC dressing //Sat -OOB/ambulate -pain control Code(s): K57.92 - DVTRCLI OF INTEST, PART UNSP, W/O PERF OR ABSCESS W/O BLEED
[2019-08-30] MEDS ORDERED: APIXABAN 5 MG TABLET PO SCH (10:00)
[2019-08-30] MEDS: PANTOPRAZOLE 40 MG TABLET (FP) PO SCH (10:24)
[2019-08-30] MEDS: FERROUS SO4 325 MG TABLET (FP) PO SCH ×2 (10:25→17:51)
[2019-08-30] MEDS: amLODIPine BESYLATE 5 MG TABLET (FP) PO SCH (10:25)
--- NOTE | 2019-08-30 10:26 | PN ---
Progress Note (short form) - Note Progress Note: Asked to re-evaluate due to finding of a peripheral RLL filling defect. Additional findings of small pleural effusions with associated atelectasis. No CP or SOB. No previous personal or family VTE history. No CP or SOB. No hemoptysis. Intake & Output 08/27/19 08/28/19 08/29/19 08/30/19 23:59 23:59 23:59 23:59 Intake Total 2505 5075 3700 1500 Output Total 2656 3300 2500 700 Balance -151 1775 1200 800 Last Vital Signs Temp Pulse Resp BP Pulse Ox 98.8 F 96 H 20 120/73 95 08/30/19 06:00 08/30/19 06:00 08/30/19 06:00 08/30/19 06:00 08/26/19 09:00 Active Medications Acetaminophen (Tylenol -) 650 mg PO Q6H PRN PRN Reason: FEVER Last Admin: 08/29/19 12:26 Dose: 650 mg Amlodipine Besylate (Norvasc -) 10 mg PO DAILY [facility] Last Admin: 08/29/19 11:12 Dose: 10 mg Apixaban (Eliquis -) 10 mg PO BID [facility] Bacitracin (Bacitracin -) 1 applic TP BID [facility] Last Admin: 08/29/19 21:36 Dose: 1 applic Ferrous Sulfate (Feosol -) 325 mg PO BID [facility] Last Admin: 08/29/19 22:36 Dose: 325 mg Sodium Chloride (Normal Saline -) 1,000 mls @ 125 mls/hr IV ASDIR [facility] Last Admin: 08/29/19 23:38 Dose: 125 mls/hr Levofloxacin (Levaquin 750 Mg Premixed Ivpb -) 750 mg in 150 mls @ 100 mls/hr IVPB DAILY [facility]; Protocol Last Admin: 08/29/19 12:18 Dose: 100 mls/hr Metronidazole (Flagyl 500mg Premixed Ivpb -) 500 mg in 100 mls @ 100 mls/hr IVPB Q8H-IV ANNA Last Admin: 08/30/19 01:30 Dose: 100 mls/hr Melatonin (Melatonin) 5 mg PO HS PRN PRN Reason: INSOMNIA Last Admin: 08/29/19 22:36 Dose: 5 mg Pantoprazole Sodium (Protonix -) 40 mg PO DAILY [facility] Last Admin: 08/29/19 11:12 Dose: 40 mg HEENT: (-) Pallor or Icterus HEART: S1S2, RRR LUNGS: Clear to auscultation, diminished at the bases ABDOMEN: Obese, soft, non-tender, non-distended, Surgical site dressed. (+) functioning LLQ colostomy, normal BS EXTREMITIES: Mild edema, no calf tenderness. ASSESSMENT AND PLAN: Peripheral small RLL filling defect likely consistent with a provoked VTE Resolved Sepsis due to perforated Diverticulitis S/P Exploratory laparotomy with resection of sigmoid and colostomy 08/12 Peritoneal fluid culture positive for Pseudomonas AC with Eliquis O2 as needed Off ABX per ID PO as tolerated Incentive Spirometry Follow cultures Will follow Dr Valverde
[2019-08-30] MEDS: BACITRACIN 15 GM TUBE TOPICAL OINTMENT TP SCH ×2 (11:18→21:25)
[2019-08-30 11:58] LABS: BASO % 0.5 % (0-2.0); EOS % 0.5 % (0-4.5); HEMATOCRIT 27.3 % (35.4-49); HEMOGLOBIN 9.4 GM/dL (11.7-16.9); LYMPH % 16.9 % (8-40); MCH 29.3 pg (25.7-33.7); MCHC 34.3 g/dl (32.0-35.9); MEAN CELL VOLUME 85.2 fl (80-96); MEAN PLT VOLUME 6.6 fl (7.5-11.1); MONO % 10.7 % (3.8-10.2); NEUT % 71.4 % (42.8-82.8); PLATELET COUNT 359 K/MM3 (134-434); RDW 16.1 % (11.9-15.9); WHITE BLOOD COUNT 5.1 K/mm3 (4.0-10.0)
[2019-08-30 12:30] LABS: ALBUMIN 1.6 g/dl (3.4-5.0); BILIRUBIN,TOTAL 0.3 mg/dL (0.2-1); CALCIUM 7.2 mg/dL (8.5-10.1); CREATININE 0.7 mg/dL (0.55-1.3); POTASSIUM 3.5 mmol/L (3.5-5.1)
[2019-08-30 12:36] LABS: INR 1.49 (0.83-1.09); PROTHROMBIN TIME (PATIENT) 17.6 SEC (9.7-13.0)
[2019-08-30 12:44] LABS: ANISOCYTOSIS 1+; MACROCYTOSIS 0; PLATELET ESTIMATE NORMAL
[2019-08-30] MEDS ORDERED: MELATONIN 5 MG TABLETS PO PRN (12:56)
--- NOTE | 2019-08-30 14:24 | PN ---
Physical Exam: SUBJECTIVE: Patient seen and examined. Pt denies chest pain, dyspnea, wheezing, abdominal pain, n/v. He reports gas bubbles in colostomy bag. OBJECTIVE: Vital Signs Period Temp Pulse Resp BP Sys/Cramer Pulse Ox Last 24 Hr 98.6 F-100.6 F 96-112 20-20 109-143/72-91 GENERAL: The patient is awake, alert, and fully oriented, in no acute distress. HEAD: Normal with no signs of trauma. EYES: PERRL, extraocular movements intact, sclera anicteric, conjunctiva clear. No ptosis. ENT: Ears normal, nares patent, moist mucous membranes. NECK: Trachea midline, full range of motion, supple. LUNGS: Breath sounds equal, clear to auscultation bilaterally, no wheezes, no crackles, no accessory muscle use. HEART: Regular rate and rhythm, S1, S2 without murmur, rub or gallop. ABDOMEN: Bandaged laparotomy incision, no tenderness on palpation near site and no erythema, colostomy bag in place with liquid light brown stool. No erythema round the site. RLQ 2x2cm ulcer with erythematous border without drainage, healing. EXTREMITIES: 2+ pulses, warm, well-perfused, no edema. NEUROLOGICAL: Cranial nerves II through XII grossly intact. Normal speech, gait not observed. PSYCH: Normal mood, normal affect. SKIN: Warm, dry, normal turgor, no rashes or lesions noted Laboratory Results - last 24 hr 08/30/19 08/30/19 08/30/19 11:45 11:45 11:45 WBC 5.1 RBC 3.20 L Hgb 9.4 L Hct 27.3 L MCV 85.2 MCH 29.3 MCHC 34.3 RDW 16.1 H Plt Count 359 D MPV 6.6 L Absolute Neuts (auto) 3.6 Neutrophils % 71.4 Neutrophils % (Manual) 76.5 Band Neutrophils % 2.1 Lymphocytes % 16.9 D Lymphocytes % (Manual) 12.3 D Monocytes % 10.7 H Monocytes % (Manual) 4 Eosinophils % 0.5 D Eosinophils % (Manual) 0.0 D Basophils % 0.5 Basophils % (Manual) 1.0 D Myelocytes % (Man) 1 Promyelocytes % (Man) 0 Blast Cells % (Manual) 0 Nucleated RBC % 0 Metamyelocytes 1 D Hypochromia 0 Platelet Estimate Normal Polychromasia 1+ Poikilocytosis 0 Anisocytosis 1+ Microcytosis 1+ Macrocytosis 0 PT with INR 17.60 H INR 1.49 H Sodium 133 L Potassium 3.5 Chloride 99 Carbon Dioxide 27 Anion Gap 7 L BUN 8.0 Creatinine 0.7 Est GFR (CKD-EPI)AfAm 119.72 Est GFR (CKD-EPI)NonAf 103.30 Random Glucose 116 H Calcium 7.2 L Total Bilirubin 0.3 AST 27 ALT 22 Alkaline Phosphatase 38 L Total Protein 5.0 L Albumin 1.6 L Active Medications Generic Name Dose Route Start Last Admin Trade Name Freq PRN Reason Stop Dose Admin Acetaminophen 650 mg 08/30/19 12:56 Tylenol - PO Q6H PRN FEVER Amlodipine Besylate 10 mg 08/31/19 10:00 Norvasc - PO DAILY ANNA Apixaban 10 mg 08/30/19 22:00 Eliquis - PO BID [facility] Bacitracin 1 applic 08/30/19 22:00 Bacitracin - TP BID [facility] Ferrous Sulfate 325 mg 08/30/19 17:30 Feosol - PO BIDWM [facility] Metronidazole 500 mg in 100 mls @ 100 mls/hr 08/30/19 18:00 Flagyl 500mg Premixed Ivpb - IVPB Q8H-IV ANNA Levofloxacin 750 mg in 150 mls @ 100 mls/hr 08/31/19 10:00 Levaquin 750 Mg Premixed Ivpb - IVPB DAILY ANNA Protocol Sodium Chloride 1,000 mls @ 125 mls/hr 08/30/19 12:56 Normal Saline - IV ASDIR ANNA Melatonin 5 mg 08/30/19 12:56 Melatonin PO HS PRN INSOMNIA Pantoprazole Sodium 40 mg 08/31/19 10:00 Protonix - PO DAILY [facility] ASSESSMENT/PLAN: Mr. Pena is a 59 y/o male with HTN and GERD who presents with sudden onset LLQ abdominal pain and chills. Pt was found to have sigmoid diverticulitis on CT. No hx of colonoscopy in the past. Abdominal pain was subsiding on bowel rest then returned after diet was reintroduced. CT abdomen then showed pneumoperitoneum with loops of dilated bowel. Erickson procedure done with colostomy in place. Pt initially treated with flagyl, also ceftriaxone then switched to Zosyn. Surgical incision opened with bowel evisceration when patient sat up 2 days later and was repaired. Pt currently denies abdominal pain and is tolerating regular diet. NG tube removed and KARI drain. #pulmonary embolism CTA showed right lower lobe pulmonary embolism with bibasilar atelectasis and trace pleural effusions. Pt has had intermittent fevers and tachycardia. Afebrile since yesterday afternoon. -begin Eliquis 10mg BID -pulm consulted- Eliquis, O2 PRN, incentive spirometry #severe sepsis 2/2 diverticulitis s/p emergent Erickson procedure POD 18 s/p eviscerated bowel with incision repair POD 16 Leukocytosis resolved. Tmax 100.6 yesterday afternoon. Repeat blood and urine cultures negative. CT prior to surgery showed pneumoperitoneum with loops of dilated bowel. Peritoneal culture intraoperative positive for pseudomonas. Incision was opened when pt sat up on POD 2. Pt denies pain. Zosyn 8 days, Flagyl 15 days completed on 08/25/19. -restarted abx Levaquin and Flagyl on 08/29/19. Levaquin day 2 and Flagyl day 2. -NS 125mL/hr -Tylenol -ID following -surgery- vac wound care T Th Sat -CBC -PT #anemia Hb 9.4 today -continue iron supplementation -CBC #insomnia Pt reports intermittent insomnia at home. Melatonin is not working well in hospital. -Ambien 5mg PRN #hypokalemia, resolved #hypophosphatemia, resolved #JASEN, resolved pre-renal from sepsis #thrombocytosis, resolved Plt 359 -continue to monitor #HTN -home amlodipine -can add home SUSAN inhibitor as needed FEN regular diet monitor K, Phos DVT Ppx Eliquis GI Ppx Protonix Visit type - Emergency Visit Emergency Visit: Yes ED Registration Date: 08/09/19 Care time: The patient presented to the Emergency Department on the above date and was hospitalized for further evaluation of their emergent condition. - New Patient This patient is new to me today: No - Critical Care Critical Care patient: No - Discharge Referral Referred to [facility] Med P.C.: No ATTENDING PHYSICIAN STATEMENT I saw and evaluated the patient. I reviewed the resident's note and discussed the case with the resident. I agree with the resident's findings and plan as documented. SUBJECTIVE: OBJECTIVE: ASSESSMENT AND PLAN:
--- NOTE | 2019-08-30 14:38 | PN ---
Progress Note, Physician History of Present Illness: CTA FINDINGS NOTED +PE, ATELECTASIS AWAKE, ALERT IN BED TEMPS DOWN TODAY OFFERS NO FOCAL COMPLAINT WBC WNL THROMBOCYTOSIS RESOLVED - Current Medication List Current Medications: Active Medications Acetaminophen (Tylenol -) 650 mg PO Q6H PRN PRN Reason: FEVER Amlodipine Besylate (Norvasc -) 10 mg PO DAILY ANNA Apixaban (Eliquis -) 10 mg PO BID ANNA Bacitracin (Bacitracin -) 1 applic TP BID ANNA Ferrous Sulfate (Feosol -) 325 mg PO BIDWM ANNA Sodium Chloride (Normal Saline -) 1,000 mls @ 125 mls/hr IV ASDIR ANNA Melatonin (Melatonin) 5 mg PO HS PRN PRN Reason: INSOMNIA Pantoprazole Sodium (Protonix -) 40 mg PO DAILY ANNA - Objective Vital Signs: Vital Signs Temperature 98.8 F 08/30/19 10:00 Pulse Rate 106 H 08/30/19 10:00 Respiratory Rate 20 08/30/19 10:00 Blood Pressure 143/91 08/30/19 10:00 O2 Sat by Pulse Oximetry (%) 95 08/26/19 09:00 Constitutional: Yes: No Distress Eyes: Yes: Conjunctiva Clear Cardiovascular: Yes: Regular Rate and Rhythm, S1, S2 Respiratory: Yes: Diminished Gastrointestinal: Yes: Normal Bowel Sounds, Soft, Other (+ VAC, OSTOMY). No: Tenderness Extremities: No: Calf Tenderness Edema: No Labs: CBC, BMP 08/30/19 11:45 08/30/19 11:45 INR, PTT INR 1.49 (0.83-1.09) H 08/30/19 11:45 Assessment/Plan POST OP MARGARITA'S PROCEDURE PERFORATED DIVERTICULITIS WITH ABSCESS + OPERATIVE C/S PSEUDOMONAS PE PE/ ATELECTASIS LIKELY SOURCE OF FEVER D/C ANTIBIOTICS
--- NOTE | 2019-08-30 15:10 | PN ---
Teaching Attending Note Name of Resident: Vickie Joseph ATTENDING PHYSICIAN STATEMENT I saw and evaluated the patient. I reviewed the resident's note and discussed the case with the resident. I agree with the resident's findings and plan as documented. SUBJECTIVE: Feels well. Tolerating oral intake. No abdominal pain. Colostomy working. No nausea/vomiting. No dysuria/hematuria. Mild dry cough - no sputum/ dyspnea/hemoptysis. OBJECTIVE: Still having fever spikes, Tmax 101.1 yesterday, tachycardic, Hemodynamically stable. Last Vital Signs Temp Pulse Resp BP Pulse Ox 98.8 F 106 H 20 143/91 95 08/30/19 10:00 08/30/19 10:00 08/30/19 10:00 08/30/19 10:00 08/26/19 09:00 HEENT: No pharyngeal erythema/exudate. No lymphadenopathy HEART: S1S2, RRR LUNGS: Clear to auscultation ABDOMEN: Obese, soft, non-tender, non-distended, Surgical site with wound vac in situ. (+) functioning LLQ colostomy, normal BS EXTREMITIES: Mild edema, no calf tenderness. Laboratory Results - last 24 hr 08/30/19 08/30/19 08/30/19 11:45 11:45 11:45 WBC 5.1 RBC 3.20 L Hgb 9.4 L Hct 27.3 L MCV 85.2 MCH 29.3 MCHC 34.3 RDW 16.1 H Plt Count 359 D MPV 6.6 L Absolute Neuts (auto) 3.6 Neutrophils % 71.4 Neutrophils % (Manual) 76.5 Band Neutrophils % 2.1 Lymphocytes % 16.9 D Lymphocytes % (Manual) 12.3 D Monocytes % 10.7 H Monocytes % (Manual) 4 Eosinophils % 0.5 D Eosinophils % (Manual) 0.0 D Basophils % 0.5 Basophils % (Manual) 1.0 D Myelocytes % (Man) 1 Promyelocytes % (Man) 0 Blast Cells % (Manual) 0 Nucleated RBC % 0 Metamyelocytes 1 D Hypochromia 0 Platelet Estimate Normal Polychromasia 1+ Poikilocytosis 0 Anisocytosis 1+ Microcytosis 1+ Macrocytosis 0 PT with INR 17.60 H INR 1.49 H Sodium 133 L Potassium 3.5 Chloride 99 Carbon Dioxide 27 Anion Gap 7 L BUN 8.0 Creatinine 0.7 Est GFR (CKD-EPI)AfAm 119.72 Est GFR (CKD-EPI)NonAf 103.30 Random Glucose 116 H Calcium 7.2 L Total Bilirubin 0.3 AST 27 ALT 22 Alkaline Phosphatase 38 L Total Protein 5.0 L Albumin 1.6 L Current Medications Generic Name Dose Route Start Last Admin Trade Name Freq PRN Reason Stop Dose Admin Acetaminophen 650 mg 08/30/19 12:56 Tylenol - PO Q6H PRN FEVER Amlodipine Besylate 10 mg 08/31/19 10:00 Norvasc - PO DAILY ANNA Apixaban 10 mg 08/30/19 22:00 Eliquis - PO BID ANNA Bacitracin 1 applic 08/30/19 22:00 Bacitracin - TP BID ANNA Ferrous Sulfate 325 mg 08/30/19 17:30 Feosol - PO BIDWM ANNA Sodium Chloride 1,000 mls @ 125 mls/hr 08/30/19 12:56 Normal Saline - IV ASDIR ANNA Melatonin 5 mg 08/30/19 12:56 Melatonin PO HS PRN INSOMNIA Pantoprazole Sodium 40 mg 08/31/19 10:00 Protonix - PO DAILY ANNA ASSESSMENT AND PLAN: 59 year old male with history of HTN, who presented to the ED with abdominal pain found to have diverticulitis. 1. Severe sepsis secondary to acute perforated diverticulitis - sepsis resolved , but having persistent fever spikes s/p exploratory laparotomy with resection of sigmoid and colostomy 08/12 - peritoneal fluid culture positive for Pseudomonas s/p closure of abdominal incision with retention sutures secondary to small bowel evisceration 08/14 Wound Vac fitted by surgery 08/26 Tolerating diet/colostomy working. Ongoing fevers - etiology likely PE/Atelectasis. Repeat Septic screen negative so far. Repeat CT A/P - no abscess. CXR - no infiltrate. Duplex LEs - No DVT. Repeat CT A/P - s/p hemicolectomy, no abscess All Abx discontinued. Further recommendations as per ID/Surgery 2. Acute PE - provoked CTA Chest 08/29 - RLL PE, Bibasilar Atelectasis Initiated on Eliquis 10mg BID Pulm following. 3. HTN - Continue Norvasc. Benazepril held. 4. Acute kidney injury - resolved. 5. Hypokalemia - repleted. 6. Acute Blood Loss Anemia s/p Surgery. Continue FeSO4 supplementation. DVT Px - Heparin SQ GI Px - PPI
[2019-08-30] MEDS: ACETAMINOPHEN 325 MG TABLET (FP) PO PRN (20:31)
[2019-08-30] MEDS: APIXABAN 5 MG TABLET PO SCH (21:24)
[2019-08-30] MEDS: ZOLPIDEM TARTRATE 5 MG TABLET PO PRN (21:24)
--- NOTE | 2019-08-31 05:58 | PN ---
Physical Exam: SUBJECTIVE: Patient seen and examined. He denies shortness of breath, wheezing, abdominal pain, nausea, or vomiting. He does report mild dry cough while sleeping. OBJECTIVE: Vital Signs Period Temp Pulse Resp BP Sys/Cramer Pulse Ox Last 24 Hr 98.2 F-100.4 F 96-125 20-21 117-143/73-91 GENERAL: The patient is awake, alert, and fully oriented, in no acute distress. HEAD: Normal with no signs of trauma. EYES: PERRL, extraocular movements intact, sclera anicteric, conjunctiva clear. No ptosis. ENT: Ears normal, nares patent, moist mucous membranes. NECK: Trachea midline, full range of motion, supple. LUNGS: Breath sounds equal, clear to auscultation bilaterally, no wheezes, no crackles, no accessory muscle use. Tachypneic. HEART: Tachycardic and regular rhythm, S1, S2 without murmur, rub or gallop. ABDOMEN: Bandaged laparotomy incision, no tenderness on palpation near site and no erythema, colostomy bag in place with liquid light brown stool. No erythema round the site. RLQ 2x2cm ulcer with erythematous border without drainage, healing. EXTREMITIES: 2+ pulses, warm, well-perfused, no edema. NEUROLOGICAL: Cranial nerves II through XII grossly intact. Normal speech, gait not observed. PSYCH: Normal mood, normal affect. SKIN: Warm, dry, normal turgor, no rashes or lesions noted Laboratory Results - last 24 hr 08/30/19 08/30/19 08/30/19 11:45 11:45 11:45 WBC 5.1 RBC 3.20 L Hgb 9.4 L Hct 27.3 L MCV 85.2 MCH 29.3 MCHC 34.3 RDW 16.1 H Plt Count 359 D MPV 6.6 L Absolute Neuts (auto) 3.6 Neutrophils % 71.4 Neutrophils % (Manual) 76.5 Band Neutrophils % 2.1 Lymphocytes % 16.9 D Lymphocytes % (Manual) 12.3 D Monocytes % 10.7 H Monocytes % (Manual) 4 Eosinophils % 0.5 D Eosinophils % (Manual) 0.0 D Basophils % 0.5 Basophils % (Manual) 1.0 D Myelocytes % (Man) 1 Promyelocytes % (Man) 0 Blast Cells % (Manual) 0 Nucleated RBC % 0 Metamyelocytes 1 D Hypochromia 0 Platelet Estimate Normal Polychromasia 1+ Poikilocytosis 0 Anisocytosis 1+ Microcytosis 1+ Macrocytosis 0 PT with INR 17.60 H INR 1.49 H Sodium 133 L Potassium 3.5 Chloride 99 Carbon Dioxide 27 Anion Gap 7 L BUN 8.0 Creatinine 0.7 Est GFR (CKD-EPI)AfAm 119.72 Est GFR (CKD-EPI)NonAf 103.30 Random Glucose 116 H Calcium 7.2 L Total Bilirubin 0.3 AST 27 ALT 22 Alkaline Phosphatase 38 L Total Protein 5.0 L Albumin 1.6 L Active Medications Generic Name Dose Route Start Last Admin Trade Name Freq PRN Reason Stop Dose Admin Acetaminophen 650 mg 08/30/19 12:56 08/30/19 20:31 Tylenol - PO 650 mg Q6H PRN Administration FEVER Amlodipine Besylate 10 mg 08/31/19 10:00 Norvasc - PO DAILY ANNA Apixaban 10 mg 08/30/19 22:00 08/30/19 21:24 Eliquis - PO 10 mg BID ANNA Administration Bacitracin 1 applic 08/30/19 22:00 08/30/19 21:25 Bacitracin - TP 1 applic BID ANNA Administration Ferrous Sulfate 325 mg 08/30/19 17:30 08/30/19 17:51 Feosol - PO 325 mg BIDWM ANNA Administration Sodium Chloride 1,000 mls @ 125 mls/hr 08/30/19 12:56 08/30/19 17:53 Normal Saline - IV 125 mls/hr ASDIR ANNA Administration Pantoprazole Sodium 40 mg 08/31/19 10:00 Protonix - PO DAILY ANNA Zolpidem Tartrate 5 mg 08/30/19 15:13 08/30/19 21:24 Ambien - PO 5 mg HS PRN Administration INSOMNIA ASSESSMENT/PLAN: Mr. Pena is a 59 y/o male with HTN and GERD who presents with sudden onset LLQ abdominal pain and chills. Pt was found to have sigmoid diverticulitis on CT. No hx of colonoscopy in the past. Abdominal pain was subsiding on bowel rest then returned after diet was reintroduced. CT abdomen then showed pneumoperitoneum with loops of dilated bowel. Erickson procedure done with colostomy in place. Pt initially treated with flagyl, also ceftriaxone then switched to Zosyn. Surgical incision opened with bowel evisceration when patient sat up 2 days later and was repaired. Pt currently denies abdominal pain and is tolerating regular diet. NG tube removed and KARI drain. #acute RLL pulmonary embolism CTA 08/29/19 showed right lower lobe pulmonary embolism with bibasilar atelectasis and trace pleural effusions. Pt has had intermittent fevers and tachycardia. Tmax 100.4. -Eliquis 10mg BID -pulm consulted- Eliquis, O2 PRN, incentive spirometry #severe sepsis 2/2 diverticulitis, resolved s/p emergent Erickson procedure POD 19 s/p eviscerated bowel with incision repair POD 17 Leukocytosis resolved. Tmax 100.4. Repeat blood and urine cultures negative. CT prior to surgery showed pneumoperitoneum with loops of dilated bowel. Peritoneal culture intraoperative positive for pseudomonas. Incision was opened when pt sat up on POD 2. Pt denies pain. Zosyn 8 days, Flagyl 15 days completed on 08/25/19. -NS 125mL/hr -Tylenol -ID-d/c'ed Levaquin and Flagyl following PE diagnosis yesterday -surgery- vac wound care T Th Sat -CBC -PT #anemia Hb 9.9 today -continue iron supplementation -CBC #insomnia Pt reports intermittent insomnia at home. Melatonin not working. -Ambien 5mg PRN #hypokalemia, resolved #hypophosphatemia, resolved #JASEN, resolved pre-renal from sepsis #thrombocytosis, resolved #HTN -home amlodipine -can add home SUSAN inhibitor as needed FEN NS 125 monitor K, Phos DVT Ppx Eliquis GI Ppx Protonix Dispo if afebrile 24hours, discharge to SNF Visit type - Emergency Visit Emergency Visit: Yes ED Registration Date: 08/09/19 Care time: The patient presented to the Emergency Department on the above date and was hospitalized for further evaluation of their emergent condition. - New Patient This patient is new to me today: No - Critical Care Critical Care patient: No - Discharge Referral Referred to [facility] Med P.C.: No ATTENDING PHYSICIAN STATEMENT I saw and evaluated the patient. I reviewed the resident's note and discussed the case with the resident. I agree with the resident's findings and plan as documented. SUBJECTIVE: OBJECTIVE: ASSESSMENT AND PLAN:
[2019-08-31 07:07] LABS: BASO % 0.5 % (0-2.0); EOS % 0.1 % (0-4.5); HEMATOCRIT 28.7 % (35.4-49); HEMOGLOBIN 9.9 GM/dL (11.7-16.9); LYMPH % 12.9 % (8-40); MCH 29.2 pg (25.7-33.7); MCHC 34.4 g/dl (32.0-35.9); MEAN PLT VOLUME 7.3 fl (7.5-11.1); MONO % 8.8 % (3.8-10.2); NEUT % 77.7 % (42.8-82.8); PLATELET COUNT 380 K/MM3 (134-434); RBC 3.38 M/mm3 (4.00-5.60); RDW 15.8 % (11.9-15.9); WHITE BLOOD COUNT 6.6 K/mm3 (4.0-10.0)
[2019-08-31 07:42] LABS: CALCIUM 7.1 mg/dL (8.5-10.1); CREATININE 0.7 mg/dL (0.55-1.3); POTASSIUM 3.9 mmol/L (3.5-5.1)
[2019-08-31 09:37] LABS: ANISOCYTOSIS 1+; MACROCYTOSIS 0; PLATELET ESTIMATE NORMAL
[2019-08-31] MEDS: PANTOPRAZOLE 40 MG TABLET (FP) PO SCH (09:42)
[2019-08-31] MEDS: APIXABAN 5 MG TABLET PO SCH ×2 (09:42→21:25)
[2019-08-31] MEDS: FERROUS SO4 325 MG TABLET (FP) PO SCH ×2 (09:42→17:19)
[2019-08-31] MEDS: amLODIPine BESYLATE 10 MG TABLET (FP) PO SCH (09:42)
[2019-08-31] MEDS: BACITRACIN 15 GM TUBE TOPICAL OINTMENT TP SCH ×2 (09:42→21:25)
--- NOTE | 2019-08-31 10:57 | PN ---
Progress Note, Physician Chief Complaint: PULMONARY ALERT,COMFORTABLE,-SOB,-CP - Current Medication List Current Medications: Active Medications Acetaminophen (Tylenol -) 650 mg PO Q6H PRN PRN Reason: FEVER Last Admin: 08/30/19 20:31 Dose: 650 mg Amlodipine Besylate (Norvasc -) 10 mg PO DAILY [facility] Last Admin: 08/31/19 09:42 Dose: 10 mg Apixaban (Eliquis -) 10 mg PO BID [facility] Last Admin: 08/31/19 09:42 Dose: 10 mg Bacitracin (Bacitracin -) 1 applic TP BID [facility] Last Admin: 08/31/19 09:42 Dose: 1 applic Ferrous Sulfate (Feosol -) 325 mg PO BIDWM [facility] Last Admin: 08/31/19 09:42 Dose: 325 mg Sodium Chloride (Normal Saline -) 1,000 mls @ 125 mls/hr IV ASDIR [facility] Last Admin: 08/30/19 17:53 Dose: 125 mls/hr Pantoprazole Sodium (Protonix -) 40 mg PO DAILY [facility] Last Admin: 08/31/19 09:42 Dose: 40 mg Zolpidem Tartrate (Ambien -) 5 mg PO HS PRN PRN Reason: INSOMNIA Last Admin: 08/30/19 21:24 Dose: 5 mg - Objective Vital Signs: Vital Signs Temperature 98.4 F 08/31/19 05:48 Pulse Rate 106 H 08/31/19 05:48 Respiratory Rate 21 H 08/31/19 05:48 Blood Pressure 134/87 08/31/19 05:48 O2 Sat by Pulse Oximetry (%) 95 08/26/19 09:00 Constitutional: Yes: Well Nourished, Calm Eyes: Yes: WNL HENT: Yes: WNL Neck: Yes: WNL Cardiovascular: Yes: Regular Rate and Rhythm, S1, S2 Respiratory: Yes: CTA Bilaterally Gastrointestinal: Yes: Normal Bowel Sounds, Soft Extremities: Yes: WNL Edema: No Labs: CBC, BMP 08/31/19 06:20 08/31/19 06:20 INR, PTT INR 1.49 (0.83-1.09) H 08/30/19 11:45 Problem List - Problems (1) Pulmonary embolism Code(s): I26.99 - OTHER PULMONARY EMBOLISM WITHOUT ACUTE COR PULMONALE (2) Diverticulitis Code(s): K57.92 - DVTRCLI OF INTEST, PART UNSP, W/O PERF OR ABSCESS W/O BLEED (3) HTN (hypertension) Code(s): I10 - ESSENTIAL (PRIMARY) HYPERTENSION (4) Perforated diverticulum Code(s): K57.80 - DVTRCLI OF INTEST, PART UNSP, W PERF AND ABSCESS W/O BLEED (5) Sepsis Code(s): A41.9 - SEPSIS, UNSPECIFIED ORGANISM Assessment/Plan ASSESSMENT AND PLAN: Peripheral small RLL filling defect likely consistent with a provoked VTE Resolved Sepsis due to perforated Diverticulitis S/P Exploratory laparotomy with resection of sigmoid and colostomy 08/12 Peritoneal fluid culture positive for Pseudomonas AC with Eliquis O2 as needed PO as tolerated Incentive Spirometry DR DELACRUZ
--- NOTE | 2019-08-31 12:29 | PN ---
Teaching Attending Note Name of Resident: Vickie Joseph ATTENDING PHYSICIAN STATEMENT I saw and evaluated the patient. I reviewed the resident's note and discussed the case with the resident. I agree with the resident's findings and plan as documented. SUBJECTIVE:intermittent dry cough. denies CP, SOB, fever. chills, hemoptysis, N/ V/C/D OBJECTIVE: Last Vital Signs Temp Pulse Resp BP Pulse Ox 99.7 F H 120 H 20 137/81 95 08/31/19 10:00 08/31/19 10:08/31/19 10:08/31/19 10:08/26/19 09:00 General NAD CV S1 S2 RRR no murmur/rub/gallop Lungs CTA B/l no wheezing/rales/rhonchi Abdomen soft NT/ND +colostomy bag ASSESSMENT AND PLAN: 59 year old male with history of HTN, who presented to the ED with abdominal pain found to have diverticulitis. course complicated with development of bowel perforation requiring emergent exlap and hartmans procedure followed by wound dehisince requiring intervention. also developed PE during this hospital course 1. Severe sepsis secondary to acute perforated diverticulitis -s/p ex-lap with resection of sigmoid/Hartmans with colostomy 08/12 and s/p bowel evisceration requiring wound re-closure with retention sutures on 08/14. wound vac placed on 08/26. completed abx course. tolerating diet. further treatment per surgery 2. Acute PE - provoked. started on eliquis. pulmonary on board. saturating well on RA. had low grade fever last night 100.4 but overall fever curve improving. cont to trend. 3. HTN - Continue Norvasc. Benazepril held. 4. Acute kidney injury - resolved. 5. Hypokalemia - repleted. 6. Acute Blood Loss Anemia s/p Surgery. Continue FeSO4 supplementation. 7. DVT Px - Heparin SQ 8. anticipate discharge to [facility] in next 24H if remains afebrile.
[2019-08-31] MEDS: ACETAMINOPHEN 325 MG TABLET (FP) PO PRN (13:26)
[2019-08-31] MEDS: SODIUM CHLORIDE 1,000 ML IV SCH ×2 (13:31→22:00)
[2019-08-31] MEDS: ZOLPIDEM TARTRATE 5 MG TABLET PO PRN (21:24)
[2019-09-01] MEDS ORDERED: PT OWN MED DRAWER 7, Y5N ONE (10:29)
[2019-09-01] MEDS: APIXABAN 5 MG TABLET PO SCH (10:36)
[2019-09-01] MEDS: BACITRACIN 15 GM TUBE TOPICAL OINTMENT TP SCH (10:36)
[2019-09-01] MEDS: PANTOPRAZOLE 40 MG TABLET (FP) PO SCH (10:36)
[2019-09-01] MEDS: FERROUS SO4 325 MG TABLET (FP) PO SCH ×2 (10:36→16:57)
[2019-09-01] MEDS: amLODIPine BESYLATE 10 MG TABLET (FP) PO SCH (10:36)
--- NOTE | 2019-09-01 11:10 | PN ---
Progress Note, Physician History of Present Illness: PULMONARY ALERT,COMFORTABLE,-SOB ,MILD COUGH. TOLERATING PO - Current Medication List Current Medications: Active Medications Acetaminophen (Tylenol -) 650 mg PO Q6H PRN PRN Reason: FEVER Last Admin: 08/31/19 13:26 Dose: 650 mg Amlodipine Besylate (Norvasc -) 10 mg PO DAILY [facility] Last Admin: 09/01/19 10:36 Dose: 10 mg Apixaban (Eliquis -) 10 mg PO BID [facility] Last Admin: 09/01/19 10:36 Dose: 10 mg Bacitracin (Bacitracin -) 1 applic TP BID [facility] Last Admin: 09/01/19 10:36 Dose: 1 applic Ferrous Sulfate (Feosol -) 325 mg PO BIDWM [facility] Last Admin: 09/01/19 10:36 Dose: 325 mg Sodium Chloride (Normal Saline -) 1,000 mls @ 125 mls/hr IV ASDIR [facility] Last Admin: 08/31/19 22:00 Dose: 125 mls/hr Pantoprazole Sodium (Protonix -) 40 mg PO DAILY [facility] Last Admin: 09/01/19 10:36 Dose: 40 mg Zolpidem Tartrate (Ambien -) 5 mg PO HS PRN PRN Reason: INSOMNIA Last Admin: 08/31/19 21:24 Dose: 5 mg - Objective Vital Signs: Vital Signs Temperature 98.5 F 09/01/19 05:20 Pulse Rate 115 H 09/01/19 05:20 Respiratory Rate 20 09/01/19 05:20 Blood Pressure 111/85 09/01/19 05:20 O2 Sat by Pulse Oximetry (%) 95 08/26/19 09:00 Constitutional: Yes: Well Nourished, Calm Eyes: Yes: WNL HENT: Yes: WNL Neck: Yes: WNL Cardiovascular: Yes: Pulse Irregular, S1, S2 Respiratory: Yes: Diminished Gastrointestinal: Yes: Normal Bowel Sounds, Soft, Other (+ colostomy) Extremities: Yes: WNL Edema: No Problem List - Problems (1) Pulmonary embolism Code(s): I26.99 - OTHER PULMONARY EMBOLISM WITHOUT ACUTE COR PULMONALE (2) Diverticulitis Code(s): K57.92 - DVTRCLI OF INTEST, PART UNSP, W/O PERF OR ABSCESS W/O BLEED (3) HTN (hypertension) Code(s): I10 - ESSENTIAL (PRIMARY) HYPERTENSION (4) Perforated diverticulum Code(s): K57.80 - DVTRCLI OF INTEST, PART UNSP, W PERF AND ABSCESS W/O BLEED (5) Sepsis Code(s): A41.9 - SEPSIS, UNSPECIFIED ORGANISM Assessment/Plan ASSESSMENT AND PLAN: Peripheral small RLL filling defect likely consistent with a provoked VTE Resolved Sepsis due to perforated Diverticulitis S/P Exploratory laparotomy with resection of sigmoid and colostomy 08/12 Peritoneal fluid culture positive for Pseudomonas AC with Eliquis O2 as needed PO as tolerated Incentive Spirometry DR DELACRUZ
--- NOTE | 2019-09-01 11:41 | PN ---
Teaching Attending Note Name of Resident: Vickie Joseph ATTENDING PHYSICIAN STATEMENT I saw and evaluated the patient. I reviewed the resident's note and discussed the case with the resident. I agree with the resident's findings and plan as documented. SUBJECTIVE:asymptomatic. denies Cp, SOB, fever, chills, cough, hemoptysis OBJECTIVE: Last Vital Signs Temp Pulse Resp BP Pulse Ox 98.5 F 115 H 20 111/85 95 09/01/19 05:20 09/01/19 05:20 09/01/19 05:20 09/01/19 05:20 08/26/19 09:00 General NAD CV S1 S2 RRR no murmur/rub/gallop Lungs CTA B/l no wheezing/rales/rhonchiAbdomen soft NT/ND +colostomy bag ASSESSMENT AND PLAN: 59 year old male with history of HTN, who presented to the ED with abdominal pain found to have diverticulitis. course complicated with development of bowel perforation requiring emergent exlap and hartmans procedure followed by wound dehisince requiring intervention. also developed PE during this hospital course 1. Severe sepsis secondary to acute perforated diverticulitis -s/p ex-lap with resection of sigmoid/Hartmans with colostomy 08/12 and s/p bowel evisceration requiring wound re-closure with retention sutures on 08/14. wound vac placed on 08/26. completed abx course. tolerating diet. further treatment per surgery 2. Acute PE - provoked. started on eliquis. pulmonary on board. saturating well on RA. had fever yesterday afternoon which is likely inflammation from PE and now infectious. 3. HTN - Continue Norvasc. Benazepril held. 4. Acute kidney injury - resolved. 5. Hypokalemia - repleted. 6. Acute Blood Loss Anemia s/p Surgery. Continue FeSO4 supplementation. 7. DVT Px - Heparin SQ 8. anticipate discharge to [facility] later today if remains afebrile
--- NOTE | 2019-09-01 14:23 | PN ---
Physical Exam: SUBJECTIVE: Patient seen and examined OBJECTIVE: Vital Signs Period Temp Pulse Resp BP Sys/Cramer Pulse Ox Last 24 Hr 98.5 F-99.7 F 106-132 20-21 111-126/70-85 GENERAL: The patient is awake, alert, and fully oriented, in no acute distress. HEAD: Normal with no signs of trauma. EYES: PERRL, extraocular movements intact, sclera anicteric, conjunctiva clear. No ptosis. ENT: Ears normal, nares patent, oropharynx clear without exudates, moist mucous membranes. NECK: Trachea midline, full range of motion, supple. LUNGS: Breath sounds equal, clear to auscultation bilaterally, no wheezes, no crackles, no accessory muscle use. HEART: Regular rate and rhythm, S1, S2 without murmur, rub or gallop. ABDOMEN: Soft, nontender, nondistended, normoactive bowel sounds, no guarding, no rebound, no hepatosplenomegaly, no masses. EXTREMITIES: 2+ pulses, warm, well-perfused, no edema. NEUROLOGICAL: Cranial nerves II through XII grossly intact. Normal speech, gait not observed. PSYCH: Normal mood, normal affect. SKIN: Warm, dry, normal turgor, no rashes or lesions noted Active Medications Generic Name Dose Route Start Last Admin Trade Name Freq PRN Reason Stop Dose Admin Acetaminophen 650 mg 08/30/19 12:56 08/31/19 13:26 Tylenol - PO 650 mg Q6H PRN Administration FEVER Amlodipine Besylate 10 mg 08/31/19 10:00 09/01/19 10:36 Norvasc - PO 10 mg DAILY ANNA Administration Apixaban 10 mg 08/30/19 22:00 09/01/19 10:36 Eliquis - PO 10 mg BID ANNA Administration Bacitracin 1 applic 08/30/19 22:00 09/01/19 10:36 Bacitracin - TP 1 applic BID ANNA Administration Ferrous Sulfate 325 mg 08/30/19 17:30 09/01/19 10:36 Feosol - PO 325 mg BIDWM ANNA Administration Sodium Chloride 1,000 mls @ 125 mls/hr 08/30/19 12:56 08/31/19 22:00 Normal Saline - IV 125 mls/hr ASDIR ANNA Administration Pantoprazole Sodium 40 mg 08/31/19 10:00 09/01/19 10:36 Protonix - PO 40 mg DAILY ANNA Administration Zolpidem Tartrate 5 mg 08/30/19 15:13 08/31/19 21:24 Ambien - PO 5 mg HS PRN Administration INSOMNIA ASSESSMENT/PLAN: ATTENDING PHYSICIAN STATEMENT I saw and evaluated the patient. I reviewed the resident's note and discussed the case with the resident. I agree with the resident's findings and plan as documented. SUBJECTIVE: OBJECTIVE: ASSESSMENT AND PLAN:
[2019-09-01] MEDS: ACETAMINOPHEN 325 MG TABLET (FP) PO PRN (14:31)
[2019-09-01] MEDS: SODIUM CHLORIDE 1,000 ML IV SCH (16:41)
[2019-09-01 17:27] VITALS: BP 115/79; PULSE 103; TEMP 98.6
--- NOTE | 2019-09-01 21:52 | DS ---
Physical Exam: SUBJECTIVE: Patient seen and examined. He is denying abdominal pain, chest pain , shortness of breath. He is tolerating diet well. No chills or fever. OBJECTIVE: Vital Signs Period Temp Pulse Resp BP Sys/Cramer Pulse Ox Last 24 Hr 98.5 F-99.6 F 103-132 18-21 111-129/76-85 PHYSICAL EXAM GENERAL: The patient is awake, alert, and fully oriented, in no acute distress. HEAD: Normal with no signs of trauma. EYES: PERRL, extraocular movements intact, sclera anicteric, conjunctiva clear. ENT: Ears normal, nares patent, oropharynx clear without exudates, moist mucous membranes. NECK: Trachea midline, full range of motion, supple. LUNGS: Breath sounds equal, clear to auscultation bilaterally, no wheezes, no crackles, no accessory muscle use. HEART: Regular rate and rhythm, S1, S2 without murmur, rub or gallop. ABDOMEN: Soft, nontender, nondistended, normoactive bowel sounds, no guarding, no rebound, no hepatosplenomegaly, no masses. EXTREMITIES: 2+ pulses, warm, well-perfused, no edema. NEUROLOGICAL: Cranial nerves II through XII grossly intact. Normal speech, gait not observed. PSYCH: Normal mood, normal affect. SKIN: Warm, dry, normal turgor, no rashes or lesions noted. LABS CBC, BMP 08/31/19 06:20 10 06:20 HOSPITAL COURSE: Mr. Pena is a 59y/o male with hx of HTN who presents with sudden onset LLQ abdominal pain. There was no hx of colonoscopy or family hx of colon cancer. CT showed acute diverticulitis. He was given bowel rest and IV fluids. Pain was resolving then several days into course sudden onset pain again occurred. Stat CT showed pneumoperitoneum with ruptured bowel. Erickson's procedure performed with colostomy placed. Peritoneal cx positive for pseudomonas. POD 2 pt sat up in bed and surgical incision opened resulting in eviscerated bowel. Incision was repaired. During the course, was given Ceftriaxone and was eventually discontinued, with Zosyn being given 8 days and Flagyl 15 days before discontinuing. Wound vac applied. Pt was in sinus tachycardia for a significant amount of visit. He has no known hx of tachycardia. Pt began to develop fevers, bang in the afternoons. CT abdomen negative for abscess. After abx were discontinued for possible drug fevers, CTA chest revealed small RLL PE. Pt was on heparin as DVT Ppx and was switched to Eliquis 10mg BID x 7 days. On third day pt was afebrile >24 hours and discharged to SNF for further care as pt was deconditioned from stay. Pt referred to cards for sinus tach as outpt since tachycardia began prior to PE and fevers. Also, hypokalemia, hypophosphatemia, and hypomagnesemia occurred during stay but all were repleted and resolved. Pt was also found to have iron deficiency and supplemented with rec outpt f/u with pcp. He was instructed to f/ u with surgery. Date of Admission:08/09/19 Date of Discharge: 09/01/19 Minutes to complete discharge: 35 Discharge Summary Problems reviewed: Yes Reason For Visit: ABD PAIN Current Active Problems Diverticulitis (Acute) HTN (hypertension) (Acute) Hypokalemia (Acute) Hypophosphatemia (Acute) Lactate blood increased (Acute) Leukocytosis (Acute) Perforated diverticulum (Acute) Pulmonary embolism (Acute) Respiratory alkalosis (Acute) Sepsis (Acute) Status post Ardha's procedure (Acute) Condition: Stable - Instructions Diet, Activity, Other Instructions: Hospital Visit: You were admitted to the hospital for abdominal pain. A CT scan showed you had diverticulitis. Your colon perforated and the damaged area was removed and a colostomy bag was placed in your abdomen. The surgical incision you had was repaired as well. You were treated with antibiotics and given IV fluids. Your fevers have resolved and are stable to be discharged. You developed a blood clot in your right lung during your stay in the hospital. You were treated with a blood thinner, Eliquis (apixiban), to resolve the clot. You will need to follow up with pulmonology to check your lungs to make sure they are improved. Your hemoglobin (red blood cells) was slightly low during your visit. You were also found to have iron deficiency. You were given iron supplements while in the hospital. You will need blood work after you are discharged to check these levels. You also had low potassium, magnesium, and phosphorus that were supplemented during the visit. They are normal now. Follow up with your primary care doctor to see if you need to have your electrolytes tested again. Medications: Resume your home medications as directed. Take Eliquis 10mg twice a day for 4 more days. On 09/06/19 begin taking Eliquis 5mg twice a day for the next 3 months, until Dr. León tells you to stop. Take Protonix 40mg once a day until you follow up with Dr. León or Dr. Martin. You should continue iron supplementation while at [facility]. Ferrous sulfate 325 mg twice a day. Follow up with the followin. Dr. Spencer, surgeon, in 1 week after discharge to check your colostomy bag. 2. Dr. León, your primary care doctor, in 1-2 weeks after discharge to make sure the anti-coagulant (Eliquis) is working well and not causing side effects. He can also check your iron levels, potassium, magnesium, and phosphorus. 3. Dr. Martin, gastroenterology, in 2 weeks after discharge to check your GI tract. 4. Dr. Grimes, Cardiology in 1 month; Your heart rate has been fast, if this does not improve, please follow up with cardiology Other Instructions: For your incision, continue vacuum wound care Tuesdays, , and Saturdays until your follow up with Dr. Spencer. Increase your diet slowly. It is important that your follow up with the doctors above so they can ensure you are improving and that your blood work is normal. Continue to use your incentive spirometer. Return to the nearest emergency room if you experience severe abdominal pain, chest pain, shortness of breath, or fever above 101. Facility Instructions: wound care: Irrigate wound and wipe with 4x4 [address] Xeroform to base of both wounds. (decreases likelihood of developing enterocutaneous fistula) Black sponge cut to fit just inside of skin edge to aid in granulation / wound contracture. Place 2x2 on top of umbilical anna Apply occlusive dressing May use bridging foam Apply suction disc applied VAC Therapy set to 75mmHg Dressing change schedule: . Measurements on 08/26/19 Proximal Dimensions: 8cm x 6.5cm x 2.5cm Distal Dimensions: 12cm x 7cm x 6cm Referrals: Harsh Spencer MD [Staff Physician] - Praveen Martin DO [Staff Physician] - Disposition: [facility] - Home Medications Comprehensive Discharge Medication List: Ambulatory Orders Amlodipine Besylate/Benazepril [Amlodipine-Benazepril 10-20 mg] 1 each PO DAILY 08/09/19 Apixaban [Eliquis -] 10 mg PO BID tablet 09/01/19 Ferrous Sulfate [Feosol] 325 mg PO BIDWM ud 09/01/19 Pantoprazole Sodium [Protonix -] 40 mg PO DAILY tablet.ec 09/01/19 This patient is new to me today: No Emergency Visit: Yes ED Registration Date: 08/09/19 Care time: The patient presented to the Emergency Department on the above date and was hospitalized for further evaluation of their emergent condition. Critical Care patient: No - Discharge Referral [facility]erred [facility] Med [facility] No ATTENDING PHYSICIAN STATEMENT I saw and evaluated the patient. I reviewed the resident's note and discussed the case with the resident. I agree with the resident's findings and plan as documented. SUBJECTIVE: OBJECTIVE: ASSESSMENT AND PLAN:
== END 2019-09-01 17:20 | DRG 853 ==
LOC: JER 02:14 → JERBED 03:44 → J8W 17:48 → JICU 08-12 22:07 → J8W 08-16 15:33 → J4W 08-30 14:41
PROVIDERS: ADMIT Internal Medicine; ATTEND Internal Medicine
PROC: 0D1N0Z4 Bypass Sigmoid Colon to Cutaneous, Open Approach (ICD-10-PCS; 2019-08-12)
PROC: 0DBN0ZZ Excision of Sigmoid Colon, Open Approach (ICD-10-PCS; principal; 2019-08-12 18:00)
PROC: 0DQ80ZZ Repair Small Intestine, Open Approach (ICD-10-PCS; 2019-08-14)
PROC: 3E1M38Z Irrigation of Peritoneal Cavity using Irrigating Substance, Percutaneous Approach (ICD-10-PCS; 2019-08-14)
PROC: 3E10X8Z Irrigation of Skin and Mucous Membranes using Irrigating Substance (ICD-10-PCS; 2019-08-26)
DX: A41.52 Sepsis due to Pseudomonas (principal); I26.99 Other pulmonary embolism without acute cor pulmonale; K65.8 Other peritonitis; E87.3 Alkalosis; N17.9 Acute kidney failure, unspecified; K57.20 Diverticulitis of large intestine with perforation and abscess without bleeding; E87.2 Acidosis; T81.32XA Disruption of internal operation (surgical) wound, not elsewhere classified, initial encounter; D62 Acute posthemorrhagic anemia; J95.89 Other postprocedural complications and disorders of respiratory system, not elsewhere classified; J98.11 Atelectasis; J90 Pleural effusion, not elsewhere classified; R65.20 Severe sepsis without septic shock; I10 Essential (primary) hypertension; K21.9 Gastro-esophageal reflux disease without esophagitis; D72.829 Elevated white blood cell count, unspecified; R10.32 Left lower quadrant pain; R00.0 Tachycardia, unspecified; K57.90 Diverticulosis of intestine, part unspecified, without perforation or abscess without bleeding; Z96.641 Presence of right artificial hip joint; R94.31 Abnormal electrocardiogram [ECG] [EKG]; E87.6 Hypokalemia; E83.42 Hypomagnesemia; E83.51 Hypocalcemia; E88.09 Other disorders of plasma-protein metabolism, not elsewhere classified; Y83.8 Other surgical procedures as the cause of abnormal reaction of the patient, or of later complication, without mention of misadventure at the time of the procedure; E83.39 Other disorders of phosphorus metabolism; G47.00 Insomnia, unspecified; D47.3 Essential (hemorrhagic) thrombocythemia
CPT/HCPCS: 36415; 71045-TC-FY; 71046-TC-FY; 71275-TC; 74019-TC-FY; 74176-TC; 74177-TC; 80048; 80053; 81003; 82436; 82550; 82565; 82803; 83605; 83690; 83735; 83880; 84100; 84133; 84300; 84443; 84484; 85025; 85027; 85610; 85730; 86850; 86900; 86901; 87040; 87070; 87075; 87086; 87186; 87205; 88307-TC; 93005; 93010; 93306-TC; 93970-TC; 94760; 97116-GP; 97161-GP; 99285-25; J0131; J1644; J7030; Q9967

== ENCOUNTER 2020-01-26 04:50 | Emergency (ER) | payer OTHER ==
--- NOTE | 2020-01-26 04:59 | PDOC ---
History of Present Illness - General Stated Complaint: RASH Time Seen by Provider: 01/26/20 04:55 - History of Present Illness Initial Comments: 01/26/20 05:01 59y/o male with hx of HTN, diverticulitis s/p Erickson's procedure performed with colostomy placed for pneumoperitoneum with ruptured bowel, RLL PE presents to ED for evaluation of rash around the colostomy. Pt explains that he has noted redness around the ostomy over the past 2 days without F/C/N/V/D, purulent drainage or blood in stool. Pt admits that he was given a powder to apply prior to attaching the bag, however he has not applied it because it prevented the bag from attaching properly. He presented to the ED to make sure that there was no infection. PSH:R hip replacement Social: occasional drinker ROS: Constitutional: no fever,no chills HEENT: no throat pain, no dysphagia Cardiovascular: no chest pain, no palpitations Respiratory: no cough, no shortness of breath Gastrointestinal: no Nausea and vomiting Genitourinary: no dysuria no urgency Musculoskeletal: no myalgia, no arthralgia Skin: no bruising Neurologic: no headache, no weakness Psych: no agitation, no anxiety PE: VSS GEN: NAD HEENT: PERRLA, moist membrane, clear conjunctiva NECK: no JVD CHEST: vesicular breath sounds b/l HEART: RRR no murmur, rubs or gallop ABDOMEN: + BS, obese abdomen, with colostomy bag Extremities: 2+ pulses, no edema SKIN: healing surgical scars without excessive erythema, tenderness or drainage. Ostomy site with erythema, skin breaks and blisters from irritation. MSK: no arthralgia, no joint tenderness Neuro AAOx3, sensation intact, motor 5/5 in all muscle groups Assessment: skin irritation from lack of skin barrier before application of ostomy bag 01/26/20 05:11 will clean, apply barrier cream , and re-apply colostomy bag Pt is to see Dr Spencer in January and due to reversal of colostomy in the coming months. 01/26/20 05:50 01/26/20 05:51 Past History - Past Medical History Allergies/Adverse Reactions: Allergies Allergy/AdvReac Type Severity Reaction Status Date / Time No Known Allergies Allergy Verified 01/26/20 05:11 Home Medications: Ambulatory Orders Amlodipine Besylate/Benazepril [Amlodipine-Benazepril 10-20 mg] 1 each PO DAILY 08/09/19 Apixaban [Eliquis -] 10 mg PO BID tablet 09/01/19 Ferrous Sulfate [Feosol] 325 mg PO BIDWM ud 09/01/19 Pantoprazole Sodium [Protonix -] 40 mg PO DAILY tablet.ec 09/01/19 Anemia: No GI Disorders: Yes (reflux) HTN: Yes - Immunization History Immunization Up to Date: Yes - Psycho Social/Smoking Cessation Hx Smoking Status: No Smoking History: Never smoked Number of Cigarettes Smoked Daily: 0 Hx Alcohol Use: Yes (occasion) Drug/Substance Use Hx: No Substance Use Type: None Hx Substance Use Treatment: No Discharge - Discharge Information Problems reviewed: Yes Clinical Impression/Diagnosis: Colostomy care, Perforated diverticulum, Status post Radha's procedure Condition: Improved Disposition: HOME - Admission No - Follow up/Referral Referrals: Alejo Bertrand MD [Primary Care Provider] - Harsh Spencer MD [Staff Physician] - Call tomorrow - Patient Discharge Instructions Patient Printed Discharge Instructions: How to Care for Your Colostomy or Ileostomy Additional Instructions: You came to the ED because of redness around you colostomy bag. We examined it and there is no sign of infection or bleeding. However, it is important to apply a barrier cream prior to attaching the colostomy bag to prevent further skin breakdown. Please follow the colostomy care instructions provided. Please ensure follow up with Dr Spencer as scheduled in February 07 If you begin to experience worsening redness, purulent drainage, bleeding, fever , chills, chest pain or shortness of breath please return to the Emergency room immediately. - Post Discharge Activity
[2020-01-26 05:11] VITALS: BP 146/88; PULSE 95; TEMP 98.1; BMI 28.8
--- NOTE | 2020-01-26 05:45 | PDOC ---
Documentation entered by Evelina Calix SCRIBE, acting as scribe for Carleen Evangelista DO. Carleen Evangelista DO: This documentation has been prepared by the Yogi oliveira Nirvannie, SCRIBE, under my direction and personally reviewed by me in its entirety. I confirm that the documentation accurately reflects all work, treatment, procedures, and medical decision making performed by me. Attending Attestation - Resident Resident Name: Meredith Galan - ED Attending Attestation I have performed the following: I have examined & evaluated the patient, The case was reviewed & discussed with the resident, I agree w/resident's findings & plan, Exceptions are as noted - HPI HPI: 01/26/20 05:37 The patient is a 59 year old male, with a significant past medical history of hypertension, GERD, diverticulitis (complicated by s/p colon perforation, s/p temporary partial colostomy), who presents to the emergency department with a rash to the ostomy site. As per patient, his ostomy site has become increasingly irritated and painful when changing bags (changes approx every 3 days secondary to leakage). He notes he was initially given an unknown powder to act as a barrier, however, he notes he has issues with the bags remaining attached thus he did not continue using it. Patient notes he has a follow up appointment with his surgeon Dr. Spencer 02/07 but, notes he wanted a wound check to ensure there was no infection to the site, prompting his arrival to the ED. He denies any recent fevers, chills, headache or dizziness. He denies any recent nausea, vomit, diarrhea or constipation. He denies any recent chest pain or shortness of breath. He denies any recent dysuria, frequency, urgency or hematuria. Allergies: NKDA Primary Care Physician: Dr. Bertrand Surgeon: Dr. Spencer - Physicial Exam PE: 01/26/20 05:42 GENERAL: Awake, in no acute distress HEAD: No signs of trauma EYES: ENT:clear without exudates. Moist mucosa NECK: Normal ROM, LUNGS:. Normal work of breathing. HEART: Regular rate and rhythm, ABDOMEN: Left lower quadrant ostomy site, mild erythema with no increased temp or signs of infection, excoriation and local irritation present CHEST WALL: BACK: No midline tenderness. EXTREMITIES:. No erythema, or tenderness NEUROLOGICAL: Alert, SKIN: Warm, Dry - Medical Decision Making 01/26/20 05:44 59-year-old male with irritation around his left lower quad colostomy site Dressing replaced, adhesive/barrier cream applied to the area Patient discharged and recommended to follow-up with his surgeon for further recommendations in regards to wound care
== END 2020-01-26 06:20 | disposition home or self-care (01) ==
LOC: JER 04:50
DX: Z43.3 Encounter for attention to colostomy (principal); K57.80 Diverticulitis of intestine, part unspecified, with perforation and abscess without bleeding; I10 Essential (primary) hypertension; K21.9 Gastro-esophageal reflux disease without esophagitis
CPT/HCPCS: 99283-25

== ENCOUNTER 2020-05-26 04:36 | Inpatient (IN) | payer OTHER ==
[2020-05-25 10:44] VITALS: BMI 30.8
[2020-05-26] MEDS ORDERED: ERTAPENEM SODIUM 1 GM in SODIUM CHLORIDE 50 ML IVPB ONE (08:44)
[2020-05-26] MEDS ORDERED: ALVIMOPAN 12 MG CAP PO ONE ×2 (09:30→09:43)
[2020-05-26] MEDS ORDERED: ERTAPENEM SODIUM 1 GM VIAL ONE (09:43)
[2020-05-26] MEDS ORDERED: fentaNYL CITRATE 250 MCG/5 ML VIAL ONE (10:46)
[2020-05-26] MEDS ORDERED: MIDAZOLAM HCL 2 MG/2 ML SINGLE DOSE VIAL ONE (10:47)
[2020-05-26] MEDS ORDERED: ERTAPENEM SODIUM 1 GM VIAL IVPB ONE (10:55)
[2020-05-26] MEDS ORDERED: ROCURONIUM BROMIDE 50 MG/5 ML SYRINGE ONE ×2 (11:46→13:12)
[2020-05-26] MEDS ORDERED: HYDROmorphone HCl 2 MG/ML VIAL ONE ×4 (12:39→14:17)
[2020-05-26] MEDS ORDERED: ONDANSETRON 4 MG/2 ML VIAL IVPUSH PRN ×3 (13:58→17:18)
[2020-05-26] MEDS ORDERED: PROMETHAZINE HCL 25 MG/1 ML VIAL IVPB PRN (13:58)
[2020-05-26] MEDS ORDERED: PROMETHAZINE HCL 25 MG/1 ML VIAL IVPUSH PRN (13:58)
[2020-05-26] MEDS ORDERED: DEXAMETHASONE SOD PHOSPHATE 4 MG/1 ML VIAL IVPUSH PRN (13:58)
[2020-05-26] MEDS ORDERED: LACTATED RINGERS SOLUTION 1,000 ML IV SCH ×2 (14:00→17:30)
[2020-05-26] MEDS ORDERED: DEXAMETHASONE SOD PHOSPHATE 4 MG/1 ML VIAL ONE (15:11)
[2020-05-26] MEDS ORDERED: LIDOCAINE HCL/PF 2% SDV 5ML VIAL ONE (15:11)
[2020-05-26] MEDS ORDERED: NEOSTIGMINE METHYLSULFATE 0.5 MG/ML - 10 ML MDV ONE (15:11)
[2020-05-26] MEDS ORDERED: GLYCOPYRROLATE 0.2 MG/1 ML VIAL ONE (15:11)
[2020-05-26] MEDS ORDERED: LIDOCAINE HCL 2% JELLY (5 ML/TUBE) ONE (15:11)
[2020-05-26] MEDS ORDERED: HYDROmorphone *PCA* 10MG/50ML DISP.SYRIN ONE (17:03)
--- NOTE | 2020-05-26 17:06 | OP ---
Operative Note - Note: Operative Date: 05/26/20 Pre-Operative Diagnosis: s/p perforated diverticulitis and incisional hernia Operation: colo-colostomy(reversal of Hartmans procedure); repair of incisional hernia w/mesh. Findings: dictated Post-Operative Diagnosis: Same as Pre-op Surgeon: Harsh Spencer Sliver Lapper: Ling Mayo Anesthesiologist/CEO ZIFF DAVIS: Selam Kamara Anesthesia: General Specimens Removed: colostomy; skin and scar and anastomotic donuts Estimated Blood Loss (mls): 150 Drains & Tubes with Location: 10 mm KARI x2 in subcutaneous space. Fluid Volume Replaced (mls): 3,500
[2020-05-26] MEDS: HYDROmorphone *PCA* 10MG/50ML DISP.SYRIN PCA SCH (17:15)
[2020-05-26] MEDS: LACTATED RINGERS SOLUTION 1,000 ML IV SCH ×2 (17:15→22:47)
--- NOTE | 2020-05-26 17:43 | HP ---
CHIEF COMPLAINT: incisional hernia repair HISTORY OF PRESENT ILLNESS: 6o year old obese male with known history of diverticulitis complicated by abscess who subsequently underwent colostomy placement in 2019 who is admitted today for incisional hernia repair and reversal of Hartmans pouch and repair of incisional ventral hernia repair with mesh. He is now in PACU. He is somnolent but arousable. He is in modest amount of pain. He is able to achieve relief with use of CHIEF GUARD. Recent Travel: none PAST MEDICAL HISTORY: none PAST SURGICAL HISTORY: none Family history: unable to obtain (sedated/ post op) Social History: Smoking: denies Alcohol: he drinks a beer every "once in a while". Drugs: denies Allergies No Known Allergies Allergy (Verified 01/26/20 05:11) HOME MEDICATIONS: Home Medications Medication Instructions Recorded Ferrous Sulfate [Feosol] 325 mg PO BIDWM ud 09/01/19 Pantoprazole Sodium [Protonix -] 40 mg PO DAILY tablet.ec 09/01/19 Calcium Carbonate [Calcium] 600 mg PO DAILY 05/26/20 Multivitamins [Tab-A-Vit -] 1 tab PO DAILY 05/26/20 REVIEW OF SYSTEMS Unable to obtain PHYSICAL EXAMINATION Vital Signs - 24 hr 05/26/20 05/26/20 09:14 09:15 Temperature 98.5 F Pulse Rate 98 H Respiratory 16 Rate Blood Pressure 137/98 O2 Sat by Pulse 98 Oximetry (%) GENERAL: Obese male who appears appropriate for stated age. Awake, alert, and fully oriented, in no acute distress. HEAD: Normal with no signs of trauma. EYES: Pupils equal, round and reactive to light, extraocular movements intact, sclera anicteric, conjunctiva clear. No lid lag. EARS, NOSE, THROAT: Ears normal, nares patent, oropharynx clear without exudates. Moist mucous membranes. NECK: short and thick neck; Normal range of motion, supple without lymphadenopathy, JVD, or masses. LUNGS: Breath sounds equal, clear to auscultation bilaterally. No wheezes, and no crackles. No accessory muscle use. HEART: Regular rate and rhythm, normal S1 and S2 without murmur, rub or gallop. ABDOMEN: Soft, the abdomen is wrapped with an abdominal binder. Two KARI drains noted on either side of the abdomen. MUSCULOSKELETAL: No bony deformities or tenderness. UPPER EXTREMITIES: 2+ pulses, warm, well-perfused. No cyanosis. No clubbing. No peripheral edema. LOWER EXTREMITIES: 2+ pulses, warm, well-perfused. No calf tenderness. No peripheral edema. NEUROLOGICAL: Normal speech. Gait not checked. He answers simple questions and follows simple commands albeit limited by abdominal pain (post op). Moving upper and lower extremities. PSYCHIATRIC: Cooperative. Good eye contact. SKIN: Warm, dry, normal turgor, no rashes or lesions noted, normal capillary refill. Laboratory Results - last 24 hr 05/26/20 08:11 Blood Type O POSITIVE Antibody Screen Negative Crossmatch See Detail ASSESSMENT/PLAN: 1. sp Erickson pouch reversal and incisional hernia repair - incentive spirometer regularly - cont CHIEF GUARD use as needed. Patient knows how to manipulate device - NPO now. Advancement of diet per surgery - IVF - CBC and BMP in am - Ertapenem received post op and continue daily - OOB once more awake and as able - PRBC transfusion has been ordered (surg) 2. cont Pantoprazole (home med) IV 3. SCD and heparin SQ for DVT prophylaxis Visit type - Emergency Visit Emergency Visit: No - New Patient This patient is new to me today: Yes Date on this admission: 06/06/20 - Critical Care Critical Care patient: No
--- NOTE | 2020-05-26 17:46 | SURG ---
Surgery Metal Treater Note Metal Treater: Ling Mayo PA-C Date of Service: 05/26/20 Diagnosis: s/p perforated diverticulitis and incisional hernia Procedure: colo-colostomy(reversal of Hartmans procedure); repair of incisional hernia w/mesh. I was present for the entirety of the operative procedure. For further detail, please refer to operative report. Visit type - Case Type Case Type: Scheduled - Emergency Emergency Visit: No - New patient This patient is new to me today: Yes Date on this admission: 05/26/20
[2020-05-26] MEDS: ALVIMOPAN 12 MG CAP PO SCH (22:44)
[2020-05-26] MEDS: ACETAMINOPHEN 1000 MG/100 ML VIAL (NON FORMULARY) IVPB SCH (22:46)
[2020-05-27] MEDS: ACETAMINOPHEN 1000 MG/100 ML VIAL (NON FORMULARY) IVPB SCH ×3 (05:51→13:23)
[2020-05-27 08:26] LABS: HEMATOCRIT 40.3 % (35.4-49); HEMOGLOBIN 13.6 GM/dL (11.7-16.9); MCH 31.1 pg (25.7-33.7); MCHC 33.8 g/dl (32.0-35.9); MEAN PLT VOLUME 8.5 fl (7.5-11.1); PLATELET COUNT 228 K/MM3 (134-434); RBC 4.38 M/mm3 (4.00-5.60); RDW 13.9 % (11.9-15.9)
[2020-05-27 08:31] LABS: BLOOD UREA NITROGEN 15.2 mg/dL (7-18); CREATININE 1.2 mg/dL (0.55-1.3); POTASSIUM 4.5 mmol/L (3.5-5.1)
[2020-05-27] MEDS ORDERED: PT OWN MED DRAWER 7, Y5N ONE ×2 (09:28→21:28)
[2020-05-27] MEDS: PANTOPRAZOLE SODIUM 40 MG VIAL IVPUSH SCH (09:29)
[2020-05-27] MEDS: ALVIMOPAN 12 MG CAP PO SCH ×2 (09:29→21:33)
[2020-05-27] MEDS: HEPARIN NA (PORCINE) 5,000 UNITS/ML 1ML VIAL SQ SCH ×2 (09:30→21:32)
[2020-05-27] MEDS: LACTATED RINGERS SOLUTION 1,000 ML IV SCH ×4 (11:00→23:00)
--- NOTE | 2020-05-27 11:03 | PN ---
Progress Note (short form) - Note Progress Note: Attending Surgeon POD#1 s/p Hartmans reversal and incisional hernia repair w/mesh awake and alert; c/o minimal pain relieved w/POCKET ASSEMBLER; no flatus/no BM VSS AF abdo-binder in place; KARI drains bloody; dressing c/d/i; no flank/abdominal wall ecchymosis; skin viable o/w negative. extrems-warm; no calf tenderness f/h; lytes OK WBC 13K KARI's 60 total UO good IMP: stable post op day #1 PLAN: Continue present tx. NPO/IVF/POCKET ASSEMBLER/EC and DB; will change dressing tomorrow and mobilize OOB. Harsh Spencer MD FACS
[2020-05-27] MEDS ORDERED: ERTAPENEM SODIUM 1 GM in SODIUM CHLORIDE 50 ML IVPB ONE (12:00)
--- NOTE | 2020-05-27 12:13 | PN ---
Physical Exam: SUBJECTIVE: Patient seen and examined at bedside this morning, Patient has history of diverticulitis s/p Erickson's, and yesterday underwent incisional hernia repair and reversal of Erickson's pouch. No acute events overnight. Patient reports soreness in the belly. Has not passed any flatus or bowel movements. No nausea or vomiting. Denies fevers, chills, headache, dizziness, chest rivas, shortness of breath. KARI drains -60cc of bloody fluid OBJECTIVE: Vital Signs Temperature 98.4 F 05/27/20 08:20 Pulse Rate 87 05/27/20 08:20 Respiratory Rate 18 05/27/20 08:20 Blood Pressure 130/85 05/27/20 08:20 O2 Sat by Pulse Oximetry (%) 96 05/27/20 08:20 GENERAL: The patient is awake, alert, and fully oriented, in no acute distress. HEAD: Normal with no signs of trauma. EYES: PERRLA, EOMI, sclera anicteric, conjunctiva clear. ENT: moist mucous membranes. NECK: Trachea midline, full range of motion, supple. LUNGS: Decreased breath sounds on bilateral bases HEART: Regular rate and rhythm, S1, S2 ABDOMEN: Binder in place, 2 KARI drains with sangineous fluid EXTREMITIES: 2+ pulses, warm, well-perfused, no edema. NEUROLOGICAL: Cranial nerves II through XII grossly intact. Normal speech. PSYCH: Normal mood, normal affect. SKIN: Warm, dry, normal turgor. Laboratory Results - last 24 hr 05/27/20 05/27/20 07:40 07:40 WBC 13.0 H RBC 4.38 Hgb 13.6 Hct 40.3 MCV 92.0 MCH 31.1 MCHC 33.8 RDW 13.9 Plt Count 228 MPV 8.5 Sodium 137 Potassium 4.5 Chloride 102 Carbon Dioxide 30 Anion Gap 5 L BUN 15.2 Creatinine 1.2 Est GFR (CKD-EPI)AfAm 75.72 Est GFR (CKD-EPI)NonAf 65.33 Random Glucose 133 H Calcium 8.0 L Active Medications Generic Name Dose Route Start Last Admin Trade Name Freq PRN Reason Stop Dose Admin Acetaminophen 650 mg 05/27/20 23:00 Tylenol - PO Q4H PRN FEVER Alvimopan 12 mg 05/26/20 22:00 05/27/20 09:29 Entereg Capsule (Restricted) - PO 06/02/20 10:01 12 mg BID ANNA Administration Dexamethasone Sodium Phosphate 4 mg 05/26/20 13:58 Decadron Injection - IVPUSH ONCE PRN NAUSEA AND/OR VOMITING Diphenhydramine HCl 12.5 mg 05/26/20 13:58 Benadryl Injection - IVPUSH ONCE PRN FOR ITCHING Heparin Sodium (Porcine) 5,000 unit 05/27/20 10:00 05/27/20 09:30 Heparin - SQ 5,000 unit BID ANNA Administration Hydromorphone HCl 10 mg 05/26/20 14:00 05/26/20 17:15 Hydromorphone 10 Mg/50 Ml-Ns UNIVERSITY SERVICES PROGRAM ASSOCIATE 06/02/20 13:59 10 mg UNIVERSITY SERVICES PROGRAM ASSOCIATE ANNA Administration Protocol Ertapenem 1 gm/ Sodium 50 mls @ 100 mls/hr 05/27/20 12:00 Chloride IVPB 05/27/20 12:29 ONCE ONE Lactated Ringer's 1,000 mls @ 125 mls/hr 05/26/20 17:30 05/26/20 22:47 Lactated Ringers Solution IV 125 mls/hr ASDIR ANNA Administration Ondansetron HCl 4 mg 05/26/20 17:18 Zofran Injection IVPUSH Q6H PRN NAUSEA AND/OR VOMITING Pantoprazole Sodium 40 mg 05/27/20 10:00 05/27/20 09:29 Protonix Iv IVPUSH 40 mg DAILY ANNA Administration Promethazine HCl 12.5 mg 05/26/20 13:58 Phenergan Injection - IVPB Q6H PRN NAUSEA AND/OR VOMITING ASSESSMENT/PLAN: Patient is a 60 year old male with past medical history of complicated diverticulitis s/p Erickson's was admitted to the hospital for incisional hernia repair and reversal of Erickson's pouch. #s/p Incisional hernia repair and Reversal of Erickson's pouch -POD 1 - stable -KARI drains - 60cc total -abdominal binder in place -Prophylactic Ertapenem 2/2 given -Entereg Capsule 12mg bid -Phenergan/Zofran prn for nausea -Continue NPO/ IVF -UNIVERSITY SERVICES PROGRAM ASSOCIATE for pain control -Surgery (Dr. Spencer) consulted. #FEN -Iv LR @125cc/hr -Electrolytes wnl, routine bmp monitoring -NPO #Prophylaxis -Heparin 5000u sq bid #Disposition -full code -continue to monitor on [facility] surg Visit type - Emergency Visit Emergency Visit: Yes ED Registration Date: 05/26/20 Care time: The patient presented to the Emergency Department on the above date and was hospitalized for further evaluation of their emergent condition. - New Patient This patient is new to me today: Yes Date on this admission: 05/27/20 - Critical Care Critical Care patient: No ATTENDING PHYSICIAN STATEMENT I saw and evaluated the patient. I reviewed the resident's note and discussed the case with the resident. I agree with the resident's findings and plan as documented. SUBJECTIVE: OBJECTIVE: ASSESSMENT AND PLAN:
--- NOTE | 2020-05-27 12:37 | PN ---
Teaching Attending Note Name of Resident: Kayli St ATTENDING PHYSICIAN STATEMENT I saw and evaluated the patient. I reviewed the resident's note and discussed the case with the resident. I agree with the resident's findings and plan as documented. SUBJECTIVE: Seen and examined at bedside. Patient hemodynamically stable. States she may have passed some gas but is unsure. Has not had a bowel movement. Reports pain is present but is controlled. OBJECTIVE: Last Vital Signs Temp Pulse Resp BP Pulse Ox 98.4 F 87 18 130/85 96 05/27/20 08:20 05/27/20 08:20 05/27/20 08:20 05/27/20 08:20 05/27/20 08:20 PE: Per resident note Labs/Imaging: reviewed ASSESSMENT AND PLAN: 6-year-old male with past medical history of diverticulitis with abscess status post Erickson's pouch admitted for incisional hernia repair and reversal of Erickson's pouch #Incisional hernia repair and reversal of Erickson's pouch Stable postop day [address] Surgery on board, appreciate recommendations Ertapenem dose 2/2 given HOSPITALITY DIRECTOR for pain control N.p.o. for today Fluids
--- NOTE | 2020-05-27 14:43 | PN ---
Progress Note (short form) - Note Progress Note: 60M POD#1 for reversal of colostomy under GETA doing well. Pain adequately controlled with IV HOG KILLER. No evidence of increased sedation. VSS. No anesthesia related complications. Continue IV HOG KILLER at current rate.
[2020-05-27] MEDS ORDERED: PATIENT'S OWN MEDICATION (NON-FORMULARY) (Amlodipine Besylate/Benazepril [Lotrel 10-20 Mg PO SCH (19:15)
[2020-05-27] MEDS ORDERED: PCA PUMP NR ONE (19:51)
[2020-05-27] MEDS: HYDROmorphone *PCA* 10MG/50ML DISP.SYRIN PCA SCH (19:58)
[2020-05-27] MEDS ORDERED: ACETAMINOPHEN 325 MG TABLET (FP) PO PRN (23:00)
[2020-05-27] MEDS ORDERED: MELATONIN 5 MG TABLETS PO ONE (23:04)
[2020-05-28] MEDS ORDERED: MAG HYDROX/AL HYDROX/SIMETH 30 ML UNIT-DOSE CUP PO ONE (04:04)
[2020-05-28] MEDS: LACTATED RINGERS SOLUTION 1,000 ML IV SCH ×2 (06:20→20:00)
[2020-05-28 07:45] LABS: BASO % 0.2 % (0-2.0); EOS % 0.2 % (0-4.5); HEMATOCRIT 40.7 % (35.4-49); HEMOGLOBIN 13.6 GM/dL (11.7-16.9); LYMPH % 7.8 % (8-40); MCH 30.3 pg (25.7-33.7); MCHC 33.4 g/dl (32.0-35.9); MEAN CELL VOLUME 90.6 fl (80-96); MEAN PLT VOLUME 8.4 fl (7.5-11.1); MONO % 11.2 % (3.8-10.2); NEUT % 80.6 % (42.8-82.8); PLATELET COUNT 228 K/MM3 (134-434); RBC 4.49 M/mm3 (4.00-5.60); RDW 13.6 % (11.9-15.9); WHITE BLOOD COUNT 14.2 K/mm3 (4.0-10.0)
[2020-05-28 08:10] LABS: ALBUMIN 3.1 g/dl (3.4-5.0); BLOOD UREA NITROGEN 11.9 mg/dL (7-18); CALCIUM 8.3 mg/dL (8.5-10.1); CREATININE 0.8 mg/dL (0.55-1.3); MAGNESIUM 2.1 mg/dL (1.8-2.4); PHOSPHOROUS 2.1 mg/dL (2.5-4.9); POTASSIUM 3.9 mmol/L (3.5-5.1); TOT PROT 6.3 g/dl (6.4-8.2)
--- NOTE | 2020-05-28 09:06 | PN ---
Progress Note (short form) - Note Progress Note: Attending Surgeon POD#2 c/o insomnia; no flatus; no BM VSS AF abdo-incision c/d/i; anna in place; abdomen flat and not tympanitic; ostomy site open and clean; KARI's slightly bloody extrems-warm and w/o calf tenderness h/h stable; WBC 14 lytes OK urine output gtood ; KARI's 60 cc combined IMP: stable post op PLAN:OOB/d/c paris catheter/pulmonary toilet/continue drains/await return of bowel function. Harsh Spencer MD FACS
[2020-05-28] MEDS: LISINOPRIL 20 MG TABLET (FP) PO SCH (09:11)
[2020-05-28] MEDS: PANTOPRAZOLE SODIUM 40 MG VIAL IVPUSH SCH (09:11)
[2020-05-28] MEDS: amLODIPine BESYLATE 10 MG TABLET (FP) PO SCH (09:11)
[2020-05-28] MEDS ORDERED: PT OWN MED DRAWER 7, Y5N ONE ×3 (09:13→21:07)
[2020-05-28] MEDS: HEPARIN NA (PORCINE) 5,000 UNITS/ML 1ML VIAL SQ SCH ×2 (09:14→21:13)
[2020-05-28] MEDS: ALVIMOPAN 12 MG CAP PO SCH ×2 (09:14→21:13)
[2020-05-28] MEDS ORDERED: SODIUM PHOSPHATE - 30 MM in SODIUM CHLORIDE 500 ML IVPB ONE (11:37)
--- NOTE | 2020-05-28 13:09 | PN ---
Teaching Attending Note Name of Resident: Liban Bolanos ATTENDING PHYSICIAN STATEMENT I saw and evaluated the patient. I reviewed the resident's note and discussed the case with the resident. I agree with the resident's findings and plan as documented. SUBJECTIVE: Seen and examined at bedside. Patient hemodynamically stable. Has not yet p assed gas. OBJECTIVE: Last Vital Signs Temp Pulse Resp BP Pulse Ox 98.4 F 134 H 20 132/104 H 94 L 05/28/20 08:00 05/28/20 11:37 05/28/20 11:37 05/28/20 11:37 05/28/20 09:00 PE: Per resident note Labs/Imaging: reviewed ASSESSMENT AND PLAN: 6-year-old male with past medical history of diverticulitis with abscess status post Erickson's pouch admitted for incisional hernia repair and reversal of Erickson's pouch #Incisional hernia repair and reversal of Erickson's pouch Stable postop day [address] Surgery on board, appreciate recommendations s/p 2 doses ertapenem INSULATION BOARD BACK TENDER for pain control N.p.o. for today Fluids
--- NOTE | 2020-05-28 13:26 | PN ---
Physical Exam: SUBJECTIVE: Patient seen and examined at bedside. Endorses some abdominal pain, however denies passing flatus or bowel movement. Denies subjective fevers, chills. OBJECTIVE: Vital Signs Period Temp Pulse Resp BP Sys/Cramer Pulse Ox Last 24 Hr 98.2 F-98.9 F 95-134 18-20 132-164/96-109 94-97 GENERAL: The patient is awake, alert, and fully oriented, in no acute distress. HEAD: Normocephalic, atraumatic. EYES: PERRL, extraocular movements intact, sclera anicteric, conjunctiva clear. ENT: Oropharynx clear, without erythema or exudates. Moist mucous membranes. NECK: Trachea midline, full range of motion. Supple without lymphadenopathy. LUNGS: Breath sounds equal, clear to auscultation bilaterally. No wheezes, no crackles. No accessory muscle use. HEART: Tachycardic S1, S2 without murmur, rub or gallop. ABDOMEN: Soft. In binder. Visualized dressings clean, dry, intact. Tender to deep palpation x4 quadrants. EXTREMITIES: 2+ radial, dorsalis pedis pulses bilaterally. Warm, well-perfused. No lower extremity edema bilaterally. NEUROLOGICAL: Cranial nerves II through XII grossly intact. Normal speech. No gross focal deficits. PSYCH: Normal mood, normal affect upon my encounter. SKIN: Warm, dry. Laboratory Results - last 24 hr 05/28/20 05/28/20 07:05 07:05 WBC 14.2 H RBC 4.49 Hgb 13.6 Hct 40.7 MCV 90.6 MCH 30.3 MCHC 33.4 RDW 13.6 Plt Count 228 MPV 8.4 Absolute Neuts (auto) 11.5 H Neutrophils % 80.6 D Lymphocytes % 7.8 L D Monocytes % 11.2 H Eosinophils % 0.2 D Basophils % 0.2 Nucleated RBC % 0 Sodium 135 L Potassium 3.9 Chloride 99 Carbon Dioxide 27 Anion Gap 9 BUN 11.9 Creatinine 0.8 Est GFR (CKD-EPI)AfAm 112.53 Est GFR (CKD-EPI)NonAf 97.10 Random Glucose 108 H Calcium 8.3 L Phosphorus 2.1 L Magnesium 2.1 Total Bilirubin 1.0 AST 19 ALT 14 Alkaline Phosphatase 37 L Total Protein 6.3 L Albumin 3.1 L Active Medications Generic Name Dose Route Start Last Admin Trade Name Freq PRN Reason Stop Dose Admin Acetaminophen 650 mg 05/27/20 23:00 Tylenol - PO Q4H PRN FEVER Alvimopan 12 mg 05/26/20 22:00 05/28/20 09:14 Entereg Capsule (Restricted) - PO 06/02/20 10:01 12 mg BID ANNA Administration Amlodipine Besylate 10 mg 05/28/20 10:00 05/28/20 09:11 Norvasc - PO 10 mg DAILY ANNA Administration Dexamethasone Sodium Phosphate 4 mg 05/26/20 13:58 Decadron Injection - IVPUSH ONCE PRN NAUSEA AND/OR VOMITING Diphenhydramine HCl 12.5 mg 05/26/20 13:58 Benadryl Injection - IVPUSH ONCE PRN FOR ITCHING Heparin Sodium (Porcine) 5,000 unit 05/27/20 10:00 05/28/20 09:14 Heparin - SQ 5,000 unit BID ANNA Administration Hydromorphone HCl 10 mg 05/26/20 14:00 05/27/20 19:58 Hydromorphone 10 Mg/50 Ml-Ns FLOOR INSTALLER 06/02/20 13:59 10 mg FLOOR INSTALLER ANNA Administration Protocol Lactated Ringer's 1,000 mls @ 125 mls/hr 05/26/20 17:30 05/28/20 06:20 Lactated Ringers Solution IV 125 mls/hr ASDIR ANNA Administration Sodium Phosphate 30 mm/ Sodium 510 mls @ 62.5 mls/hr 05/28/20 11:37 Chloride IVPB 05/28/20 19:46 ONCE ONE Lisinopril 20 mg 05/28/20 10:00 05/28/20 09:11 Prinivil PO 20 mg DAILY ANNA Administration Ondansetron HCl 4 mg 05/26/20 17:18 05/27/20 16:17 Zofran Injection IVPUSH 4 mg Q6H PRN Administration NAUSEA AND/OR VOMITING Pantoprazole Sodium 40 mg 05/27/20 10:00 05/28/20 09:11 Protonix Iv IVPUSH 40 mg DAILY ANNA Administration Promethazine HCl 12.5 mg 05/26/20 13:58 Phenergan Injection - IVPB Q6H PRN NAUSEA AND/OR VOMITING ASSESSMENT/PLAN: Patient is a 60 year old male with history of diverticulitis s/p Erickson procedure admitted for incisional hernia repair and reversal of Erickson's pouch. S/P incisional hernia repair and reversal of Erickson's pouch -POD 2 -hemodynamically stable -KARI drains - 70cc total today -Abdominal binder in place -Patient received Ertapenem postoperatively -Entereg 12mg PO BID -Continue NPO/ IVF -FLOOR INSTALLER for pain control -General Surgery (Dr. Spencer) recommendations appreciated. FEN -IV LR at 125mL/hr -Electrolytes wnl, routine bmp monitoring -NPO #Prophylaxis -Heparin 5000u sq bid #Disposition -Continue care on Medical -Surgical floor. Visit type - Emergency Visit Emergency Visit: Yes ED Registration Date: 05/26/20 Care time: The patient presented to the Emergency Department on the above date and was hospitalized for further evaluation of their emergent condition. - New Patient This patient is new to me today: Yes Date on this admission: 05/28/20 - Critical Care Critical Care patient: No - Discharge Referral Referred to [facility] Med P.C.: No ATTENDING PHYSICIAN STATEMENT I saw and evaluated the patient. I reviewed the resident's note and discussed the case with the resident. I agree with the resident's findings and plan as documented. SUBJECTIVE: OBJECTIVE: ASSESSMENT AND PLAN:
[2020-05-28] MEDS ORDERED: MELATONIN 5 MG TABLETS PO SCH ×2 (23:12→23:30)
[2020-05-29] MEDS ORDERED: METOPROLOL TARTRATE 5 MG/5 ML VIAL IVPB ONE (02:15)
[2020-05-29] MEDS ORDERED: PCA PUMP NR ONE ×3 (04:58→19:01)
[2020-05-29] MEDS: HYDROmorphone *PCA* 10MG/50ML DISP.SYRIN PCA SCH (05:04)
--- NOTE | 2020-05-29 08:30 | PN ---
Teaching Attending Note Name of Resident: Kayli St ATTENDING PHYSICIAN STATEMENT I saw and evaluated the patient. I reviewed the resident's note and discussed the case with the resident. I agree with the resident's findings and plan as documented. SUBJECTIVE: Seen and examined at bedside. Patient reports pain is well controlled. Has still not passed any flatus. Patient has been tachycardic in the 110s to 120s. Of note, patient had a PE last year that was considered provoked. Denies shortness of breath at this time. Will get lower extremity Doppler and possibly CTA OBJECTIVE: Last Vital Signs Temp Pulse Resp BP Pulse Ox 98.4 F 103 H 18 153/101 H 96 05/29/20 05:52 05/29/20 05:52 05/29/20 05:52 05/29/20 05:52 05/29/20 05:04 PE: Per resident note Labs/Imaging: reviewed ASSESSMENT AND PLAN: 6-year-old male with past medical history of diverticulitis with abscess status post Erickson's pouch admitted for incisional hernia repair and reversal of Erickson's pouch #Incisional hernia repair and reversal of Erickson's pouch Stable postop day [address] Surgery on board, appreciate recommendations s/p 2 doses ertapenem BOOKBINDER APPRENTICE for pain control N.p.o. for today Fluids #Tachycardia Afebrile and otherwise hemodynamically stable without signs of hypoxia or dyspnea. Pain is well controlled. Given history of past PE concerning for new PE Dopplers Possible CTA.
[2020-05-29 08:37] LABS: HEMATOCRIT 41.4 % (35.4-49); HEMOGLOBIN 13.8 GM/dL (11.7-16.9); MCH 30.8 pg (25.7-33.7); MCHC 33.3 g/dl (32.0-35.9); MEAN CELL VOLUME 92.3 fl (80-96); MEAN PLT VOLUME 8.2 fl (7.5-11.1); PLATELET COUNT 252 K/MM3 (134-434); RBC 4.49 M/mm3 (4.00-5.60); RDW 13.8 % (11.9-15.9); WHITE BLOOD COUNT 12.5 K/mm3 (4.0-10.0)
[2020-05-29] MEDS: LACTATED RINGERS SOLUTION 1,000 ML IV SCH ×2 (08:42→18:58)
[2020-05-29 09:04] LABS: BILIRUBIN,TOTAL 0.5 mg/dL (0.2-1); BLOOD UREA NITROGEN 15.7 mg/dL (7-18); CALCIUM 8.5 mg/dL (8.5-10.1); CREATININE 0.7 mg/dL (0.55-1.3); MAGNESIUM 2.3 mg/dL (1.8-2.4); PHOSPHOROUS 2.5 mg/dL (2.5-4.9); POTASSIUM 4.1 mmol/L (3.5-5.1); TOT PROT 6.3 g/dl (6.4-8.2)
[2020-05-29] MEDS ORDERED: PT OWN MED DRAWER 7, Y5N ONE ×2 (09:12→23:19)
[2020-05-29] MEDS: PANTOPRAZOLE SODIUM 40 MG VIAL IVPUSH SCH (09:19)
[2020-05-29] MEDS: LISINOPRIL 20 MG TABLET (FP) PO SCH (09:19)
[2020-05-29] MEDS: ALVIMOPAN 12 MG CAP PO SCH ×2 (09:20→23:22)
[2020-05-29] MEDS: amLODIPine BESYLATE 10 MG TABLET (FP) PO SCH (09:20)
[2020-05-29] MEDS: HEPARIN NA (PORCINE) 5,000 UNITS/ML 1ML VIAL SQ SCH ×2 (09:20→23:22)
--- NOTE | 2020-05-29 10:03 | PN ---
Progress Note (short form) - Note Progress Note: Surgery: Pt reports no complaints of pain. No nausea or emesis. Awaiting bowel function. Urinating without difficulty, volume of 200 ml 2 to 3 times. Vital Signs Period Temp Pulse Resp BP Sys/Cramer Pulse Ox Last 24 Hr 98.4 F-99.4 F 103-134 18-22 126-159/92-113 94-97 KARI: RIght 160ml Left: 125ml GEN: A&0x3, NAD. OOB to chair ABD: dressing changed. Ostomy site with skin edges open and fascia intact. Midline incision c/d/i with anna. KARI serosangrenous. CBC, BMP // 07:52 05/29/20 07:52 A/P: 60 yo male s/p colostomy reversal with repair of abd hernia, POD#3 Pt without complaints of pain, although he remains tachycardic with elevated BP. Npo except meds and have restarted his norvasc. Given IV lopressor last pm also now on lisinopril, repeat BP improved. Continue npo/IV fluids at 75 ml/hr. BUN/cret remain WNL and potassium at appropriate level Pt with a history of DVT, duplex negative for DVT to lower extremities. Spoke with the medical team and will continue to monitor if he remains tachycardic consider CTA to r/o PE. Currently not dyspnic and sating well D/w Dr. Spencer
--- NOTE | 2020-05-29 12:32 | PN ---
Physical Exam: SUBJECTIVE: Patient seen and examined at bedside this morning. Patient reported feeling "uncomfortable" last night, and attributed this to "high blood pressure". He was noted to be tachycardic and hypertensive. Lopressor 10mg IV given. This morning, patient is comfortable sitting in the chair. Reports soreness in the abdomen, but otherwise relieved by pain meds. Patient has not passed flatus yet, no bowel movements. Denies fevers, chills, headache, dizziness, chest pain, SOB, diarrhea, urinary symptoms. OBJECTIVE: Vital Signs Temperature 98.4 F 05/29/20 05:52 Pulse Rate 115 H 05/29/20 09:04 Respiratory Rate 18 05/29/20 09:04 Blood Pressure 141/106 H 05/29/20 09:04 O2 Sat by Pulse Oximetry (%) 97 05/29/20 09:04 GENERAL: The patient is awake, alert, and fully oriented, in no acute distress. HEAD: Normal with no signs of trauma. EYES: PERRLA, EOMI, sclera anicteric, conjunctiva clear. ENT: moist mucous membranes. NECK: Trachea midline, full range of motion, supple. LUNGS: Decreased breath sounds on bilateral bases HEART: Regular rate and rhythm, S1, S2 ABDOMEN: Binder in place, 2 KARI drains with sangineous fluid, Hypoactive bowel sounds EXTREMITIES: 2+ pulses, warm, well-perfused, no edema. NEUROLOGICAL: Cranial nerves II through XII grossly intact. Normal speech. PSYCH: Normal mood, normal affect. SKIN: Warm, dry, normal turgor. Laboratory Results - last 24 hr 05/29/20 05/29/20 07:52 07:52 WBC 12.5 H RBC 4.49 Hgb 13.8 Hct 41.4 MCV 92.3 MCH 30.8 MCHC 33.3 RDW 13.8 Plt Count 252 MPV 8.2 Sodium 139 Potassium 4.1 Chloride 103 Carbon Dioxide 26 Anion Gap 10 BUN 15.7 Creatinine 0.7 Est GFR (CKD-EPI)AfAm 118.88 Est GFR (CKD-EPI)NonAf 102.57 Random Glucose 112 H Calcium 8.5 Phosphorus 2.5 Magnesium 2.3 Total Bilirubin 0.5 AST 17 ALT 14 Alkaline Phosphatase 39 L Total Protein 6.3 L Albumin 3.0 L Active Medications Generic Name Dose Route Start Last Admin Trade Name Freq PRN Reason Stop Dose Admin Acetaminophen 650 mg 05/27/20 23:00 Tylenol - PO Q4H PRN FEVER Alvimopan 12 mg 05/26/20 22:00 05/29/20 09:20 Entereg Capsule (Restricted) - PO 06/02/20 10:01 12 mg BID ANNA Administration Amlodipine Besylate 10 mg 05/28/20 10:00 05/29/20 09:20 Norvasc - PO 10 mg DAILY ANNA Administration Dexamethasone Sodium Phosphate 4 mg 05/26/20 13:58 Decadron Injection - IVPUSH ONCE PRN NAUSEA AND/OR VOMITING Diphenhydramine HCl 12.5 mg 05/26/20 13:58 Benadryl Injection - IVPUSH ONCE PRN FOR ITCHING Heparin Sodium (Porcine) 5,000 unit 05/27/20 10:00 05/29/20 09:20 Heparin - SQ 5,000 unit BID ANNA Administration Hydromorphone HCl 10 mg 05/26/20 14:00 05/29/20 05:04 Hydromorphone 10 Mg/50 Ml-Ns FLOORPERSON 06/02/20 13:59 10 mg FLOORPERSON ANNA Administration Protocol Lactated Ringer's 1,000 mls @ 75 mls/hr 05/29/20 07:24 05/29/20 08:42 Lactated Ringers Solution IV 75 mls/hr ASDIR ANNA Administration Lisinopril 20 mg 05/28/20 10:00 05/29/20 09:19 Prinivil PO 20 mg DAILY ANNA Administration Ondansetron HCl 4 mg 05/26/20 17:18 05/27/20 16:17 Zofran Injection IVPUSH 4 mg Q6H PRN Administration NAUSEA AND/OR VOMITING Pantoprazole Sodium 40 mg 05/27/20 10:00 05/29/20 09:19 Protonix Iv IVPUSH 40 mg DAILY ANNA Administration Promethazine HCl 12.5 mg 05/26/20 13:58 Phenergan Injection - IVPB Q6H PRN NAUSEA AND/OR VOMITING ASSESSMENT/PLAN: Patient is a 60 year old male with past medical history of complicated diverticulitis s/p Erickson's was admitted to the hospital for incisional hernia repair and reversal of Erickson's pouch. #s/p Incisional hernia repair and Reversal of Erickson's pouch -POD 3 - stable -KARI drains - Right: 160ml, Left: 125ml -abdominal binder in place -Prophylactic Ertapenem 2/2 given -Entereg Capsule 12mg bid -Phenergan/Zofran prn for nausea -Continue NPO/IVF -FLOORPERSON for pain control -Surgery (Dr. Spencer) consulted. #Tachycardia -unclear source at this time -pt has hx of PE in 2019, was sent home on Eliquis and to follow up with pulm -will order Duplex of b/l LE, may need cTA #HTN -Continue Amlodipine 10mg and Lisinopril 20mg -May give IVLabetalol PRN #FEN -Iv LR @75cc/hr -Electrolytes wnl, routine bmp monitoring -NPO #Prophylaxis -Heparin 5000u sq bid #Disposition -full code -continue to monitor on [facility] surg Visit type - Emergency Visit Emergency Visit: Yes ED Registration Date: 05/26/20 Care time: The patient presented to the Emergency Department on the above date and was hospitalized for further evaluation of their emergent condition. - New Patient This patient is new to me today: No - Critical Care Critical Care patient: No ATTENDING PHYSICIAN STATEMENT I saw and evaluated the patient. I reviewed the resident's note and discussed the case with the resident. I agree with the resident's findings and plan as documented. SUBJECTIVE: OBJECTIVE: ASSESSMENT AND PLAN:
[2020-05-29] MEDS: LABETALOL HCL 100 MG TABLET (FP) PO SCH ×2 (19:15→23:22)
[2020-05-29] MEDS ORDERED: MELATONIN 5 MG TABLETS PO SCH (22:00)
[2020-05-30 08:24] LABS: BASO % 0.3 % (0-2.0); EOS % 1.9 % (0-4.5); HEMATOCRIT 36.8 % (35.4-49); HEMOGLOBIN 12.3 GM/dL (11.7-16.9); LYMPH % 13.2 % (8-40); MCH 30.6 pg (25.7-33.7); MCHC 33.4 g/dl (32.0-35.9); MEAN CELL VOLUME 91.5 fl (80-96); MEAN PLT VOLUME 8.8 fl (7.5-11.1); MONO % 9.8 % (3.8-10.2); NEUT % 74.8 % (42.8-82.8); PLATELET COUNT 228 K/MM3 (134-434); RBC 4.02 M/mm3 (4.00-5.60); RDW 13.7 % (11.9-15.9); WHITE BLOOD COUNT 9.1 K/mm3 (4.0-10.0)
[2020-05-30 08:31] LABS: BLOOD UREA NITROGEN 13.7 mg/dL (7-18); CREATININE 0.6 mg/dL (0.55-1.3); MAGNESIUM 2.2 mg/dL (1.8-2.4); PHOSPHOROUS 2.5 mg/dL (2.5-4.9); POTASSIUM 3.8 mmol/L (3.5-5.1)
[2020-05-30] MEDS ORDERED: PT OWN MED DRAWER 7, Y5N ONE (09:41)
[2020-05-30] MEDS: HEPARIN NA (PORCINE) 5,000 UNITS/ML 1ML VIAL SQ SCH ×2 (09:47→21:33)
[2020-05-30] MEDS: LACTATED RINGERS SOLUTION 1,000 ML IV SCH (09:47)
[2020-05-30] MEDS: amLODIPine BESYLATE 10 MG TABLET (FP) PO SCH (09:47)
[2020-05-30] MEDS: LISINOPRIL 20 MG TABLET (FP) PO SCH (09:47)
[2020-05-30] MEDS: LABETALOL HCL 100 MG TABLET (FP) PO SCH (09:47)
[2020-05-30] MEDS: PANTOPRAZOLE SODIUM 40 MG VIAL IVPUSH SCH (09:47)
[2020-05-30] MEDS: ALVIMOPAN 12 MG CAP PO SCH (09:47)
--- NOTE | 2020-05-30 11:01 | PN ---
Progress Note (short form) - Note Progress Note: POD 4, s/p colo-colostomy(reversal of Hartmans procedure); repair of incisional hernia w/mesh. Pt seen and examined. Doing well post op. Began passing flatus during evaluation. Voiding without issue. Denies n/v/d, cp/sob. Vital Signs Temp 98.3 F 05/30/20 08:30 Pulse 91 H 05/30/20 08:30 Resp 16 05/30/20 09:00 BP 138/84 05/30/20 08:30 Pulse Ox 97 05/30/20 09:00 Intake & Output 05/29/20 05/29/20 05/30/20 11:59 23:59 11:59 Intake Total 1550 1150 525 Output Total 95 100 645 Balance 1455 1050 -120 Intake: IV 1500 1150 525 Lactated Ringers Solution 1500 1,000 ml @ 125 mls/hr IV ASDIR ANNA Rx#: [id number] Lactated Ringers Solution 1150 525 1,000 ml @ 75 mls/hr IV ASDIR ANNA Rx#:[id number] IVPB 50 Oral 0 0 Output: Drainage 95 100 45 Left Abdomen 45 70 40 Right Abdomen 50 30 5 Urine 600 Olea 300 Void 300 Other: Voiding Method Urinal Urinal Urinal # Unmeasured Voids Void 400 1 2 Bowel Movement No No CBC, BMP 05/30/20 07:03 05/30/20 07:03 Gen: awake, alert, nad Resp: unlabored on RA Abdo: soft, +ttp near incision (appropriate to status), dressing with mild serosanguinous drainage, removed. Fansha[place] in place with no erythema or drainage noted, Prior colostomy site clean with granulation tissue present, repacked with damp to dry. Wound covered with 4x4s and abds. B/L drains stripped, scant serosanguinous drainage in reservoirs, A/P: 60 y/o M w/ PMHx diverticulitis complicated by perforation/abscess s/p colostomy in 2019 now admitted for reversal, POD 4, s/p colo-colostomy(reversal of Hartmans procedure); repair of incisional hernia w/mesh. Doing well post op ++FLatus during exam KARI output 40ml L KARI, 5ML R KARI -Clears ordered -Continue IV fluids at 75 ml/hr until tolerating PO -CTA order noted (pt remains tachy and htn w/ h/o pe) -OOB as tolerated -Nya diallo d/w attending Dr Spencer
--- NOTE | 2020-05-30 12:40 | PN ---
Teaching Attending Note Name of Resident: Kayli St ATTENDING PHYSICIAN STATEMENT I saw and evaluated the patient. I reviewed the resident's note and discussed the case with the resident. I agree with the resident's findings and plan as documented. SUBJECTIVE: Feeling much better. Passing flatus. Hungry. No chest pain/cough/sputum/hemoptysis. OBJECTIVE: Afebrile, Hemodynamically Stable. Tachycardia resolving. Last Vital Signs Temp Pulse Resp BP Pulse Ox 98.3 F 91 H 16 138/84 97% on 4L 05/30/20 08:30 05/30/20 08:30 05/30/20 09:00 05/30/20 08:30 05/30/20 09:00 HEENT - Atraumatic, Normocephalic. Heart - S1, S2, RRR Lungs - decreased air entry at bases. Abdomen - Surgical incision site clean, old Colostomy packed, Soft, minimal tenderness. Bowel Sounds reduced. KARI Drain in situ. Extremities - no edema, calf tenderness. Neuro - AAO x 3. Tone/Power normal. Laboratory Results - last 24 hr 05/26/20 05/30/20 05/30/20 08:11 07:03 07:03 WBC 9.1 RBC 4.02 Hgb 12.3 Hct 36.8 MCV 91.5 MCH 30.6 MCHC 33.4 RDW 13.7 Plt Count 228 MPV 8.8 Absolute Neuts (auto) 6.8 Neutrophils % 74.8 Lymphocytes % 13.2 D Monocytes % 9.8 Eosinophils % 1.9 D Basophils % 0.3 Nucleated RBC % 0 D-Dimer Sodium 138 Potassium 3.8 Chloride 103 Carbon Dioxide 26 Anion Gap 9 BUN 13.7 Creatinine 0.6 Est GFR (CKD-EPI)AfAm 126.66 Est GFR (CKD-EPI)NonAf 109.28 Random Glucose 90 Calcium 8.0 L Phosphorus 2.5 Magnesium 2.2 Blood Type O POSITIVE Antibody Screen Negative Crossmatch See Detail 05/30/20 07:03 WBC RBC Hgb Hct MCV MCH MCHC RDW Plt Count MPV Absolute Neuts (auto) Neutrophils % Lymphocytes % Monocytes % Eosinophils % Basophils % Nucleated RBC % D-Dimer 1368 H Sodium Potassium Chloride Carbon Dioxide Anion Gap BUN Creatinine Est GFR (CKD-EPI)AfAm Est GFR (CKD-EPI)NonAf Random Glucose Calcium Phosphorus Magnesium Blood Type Antibody Screen Crossmatch Current Medications Generic Name Dose Route Start Last Admin Trade Name Roderickq PRN Reason Stop Dose Admin Acetaminophen 650 mg 05/27/20 23:00 Tylenol - PO Q4H PRN FEVER Amlodipine Besylate 10 mg 05/28/20 10:00 05/30/20 09:47 Norvasc - PO 10 mg DAILY ANNA Administration Dexamethasone Sodium Phosphate 4 mg 05/26/20 13:58 Decadron Injection - IVPUSH ONCE PRN NAUSEA AND/OR VOMITING Diphenhydramine HCl 12.5 mg 05/26/20 13:58 Benadryl Injection - IVPUSH ONCE PRN FOR ITCHING Heparin Sodium (Porcine) 5,000 unit 05/27/20 10:00 05/30/20 09:47 Heparin - SQ 5,000 unit BID ANNA Administration Hydromorphone HCl 10 mg 05/26/20 14:00 05/29/20 05:04 Hydromorphone 10 Mg/50 Ml-Ns PATIENT LIAISON 06/02/20 13:59 10 mg PATIENT LIAISON ANNA Administration Protocol Lactated Ringer's 1,000 mls @ 75 mls/hr 05/29/20 07:24 05/30/20 09:47 Lactated Ringers Solution IV 75 mls/hr ASDIR ANNA Administration Labetalol HCl 100 mg 05/29/20 19:00 05/30/20 09:47 Normodyne - PO 100 mg BID ANNA Administration Lisinopril 20 mg 05/28/20 10:00 05/30/20 09:47 Prinivil PO 20 mg DAILY ANNA Administration Ondansetron HCl 4 mg 05/26/20 17:18 05/27/20 16:17 Zofran Injection IVPUSH 4 mg Q6H PRN Administration NAUSEA AND/OR VOMITING Pantoprazole Sodium 40 mg 05/27/20 10:00 05/30/20 09:47 Protonix Iv IVPUSH 40 mg DAILY ANNA Administration Promethazine HCl 12.5 mg 05/26/20 13:58 Phenergan Injection - IVPB Q6H PRN NAUSEA AND/OR VOMITING Home Medications Medication Instructions Recorded Ferrous Sulfate [Feosol] 325 mg PO BIDWM ud 09/01/19 Pantoprazole Sodium [Protonix -] 40 mg PO DAILY tablet.ec 09/01/19 Calcium Carbonate [Calcium] 600 mg PO DAILY 05/26/20 Multivitamins [Tab-A-Vit -] 1 tab PO DAILY 05/26/20 Amlodipine Besylate/Benazepril 1 tab PO DAILY 05/27/20 [Lotrel 10-20 mg Capsule] ASSESSMENT AND PLAN: 60 year old male with past medical history of Diverticulitis with abscess status post Erickson's pouch admitted for incisional hernia repair and reversal of Erickson's. 1. POD 4 s/p Incisional Hernia repair (with mesh) and reversal of Erickson's KARI Drain in-situ with serosanguinous fluid Passing flatus - diet advanced to Clears. 2. Tachycardia, etiology unclear, resolving Duplex LEs neg for DVT CTA neg for PE. For measurement of SpO2 on RA. 3. Atelectasis vs infiltrate on CT Chest, likely sec to post-op atelectasis No signs/symptoms of Pneumonia - will monitor. Incentive Spirometry. 4. HTN - Resumed on Norvasc/ACEI. Hold any further Labetolol. Monitor BP. DVT Px - Heparin SQ GI Px - Protonix
--- NOTE | 2020-05-30 12:41 | PN ---
Physical Exam: SUBJECTIVE: Patient seen and examined at bedside this morning. No acute events overnight. Patient reports passing flatus this morning, but no bowel movements yet. Reports minimal soreness on incision site. KARI drains 45cc total. Denies fevers, chills, headache, dizziness, chest pain, SOB, urinary symptoms. OBJECTIVE: Vital Signs Temperature 98.3 F 05/30/20 08:30 Pulse Rate 91 H 05/30/20 08:30 Respiratory Rate 16 05/30/20 09:00 Blood Pressure 138/84 05/30/20 08:30 O2 Sat by Pulse Oximetry (%) 97 05/30/20 09:00 GENERAL: The patient is awake, alert, and fully oriented, in no acute distress. HEAD: Normal with no signs of trauma. EYES: PERRLA, EOMI, sclera anicteric, conjunctiva clear. ENT: moist mucous membranes. NECK: Trachea midline, full range of motion, supple. LUNGS: Decreased breath sounds on bilateral bases HEART: Regular rate and rhythm, S1, S2 ABDOMEN: Binder in place, Incision site with anna, clean dry and intact, 2 KARI drains with serosangineous fluid, +bowel sounds EXTREMITIES: 2+ pulses, warm, well-perfused, no edema. NEUROLOGICAL: Cranial nerves II through XII grossly intact. Normal speech. PSYCH: Normal mood, normal affect. SKIN: Warm, dry, normal turgor. Laboratory Results - last 24 hr 05/26/20 05/30/20 05/30/20 08:11 07:03 07:03 WBC 9.1 RBC 4.02 Hgb 12.3 Hct 36.8 MCV 91.5 MCH 30.6 MCHC 33.4 RDW 13.7 Plt Count 228 MPV 8.8 Absolute Neuts (auto) 6.8 Neutrophils % 74.8 Lymphocytes % 13.2 D Monocytes % 9.8 Eosinophils % 1.9 D Basophils % 0.3 Nucleated RBC % 0 D-Dimer Sodium 138 Potassium 3.8 Chloride 103 Carbon Dioxide 26 Anion Gap 9 BUN 13.7 Creatinine 0.6 Est GFR (CKD-EPI)AfAm 126.66 Est GFR (CKD-EPI)NonAf 109.28 Random Glucose 90 Calcium 8.0 L Phosphorus 2.5 Magnesium 2.2 Blood Type O POSITIVE Antibody Screen Negative Crossmatch See Detail 05/30/20 07:03 WBC RBC Hgb Hct MCV MCH MCHC RDW Plt Count MPV Absolute Neuts (auto) Neutrophils % Lymphocytes % Monocytes % Eosinophils % Basophils % Nucleated RBC % D-Dimer 1368 H Sodium Potassium Chloride Carbon Dioxide Anion Gap BUN Creatinine Est GFR (CKD-EPI)AfAm Est GFR (CKD-EPI)NonAf Random Glucose Calcium Phosphorus Magnesium Blood Type Antibody Screen Crossmatch Active Medications Generic Name Dose Route Start Last Admin Trade Name Freq PRN Reason Stop Dose Admin Acetaminophen 650 mg 05/27/20 23:00 Tylenol - PO Q4H PRN FEVER Amlodipine Besylate 10 mg 05/28/20 10:00 05/30/20 09:47 Norvasc - PO 10 mg DAILY ANNA Administration Dexamethasone Sodium Phosphate 4 mg 05/26/20 13:58 Decadron Injection - IVPUSH ONCE PRN NAUSEA AND/OR VOMITING Diphenhydramine HCl 12.5 mg 05/26/20 13:58 Benadryl Injection - IVPUSH ONCE PRN FOR ITCHING Heparin Sodium (Porcine) 5,000 unit 05/27/20 10:00 05/30/20 09:47 Heparin - SQ 5,000 unit BID ANNA Administration Hydromorphone HCl 10 mg 05/26/20 14:00 05/29/20 05:04 Hydromorphone 10 Mg/50 Ml-Ns TEAROOM HOST/HOSTESS 06/02/20 13:59 10 mg TEAROOM HOST/HOSTESS ANNA Administration Protocol Lactated Ringer's 1,000 mls @ 75 mls/hr 05/29/20 07:24 05/30/20 09:47 Lactated Ringers Solution IV 75 mls/hr ASDIR ANNA Administration Labetalol HCl 100 mg 05/29/20 19:00 05/30/20 09:47 Normodyne - PO 100 mg BID ANNA Administration Lisinopril 20 mg 05/28/20 10:00 05/30/20 09:47 Prinivil PO 20 mg DAILY ANNA Administration Ondansetron HCl 4 mg 05/26/20 17:18 05/27/20 16:17 Zofran Injection IVPUSH 4 mg Q6H PRN Administration NAUSEA AND/OR VOMITING Pantoprazole Sodium 40 mg 05/27/20 10:00 05/30/20 09:47 Protonix Iv IVPUSH 40 mg DAILY ANNA Administration Promethazine HCl 12.5 mg 05/26/20 13:58 Phenergan Injection - IVPB Q6H PRN NAUSEA AND/OR VOMITING ASSESSMENT/PLAN: Patient is a 60 year old male with past medical history of complicated diverticulitis s/p Erickson's was admitted to the hospital for incisional hernia repair and reversal of Erickson's pouch. #s/p Incisional hernia repair and Reversal of Erickson's pouch -POD 4 - stable -KARI drains - Right: 40ml, Left: 5ml -abdominal binder in place -Prophylactic Ertapenem 2/2 given -Entereg Capsule 12mg bid -Phenergan/Zofran prn for nausea -Diet advanced to clear liquids -TEAROOM HOST/HOSTESS for pain control -Surgery (Dr. Spencer) consulted. #Tachycardia -unclear source at this time -on review of chart, patient has always been noted to be tachycardic -chest CTA done today revealed no evidence of PE -will monitor #HTN -Continue Amlodipine 10mg and Lisinopril 20mg #FEN -Iv LR @75cc/hr -Electrolytes wnl, routine bmp monitoring -Clear liquid diet #Prophylaxis -Heparin 5000u sq bid #Disposition -full code -continue to monitor on [facility] surg Visit type - Emergency Visit Emergency Visit: Yes ED Registration Date: 05/26/20 Care time: The patient presented to the Emergency Department on the above date and was hospitalized for further evaluation of their emergent condition. - New Patient This patient is new to me today: No - Critical Care Critical Care patient: No ATTENDING PHYSICIAN STATEMENT I saw and evaluated the patient. I reviewed the resident's note and discussed the case with the resident. I agree with the resident's findings and plan as documented. SUBJECTIVE: OBJECTIVE: ASSESSMENT AND PLAN:
[2020-05-30] MEDS ORDERED: PCA PUMP NR ONE (12:58)
[2020-05-31 09:30] LABS: CALCIUM 8.1 mg/dL (8.5-10.1); MAGNESIUM 2.4 mg/dL (1.8-2.4); PHOSPHOROUS 2.5 mg/dL (2.5-4.9); POTASSIUM 3.6 mmol/L (3.5-5.1)
[2020-05-31 09:31] LABS: CREATININE 0.7 mg/dL (0.55-1.3)
--- NOTE | 2020-05-31 09:31 | PN ---
Progress Note (short form) - Note Progress Note: GENERAL SURGERY POD #1 s/p colo-colostomy; repair of incisional hernia w/mesh. Alert. Sitting in chair at bedside. Patient removed ABD binder as it was uncomfortable. He is OOB and ambulating unassisted. Voiding/stooling spontaneously. Tolerating clear diet. Denies n/v/f/c, CP, palpitations, SOB or FARRAR. CTA: negative for PE Duplex: neg for DVT Last Vital Signs Temp Pulse Resp BP Pulse Ox 98.5 F 105 H 18 135/76 95 05/31/20 09:23 05/31/20 09:23 05/31/20 09:23 05/31/20 09:23 05/30/20 21:00 24hr Output 05/29/20 05/29/20 05/29/20 05/30/20 05/30/20 06:00 10:00 23:00 07:00 23:35 Left KARI 40 5 70 40 10 Right KARI 20 30 30 5 30 PE Gen: awake, alert, nad Resp: unlabored respirations on RA Abd: soft, incisional tenderness. Midline Frederic insitu. no erythema or drainage. LLQ prior colostomy site clean with granulation tissue present, B/L drains stripped, scant serosanguinous drainage in reservoirs, A/P: 60 y/o M w/ PMHx diverticulitis complicated by perforation/abscess s/p colostomy in 2019 now admitted for reversal, POD 4, s/p colo-colostomy(reversal of Hartmans procedure); repair of incisional hernia w/mesh. -Sodium controlled diet -Wound repacked on rounds -KARI drains stripped. Cont to monitor/record output q shift -Cont OOB and ambulate -Abd binder -Pain mngmnt prn -DC planning Above plan discussed with Dr. Spencer and agrees Problem List - Problems (1) Status post Radha's procedure Code(s): Z93.3 - COLOSTOMY STATUS (2) HTN (hypertension) Code(s): I10 - ESSENTIAL (PRIMARY) HYPERTENSION
[2020-05-31] MEDS: HEPARIN NA (PORCINE) 5,000 UNITS/ML 1ML VIAL SQ SCH ×2 (10:10→21:30)
[2020-05-31] MEDS: LISINOPRIL 20 MG TABLET (FP) PO SCH (10:11)
[2020-05-31] MEDS: amLODIPine BESYLATE 10 MG TABLET (FP) PO SCH (10:11)
[2020-05-31] MEDS: PANTOPRAZOLE SODIUM 40 MG VIAL IVPUSH SCH (10:11)
[2020-05-31] MEDS ORDERED: PCA PUMP NR ONE (13:30)
--- NOTE | 2020-05-31 14:02 | PN ---
Progress Note, Physician Chief Complaint: Patient is a pleasant 60 yo M with a PMHx of diverticulitis complicated by abscess, gastroenteritis, HTN, PE, and colostomy care. Patient is POD#1 S/P hartmans pouch reversal. Patient denies any acute changes over night. Patient endorses flatus during the night and morning. Patient is draining approximately 45cc of bright red fluid into the KARI Tube. - Current Medication List Current Medications: Active Medications Acetaminophen (Tylenol -) 650 mg PO Q4H PRN PRN Reason: FEVER Amlodipine Besylate (Norvasc -) 10 mg PO DAILY [facility] Last Admin: 05/31/20 10:11 Dose: 10 mg Documented by: Dexamethasone Sodium Phosphate (Decadron Injection -) 4 mg IVPUSH ONCE PRN PRN Reason: NAUSEA AND/OR VOMITING Diphenhydramine HCl (Benadryl Injection -) 12.5 mg IVPUSH ONCE PRN PRN Reason: FOR ITCHING Heparin Sodium (Porcine) (Heparin -) 5,000 unit SQ BID [facility] Last Admin: 05/31/20 10:10 Dose: 5,000 unit Documented by: Lisinopril (Prinivil) 20 mg PO DAILY [facility] Last Admin: 05/31/20 10:11 Dose: 20 mg Documented by: Ondansetron HCl (Zofran Injection) 4 mg IVPUSH Q6H PRN PRN Reason: NAUSEA AND/OR VOMITING Last Admin: 05/27/20 16:17 Dose: 4 mg Documented by: Oxycodone HCl (Roxicodone -) 5 mg PO Q6H PRN PRN Reason: PAIN LEVEL 6-10 Pantoprazole Sodium (Protonix Iv) 40 mg IVPUSH DAILY [facility] Last Admin: 05/31/20 10:11 Dose: 40 mg Documented by: Promethazine HCl (Phenergan Injection -) 12.5 mg IVPB Q6H PRN PRN Reason: NAUSEA AND/OR VOMITING - Objective Vital Signs: Vital Signs Temperature 98.5 F 05/31/20 09:23 Pulse Rate 105 H 05/31/20 09:23 Respiratory Rate 18 05/31/20 09:23 Blood Pressure 135/76 05/31/20 09:23 O2 Sat by Pulse Oximetry (%) 95 05/30/20 21:00 Constitutional: Yes: Well Nourished, Calm Eyes: Yes: Conjunctiva Clear, EOM Intact HENT: Yes: Atraumatic, Normocephalic Cardiovascular: Yes: Regular Rate and Rhythm Respiratory: Yes: Regular Labs: CBC, BMP 05/30/20 07:03 05/31/20 08:15 ATTENDING PHYSICIAN STATEMENT I saw and evaluated the patient. I reviewed the resident's note and discussed the case with the resident. I agree with the resident's findings and plan as documented. SUBJECTIVE: OBJECTIVE: ASSESSMENT AND PLAN:
--- NOTE | 2020-05-31 14:12 | PN ---
Physical Exam: SUBJECTIVE: Patient seen and examined. Patient denies any acute changes over night. Patient endorses flatus during the night and morning. Patient is draining approximately 45cc of bright red fluid into the KARI Tube. OBJECTIVE: Vital Signs Period Temp Pulse Resp BP Sys/Cramer Pulse Ox Last 24 Hr 98.4 F-98.7 F 94-105 18-18 116-135/69-88 95 GENERAL: The patient is awake, alert, and fully oriented, in no acute distress. HEAD: Normal with no signs of trauma. EYES: PERRL, extraocular movements intact, sclera anicteric, conjunctiva clear. No ptosis. ENT: Ears normal, nares patent, oropharynx clear without exudates, dry mucous membranes. NECK: Trachea midline, full range of motion, supple. LUNGS: Breath sounds diminished air sounds at bilateral bases. HEART: Regular rate and rhythm, S1, S2 without murmur, rub or gallop. ABDOMEN: Soft, tender around the operative site, mildly distended, slightly reduced bowel sounds, no guarding, no rebound, no hepatosplenomegaly, no masses. EXTREMITIES: 2+ pulses, warm, well-perfused, no edema. NEUROLOGICAL: Cranial nerves II through XII grossly intact. Normal speech, gait not observed. PSYCH: Normal mood, normal affect. AAOx3 SKIN: Warm, dry, normal turgor, no rashes Laboratory Results - last 24 hr 05/31/20 08:15 Sodium 137 Potassium 3.6 Chloride 102 Carbon Dioxide 23 Anion Gap 12 BUN 12.0 Creatinine 0.7 Est GFR (CKD-EPI)AfAm 118.88 Est GFR (CKD-EPI)NonAf 102.57 Random Glucose 111 H Calcium 8.1 L Phosphorus 2.5 Magnesium 2.4 Active Medications Generic Name Dose Route Start Last Admin Trade Name Freq PRN Reason Stop Dose Admin Acetaminophen 650 mg 05/27/20 23:00 Tylenol - PO Q4H PRN FEVER Amlodipine Besylate 10 mg 05/28/20 10:00 05/31/20 10:11 Norvasc - PO 10 mg DAILY ANNA Administration Dexamethasone Sodium Phosphate 4 mg 05/26/20 13:58 Decadron Injection - IVPUSH ONCE PRN NAUSEA AND/OR VOMITING Diphenhydramine HCl 12.5 mg 05/26/20 13:58 Benadryl Injection - IVPUSH ONCE PRN FOR ITCHING Heparin Sodium (Porcine) 5,000 unit 05/27/20 10:00 05/31/20 10:10 Heparin - SQ 5,000 unit BID ANNA Administration Lisinopril 20 mg 05/28/20 10:00 05/31/20 10:11 Prinivil PO 20 mg DAILY ANNA Administration Ondansetron HCl 4 mg 05/26/20 17:18 05/27/20 16:17 Zofran Injection IVPUSH 4 mg Q6H PRN Administration NAUSEA AND/OR VOMITING Oxycodone HCl 5 mg 05/31/20 13:24 Roxicodone - PO Q6H PRN PAIN LEVEL 6-10 Pantoprazole Sodium 40 mg 05/27/20 10:00 05/31/20 10:11 Protonix Iv IVPUSH 40 mg DAILY ANNA Administration Promethazine HCl 12.5 mg 05/26/20 13:58 Phenergan Injection - IVPB Q6H PRN NAUSEA AND/OR VOMITING ASSESSMENT/PLAN: Patient is a pleasant 60 yo M with a PMHx of diverticulitis complicated by abscess, gastroenteritis, HTN, PE, and colostomy care. Patient is POD#1 S/P hartmans pouch reversal. 1. s/p Incisional hernia repair and Reversal of Erickson's pouch -POD 5 - stable - Large dressings removed -KARI drains - 45 ml of serosangenous fluid total today in both KARI drains -Diet advanced to sodium controlled -MEMBERSHIP ADMINISTRATOR for pain control -passing flatus 2. Tachycardia - Resolving - suspected to be his baseline - Afebrile - CTA examined yesterday - unremarkable for PE - - DVT ultrasound examined on - unremarkable - - will continue to monitor heart rate 3. HTN -Continue Amlodipine 10mg and Lisinopril 20mg 4. FEN -Oral hydration -Electrolytes wnl, routine bmp monitoring -SODIUM controlled diet 5. Prophylaxis -Heparin 5000u sq bid 6. Disposition -full code -continue to monitor on [facility] Visit type - Emergency Visit Emergency Visit: Yes ED Registration Date: 05/26/20 Care time: The patient presented to the Emergency Department on the above date and was hospitalized for further evaluation of their emergent condition. - New Patient This patient is new to me today: No - Critical Care Critical Care patient: No ATTENDING PHYSICIAN STATEMENT I saw and evaluated the patient. I reviewed the resident's note and discussed the case with the resident. I agree with the resident's findings and plan as documented. SUBJECTIVE: OBJECTIVE: ASSESSMENT AND PLAN:
--- NOTE | 2020-05-31 14:56 | PN ---
Teaching Attending Note Name of Resident: Dhruv Armenta ATTENDING PHYSICIAN STATEMENT I saw and evaluated the patient. I reviewed the resident's note and discussed the case with the resident. I agree with the resident's findings and plan as documented. SUBJECTIVE: Feeling much better. Passing flatus. tolerating oral intake. No chest pain/cough/sputum/hemoptysis. OBJECTIVE: Afebrile, Hemodynamically Stable. Last Vital Signs Temp Pulse Resp BP Pulse Ox 98.3 F 105 H 18 130/85 95 05/31/20 14:33 05/31/20 14:33 05/31/20 14:33 05/31/20 14:33 05/30/20 21:00 Heart - S1, S2, RRR Lungs - decreased air entry at bases. Abdomen - Surgical incision site clean, old Colostomy packed, Soft, minimal tenderness. Bowel Sounds reduced. KARI Drain in situ x 2 - small amt serosanguinous drainage. Extremities - no edema, calf tenderness. Neuro - AAO x 3. Tone/Power normal. Laboratory Results - last 24 hr 05/31/20 08:15 Sodium 137 Potassium 3.6 Chloride 102 Carbon Dioxide 23 Anion Gap 12 BUN 12.0 Creatinine 0.7 Est GFR (CKD-EPI)AfAm 118.88 Est GFR (CKD-EPI)NonAf 102.57 Random Glucose 111 H Calcium 8.1 L Phosphorus 2.5 Magnesium 2.4 Current Medications Generic Name Dose Route Start Last Admin Trade Name Freq PRN Reason Stop Dose Admin Acetaminophen 650 mg 05/27/20 23:00 Tylenol - PO Q4H PRN FEVER Amlodipine Besylate 10 mg 05/28/20 10:05/31/20 10:11 Norvasc - PO 10 mg DAILY ANNA Administration Dexamethasone Sodium Phosphate 4 mg 05/26/20 13:58 Decadron Injection - IVPUSH ONCE PRN NAUSEA AND/OR VOMITING Diphenhydramine HCl 12.5 mg 05/26/20 13:58 Benadryl Injection - IVPUSH ONCE PRN FOR ITCHING Heparin Sodium (Porcine) 5,000 unit 05/27/20 10:05/31/20 10:10 Heparin - SQ 5,000 unit BID ANNA Administration Lisinopril 20 mg 05/28/20 10:00 05/31/20 10:11 Prinivil PO 20 mg DAILY ANNA Administration Ondansetron HCl 4 mg 05/26/20 17:18 05/27/20 16:17 Zofran Injection IVPUSH 4 mg Q6H PRN Administration NAUSEA AND/OR VOMITING Oxycodone HCl 5 mg 05/31/20 13:24 Roxicodone - PO Q6H PRN PAIN LEVEL 6-10 Pantoprazole Sodium 40 mg 05/27/20 10:00 05/31/20 10:11 Protonix IV IVPUSH 40 mg DAILY ANNA Administration Promethazine HCl 12.5 mg 05/26/20 13:58 Phenergan Injection - IVPB Q6H PRN NAUSEA AND/OR VOMITING Home Medications Medication Instructions Recorded Ferrous Sulfate [Feosol] 325 mg PO BIDWM ud 09/01/19 Pantoprazole Sodium [Protonix -] 40 mg PO DAILY tablet.ec 09/01/19 Calcium Carbonate [Calcium] 600 mg PO DAILY 05/26/20 Multivitamins [Tab-A-Vit -] 1 tab PO DAILY 05/26/20 Amlodipine Besylate/Benazepril 1 tab PO DAILY 05/27/20 [Lotrel 10-20 mg Capsule] ASSESSMENT AND PLAN: 60 year old male with past medical history of Diverticulitis with abscess status post Erickson's pouch admitted for incisional hernia repair and reversal of H artman's. 1. POD 5 s/p Incisional Hernia repair (with mesh) and reversal of Erickson's KARI Drain x 2 in-situ with trace amts serosanguinous fluid. Passing flatus - diet advanced as per Surgery. 2. Tachycardia, etiology unclear, resolving Duplex LEs neg for DVT CTA neg for PE. SpO2 96 % on RA. 3. Atelectasis vs infiltrate on CT Chest, likely sec to post-op atelectasis No signs/symptoms of Pneumonia - will monitor. Incentive Spirometry. 4. HTN - Resumed on Norvasc/SUSAN I. Hold any further Labetolol. Monitor BP. DVT Px - Heparin SQ GI Px - Protonix
--- NOTE | 2020-05-31 17:33 | PATH ---
Surgical Pathology Report Patient Name: JOSE MADRID Med. Rec. #: [id number] /Age/Gender: 1960 (Age: 60) / M Account: [id number] Location: [address] [place] [address]/[facility] Taken: 05/26/2020 Received: 05/29/2020 Reported: 05/31/2020 Physicians: Harsh Spencer MD Specimen(s) Received A: COLOSTOMY B: PROXIMAL AND DISTAL ANASTOMOTIC DONUTS C: SCAR TISSUE Clinical History Diverticulitis of large intestine with perforation and abscess without bleeding Final Diagnosis A. COLOSTOMY, EXCISION: PORTION OF SKIN AND COLON, CONSISTENT WITH COLOSTOMY WITH FOCAL CHRONIC INFLAMMATION. B. PROXIMAL AND DISTAL ANASTOMOTIC DONUTS, EXCISION: PORTIONS OF VIABLE COLON WITH FOCAL MILD ACUTE INFLAMMATION. C. SCAR, EXCISION: PORTIONS OF SKIN WITH SCAR. Electronically Signed Devon Josue M.D. Gross Description A. Received in formalin labeled "colostomy," is a 6.0 x 2.5 cm willson, elliptical portion of skin with a 5 cm in length attached portion of bowel. The bowel displays an open mucosal margin. The skin displays a central os, consistent with a colostomy site. Asphalt Blender sections are submitted in 2 cassettes as follows: 1-colostomy site; 2-bowel mucosal margin. B. Received in formalin labeled "proximal and distal anastomosis," are 2 willson, annular portions of bowel averaging 1.8 cm in diameter and 0.6 cm in depth. Asphalt Blender sections are submitted in 2 cassettes. C. Received in formalin labeled "scar," are 2 willson, irregular, unoriented skin ellipses measuring 6.0 x 2.0 x 1.3 cm and 8.0 x 1.4 x 1.4 cm. Asphalt Blender sections are submitted in one cassette. DL/05/29/2020 saudi/05/29/2020
[2020-06-01] MEDS: oxyCODONE HCL 5 MG TABLET PO PRN ×3 (05:00→22:28)
[2020-06-01] MEDS: LACTATED RINGERS SOLUTION 1,000 ML IV SCH (07:54)
--- NOTE | 2020-06-01 08:07 | PN ---
Progress Note (short form) - Note Progress Note: POD #6 s/p colo-colostomy; repair of incisional hernia w/mesh. Alert. Sitting up in bed Patient removed ABD binder as it was uncomfortable. He is OOB and ambulating unassisted. Voiding/stooling spontaneously. Tolerating reg diet. Denies n/v/f/c, CP, palpitations, SOB or FARRAR. CTA: negative for PE Duplex: neg for DVT Last Vital Signs Temp Pulse Resp BP Pulse Ox 98 F 95 H 18 131/84 98 06/01/20 05:01 06/01/20 05:01 06/01/20 05:01 06/01/20 05:01 05/31/20 21:00 PE Gen: awake, alert, nad Resp: unlabored respirations on RA Abd: soft, incisional tenderness. Midline Frederic insitu. no erythema or drainage. LLQ prior colostomy site clean with granulation tissue present ~ 8cm x 3 cm x 4 cm, B/L drains stripped, scant serosanguinous drainage in reservoirs, A/P: 60 y/o M w/ PMHx diverticulitis complicated by perforation/abscess s/p colostomy in 2019 now admitted for reversal, POD 6, s/p colo-colostomy(reversal of Hartmans procedure); repair of incisional hernia w/mesh. -Sodium controlled diet -Wound repacked on rounds -RLQ KARI dc'd on rounds. LLQ KARI remains in place and will be removed 7/ -Cont OOB and ambulate -Abd binder -Pain mngmnt prn -DC planning 06/02/20 VNS for home wound packing - daily wet to dry dressing changes Above plan discussed with Dr. Spencer and agrees Problem List - Problems (1) Status post Radha's procedure Code(s): Z93.3 - COLOSTOMY STATUS (2) HTN (hypertension) Code(s): I10 - ESSENTIAL (PRIMARY) HYPERTENSION
[2020-06-01] MEDS: LISINOPRIL 20 MG TABLET (FP) PO SCH (09:07)
[2020-06-01] MEDS: HEPARIN NA (PORCINE) 5,000 UNITS/ML 1ML VIAL SQ SCH ×2 (09:07→21:29)
[2020-06-01] MEDS: PANTOPRAZOLE SODIUM 40 MG VIAL IVPUSH SCH (09:07)
[2020-06-01] MEDS: amLODIPine BESYLATE 10 MG TABLET (FP) PO SCH (09:07)
[2020-06-01] MEDS ORDERED: FUROSEMIDE 40 MG/4 ML INJECTABLE VIAL IVPUSH ONE ×2 (10:56→12:33)
--- NOTE | 2020-06-01 14:55 | PN ---
Teaching Attending Note Name of Resident: Mani Moeller ATTENDING PHYSICIAN STATEMENT I saw and evaluated the patient. I reviewed the resident's note and discussed the case with the resident. I agree with the resident's findings and plan as documented. SUBJECTIVE: Feeling well, passed flatus and BM. Tolerating oral intake. No chest pain/cough/sputum/hemoptysis. OBJECTIVE: Afebrile, Hemodynamically Stable. SpO2 87-90% on 4L Last Vital Signs Temp Pulse Resp BP Pulse Ox 98.4 F 108 H 20 147/76 87-90% on 4L 06/01/20 13:49 06/01/20 13:49 06/01/20 13:49 06/01/20 13:49 06/01/20 11:53 Heart - S1, S2, RRR Lungs - decreased air entry at bases. Abdomen - Surgical incision site clean, old Colostomy packed, Soft, minimal tenderness. Bowel Sounds reduced. KARI Drain in situ x 1 LLQ - small amt serosanguinous drainage. Extremities - no edema, calf tenderness. Neuro - AAO x 3. Tone/Power normal. Current Medications Generic Name Dose Route Start Last Admin Trade Name Freq PRN Reason Stop Dose Admin Acetaminophen 650 mg 05/27/20 23:00 Tylenol - PO Q4H PRN FEVER Amlodipine Besylate 10 mg 05/28/20 10:00 06/01/20 09:07 Norvasc - PO 10 mg DAILY ANNA Administration Dexamethasone Sodium Phosphate 4 mg 05/26/20 13:58 Decadron Injection - IVPUSH ONCE PRN NAUSEA AND/OR VOMITING Diphenhydramine HCl 12.5 mg 05/26/20 13:58 Benadryl Injection - IVPUSH ONCE PRN FOR ITCHING Heparin Sodium (Porcine) 5,000 unit 05/27/20 10:00 06/01/20 09:07 Heparin - SQ 5,000 unit BID ANNA Administration Lisinopril 20 mg 05/28/20 10:00 06/01/20 09:07 Prinivil PO 20 mg DAILY ANNA Administration Ondansetron HCl 4 mg 05/26/20 17:18 05/27/20 16:17 Zofran Injection IVPUSH 4 mg Q6H PRN Administration NAUSEA AND/OR VOMITING Oxycodone HCl 5 mg 05/31/20 13:24 06/01/20 12:50 Roxicodone - PO 5 mg Q6H PRN Administration PAIN LEVEL 6-10 Pantoprazole Sodium 40 mg 05/27/20 10:00 06/01/20 09:07 Protonix Iv IVPUSH 40 mg DAILY ANNA Administration Promethazine HCl 12.5 mg 05/26/20 13:58 Phenergan Injection - IVPB Q6H PRN NAUSEA AND/OR VOMITING Home Medications Medication Instructions Recorded Ferrous Sulfate [Feosol] 325 mg PO BIDWM ud 09/01/19 Pantoprazole Sodium [Protonix -] 40 mg PO DAILY tablet.ec 09/01/19 Calcium Carbonate [Calcium] 600 mg PO DAILY 05/26/20 Multivitamins [Tab-A-Vit -] 1 tab PO DAILY 05/26/20 Amlodipine Besylate/Benazepril 1 tab PO DAILY 05/27/20 [Lotrel 10-20 mg Capsule] oxyCODONE HCL [Roxicodone -] 5 mg PO Q4H PRN #24 tablet MDD 6 06/01/20 ASSESSMENT AND PLAN: 60 year old male with past medical history of Diverticulitis with abscess status post Erickson's pouch admitted for incisional hernia repair and reversal of Erickson's. 1. POD 6 s/p Incisional Hernia repair (with mesh) and reversal of Erickson's RLQ KARI Drain removed. 2nd KARI drain in situ with trace amts serosanguinous fluid. tolerating advanced diet, BM +. Surgery following - for likely 2nd KARI drain removal and possible discharge 06/02. 2. Acute Hypoxic Respiratory Failure likely secondary to fluid overload +/- atelectasis Duplex LEs neg for DVT CTA neg for PE, atelectasis/infiltrates ?fluid, bilateral bases. IV lasix 40mg IVP x 1. Incentive Spirometry 3. HTN - Resumed on Norvasc/SUSAN I. Monitor BP. DVT Px - Heparin SQ GI Px - Protonix
[2020-06-02 07:46] VITALS: BP 150/77; PULSE 88; TEMP 98
[2020-06-02 08:22] LABS: HEMATOCRIT 38.7 % (35.4-49); HEMOGLOBIN 13.1 GM/dL (11.7-16.9); MCHC 33.8 g/dl (32.0-35.9); MEAN CELL VOLUME 91.7 fl (80-96); PLATELET COUNT 282 K/MM3 (134-434); RBC 4.22 M/mm3 (4.00-5.60); RDW 13.7 % (11.9-15.9); WHITE BLOOD COUNT 9.4 K/mm3 (4.0-10.0)
[2020-06-02 08:36] LABS: BLOOD UREA NITROGEN 12.8 mg/dL (7-18); CALCIUM 8.2 mg/dL (8.5-10.1); CREATININE 0.7 mg/dL (0.55-1.3); POTASSIUM 3.1 mmol/L (3.5-5.1)
[2020-06-02] MEDS: HEPARIN NA (PORCINE) 5,000 UNITS/ML 1ML VIAL SQ SCH (09:09)
[2020-06-02] MEDS: PANTOPRAZOLE SODIUM 40 MG VIAL IVPUSH SCH (09:09)
[2020-06-02] MEDS: LISINOPRIL 20 MG TABLET (FP) PO SCH (09:10)
[2020-06-02] MEDS: amLODIPine BESYLATE 10 MG TABLET (FP) PO SCH (09:10)
[2020-06-02] MEDS: oxyCODONE HCL 5 MG TABLET PO PRN (09:10)
[2020-06-02] MEDS: KCL 10 MEQ IVPB 10 MEQ/100 ML INFUS.BAG IVPB SCH ×3 (09:10→11:19)
--- NOTE | 2020-06-02 09:17 | PN ---
Progress Note (short form) - Note Progress Note: Attending Surgeon POD #7 Minimal c/o pain; tolerating a diet and passing flatus and moving his bowels; he will be getting IV potassium. VSS AF abdo-soft; incision c/d/i; 1 KARI remains; o/w negative. extrems-watm and w/o calf tenderness IMP: doing well post op PLAN: Surgically stable for discharge to office f/u w/VNS; he will do the wound care over the weekend; remaining KARI removed uneventfully. Harsh Spencer MD FACS
--- NOTE | 2020-06-02 12:51 | DS ---
Physical Exam: SUBJECTIVE: Feeling well, passed flatus and BM. Tolerating oral intake. No chest pain/cough/sputum/hemoptysis. OBJECTIVE: Afebrile, Hemodynamically Stable. SpO2 92-94% RA Last Vital Signs Temp Pulse Resp BP Pulse Ox 98.0 F 88 18 150/77 92 L 06/02/20 07:44 06/02/20 07:44 06/02/20 07:44 06/02/20 07:44 06/02/20 07:46 Heart - S1, S2, RRR Lungs - decreased air entry at bases. Abdomen - Surgical incision site clean, old Colostomy packed, Soft, minimal tenderness. Bowel Sounds reduced. KARI drains removed. Extremities - no edema, calf tenderness. Neuro - AAO x 3. Tone/Power normal. Laboratory Results - last 24 hr 06/02/20 06/02/20 07:37 07:37 WBC 9.4 RBC 4.22 Hgb 13.1 Hct 38.7 MCV 91.7 MCH 31.0 MCHC 33.8 RDW 13.7 Plt Count 282 D MPV 8.0 Sodium 137 Potassium 3.1 L Chloride 98 Carbon Dioxide 29 Anion Gap 9 BUN 12.8 Creatinine 0.7 Est GFR (CKD-EPI)AfAm 118.88 Est GFR (CKD-EPI)NonAf 102.57 Random Glucose 91 Calcium 8.2 L Current Medications Generic Name Dose Route Start Last Admin Trade Name Freq PRN Reason Stop Dose Admin Acetaminophen 650 mg 05/27/20 23:00 Tylenol - PO Q4H PRN FEVER Amlodipine Besylate 10 mg 05/28/20 10:00 06/02/20 09:10 Norvasc - PO 10 mg DAILY ANNA Administration Dexamethasone Sodium Phosphate 4 mg 05/26/20 13:58 Decadron Injection - IVPUSH ONCE PRN NAUSEA AND/OR VOMITING Diphenhydramine HCl 12.5 mg 05/26/20 13:58 Benadryl Injection - IVPUSH ONCE PRN FOR ITCHING Heparin Sodium (Porcine) 5,000 unit 05/27/20 10:00 06/02/20 09:09 Heparin - SQ 5,000 unit BID ANNA Administration Lisinopril 20 mg 05/28/20 10:00 06/02/20 09:10 Prinivil PO 20 mg DAILY ANNA Administration Ondansetron HCl 4 mg 05/26/20 17:18 05/27/20 16:17 Zofran Injection IVPUSH 4 mg Q6H PRN Administration NAUSEA AND/OR VOMITING Oxycodone HCl 5 mg 05/31/20 13:24 06/02/20 09:10 Roxicodone - PO 5 mg Q6H PRN Administration PAIN LEVEL 6-10 Pantoprazole Sodium 40 mg 05/27/20 10:00 06/02/20 09:09 Protonix Iv IVPUSH 40 mg DAILY ANNA Administration Promethazine HCl 12.5 mg 05/26/20 13:58 Phenergan Injection - IVPB Q6H PRN NAUSEA AND/OR VOMITING Discharge Medications Medication Instructions Recorded Ferrous Sulfate [Feosol] 325 mg PO BIDWM ud 09/01/19 Pantoprazole Sodium [Protonix -] 40 mg PO DAILY tablet.ec 09/01/19 Calcium Carbonate [Calcium] 600 mg PO DAILY 05/26/20 Multivitamins [Multivit ([facility] 1 tab PO DAILY 05/26/20 Formulary)] Amlodipine Besylate/Benazepril 1 tab PO DAILY 05/27/20 [Lotrel 10-20 mg Capsule] Neomycin So4 [Mycifradin -] 500 mg PO ASDIR 06/01/20 oxyCODONE HCL [Roxicodone -] 5 mg PO Q4H PRN #24 tablet MDD 6 06/01/20 Date of Admission:05/26/20 Date of Discharge: 06/02/20 Minutes to complete discharge: 45 Discharge Summary Problems reviewed: Yes Reason For Visit: DVTRCLI OF LG INT W PERFORATION AND ABSCESS W/O BL Hospital Course: 60 year old male with past medical history of Diverticulitis with abscess status post Erickson's pouch admitted for incisional hernia repair and reversal of Erickson's. 1. POD 7 s/p Incisional Hernia repair (with mesh) and reversal of Erickson's KARI Drains removed, wounds look clean Evaluated by surgery and cleared for discharge with out-patient Surgery follow up and wound care. Medically optimized. 2. Acute Hypoxic Respiratory Failure likely secondary to fluid overload +/- atelectasis - resolved. Duplex LEs neg for DVT CTA neg for PE, atelectasis bilateral bases. Incentive Spirometry encouraged 3. HTN - Resumed on Norvasc/SUSAN I. Follow up with PCP for BP monitoring. medicaly and Surgicaly stable for discharge home with Surgery follow up on Friday. Condition: Stable - Instructions Diet, Activity, Other Instructions: You were admitted for an incisional hernia repair and Erickson's reversal, which was successfully performed. MEDICATIONS: - continue taking your previously prescribed home medications as well os Oxycodone as needed for pain Dr. Spencer Discharge Instructions Dear JOSE MADRID, Post Operative Instructions Physical activity Resume your normal everyday activity as tolerated no heavy lifting or exercise until seen by your surgeon. You may walk unlimited amounts of and climb stairs. You may resume driving the car when you feel safe and comfortable behind the wheel. Wound care VNS will come and change your dressings Diet There are no dietary restrictions. Eat healthy, high-fiber foods. Drink 6 to 8 glasses of liquid each day. This will assist in keeping your bowels are regular. Pain management You may take Tylenol or acetaminophen or Ibuprofen (for example, Motrin, Advil etc.) Any pain prescription medication ordered should be taken as prescribed for moderate to severe pain. Call Dr. Spencer for any of the following: Severe pain not relieved by medication Fever of 101 or higher Excessive bleeding or drainage on dressing Inability to urinate Call the office at [phone] for a post operative appointment in 7 - 10 days. Referrals: Harsh Spencer MD [Staff Physician] - 1 Week Disposition: HOME - Home Medications Comprehensive Discharge Medication List: Ambulatory Orders Ferrous Sulfate [Feosol] 325 mg PO BIDWM ud 09/01/19 Pantoprazole Sodium [Protonix -] 40 mg PO DAILY tablet.ec 09/01/19 Calcium Carbonate [Calcium] 600 mg PO DAILY 05/26/20 Multivitamins [Multivit ([facility] Formulary)] 1 tab PO DAILY 05/26/20 Amlodipine Besylate/Benazepril [Lotrel 10-20 mg Capsule] 1 tab PO DAILY 05/27/20 Neomycin So4 [Mycifradin -] 500 mg PO ASDIR 06/01/20 oxyCODONE HCL [Roxicodone -] 5 mg PO Q4H PRN #24 tablet MDD 6 06/01/20 This patient is new to me today: No Emergency Visit: No Critical Care patient: No - Discharge Referral Referred to [facility] No
--- NOTE | 2020-06-05 19:14 | OP ---
DATE OF OPERATION: 05/26/2020 PREOPERATIVE DIAGNOSIS: Status post perforated diverticulitis and Radha's procedure and incisional hernia. POSTOPERATIVE DIAGNOSIS: Status post perforated diverticulitis and Radha's procedure and incisional hernia. PROCEDURE: Exam under anesthesia with rigid proctosigmoidoscopy, colocolostomy (reversal of Radha's procedure), and repair of incisional hernia with Phasix mesh. SURGEON: Harsh Spencer MD PRE PAROLE COUNSELING AIDE: Ling Mayo PA-C ANESTHESIA: General. OPERATIVE FINDINGS: There was a large incisional hernia involving the previous midline incision and retention suture sites. The was a functioning colostomy. There were minimal intraabdominal and pelvic adhesions, and exam under anesthesia and rigid proctosigmoidoscopy revealed a rectal stump of approximately 18 cm from the anal verge, and the rest of the findings were unremarkable. DESCRIPTION OF PROCEDURE: The patient was placed on the operating table in supine position. After the induction of general anesthesia and placement of a Olea catheter and sequential compression devices on the patient's lower extremities, the patient's legs were placed up in stirrups and appropriately padded and a timeout was taken. Rigid proctosigmoidoscopic examination was carried out, and the previously noted findings were observed. The abdomen and perineum were then prepped with ChloraPrep and Betadine for the colostomy site and the perirectal and rectal area. The patient was next draped, and then the peritoneal cavity was entered through a midline incision, and the previously noted findings were observed. Adhesions that were present were taken down using a combination of blunt and sharp dissection and electrocautery. Next, an elliptical skin incision was made around the colostomy, and the colostomy was taken down in the usual fashion and brought into the abdominal cavity. The end of the colostomy was closed using Allis clamps. The lateral peritoneal reflection was further mobilized using blunt dissection and the LigaSure device to provide length down to the rectal segment for the anastomosis. Next, the skin at the previous colostomy site was excised after placement of the pursestring device proximally. The old stoma site and skin were excised and sent for pathological examination. The pursestring device which was fired, creating the pursestring suture site on the colon was then opened using blunt dissection. The end of the colon at this point was grasped with 3 Mentor clamps, and sizers for the EEA stapling device were sequentially passed, first a 25 mm and then a 28 mm, and it was decided to use the 28-mm EEA stapling device. Next, the stapler was introduced through the rectum after appropriate dilatation and brought up through the stump almost to the suture line of the stump. The stapler was opened and the probe advanced through the anterior rectal wall, and then the anvil was placed in the proximal colon and the pursestring suture device tied. The anvil was then attached to the stapler, and there was no evidence of tension after the stapler was closed and confirmed to be green. Once the stapler was closed and there was no intervening tissue, the stapler was fired, creating the end-to-end anastomosis. The stapling device was then unturned 2 complete turns and brought through the anastomosis and out, and on the back table both proximal and distal donuts were examined and found to be intact. The pelvis was then filled with saline and a bulb syringe introduced into the rectum and air introduced with the proximal colon occluded, and there was no evidence of bubbles in the saline, confirming a patent on nonleaking anastomosis. Next, attention was turned to closure and repair of the incisional hernia. First the old colostomy site was closed with multiple [id number] Prolene sutures. Next, the skin and subcutaneous tissue over the anterior fascia was sequentially mobilized using electrocautery out to the flanks. The midline was then brought together, and after hemostasis was checked for and noted to be good, the abdomen was copiously irrigated with saline. Closure was begun with multiple [id number] No. 1 Prolene interrupted sutures. Prior to this, 2 Mukul-Sherman drains were placed through separate stab wounds on either side of the midline and sutured to the skin with 2-0 silk suture. These drains were eventually placed in the subcutaneous flaps that were created bilaterally. Once the abdomen was closed with the interrupted [id number] Prolene sutures, a piece of Phasix mesh was placed over the closure and anchored in place with multiple 0 Prolene interrupted sutures. The subcutaneous space was then copiously irrigated with sterile saline and hemostasis secured with electrocautery, and then the deep hernia sac was closed over the mesh with interrupted 2-0 Vicryl. The deep dermis was similarly reapproximated with interrupted 3-0 Vicryl, and the skin edges with surgical anna. The drains were connected to bulb self-suction, and the colostomy skin incision was partially closed with surgical anna and packed with Iodoform gauze. Dry sterile dressings were placed, and it should be noted that prior to closure, all gowns, gloves, and instruments were changed as per protocol. The patient was then taken out of the dorsal lithotomy position and extubated and transferred to the postanesthesia care unit in stable condition, awake and alert. ESTIMATED BLOOD LOSS: 150 mL. REPLACEMENTS: Crystalloid. DRAINS: Two 10-mm Mukul-Sherman in the subcutaneous space bilaterally. SPECIMEN: Old colostomy skin and scar and anastomotic donuts to pathology. I, Harsh Spencer, was physically present in the operating room from the time the patient was placed on the operating table until he was transferred to the postanesthesia care unit in my accompaniment. MD ELDER Medina/[id number] MTDD
== END 2020-06-02 14:10 | disposition home or self-care (01) | DRG 344 ==
LOC: J2C 04:36 → J6S 19:47
PROVIDERS: ADMIT Surgery; ATTEND Internal Medicine
PROC: 0DSN0ZZ Reposition Sigmoid Colon, Open Approach (ICD-10-PCS; 2020-05-26)
PROC: 0DJD8ZZ Inspection of Lower Intestinal Tract, Via Natural or Artificial Opening Endoscopic (ICD-10-PCS; 2020-05-26)
PROC: 0WUF0JZ Supplement Abdominal Wall with Synthetic Substitute, Open Approach (ICD-10-PCS; principal; 2020-05-26 10:30)
DX: K43.2 Incisional hernia without obstruction or gangrene (principal); J96.01 Acute respiratory failure with hypoxia; J95.89 Other postprocedural complications and disorders of respiratory system, not elsewhere classified; J98.11 Atelectasis; E66.9 Obesity, unspecified; Z68.30 Body mass index [BMI] 30.0-30.9, adult; Z43.3 Encounter for attention to colostomy; R00.0 Tachycardia, unspecified; I10 Essential (primary) hypertension; Y83.8 Other surgical procedures as the cause of abnormal reaction of the patient, or of later complication, without mention of misadventure at the time of the procedure; E87.70 Fluid overload, unspecified
CPT/HCPCS: 36415; 71275-TC; 80048; 80053; 83735; 84100; 85025; 85027; 85379; 86850; 86900; 86901; 86922; 88304-TC; 88305-TC; 93970-TC; 94010; 94760; J0131; J1644; Q9967

== ENCOUNTER 2020-07-29 12:08 | Emergency (ER) | payer OTHER ==
[2020-07-29 12:14] VITALS: TEMP 99.5; BMI 28.2
--- NOTE | 2020-07-29 12:51 | PDOC ---
History of Present Illness - General Chief Complaint: Rectal Bleed Stated Complaint: DIARRHEA bloody Time Seen by Provider: 07/29/20 12:50 History Source: Patient Exam Limitations: No Limitations - History of Present Illness Initial Comments: 07/29/20 12:59 Surgery: Tj PCP: Alejo Bertrand HPI: 60 yo M pmh HTN, diverticulitis c/b abscess underwent Erickson's procedure performed with colostomy s/p reversal with hernia repair in late May presenting with 1 week of diarrhea. Patient reports he ate a sandwich at work about a week ago with a coworker and both subsequently developed diarrhea, he also ate burgers and beer at a [employer] around that time. Since then he has had diarrhea every 3-4 hours (mostly water, some stool, small about of mixed in blood, not filling the stool, more on toilet paper) without any abdominal pain, fevers, chills, nausea, vomiting, weakness, lightheadedness, chest pain, SOB, fatigue. He has reduced his solid food intake due to the diarrhea, but still drinks broth and water without issue. He endorses losing 45lbs since his initial surgery. Denies any change in the amount / frequency of diarrhea or blood over the past week. NKDA Mds per chart PMH as above PSH as above Past History - Travel History Traveled outside of the country in the last 30 days: No Close contact w/someone who was outside of country & ill: No - Medical History Allergies/Adverse Reactions: Allergies Allergy/AdvReac Type Severity Reaction Status Date / Time No Known Allergies Allergy Verified 07/29/20 12:14 Home Medications: Ambulatory Orders Ferrous Sulfate [Feosol] 325 mg PO BIDWM ud 09/01/19 Pantoprazole Sodium [Protonix -] 40 mg PO DAILY tablet.ec 09/01/19 Calcium Carbonate [Calcium] 600 mg PO DAILY 05/26/20 Multivitamins [Multivit ([facility] Formulary)] 1 tab PO DAILY 05/26/20 Amlodipine Besylate/Benazepril [Lotrel 10-20 mg Capsule] 1 tab PO DAILY 05/27/20 Neomycin So4 [Mycifradin -] 500 mg PO ASDIR 06/01/20 oxyCODONE HCL [Roxicodone -] 5 mg PO Q4H PRN #24 tablet MDD 6 06/01/20 Anemia: No COPD: No GI Disorders: Yes (reflux) HTN: Yes - Surgical History Abdominal Surgery: Yes (DIVERTICULITIS, COLON SX, COLOSTOMY) Appendectomy: No Cardiac Surgery: No Cholecystectomy: No Lung Surgery: No Neurologic Surgery: No Orthopedic Surgery: Yes (RIGHT THR) - Immunization History Immunization Up to Date: Yes - Psycho-Social/Smoking History Smoking Status: No Smoking History: Never smoked Number of Cigarettes Smoked Daily: 0 Information on smoking cessation initiated: No - Substance Abuse Hx (Audit-C & DAST Scrn) How often the patient has a drink containing alcohol: 2-4 times / month Score: In Men: 4 or > Positive; In Women: 3 or > Positive: 2 Screen Result (Pos requires Nsg. Audit-10AR): Negative In the last yr the pt used illegal drug/Rx for NonMed reason: No Score: Yes response is considered Positive: 0 Screen Result (Positive result requires Nsg. DAST-10): Negative Review of Systems - Review of Systems Able to Perform ROS?: Yes Is the patient limited Angolan proficient: Yes Constitutional: No: Chills, Fever, Weakness HEENTM: No: Recent change in vision, Nose Congestion, Throat Pain Respiratory: No: Cough, Shortness of Breath, Wheezing Cardiac (ROS): No: Chest Pain, Edema, Irregular Heart Rate, Lightheadedness, Palpitations, Syncope, Chest Tightness ABD/GI: Yes: Blood Streaked Bowels, Diarrhea, Rectal Bleeding. No: Constipated, Nausea, Vomiting : No: Burning, Dysuria, Frequency Musculoskeletal: No: Muscle Pain, Muscle Weakness Integumentary: No: Bruising, Pruritus, Rash Neurological: No: Headache, Numbness, Tingling, Weakness Psychiatric: No: Anxiety, Depression, Change in Appetite Endocrine: Yes: Change in Weight (since surgeries). No: Increased Thirst, Increased Urine Hematologic/Lymphatic: No: Anemia, Blood Clots, Easy Bleeding All Other Systems: Reviewed and Negative *Physical Exam - Vital Signs Last Vital Signs Temp Pulse Resp BP Pulse Ox 99.5 F 120 H 19 160/103 H 97 07/29/20 12:11 07/29/20 12:11 07/29/20 12:11 07/29/20 12:11 07/29/20 12:11 - Physical Exam 07/29/20 13:30 Vitals reviewed, hypertensive, initially tachycardia to 120s, in the 90s during my exam GEN: Well appearing, pale, appears stated age, NAD, comfortable. AAOx3. HEENT: NCAT, EOMI, PERRL. Sclera anicteric, non-injected. No facial asymmetry. Moist mucous membranes. Normal voice. Trachea midline. CV: RRR, S1/S2, no murmurs / rubs / gallops appreciated. LUNG: CTABL, normal work of breathing. No wheezes, rales, rhonchi. No cough. Speaking full sentences. GI: Soft, NTND, +BS, no guarding, no rebound. No masses. + midline and LLQ surgical scars without erythema, warmth, swelling, induration, fluctuance, or crepitus. RECTAL: No external hemorrhoids or fissures, normal tone, no masses or internal hemorrhoids noted, brown stool in vault without gross blood. EXTREMITIES: 2+ distal pulses. No clubbing / cyanosis / edema. No gross deformity in any extremity. SKIN: Warm, dry, no rashes appreciated, non-jaundiced. Pale. PSYCH: Normal mood and affect. Cooperative and appropriate. NEURO: CN grossly intact. Moving all extremities well. Normal strength and sensation grossly. ED Treatment Course - LABORATORY CBC & Chemistry Diagram: 07/29/20 13:10 07/29/20 13:10 Medical Decision Making - Medical Decision Making 07/29/20 13:33 60 yo M pmh HTN, diverticulitis c/b abscess underwent Erickson's procedure performed with colostomy s/p reversal with hernia repair in late May presenting with 1 week of diarrhea. History notable for multiple abdominal surgeries, stable symptoms over 1 week, no symptoms of dehydration, no pain, only diarrhea with small volume blood. Exam notable for no blood in rectal vault no hemorrhoids noted, stable vitals, pale appearance, well appearing with otherwise unremarkable exam. - CBC, CMP, Coags, T&S - EKG - Cardiac Monitoring - 1L IVF 07/29/20 13:[address] 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 Comfortable, return precautions discussed, understanding verbalized Dispo: Home with GI follow up Discharge - Discharge Information Problems reviewed: Yes Clinical Impression/Diagnosis: Diarrhea Qualifiers: Diarrhea type: unspecified type Qualified Code(s): R19.7 - Diarrhea, unspecified Condition: Stable Disposition: HOME - Admission No - Follow up/Referral Referrals: Alejo Bertrand MD [Primary Care Provider] - Aleah Elizabeth MD [Staff Physician] - Ghanshyam Brizuela MD [Staff Physician] - - Patient Discharge Instructions Patient Printed Discharge Instructions: DI for Diarrhea and Traveler's Diarrhea -- Adult, DI for Rectal Bleeding Additional Instructions: You were seen and evaluated at [place] for diarrhea. Your workup demonstrated normal blood levels, no signs of infection, stable vitals. Please continue your home medications as directed. You should also take care to drink plenty of water as diarrhea can rapidly cause dehydration. Follow up with your surgeon as directed and your GI doctor within the next 1-3 days for continued care and re-evaluation. If you are unable to meet with the GI doctor recommended by your surgeon, two have been provided for you in this packet, please call their offices for an appointment. Return to the ED for any new or concerning symptoms including but not limited to: worsening diarrhea, more blood, lightheadedness, passing out or feeling like you may pass out, abdominal pain, fevers and chills. It has been a pleasure taking care of you. Thank you for coming in. - Post Discharge Activity Work/Back to School Note: Back to Work
[2020-07-29] MEDS ORDERED: SODIUM CHLORIDE 0.9% 500 ML INFUS.BAG IV ONE (13:19)
[2020-07-29 13:32] LABS: BASO % 0.7 % (0-2.0); EOS % 3.4 % (0-4.5); HEMATOCRIT 39.1 % (35.4-49); HEMOGLOBIN 13.2 GM/dL (11.7-16.9); LYMPH % 14.4 % (8-40); MCH 29.7 pg (25.7-33.7); MCHC 33.8 g/dl (32.0-35.9); MEAN PLT VOLUME 7.8 fl (7.5-11.1); MONO % 14.2 % (3.8-10.2); NEUT % 67.3 % (42.8-82.8); PLATELET COUNT 301 K/MM3 (134-434); RBC 4.44 M/mm3 (4.00-5.60); RDW 14.7 % (11.9-15.9); WHITE BLOOD COUNT 9.6 K/mm3 (4.0-10.0)
[2020-07-29 13:38] LABS: INR 1.22 (0.83-1.09); PROTHROMBIN TIME (PATIENT) 14.4 SEC (9.7-13.0)
[2020-07-29 13:41] LABS: ACTIVATED PTT 30.3 SECONDS (25.2-36.5)
[2020-07-29 14:07] VITALS: BP 144/93; PULSE 92
[2020-07-29 14:11] LABS: ALBUMIN 3.2 g/dl (3.4-5.0); BLOOD UREA NITROGEN 8.4 mg/dL (7-18); CALCIUM 8.5 mg/dL (8.5-10.1); CREATININE 1.2 mg/dL (0.55-1.3); POTASSIUM 3.4 mmol/L (3.5-5.1); TOT PROT 6.8 g/dl (6.4-8.2)
--- NOTE | 2020-07-29 14:37 | PDOC ---
Documentation entered by Josemanuel Epstein SCRIBE, acting as scribe for Abbe Muhammad MD. Abbe Muhammad MD: This documentation has been prepared by the Lucian oliveira Xhesika, SCRIBE, under my direction and personally reviewed by me in its entirety. I confirm that the documentation accurately reflects all work, treatment, procedures, and medical decision making performed by me. Attending Attestation - Resident Resident Name: SinaEarl - ED Attending Attestation I have performed the following: I have examined & evaluated the patient, The case was reviewed & discussed with the resident, I agree w/resident's findings & plan, Exceptions are as noted - HPI HPI: 07/29/20 13:10 The patient is a 60 year old male, with a significant past medical history of hypertension, GERD, diverticulitis (complicated by s/p colon perforation, s/p temporary partial colostomy and reversal of hartmans procedure), who presents to the emergency department with 1 week of diarrhea mixed in blood every 3-4 hrs. Pt states he ate a sandwich with his co-worker a week ago and both developed diarrhea. Pt states he is able to tolerate fluids. Pt denies any abdominal pain, fevers, chills, nausea, vomiting, weakness, lightheadedness, chest pain, SOB, fatigue. He denies any recent dysuria, frequency, urgency or hematuria. No recent travel. No new abx Allergies: NKDA Primary Care Physician: Alejo Rodriguez - Physicial Exam PE: 07/29/20 14:35 exam: generall well appearing, NAD card rrr, no mrg pulm: cta b/l abd soft notnender, no rebound/guarding, no cva tenderness - Medical Decision Making 07/29/20 14:36 possible infectious diarrhea/food poisiong abd soft nontender will ck blood work to r/o anemia/metbolic derangement/renal failure will send stool studies if w/o neg anticipate o.p gi fu 07/29/20 15:46 labs reviewed, unremrekable stool guaiac + will refer to GI return precautions were discussed Heart Score/ECG Review - ECG Impressions Comment:: 07/29/20 15:10 Twelve-lead EKG was performed and reviewed by me. There is normal sinus rhythm with a normal rate. Rate of 85 Left axis deviation Discharge - Discharge Information Problems reviewed: Yes Clinical Impression/Diagnosis: Diarrhea Qualifiers: Diarrhea type: unspecified type Qualified Code(s): R19.7 - Diarrhea, unspecified Condition: Stable Disposition: HOME - Follow up/Referral Referrals: Aleah Elizabeth MD [Staff Physician] - Ghanshyam Brizuela MD [Staff Physician] - Alejo Bertrand MD [Primary Care Provider] - - Patient Discharge Instructions Patient Printed Discharge Instructions: DI for Diarrhea and Traveler's Diarrhea -- Adult, DI for Rectal Bleeding Additional Instructions: You were seen and evaluated at [place] for diarrhea. Your workup demonstrated normal blood levels, no signs of infection, stable vitals. Please continue your home medications as directed. You should also take care to drink plenty of water as diarrhea can rapidly cause dehydration. Follow up with your surgeon as directed and your GI doctor within the next 1-3 days for continued care and re-evaluation. If you are unable to meet with the GI doctor recommended by your surgeon, two have been provided for you in this pack et, please call their offices for an appointment. Return to the ED for any new or concerning symptoms including but not limited to: worsening diarrhea, more blood, lightheadedness, passing out or feeling like you may pass out, abdominal pain, fevers and chills. It has been a pleasure taking care of you. Thank you for coming in. - Post Discharge Activity Work/Back to School Note: Back to Work
[2020-07-29 14:52] LABS: BILIRUBIN,TOTAL 0.4 mg/dL (0.2-1)
--- NOTE | 2020-07-30 12:02 | EKG ---
Test Reason : Blood Pressure : / mmHG Vent. Rate : 085 BPM Atrial Rate : 085 BPM P-R Int : 146 ms QRS Dur : 096 ms QT Int : 412 ms P-R-T Axes : 021 -34 022 degrees QTc Int : 490 ms NORMAL SINUS RHYTHM LEFT AXIS DEVIATION MINIMAL VOLTAGE CRITERIA FOR LVH, MAY BE NORMAL VARIANT CANNOT RULE OUT ANTERIOR INFARCT , AGE UNDETERMINED NONSPECIFIC ST ABNORMALITY ABNORMAL ECG WHEN COMPARED WITH ECG OF 22-MAY-2020 11:41, NO SIGNIFICANT CHANGE WAS FOUND Confirmed by YOSELIN DANIELLE MD ([id number]) on 07/30/2020 12:02:18 PM Referred By: Confirmed By:YOSELIN DANIELLE MD
== END 2020-07-29 16:17 | disposition home or self-care (01) ==
LOC: JER 12:08
DX: R19.7 Diarrhea, unspecified (principal)
CPT/HCPCS: 36415; 80053; 82272; 85025; 85610; 85730; 86850; 86900; 86901; 93005; 93010; 99285-25